=== PATIENT | male | born 1970 | race Caucasian/White ===

== ENCOUNTER → 2016-08-02 | Outpatient (CLI) | payer OTHER ==
[~2016-08-02] MED LIST: /DIVA50TA PO; /WARF25TA OR; /WARF5TA OR; ACET65TA OR; BUPIVACAINE HCL 0.25% 30 ML VIAL As Ordered ONE; CELE-19 PO; CHAN1PAK11 PO; COMBO TOP; DEPA250T32 PO; DEPA500T2 PO; DIVA50TAEC PO; FISH100049 PO; FOLI1TAB OR; HYDR-3716 PO; HYDR5TAB23 PO; ISOVUE-M 300 61% 15ML VIAL (Q9967) As Ordered ONE; KETO10TAB PO; KRIL1000 PO; LIDOCAINE 1% SDV INJ 30 ML VIAL As Ordered ONE; LISI10TA2 PO; LISI10TA4 OR; MAXA10TA14 PO; MELO15TA3 PO; MELOPOW; MORP15TA2 PO; NORCOBULK PO; OXYC10TA97 OR; OXYC1TAB16 PO; OXYC1TAB23 PO; PERC10TA17 PO; PERC5TAB8 OR; PERC7.5T8 OR; RIZA10TA4 PO; ROBA750T4 PO; SIMV20TA2 OR; SIMV40TA2 PO; SOMA350T OR; SOMA350T PO; SUMA5INJ SC; SUMA6KIT SC; TPS cream TOP; TRIAMCINOLONE ACETONIDE SUSP 40 MG/ML VIAL (J3301) As Ordered ONE; ZANA4CAP PO; ZANA4TAB PO; diazePAM 5 MG TAB As Ordered ONE; oxyCODONE 5MG TAB As Ordered ONE
--- NOTE | 2016-08-02 14:02 | REP ---
LIMITED THORACIC SPINE SERIES: Single view. HISTORY: Thoracic facet block for pain. 10 seconds of fluoroscopy time is reported. FINDINGS: A single fluoroscopically obtained intraprocedural frontal spot radiograph of the upper thoracic spine documents various needle positions and contrast injections associated with thoracic facet injection procedure. Signed by Jacobo Summers MD 08/02/2016 07:27 P
--- NOTE | 2016-08-10 02:10 | ECWPNPC ---
PATIENT NAME: HAILY WAGNER : 1970 GENDER: MALE VISIT DATE: 08/02/2016 DISCHARGE DATE: 08/02/16 1347 VISIT LOCKED DATE TIME: PHYSICIAN: CHRISTINE MCKEON RESOURCE: CHRISTINE MCKEON REASON FOR APPOINTMENT 1. CERVICAL FACET CURRENT MEDICATIONS TAKING LISINOPRIL/HCTZ 10/12.5 10/12.5MG TABLET 1 TAB ORAL DAILY, NOTES: 08-02-16899 TAKING RIZATRIPTAN BENZOATE 10 MG TABLET 1 TABLET NEEDED ONE TIME ORALLY DAILY NEEDED, NOTES: OVER A MONTHOVER A MONTH TAKING SUMATRIPTAN SUCCINATE 6 MG/0.5ML KIT DIRECTED SUBCUTANEOUS DAILY NEEDED TAKING DEPAKOTE 500 MG TABLET DELAYED RELEASE 1 TABLET IN AM, 2 TABS IN PM ORALLY TWICE A DAY, NOTES: 08-02-16899 TAKING METHOCARBAMOL 500 MG TABLET 1 TABLET ORALLY TID PRN, NOTES: 08-01-16399 TAKING ATORVASTATIN CALCIUM 40 MG TABLET 1 TABLET ORALLY ONCE A DAY, NOTES: 08-01-162129 TAKING KRILL OIL 1000 MG CAPSULE ORALLY TWICE A DAY, NOTES: 08-02-16899 NOT-TAKING KRILL OIL OMEGA-3 350 MG CAPSULE 1 CAPSULE ORALLY TWICE A DAY, NOTES: 08-02-16899 NOT-TAKING PREDNISONE 10 MG KIT ORALLY NOT-TAKING PREDNISONE (FLORENCIO) 10 MG TABLET ORALLY NOT-TAKING SIMVASTATIN 20 20MG TABLET 1 TAB ORAL DAILY NOT-TAKING CELEBREX 200 MG CAPSULE 1 CAPSULE ORALLY TWICE A DAY NOT-TAKING CYCLOBENZAPRINE HCL 10 MG TABLET 1 TABLET PRN ORALLY THREE TIMES A DAY NOT-TAKING AMOXICILLIN-POT CLAVULANATE 875-125 MG TABLET 1 TABLET ORALLY TWICE A DAY NOT-TAKING HYDROCODONE-ACETAMINOPHEN 7.5-325 MG TABLET 1 TABLET NEEDED ORALLY-PAIN CLINIC EVERY 6 HRS NOT-TAKING TERBINAFINE HCL 250 MG TABLET 1 TABLET ORALLY ONCE A DAY MEDICATION LIST REVIEWED AND RECONCILED WITH THE PATIENT PAST MEDICAL HISTORY 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 HOSPITALIZATION/MAJOR DIAGNOSTIC PROCEDURE NO HOSPITALIZATION HISTORY. VITAL SIGNS WT 183 LBS, HT 70 IN, BMI 26.25 INDEX, BP 117/79 MM HG, HR 86 /MIN, RR 16 /MIN, TEMP 96.0 F, OXYGEN SAT % 98, NA INITIALS TL 1112, REVIEWED BY: LIAN. ASSESSMENTS SPONDYLOSIS WITHOUT MYELOPATHY OR RADICULOPATHY, CERVICOTHORACIC REGION - M47.813 (PRIMARY) SPONDYLOSIS WITHOUT MYELOPATHY OR RADICULOPATHY, THORACIC REGION - M47.814 PROCEDURES PN THORACIC FACET BLOCK THERAPEUTIC PRE PROCEDURE DIAGNOSIS THORACIC SPONDYLOSIS , THORACIC FACET ARTHROPATHY POST PROCEDURE DIAGNOSIS THORACIC SPONDYLOSIS, THORACIC FACET ARTHROPATHY PROCEDURE LEFT C7-T1, LEFT T1-T2, LEFT T2-T3 THORACIC FACET THERAPEUTIC BLOCK SURGEON DR. CHRISTINE MCKEON COURTESY VAN DRIVER NONE ANESTHESIA LOCAL PRE PROCEDURE NOTE THE PATIENT WITH HISTORY OF CHRONIC THORACIC PAIN. I EVALUATED THE PATIENT AND REVIEWED THE CHART. I WENT OVER THE RISKS, ALTERNATIVES, AND BENEFITS ASSOCIATED WITH THIS PROCEDURE. THE PATIENT WOULD LIKE TO PROCEED AND GAVE CONSENT TO PERFORM THE PROCEDURE. THE PATIENT DENIES UNEXPLAINABLE WEIGHT LOSS, FEVER, CHILLS, OR NEW CHANGES IN URINARY OR BOWEL CONTROL. DESCRIPTION OF PROCEDURE THE PATIENT WAS BROUGHT TO THE PROCEDURE ROOM AND PLACED IN THE PRONE POSITION. THE THORACIC AREA WAS CLEANED WITH CHLORAPREP SOLUTION AND DRAPED ASEPTICALLY. THE PROCEDURE WAS DONE UNDER STERILE CONDITIONS. I CHECKED LATERALITY AND THE LEVEL WHERE THE PROCEDURE WAS GOING TO BE PERFORMED WITH THE PATIENT AND THE SUPPORTING STAFF AT THE MOMENT OF THE TIME OUT IN THE PROCEDURE ROOM. UNDER FLUOROSCOPIC GUIDANCE, THE TARGET POINT WAS SELECTED AT THE LEFT C7-T1, LEFT T1-T2, LEFT T2-T3 THORACIC FACET. TARGET POINT WAS SELECTED AFTER LATERAL ROTATION AND TILT OF THE MAGNIFIER OF THE C-ARM. LIDOCAINE 0.5% WAS USED TO NUMB THE SKIN AND THE SUBCUTANEOUS TISSUE BELOW IT. SPINAL NEEDLES, 22-GAUGE, WERE ADVANCED UNDER FLUOROSCOPIC GUIDANCE AND FOLLOWING PATIENT FEEDBACK UNTIL THE TARGETS WERE TOUCHED. THE POSITION OF THE NEEDLES WAS VERIFIED WITH MULTIPLE X-RAY VIEWS. AFTER PROPER POSITION OF THE NEEDLES WAS ACHIEVED, ISOVUE-M DYE 30% 0.1 ML WAS INJECTED SHOWING ADEQUATE SPREAD OF THE DYE. THEN A SOLUTION OF 0.9 ML OF BUPIVACAINE 0.125% OF KENALOG 10 MG WAS INJECTED AT EACH SITE. THERE WAS NO EVIDENCE OF BLOOD, PARESTHESIA OR CEREBROSPINAL FLUID DURING THE PROCEDURE. THE PATIENT WAS SENT TO THE RECOVERY ROOM. THE PATIENT WAS MOVING THE EXTREMITIES AND DOING WELL. THERE WAS NO COMPLICATION DURING THE PROCEDURE. FLUOROSCOPY TIME WAS 10 SECONDS POST PROCEDURE NOTE THE PATIENT WILL BE SEEN IN A FOLLOW UP IN THE NEXT FEW WEEKS. INSTRUCTIONS WERE GIVEN, QUESTIONS WERE ANSWERED, AND THE PATIENT EXPRESSED UNDERSTANDING AND AGREED WITH THE PLAN. PROCEDURE CODES 00423 INJ PARAVERT F JNT C/T 1 LEV 92280 INJ PARAVERT F JNT C/T 2 LEV 01959 INJ PARAVERT F JNT C/T 3 LEV 6045F RADXPS IN END [id number] PXD FOLLOW UP 3 WEEKS ELECTRONICALLY SIGNED BY CHRISTINE MCKEON MD ON 08/09/2016 AT 02:38 PM EST DISCLAIMER : THIS IS A VISIT SUMMARY EXTRACTED FROM THE [employer] CHART. IT IS NOT A COPY OF THE [employer] PROGRESS NOTE. MARCIE
== END ==
LOC: M PAIN 11:10
PROVIDERS: ATTEND Anesthesiology
DX: G89.29 Other chronic pain (principal); M47.813 Spondylosis without myelopathy or radiculopathy, cervicothoracic region; M47.814 Spondylosis without myelopathy or radiculopathy, thoracic region; R51 Headache; I10 Essential (primary) hypertension; E78.5 Hyperlipidemia, unspecified; M25.561 Pain in right knee; M25.562 Pain in left knee; M54.5 Low back pain; H93.19 Tinnitus, unspecified ear; G47.33 Obstructive sleep apnea (adult) (pediatric); Z88.2 Allergy status to sulfonamides; Z88.8 Allergy status to other drugs, medicaments and biological substances
CPT/HCPCS: 64490; 64491; 64492; J3301; Q9967

== ENCOUNTER → 2016-08-29 | Outpatient (CLI) | payer OTHER ==
[~2016-08-29] MED LIST changes: -BUPIVACAINE HCL 0.25% 30 ML VIAL As Ordered ONE; -ISOVUE-M 300 61% 15ML VIAL (Q9967) As Ordered ONE; -LIDOCAINE 1% SDV INJ 30 ML VIAL As Ordered ONE; -TRIAMCINOLONE ACETONIDE SUSP 40 MG/ML VIAL (J3301) As Ordered ONE; -diazePAM 5 MG TAB As Ordered ONE; -oxyCODONE 5MG TAB As Ordered ONE
--- NOTE | 2016-08-30 00:09 | ECWPNPC ---
PATIENT NAME: HAILY WAGNER : 1970 GENDER: MALE VISIT DATE: 08/29/2016 DISCHARGE DATE: 08/29/16940 VISIT LOCKED DATE TIME: PHYSICIAN: MAURICE GIFFORD RESOURCE: MAURICE GIFFORD REASON FOR APPOINTMENT 1. POST FACET HISTORY OF PRESENT ILLNESS HISTORY OF PRESENT ILLNESS: HERE FORPOST PROCEDURE F/U.HAD BILAT. THERAPEUTIC C7/T1-T1/T2-T2/T3 BLOCK ON 08-02-16.REPORTS NO RELIEF POST PROCEDURE.RECENT NCS UPPER LEFT EXTREMITY SHOWING C5/6 RADICULOPATHY.RATING PAIN VAS 8/10.REPORTING POOR SLEEP RELATED TO NECK AND LEFT ARM PAIN.DESCRIBES PAIN CONSTANT BURNING AND ACHING. PAIN THE PATIENT DESCRIBES THE PAIN... FALL RISK SCREENING: SCREENING :NO FALLS IN THE PAST YEAR CURRENT MEDICATIONS TAKING LISINOPRIL/HCTZ 10/12.5 10/12.5MG TABLET 1 TAB ORAL DAILY, NOTES: 08-02-16899 TAKING RIZATRIPTAN BENZOATE 10 MG TABLET 1 TABLET NEEDED ONE TIME ORALLY DAILY NEEDED, NOTES: OVER A MONTHOVER A MONTH TAKING SUMATRIPTAN SUCCINATE 6 MG/0.5ML KIT DIRECTED SUBCUTANEOUS DAILY NEEDED TAKING DEPAKOTE 500 MG TABLET DELAYED RELEASE 1 TABLET IN AM, 2 TABS IN PM ORALLY TWICE A DAY, NOTES: 08-02-16899 TAKING METHOCARBAMOL 500 MG TABLET 1 TABLET ORALLY TID PRN, NOTES: 08-01-16 0400 TAKING ATORVASTATIN CALCIUM 40 MG TABLET 1 TABLET ORALLY ONCE A DAY, NOTES: 08-01-162129 TAKING KRILL OIL 1000 MG CAPSULE ORALLY TWICE A DAY, NOTES: 08-02-16899 NOT-TAKING KRILL OIL OMEGA-3 350 MG CAPSULE 1 CAPSULE ORALLY TWICE A DAY, NOTES: 08-02-16899 NOT-TAKING PREDNISONE 10 MG KIT ORALLY NOT-TAKING PREDNISONE (FLORENCIO) 10 MG TABLET ORALLY NOT-TAKING SIMVASTATIN 20 20MG TABLET 1 TAB ORAL DAILY NOT-TAKING CELEBREX 200 MG CAPSULE 1 CAPSULE ORALLY TWICE A DAY NOT-TAKING CYCLOBENZAPRINE HCL 10 MG TABLET 1 TABLET PRN ORALLY THREE TIMES A DAY NOT-TAKING AMOXICILLIN-POT CLAVULANATE 875-125 MG TABLET 1 TABLET ORALLY TWICE A DAY NOT-TAKING HYDROCODONE-ACETAMINOPHEN 7.5-325 MG TABLET 1 TABLET NEEDED ORALLY-PAIN CLINIC EVERY 6 HRS NOT-TAKING TERBINAFINE HCL 250 MG TABLET 1 TABLET ORALLY ONCE A DAY MEDICATION LIST REVIEWED AND RECONCILED WITH THE PATIENT PAST MEDICAL HISTORY 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 NEW PATIENT PAIN DIARY TODAY'S VISITNOTES FROM 0-10, WHAT LEVEL IS YOUR PAIN TODAY?0 PAIN CLINIC PFS, CLERGY, PUBLIC HEALTH REFERRALS PFS REFERRAL NEEDED?NO CLERGY REFERRAL NEEDED?NO PUBLIC HEALTH REFERRAL NEEDED?NO WAS THE PROVIDER NOTIFIED OF ANY PERTINENT INFO?NO PFS REFERRAL NEEDED?NO CLERGY REFERRAL NEEDED?NO PUBLIC HEALTH REFERRAL NEEDED?NO WAS THE PROVIDER NOTIFIED OF ANY PERTINENT INFO?NO REVIEW OF SYSTEMS CONSTITUTIONAL: ANY CHANGE IN YOUR MEDICAL CONDITION? NO . RECENT ILLNESS DENIES . CHILLS NO . FEVER NO . WEIGHT LOSS DENIES . INFECTION: DO YOU HAVE NEW INFECTIONS? NO . DO YOU HAVE HISTORY OF MRSA? NO . MUSCULOSKELETAL: ANY NEW PATTERNS OF PAIN OR NUMBNESS? NO . GASTROENTEROLOGY: ANY NEW CHANGE IN BOWEL CONTROL? NO . GENITOURINARY: ANY NEW CHANGE IN BLADDER CONTROL? NO . IS THERE A CHANCE YOU COULD BE ? NO . HEMATOLOGY/LYMPH: DO YOU TAKE ANY BLOOD THINNERS? (FOR EXAMPLE- COUMADIN, PLAVIX, AGGRENOX, PLATEL, PRADAXA, OR XARELTO) NO . WHEN WAS YOUR LAST DOSE? DATE: TIME: . NEUROLOGY: HAVE YOU FALLEN IN THE PAST 6 MONTHS? YES, ON ICE APPROX. 1 MONTH AGO--NO INJURY . ANY NEW EXTREMITY NUMBNESS OR WEAKNESS? NO . CARDIOLOGY: DO YOU HAVE A PACEMAKER OR DEFIBRILLATOR? NO . CHEST PAIN DENIES . SHORTNESS OF BREATH DENIES . RESPIRATORY: HAVE YOU BEEN SICK IN THE PAST WEEK? NO . FEVER NO . FLU LIKE SYMPTOMS? NO . COUGH NO, DENIES . SHORTNESS OF BREATH DENIES . INTEGUMENTARY: DO YOU HAVE ANY RASHES OR OPEN SORES? NO . ALLERGIC/IMMUNO: ARE YOU ALLERGIC TO SHELLFISH OR IV DYE? NO . ANY NEW ALLERGIES? NO . PSYCHIATRIC: DO YOU HAVE THOUGHTS OF HURTING YOURSELF OR SOMEONE ELSE? NO . ARE YOU ABUSED, NEGLECTED, OR IN AN UNSAFE ENVIRONMENT? NO . ENDOCRINOLOGY: ARE YOU DIABETIC? NO . OTHER: DO YOU NEED ANY PRESCRIPTIONS? NO . IF YES, PLEASE LIST: ____ . ANY NEW PROBLEMS WITH YOUR MEDICATIONS? NO . WHEN DID YOU LAST EAT? ____ . WHEN DID YOU LAST DRINK? ____ . WHAT DID YOU LAST DRINK? ____ . NAME OF PERSON DRIVING YOU HOME? ____ . DO YOU HAVE ANY OTHER QUESTIONS OR CONCERNS YES, ONLY ONE DAY RELIEF FROM CERVICAL FACET BLOCK. . REVIEWED BY: PROVIDER: MAURICE GILLIS . VITAL SIGNS WT 184 LBS, HT 70 IN, BMI 26.40 INDEX, BP 140/83 MM HG, HR 83 /MIN, RR 16 /MIN, TEMP 98 F, OXYGEN SAT % 96, REVIEWED BY: AD. EXAMINATION GENERAL EXAMINATION: LUNGS:LUNG SOUNDS ARE CLEAR. HEART:HEART RATE REGULAR. MUSCULOSKELETAL:*, MUSCLE STRENGTH TESTING 5/5 RIGHT ARM-3/5 LEFT ARM., PALPATION: POSITIVE FOR PAIN OVER CERVICAL SPINE. POSITIVE FOR PAIN OVER CERVICAL PARASPINALS L>R.. DIAGNOSTIC:CT CERVICAL [id number]-CERVICAL SPONDYLOSIS C2/3-C6/7.. 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 FDA CONCERNS AND WARNING WERE REVIEWED INCLUDING THE RISK OF BLEEDING, RISK OF INFECTION, RISK OF INCREASED PAIN OR NEURALGIA, AND RISK OF PARALYSIS. PATIENT'S QUESTIONS WERE ANSWERED AND HE/SHE WISHES TO MOVE FORWARD WITH EPIDURAL INJECTION. PREVENTIVE MEDICINE PAIN CLINIC TEACHING: PROCEDURE TEACHING PATIENT DECLINED PRINTED INFORMATION ON CERVICAL EPIDURAL. . MEDITATION PATIENT DECLINED PRINTED INFORMATION ON SOMA STATING HE HAS BEEN ON THIS BEFORE.. PROCEDURE CODES FA211 ESTABILISHED PATIENT [facility] CHARGE FOLLOW UP 2 WEEKS F/U POST (REASON: BREEZY) ELECTRONICALLY SIGNED BY CARLIN FORMAN ON 08/29/2016 AT 09:44 AM EST DISCLAIMER : THIS IS A VISIT SUMMARY EXTRACTED FROM THE [employer] CHART. IT IS NOT A COPY OF THE [employer] PROGRESS NOTE. MARCIE
== END ==
LOC: M PAIN 08:40
PROVIDERS: ATTEND Nurse Practitioner Family
DX: Z09 Encounter for follow-up examination after completed treatment for conditions other than malignant neoplasm (principal); G89.29 Other chronic pain; M47.22 Other spondylosis with radiculopathy, cervical region; R51 Headache; I10 Essential (primary) hypertension; E78.5 Hyperlipidemia, unspecified; G47.30 Sleep apnea, unspecified; Z79.899 Other long term (current) drug therapy; Z88.2 Allergy status to sulfonamides; Z88.5 Allergy status to narcotic agent; Z88.1 Allergy status to other antibiotic agents
CPT/HCPCS: 72052; 72114; G0463

== ENCOUNTER → 2016-08-29 | Outpatient (CLI) | payer OTHER ==
--- NOTE | 2016-08-30 02:51 | REP ---
Clinical: Spondylosis . Technique: AP, lateral, flexion/extension, bilateral oblique, and open-mouth views. Findings: Straightening of normal lordosis noted. Alignment is maintained. There is no evidence for acute fracture / compression injury or subluxation. Minimal endplate sclerosis and anterior spurring noted at the C5-6 and C6-7 levels. Oblique views demonstrate patent neural foramen. Open mouth view demonstrates normal C1-C2 articulation and odontoid process. Impression: Straightening of normal lordosis may be chronic. Minimal degenerative changes at the C5-6 and C6-7 levels. Signed by Kin Luna MD 08/30/2016 02:43 A
--- NOTE | 2016-08-30 03:02 | REP ---
Clinical: Spondylosis. Technique: AP, lateral, flexion/extension, bilateral oblique, and coned-down views. Findings: Alignment and lordosis is maintained. Epidural stimulator device noted terminating at the thoracic level. The vertebral bodies including transverse process and spinous processes are intact and normal. There is no evidence for acute fracture / compression injury or subluxation. No evidence for spondylolysis or spondylolisthesis. Mild age-related changes are suggested without overt degenerative discogenic changes appreciated. Impression: Age-related changes. Signed by Kin Luna MD 08/30/2016 02:53 A
== END ==
LOC: M LAB 10:22
PROVIDERS: ATTEND Neurological Surgery
DX: M47.12 Other spondylosis with myelopathy, cervical region (principal); M50.322 Other cervical disc degeneration at C5-C6 level; M50.323 Other cervical disc degeneration at C6-C7 level
CPT/HCPCS: 72052; 72114; G0463

== ENCOUNTER → 2016-09-24 | Outpatient (REF) | payer OTHER | LOC: M LAB REF 16:22 | PROVIDERS: ATTEND Neurological Surgery | DX: Z01.812 Encounter for preprocedural laboratory examination (principal) ==

== ENCOUNTER → 2016-09-25 | Outpatient (CLI) | payer OTHER ==
[2016-09-25 14:32] LABS: INR 1.03
[2016-09-25 14:50] LABS: BASO % 0.4 % (0.0-1.0); EOS # 0.1 K/mm3 (0.0-0.50); EOS % 1.1 % (0.0-3.0); LARGE UNSTAINED CELL # 0.1 K/mm3 (0.0-0.4); LARGE UNSTAINED CELL % 1.3 % (0.0-4.0); LYMPH # 1.3 K/mm3 (1.5-4.5); LYMPH % 20.6 % (24.0-44.0); MEAN CORPUSCULAR HEMOGLOBIN 28.6 pg (27.0-33.0); MEAN CORPUSCULAR HGB CONC 33.2 g/dl (32.0-36.5); MEAN CORPUSCULAR VOLUME 86.2 fl (80.0-96.0); MONO # 0.4 K/mm3 (0.0-0.8); MONO % 6.9 % (0.0-5.0); NEUTROPHILS # 4.2 K/mm3 (1.8-7.7); NEUTROPHILS % 69.6 % (36.0-66.0); PLATELET COUNT, AUTOMATED 335 k/mm3 (150-450); RED CELL DISTRIBUTION WIDTH 13.4 % (11.5-14.5); WHITE BLOOD COUNT 6.1 K/mm3 (4.0-10.0)
[2016-09-25 14:58] LABS: ALBUMIN 4.2 GM/DL (3.2-5.2); ALBUMIN/GLOBULIN RATIO 1.35 (1.00-1.93); ALKALINE PHOSPHATASE 55 U/L (45-117); ALT/SGPT 48 U/L (12-78); ANION GAP 8 MEQ/L (8-16); AST/SGOT 21 U/L (15-37); BILIRUBIN,TOTAL 0.4 MG/DL (0.2-1.0); BLOOD UREA NITROGEN 12 MG/DL (7-18); CALCIUM LEVEL 9.3 MG/DL (8.5-10.1); CARBON DIOXIDE LEVEL 30 MEQ/L (21-32); CHLORIDE LEVEL 105 MEQ/L (98-107); CREATININE FOR GFR 1.11 MG/DL (0.70-1.30); GLOMERULAR FILTRATION RATE > 60.0 (>60); GLUCOSE, FASTING 98 MG/DL (70-105); POTASSIUM SERUM 4.4 MEQ/L (3.5-5.1); SODIUM LEVEL 143 MEQ/L (136-145); TOTAL PROTEIN 7.3 GM/DL (6.4-8.2)
--- NOTE | 2016-09-25 15:08 | REP ---
Chest two views HISTORY: Preop Comparison: 12/01/2014 The lungs are clear. The heart is normal in size. The pulmonary vasculature is normal in appearance. The bony structure is intact. A dorsal column stimulator is present in the spinal canal at the T7-8 level. IMPRESSION: No acute disease. Signed by David Cox MD 09/25/2016 03:00 P
--- NOTE | 2016-09-25 21:24 | ECGEPIP ---
Stationary ECG Study [facility] Test Date: 2016-09-25 Pat Name: HAILY WAGNER Department: Room: - Gender: M Nurse Manager: ALICE : 1970 Requested By: ZULEMA Hathaway Order Number: [id number] Reading MD: Angel Price Measurements Intervals [place] Rate: 67 P: 26 CA: 116 QRS: 32 QRSD: 101 T: 12 QT: 385 QTc: 406 Interpretive Statements SINUS RHYTHM WITH SHORT CA INTERVAL Electronically Signed On 09-25-2016 21:24:01 EST by Angel Price
== END ==
LOC: M LAB 12:56
PROVIDERS: ATTEND Neurological Surgery
DX: Z01.818 Encounter for other preprocedural examination (principal); M47.12 Other spondylosis with myelopathy, cervical region

== ENCOUNTER → 2016-10-17 | Outpatient (CLI) | payer OTHER ==
[~2016-10-17] MED LIST changes: +ATOR40TA PO; +ISOVUE-M 300 61% 15ML VIAL (Q9967) As Ordered ONE
--- NOTE | 2016-10-17 10:03 | REP ---
CT CERVICAL SPINE WITHOUT CONTRAST: HISTORY: Radiculopathy. COMPARISON: 07/05/2016 CT of the cervical spine was performed status post myelography. Disc bulges are present at the C2-3 through C6-7 levels. There is minimal effacement of the thecal sac without spinal cord compression. Uncinate process hypertrophy is present at the C6-7 level. This produces moderate and mild narrowing of the right and left C6 neural foramina respectively. The remaining neural foramina are patent. The C5-6 and C6-7 intervertebral discs are decreased in height consistent with disc degeneration. The vertebral bodies are normal in height. There is no subluxation. IMPRESSION: There is cervical spondylosis at the C2-3 through C6-7 levels without spinal cord compression. Signed by David Cox MD 10/17/2016 10:04 A
--- NOTE | 2016-10-17 16:02 | REP ---
CERVICAL MYELOGRAM INJECTION: The procedure was performed under the personal supervision of Dr. Cox. The risks and benefits of the procedure were explained to the patient and informed consent was obtained. The L3-4 interspace was localized using fluoroscopic guidance. The skin was prepped and draped in a sterile fashion. 1% lidocaine was used as a local anesthetic. Using fluoroscopic guidance a 22 gauge spinal needle was inserted and advanced into the thecal sac. 10 mL of Isovue M 300 was injected. The table was then tipped Trendelenburg and the contrast was allowed to flow up into the cervical spine. The patient was then taken to CAT scan for post procedural imaging. The patient tolerated the procedure well and there were no immediate complications. After the appropriate amount of monitored convalescence the patient was discharged from the department. 37 seconds of fluoroscopy time was utilized for this procedure. Reviewed by SHARON Nascimento 10/17/2016 04:26 PEdited and Signed by David Cox MD 10/17/2016 04:52 P
== END ==
LOC: M RADPRO 08:32
PROVIDERS: ATTEND Neurological Surgery
DX: M47.12 Other spondylosis with myelopathy, cervical region (principal); I10 Essential (primary) hypertension; E78.5 Hyperlipidemia, unspecified; G47.30 Sleep apnea, unspecified; Z88.2 Allergy status to sulfonamides; Z88.8 Allergy status to other drugs, medicaments and biological substances; Z88.1 Allergy status to other antibiotic agents; Z79.899 Other long term (current) drug therapy
CPT/HCPCS: 62302; 72125; Q9967

== ENCOUNTER → 2016-11-25 | Outpatient (CLI) | payer OTHER ==
[~2016-11-25] MED LIST changes: -ISOVUE-M 300 61% 15ML VIAL (Q9967) As Ordered ONE
[2016-11-25 14:36] LABS: MICROSCOPIC INDICATED? MAN NO (NO)
[2016-11-25 14:41] LABS: INR 0.94
[2016-11-25 14:57] LABS: MEAN CORPUSCULAR HEMOGLOBIN 29.1 pg (27.0-33.0); MEAN CORPUSCULAR HGB CONC 33.5 g/dl (32.0-36.5); MEAN CORPUSCULAR VOLUME 86.7 fl (80.0-96.0); RED CELL DISTRIBUTION WIDTH 12.9 % (11.5-14.5); WHITE BLOOD COUNT 4.2 K/mm3 (4.0-10.0)
[2016-11-25 15:15] LABS: ALBUMIN 3.7 GM/DL (3.2-5.2); ALBUMIN/GLOBULIN RATIO 1.19 (1.00-1.93); ALKALINE PHOSPHATASE 60 U/L (45-117); ALT/SGPT 17 U/L (12-78); ANION GAP 5 MEQ/L (8-16); AST/SGOT 18 U/L (15-37); BILIRUBIN,TOTAL 0.2 MG/DL (0.2-1.0); BLOOD UREA NITROGEN 8 MG/DL (7-18); CALCIUM LEVEL 8.7 MG/DL (8.5-10.1); CARBON DIOXIDE LEVEL 31 MEQ/L (21-32); CHLORIDE LEVEL 102 MEQ/L (98-107); CREATININE FOR GFR 1.12 MG/DL (0.70-1.30); GLOMERULAR FILTRATION RATE > 60.0 (>60); GLUCOSE, FASTING 106 MG/DL (70-105); POTASSIUM SERUM 4.6 MEQ/L (3.5-5.1); SODIUM LEVEL 138 MEQ/L (136-145); TOTAL PROTEIN 6.8 GM/DL (6.4-8.2)
[2016-11-25 15:49] LABS: BANDS 2 % (< 11); BASOPHILS 3 % (0-4); EOSINOPHILS 2 % (0-5)
[2016-11-25 15:50] LABS: ANISOCYTOSIS 1+
== END ==
LOC: M LAB 13:17
PROVIDERS: ATTEND Neurological Surgery
DX: Z01.812 Encounter for preprocedural laboratory examination (principal)

== ENCOUNTER 2016-12-12 08:53 | Day surgery (SDC) | payer OTHER ==
[~2016-12-12] VITALS: Ht 177.8 cm; Wt 81.6 kg
[~2016-12-12 08:53] MED LIST changes: +VITA1CAP2 PO
[2016-12-12] MEDS ORDERED: LR 1,000 ML IV ONE (09:00)
[2016-12-12] MEDS ORDERED: dexameTHASONE 4 MG/ML 1ML VIAL (J1100) IV ONE (09:15)
[2016-12-12] MEDS ORDERED: ALBU17IN PO (10:02)
[2016-12-12] MEDS ORDERED: ROCURONIUM BROMIDE 50 MG/5 ML VIAL As Ordered ONE (10:57)
[2016-12-12] MEDS ORDERED: LIDOCAINE 2% INJ 100 MG/5 ML SDV (FOR ANES.) As Ordered ONE (10:57)
[2016-12-12] MEDS ORDERED: PROPOFOL 200 MG/20 ML VIAL As Ordered ONE ×5 (10:57→14:16)
[2016-12-12] MEDS ORDERED: dexameTHASONE 4 MG/ML 1ML VIAL (J1100) As Ordered ONE (10:57)
[2016-12-12] MEDS ORDERED: REMIFENTANIL 1MG 3ML VIAL As Ordered ONE ×2 (10:58→14:34)
[2016-12-12] MEDS ORDERED: MIDAZOLAM INJ 2 MG/2 ML VIAL (J2250) As Ordered ONE ×2 (10:58→11:35)
[2016-12-12] MEDS ORDERED: fentaNYL 250 MCG/5 ML INJECTION (J3010) As Ordered ONE (10:58)
[2016-12-12] MEDS ORDERED: THROMBIN SOLN 20,000 UNITS KIT As Ordered ONE (11:08)
[2016-12-12] MEDS ORDERED: methylPREDNISolone SUSP 40 MG/ML (DEPO-medrol) VIAL (J1030) As Ordered ONE (11:08)
[2016-12-12] MEDS ORDERED: BACITRACIN PWD 50,000 UNITS VIAL As Ordered ONE (11:08)
[2016-12-12] MEDS ORDERED: ONDANSETRON 4MG/2ML VIAL (J2405) As Ordered ONE (13:12)
[2016-12-12] MEDS ORDERED: GLYCOPYRROLATE INJ 0.2 MG/ML 2 ML VIAL As Ordered ONE ×2 (13:12→15:00)
[2016-12-12] MEDS ORDERED: NEOSTIGMINE 1MG/ML 5 ML SYRINGE (J2710) As Ordered ONE ×2 (13:12→15:00)
[2016-12-12] MEDS ORDERED: HYDROmorphone HCL 2 MG/ML 1ML VIAL (J1170) As Ordered ONE (13:42)
--- NOTE | 2016-12-12 15:16 | REP ---
Clinical: Cervical spondylosis. Technique: Portable cross-table intraoperative images. Findings: First image demonstrates a probe via anterior approach at the C5-6 disc level. Second image demonstrates anterior fixation at the C6-7 level. Normal alignment maintained. Impression: Status post anterior fusion at the C6-7 level Signed by Kin Luna MD 12/12/2016 03:08 P
[2016-12-12] MEDS ORDERED: HYDROmorphone HCL 1 MG/ML SYRINGE (J1170) As Ordered ONE (15:46)
[2016-12-12] MEDS: HYDROmorphone HCL 1 MG/ML SYRINGE (J1170) IV PRN ×5 (15:46→16:10)
[2016-12-12] MEDS ORDERED: PERCOCET 5MG/325MG TAB As Ordered ONE (16:05)
[2016-12-12] MEDS: PERCOCET 5MG/325MG TAB PO PRN ×2 (16:08→16:28)
[2016-12-12] MEDS ORDERED: fentaNYL 100 MCG/2 ML INJECTION (J3010) IV PRN (16:15)
[2016-12-12] MEDS ORDERED: ACETAMINOPHEN TAB 650MG DOSE (2X325MG) PO PRN (16:15)
[2016-12-12] MEDS ORDERED: NORCO, ANEXSIA 5/325MG TABLET (HYDROcodone/ACETAMINOPHEN) PO PRN (16:15)
[2016-12-12] MEDS ORDERED: ONDANSETRON 4MG/2ML VIAL (J2405) IV PRN ×2 (16:15)
[2016-12-12] MEDS ORDERED: LR 1,000 ML IV SCH (16:15)
[2016-12-12 17:00] VITALS: BP 151/74
[2016-12-12 17:30] VITALS: BP 128/84
[2016-12-12 18:30] VITALS: BP 123/79
[2016-12-12] MEDS: MORPHINE 2 MG/ML 1ML SYRINGE IV PRN ×2 (18:47→23:18)
[2016-12-12] MEDS: ceFAZolin SOD 1 GM in D5W MINI-BAG PLUS 50 ML IV SCH ×2 (18:47→23:13)
[2016-12-12] MEDS: KCL 20MEQ IN D5/0.45NS 1000ML 1,000 ML IV SCH (18:47)
[2016-12-12 19:30] VITALS: BP 138/76
[2016-12-12 20:30] VITALS: BP 132/64
[2016-12-12] MEDS: NORCO, ANEXSIA 5/325MG TABLET (HYDROcodone/ACETAMINOPHEN) PO PRN (21:03)
[2016-12-12 21:30] VITALS: BP 115/72
--- NOTE | 2016-12-12 23:48 | RO ---
DATE OF PROCEDURE: 12/12/2016 PREPROCEDURE DIAGNOSIS: Cervical spondylosis with radiculopathy. POSTPROCEDURE DIAGNOSIS: Cervical spondylosis with radiculopathy. PROCEDURE: Partial corpectomy C6-C7, discectomy, arthrodesis using allograft and internal stabilization utilizing Uniplating system. SURGEON: Dr. Maribel Ponce RAIL LOADER: None. ANESTHESIA: General. FINDINGS: Please see my office notes for detailed preoperative evaluation and discussions. Patient with severe and relentless pain in her neck and left upper extremity, primarily along C7-C8 distribution. The patient's workup showed spondylitic changes with canal and foraminal stenosis, particularly at C6-C7. His EMG/nerve conduction studies also reported pertinent radicular changes. The patient was seen in the preoperative area along with his . The patient and his were aware of all options, scope, expected outcome, sequelae and all possible complications of proposed salvage surgery. They understood the risk of surgery includes, but not limited to , quadriplegia, paralysis, persistence or worsening of symptoms, and/or deficits, failure of surgery, fusion and/or hardware, need for multiple surgeries, pulmonary embolus (PE), deep vein thrombosis (DVT), myocardial infarction ([place]), loss of vital bodily functions, cerebrovascular accident, Magali's syndrome, pneumothorax, mediastinitis, loss of swallowing and voice, and/or any catastrophic sequelae. The patient once again reiterated that there is no way he can live with his pain and symptoms and is willing to take any or all risks for any possible benefit. After all matters pertaining to surgery, anesthesia and followup care had been discussed with him again and with his , he wished to proceed with surgery. DESCRIPTION OF PROCEDURE: Once in the operating room, general endotracheal anesthesia was given by the anesthesia service. The area of surgery was prepped and draped in the usual sterile fashion. After adequate prep and drape, a transverse skin incision was given about an inch and a half or so just beneath the cricoid cartilage. The alveolar layer was reached and incised. Cut edges of blood vessels were coagulated with bipolar cautery. Platysma was opened in the direction of fibers. A cleavage was created between the medial border of the sternocleidomastoid and the carotid sheath laterally, and trachea, esophagus and omohyoid muscle medially. Prevertebral fascia was reached and opened. Longus colli muscles were from the expected C6-C7 level, which was confirmed on perioperative x-rays. At this time, using a high speed air drill, anterior osteophytes were removed to gain more visual access of the of the disc space, which was then opened and degenerative disc material was removed. Two Cheraw pins were applied and gentle distraction was held. The longus colli muscles were held apart with the help of self-retaining retractors. There was considerable spondylotic changes with osteophyte and bulging disc in the canal causing canal stenosis and foraminal stenosis, which was worse on the left. Partial corpectomies were done to further increase the external decompression. Complete decompression of the thecal sac, the spinal cord and proximal portion of both the nerves roots appeared to have taken place. Hemostasis was checked and secured. There was no blood in the container, and at this time, a 7 x 14 x 23 mm of tricortical allograft bone plug was snugly placed in the vertebral defect. At this time, a 16 mm Uniplating system was used to cause internal stabilization, which was anchored at C6 and C7 and tightened. The lock and screws were tightened as well. Perioperative x-rays were done, which appeared acceptable, though the inferior screw was not seen on account of shoulder density. Followup x-rays will be repeated. The patient tolerated the procedure well. Operative findings were discussed with the patient's in the waiting room. At the time of dictation, in the recovery room, the patient was awake and alert and without any obvious deficits and denied any symptoms. Copies To: Dr. Cintron Patient's primary care provider
[2016-12-13] MEDS: KCL 20MEQ IN D5/0.45NS 1000ML 1,000 ML IV SCH (00:35)
[2016-12-13] MEDS: NORCO, ANEXSIA 5/325MG TABLET (HYDROcodone/ACETAMINOPHEN) PO PRN ×3 (01:12→12:13)
[2016-12-13 02:00] VITALS: O2SAT 99
[2016-12-13] MEDS: MORPHINE 2 MG/ML 1ML SYRINGE IV PRN ×2 (03:24→08:29)
[2016-12-13 06:00] VITALS: BP 127/69
[2016-12-13] MEDS: ceFAZolin SOD 1 GM in D5W MINI-BAG PLUS 50 ML IV SCH ×2 (06:18→12:10)
--- NOTE | 2016-12-13 09:12 | REP ---
Partial cervical spine series: Three views. History: Postop. Findings: There is straightening of the normal cervical lordosis. A ventral discectomy and fusion plate has been placed across the C6-7 disc level in good position. No other abnormality. Signed by Jacobo Summers MD 12/13/2016 12:30 P
[2016-12-13 10:00] VITALS: BP 114/65
[2016-12-13] MEDS ORDERED: NORC1TAB4 PO (13:16)
[2016-12-13] MEDS ORDERED: CIPR-250 PO (13:16)
== END 2016-12-13 14:15 | disposition home or self-care (01) ==
LOC: M SDC 08:53 → M MS5PR 16:50 → M SDC 12-13 14:15
PROVIDERS: ATTEND Neurological Surgery
DX: M47.22 Other spondylosis with radiculopathy, cervical region (principal); I10 Essential (primary) hypertension; E78.5 Hyperlipidemia, unspecified; G47.30 Sleep apnea, unspecified; Z79.899 Other long term (current) drug therapy; Z88.2 Allergy status to sulfonamides; Z88.8 Allergy status to other drugs, medicaments and biological substances
CPT/HCPCS: 20931; 22551; 22845; 72040; 72052; 88304; 96374; 96375; 96376; C1762; C1821; J0690; J1030; J1100; J1170; J2250; J2405; J2710; J3010

== ENCOUNTER → 2017-01-14 | Outpatient (CLI) | payer OTHER ==
[~2017-01-14] MED LIST changes: +ALBU17IN PO; -ATOR40TA PO; +ATOR40TA75 PO; -CELE-19 PO; +CELE1CAP4 PO; +CIPR-250 PO; +NORC1TAB4 PO; -PERC10TA17 PO; +PERC10TA26 PO
--- NOTE | 2017-01-24 15:08 | REP ---
Clinical: Radiculopathy. Comparison: 12/13/2016 . Technique: AP, lateral, flexion/extension, bilateral oblique, and open-mouth views. Findings: Alignment is maintained. The patient is status post anterior fusion at the C6-7 level which remain stable. There is no evidence for acute fracture / compression injury or subluxation. No significant degenerative changes are appreciated. Oblique views demonstrate patent neural foramen. Open mouth view demonstrates normal C1-C2 articulation and odontoid process. Impression: No change from prior examination. Prior anterior fixation at the C6-7 level stable. Signed by Kin Luna MD 01/15/2017 02:32 A
== END ==
LOC: M RAD 12:24
PROVIDERS: ATTEND Neurological Surgery
DX: M47.22 Other spondylosis with radiculopathy, cervical region (principal); Z98.1 Arthrodesis status

== ENCOUNTER → 2017-02-06 | Outpatient (CLI) | payer OTHER ==
--- NOTE | 2017-02-07 06:32 | REP ---
Clinical: Spondylosis. Technique: AP, lateral, open mouth views of the cervical spine. Comparison: CT dated 10/17/2016. Findings: Alignment is maintained. The patient is status post anterior fusion at the C6-7 level. Open mouth view demonstrates normal C1-C2 articulation and odontoid process. Prevertebral and paravertebral soft tissues appear normal. Impression: Status post anterior fusion. Stable/normal examination. Signed by Kin Luna MD 02/07/2017 03:22 A
== END ==
LOC: M RAD 13:05
PROVIDERS: ATTEND Physician Assistant
DX: M47.892 Other spondylosis, cervical region (principal); Z98.1 Arthrodesis status

== ENCOUNTER → 2017-04-17 | Outpatient (CLI) | payer OTHER ==
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
== END ==
LOC: M PAIN 10:15
PROVIDERS: ATTEND Nurse Practitioner Family
DX: M47.22 Other spondylosis with radiculopathy, cervical region (principal); I10 Essential (primary) hypertension; E78.2 Mixed hyperlipidemia; G89.29 Other chronic pain; Z79.899 Other long term (current) drug therapy; Z88.2 Allergy status to sulfonamides; Z88.1 Allergy status to other antibiotic agents; Z88.8 Allergy status to other drugs, medicaments and biological substances

== ENCOUNTER → 2017-05-06 | Outpatient (CLI) | payer OTHER ==
[~2017-05-06] MED LIST changes: +BUPIVACAINE HCL 0.25% 10 ML VIAL As Ordered ONE; +BUPIVACAINE HCL 0.25% 30 ML VIAL As Ordered ONE; +TRIAMCINOLONE ACETONIDE SUSP 40 MG/ML VIAL (J3301) As Ordered ONE; +diazePAM 5 MG TAB As Ordered ONE; +oxyCODONE 5MG TAB As Ordered ONE
--- NOTE | 2017-05-07 23:51 | ECWPNPC ---
PATIENT NAME: HAILY WAGNER : 1970 GENDER: MALE VISIT DATE: 05/06/2017 DISCHARGE DATE: 05/06/17 1641 VISIT LOCKED DATE TIME: PHYSICIAN: CHRISTINE MCKEON RESOURCE: CHRISTINE MCKEON REASON FOR APPOINTMENT 1. TPI HISTORY OF PRESENT ILLNESS HISTORY OF PRESENT ILLNESS: PAIN THE PATIENT DESCRIBES THE PAIN... FALL RISK SCREENING: SCREENING :NO FALLS IN THE PAST YEAR CURRENT MEDICATIONS TAKING LISINOPRIL/HCTZ 10/12.5 10/12.5MG TABLET 1 TAB ORAL DAILY, NOTES: 05/06/17 1000 TAKING RIZATRIPTAN BENZOATE 10 MG TABLET 1 TABLET NEEDED ONE TIME ORALLY DAILY NEEDED, NOTES: > 1 MONTH TAKING SUMATRIPTAN SUCCINATE 6 MG/0.5ML KIT DIRECTED SUBCUTANEOUS DAILY NEEDED, NOTES: LAST WEEK TAKING DEPAKOTE 500 MG TABLET DELAYED RELEASE 1 TABLET IN AM, 2 TABS IN PM ORALLY TWICE A DAY, NOTES: 05/06/17 1000 TAKING ATORVASTATIN CALCIUM 40 MG TABLET 1 TABLET ORALLY ONCE A DAY, NOTES: 05/05/172129 TAKING VENTOLIN HFA 108 (90 BASE) MCG/ACT AEROSOL SOLUTION 2 PUFFS INHALATION EVERY 4-6 HRS, NOTES: > 2 WEEKS TAKING KRILL OIL 1000 MG CAPSULE ORALLY BID, NOTES: 05/06/17 1000 TAKING TIZANIDINE HCL 6 MG CAPSULE 1 CAPSULE NEEDED ORALLY Q8H PRN FOR SEVERE EPISODES ONLY, NOTES: 05/05/17 2000 TAKING PERCOCET 7.5-325 MG TABLET 1 TABLET NEEDED ORALLY Q8H PRN MDD3 FOR SEVERE PAIN EPISODES MDD3, NOTES: 05/05/17 1600 MEDICATION LIST REVIEWED AND RECONCILED WITH THE PATIENT PAST MEDICAL HISTORY 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 CONSTITUTIONAL: ANY CHANGE IN YOUR MEDICAL CONDITION? NO . CHILLS NO . FEVER NO . INFECTION: DO YOU HAVE NEW INFECTIONS? NO . DO YOU HAVE HISTORY OF MRSA? NO . MUSCULOSKELETAL: ANY NEW PATTERNS OF PAIN OR NUMBNESS? NO . GASTROENTEROLOGY: ANY NEW CHANGE IN BOWEL CONTROL? NO . GENITOURINARY: ANY NEW CHANGE IN BLADDER CONTROL? NO . IS THERE A CHANCE YOU COULD BE ? NO . HEMATOLOGY/LYMPH: DO YOU TAKE ANY BLOOD THINNERS? (FOR EXAMPLE- COUMADIN, PLAVIX, AGGRENOX, PLATEL, PRADAXA, OR XARELTO) NO . WHEN WAS YOUR LAST DOSE? DATE: TIME: . NEUROLOGY: HAVE YOU FALLEN IN THE PAST 6 MONTHS? NO . ANY NEW EXTREMITY NUMBNESS OR WEAKNESS? NO . CARDIOLOGY: DO YOU HAVE A PACEMAKER OR DEFIBRILLATOR? NO . RESPIRATORY: HAVE YOU BEEN SICK IN THE PAST WEEK? NO . FEVER NO . FLU LIKE SYMPTOMS? NO . COUGH NO . INTEGUMENTARY: DO YOU HAVE ANY RASHES OR OPEN SORES? NO . ALLERGIC/IMMUNO: ARE YOU ALLERGIC TO SHELLFISH OR IV DYE? NO . ANY NEW ALLERGIES? NO . PSYCHIATRIC: DO YOU HAVE THOUGHTS OF HURTING YOURSELF OR SOMEONE ELSE? NO . ARE YOU ABUSED, NEGLECTED, OR IN AN UNSAFE ENVIRONMENT? NO . ENDOCRINOLOGY: ARE YOU DIABETIC? NO . OTHER: DO YOU NEED ANY PRESCRIPTIONS? YES . IF YES, PLEASE LIST: TIZANIDINE . ANY NEW PROBLEMS WITH YOUR MEDICATIONS? NO . WHEN DID YOU LAST EAT? 0530 . WHEN DID YOU LAST DRINK? 1030 . WHAT DID YOU LAST DRINK? 7-UP . NAME OF PERSON DRIVING YOU HOME? DANA . DO YOU HAVE ANY OTHER QUESTIONS OR CONCERNS NO . VITAL SIGNS WT 196 LBS, HT 70 IN, BMI 28.12 INDEX, BP 124/88 MM HG, HR 96 /MIN, RR 18 /MIN, TEMP 98.8 F, OXYGEN SAT % 98%, NA INITIALS SC 14:21, REVIEWED BY: LAS. JEFF MYALGIA - M79.1 (PRIMARY) PROCEDURES PN TRIGGER POINT INJECTION WITH STEROIDS PRE PROCEDURE DIAGNOSIS 1. MYALGIA 2. PAIN AT LEFT NECK AREA, LEFT SHOULDER AREA, AND LEFT THORACIC AREA POST PROCEDURE DIAGNOSIS 1. MYALGIA 2. PAIN AT LEFT NECK AREA, LEFT SHOULDER AREA, AND LEFT THORACIC AREA PROCEDURE TRIGGER POINT INJECTION AT LEFT NECK AREA, LEFT SHOULDER AREA, AND LEFT THORACIC AREA SURGEON DR. CHRISTINE MCKEON COMPUTED TOMOGRAPHY TECHNOLOGIST NONE ANESTHESIA LOCAL PRE PROCEDURE NOTE THE PATIENT HAS A HISTORY OF CHRONIC PAIN AT THE LEFT NECK AREA, LEFT SHOULDER AREA, AND LEFT THORACIC AREA. I EVALUATE THE PATIENT AND REVIEWED THE CHART. THERE IS EVIDENCE OF BANDS OF TISSUE WITH RESTRICTION OF MOVEMENT AND PRESENCE OF TRIGGER POINT AT THE AFFECTED AREA. I WENT OVER THE RISKS, ALTERNATIVES, AND BENEFITS ASSOCIATED WITH THIS PROCEDURE. THE PATIENT WOULD LIKE TO PROCEED AND GIVE CONSENT TO PERFORMED THE PROCEDURE. THE PATIENT DENIES UNEXPLAINABLE WEIGHT LOSS, FEVER, CHILLS, OR NEW CHANGES IN URINARY OR BOWEL CONTROL DESCRIPTION OF PROCEDURE THE PATIENT WAS BROUGHT TO THE PROCEDURE ROOM AND PLACED IN THE SITTING POSITION. THE AREA WAS CLEANED WITH ALCOHOL. THE PROCEDURE WAS DONE USING ASEPTIC STERILE TECHNIQUE. I CHECKED LATERALITY AND THE LEVEL WHERE THE PROCEDURE WAS GOING TO BE PERFORMED WITH THE PATIENT AND THE SUPPORTING STAFF AT THE MOMENT OF THE TIME OUT IN THE PROCEDURE ROOM. USING A 25-GAUGE NEEDLE, TRIGGER POINTS WERE INJECTED AT THE LEFT NECK AREA, LEFT SHOULDER AREA, AND LEFT THORACIC AREA WITH A TOTAL OF 40 ML OF BUPIVACAINE 0.25% AND KENALOG 40 MG. THERE WAS NO EVIDENCE OF BLOOD, PARESTHESIA OR CEREBROSPINAL FLUID DURING THE PROCEDURE. THE PATIENT WAS SENT TO THE RECOVERY ROOM. THE PATIENT WAS MOVING THE EXTREMITIES AND DOING WELL. THERE WAS NO COMPLICATION DURING THE PROCEDURE POST PROCEDURE NOTE THE PATIENT WILL BE SEEN IN A FOLLOW UP IN THE NEXT FEW WEEKS. INSTRUCTIONS WERE GIVEN, QUESTIONS WERE ANSWERED, AND THE PATIENT EXPRESSED UNDERSTANDING AND AGREES WITH THE PLAN. I, GWEN CASTILLO, DOCUMENTED THE ABOVE INFORMATION ACTING A SCRIBE FOR DR. MCKEON. I, DR. MCKEON, HAVE REVIEWED THE ABOVE DOCUMENT, SCRIBED BY GWEN CASTILLO, AND I VERIFY THAT IT IS ACCURATE PROCEDURE CODES 98247 INJECT TRIGGER POINTS 3/> DISPOSITION & COMMUNICATION FOLLOW UP 3 WEEKS ELECTRONICALLY SIGNED BY CHRISTINE MCKEON MD ON 05/07/2017 AT 12:54 PM EDT DISCLAIMER : THIS IS A VISIT SUMMARY EXTRACTED FROM THE [employer] CHART. IT IS NOT A COPY OF THE [employer] PROGRESS NOTE. MTDD
== END ==
LOC: M PAIN 14:15
PROVIDERS: ATTEND Anesthesiology
DX: G89.29 Other chronic pain (principal); M54.2 Cervicalgia; M25.512 Pain in left shoulder; M54.6 Pain in thoracic spine; M79.1 Myalgia; I10 Essential (primary) hypertension; E78.2 Mixed hyperlipidemia; M17.11 Unilateral primary osteoarthritis, right knee; Z88.2 Allergy status to sulfonamides; Z88.1 Allergy status to other antibiotic agents; Z88.5 Allergy status to narcotic agent; Z79.899 Other long term (current) drug therapy
CPT/HCPCS: 20553; J3301

== ENCOUNTER → 2017-08-04 | Outpatient (CLI) | payer OTHER | LOC: M LRY 19:06 | DX: M54.9 Dorsalgia, unspecified (principal); M25.78 Osteophyte, vertebrae | CPT/HCPCS: 72072; 96372 ==

== ENCOUNTER → 2017-08-22 | Outpatient (REF) | payer OTHER ==
[2017-08-22 19:27] LABS: BASO % 0.7 % (0.0-1.0); EOS % 0.7 % (0.0-3.0); HEMATOCRIT 40.9 % (42.0-52.0); HEMOGLOBIN 13.5 g/dl (14.0-18.0); IMMATURE GRANULOCYTE % 0.2 % (0-0); LYMPH # 1.2 10^3/uL (1.5-4.5); LYMPH % 26.9 % (24.0-44.0); MEAN CORPUSCULAR HEMOGLOBIN 28.2 pg (27.0-33.0); MEAN CORPUSCULAR VOLUME 85.6 fl (80.0-96.0); MONO # 0.4 10^3/uL (0.0-0.8); NEUTROPHILS # 2.6 10^3/uL (1.8-7.7); NEUTROPHILS % 61.5 % (36.0-66.0); PLATELET COUNT, AUTOMATED 299 10^3/uL (150-450); RED BLOOD COUNT 4.78 10^6/uL (4.30-6.10); RED CELL DISTRIBUTION WIDTH 13.2 % (11.5-14.5); WHITE BLOOD COUNT 4.3 10^3/uL (4.0-10.0)
[2017-08-22 19:44] LABS: ALBUMIN 3.9 GM/DL (3.2-5.2); ALBUMIN/GLOBULIN RATIO 1.22 (1.00-1.93); ALKALINE PHOSPHATASE 62 U/L (45-117); ALT/SGPT 17 U/L (12-78); AMYLASE 58 U/L (25-115); ANION GAP 4 MEQ/L (8-16); AST/SGOT 9 U/L (7-37); BILIRUBIN,TOTAL 0.4 MG/DL (0.2-1.0); BLOOD UREA NITROGEN 12 MG/DL (7-18); CALCIUM LEVEL 9.1 MG/DL (8.5-10.1); CARBON DIOXIDE LEVEL 33 MEQ/L (21-32); CHLORIDE LEVEL 104 MEQ/L (98-107); CREATININE FOR GFR 1.05 MG/DL (0.70-1.30); GLOMERULAR FILTRATION RATE > 60.0 (>60); GLUCOSE, FASTING 85 MG/DL (70-100); LIPASE 107 U/L (73-393); SODIUM LEVEL 141 MEQ/L (136-145); TOTAL PROTEIN 7.1 GM/DL (6.4-8.2)
[2017-08-22 19:45] LABS: POTASSIUM SERUM 5.3 MEQ/L (3.5-5.1)
== END ==
LOC: M SFHCLERA 14:22
DX: R11.2 Nausea with vomiting, unspecified (principal); R19.7 Diarrhea, unspecified

== ENCOUNTER 2017-08-24 01:14 | Emergency (ER) | payer OTHER ==
[2017-08-24] MEDS: NS 1,000 ML IV ×2 (02:30→04:00)
[2017-08-24] MEDS: ONDANSETRON 4MG/2ML VIAL (J2405) IV (02:30)
[2017-08-24 02:42] LABS: BASO % 0.6 % (0.0-1.0); EOS # 0.1 10^3/uL (0.0-0.50); EOS % 2.2 % (0.0-3.0); HEMATOCRIT 36.8 % (42.0-52.0); HEMOGLOBIN 12.6 g/dl (14.0-18.0); IMMATURE GRANULOCYTE % 0.4 % (0-0); MEAN CORPUSCULAR HEMOGLOBIN 29.1 pg (27.0-33.0); MEAN CORPUSCULAR HGB CONC 34.2 g/dl (32.0-36.5); MONO # 0.6 10^3/uL (0.0-0.8); MONO % 10.5 % (0.0-5.0); NEUTROPHILS # 2.6 10^3/uL (1.8-7.7); NEUTROPHILS % 48.3 % (36.0-66.0); PLATELET COUNT, AUTOMATED 260 10^3/uL (150-450); RED BLOOD COUNT 4.33 10^6/uL (4.30-6.10); RED CELL DISTRIBUTION WIDTH 13.1 % (11.5-14.5); WHITE BLOOD COUNT 5.3 10^3/uL (4.0-10.0)
[2017-08-24 03:07] LABS: ALBUMIN 3.7 GM/DL (3.2-5.2); ALBUMIN/GLOBULIN RATIO 1.16 (1.00-1.93); ALKALINE PHOSPHATASE 62 U/L (45-117); ALT/SGPT 17 U/L (12-78); ANION GAP 7 MEQ/L (8-16); AST/SGOT 12 U/L (7-37); BILIRUBIN,DIRECT < 0.1 MG/DL (0.0-0.2); BILIRUBIN,TOTAL 0.5 MG/DL (0.2-1.0); BLOOD UREA NITROGEN 13 MG/DL (7-18); CALCIUM LEVEL 8.3 MG/DL (8.5-10.1); CARBON DIOXIDE LEVEL 31 MEQ/L (21-32); CHLORIDE LEVEL 104 MEQ/L (98-107); CREATININE FOR GFR 1.16 MG/DL (0.70-1.30); GLOMERULAR FILTRATION RATE > 60.0 (>60); GLUCOSE, FASTING 101 MG/DL (70-100); LIPASE 134 U/L (73-393); POTASSIUM SERUM 3.8 MEQ/L (3.5-5.1); SODIUM LEVEL 142 MEQ/L (136-145); TOTAL PROTEIN 6.9 GM/DL (6.4-8.2)
[2017-08-24] MEDS: MORPHINE 4 MG/ML 1ML SYRINGE IV (03:07)
[2017-08-24] MEDS ORDERED: ISOVUE-370 76% 100ML VIAL (Q9967) As Ordered (03:27)
[2017-08-24 03:29] LABS: LACTIC ACID SEPSIS PROTOCOL 2.2 MMOL/L (0.4-2.0)
[2017-08-24] MEDS: PERCOCET 5MG/325MG TAB PO (04:56)
[2017-08-24] MEDS: OXYCODONE/APAP 5MG/325MG(BULK FOR ED) 1 TABLET PO (06:30)
== END 2017-08-24 06:55 | disposition home or self-care (01) ==
LOC: M ED 01:14
DX: K52.9 Noninfective gastroenteritis and colitis, unspecified (principal); I10 Essential (primary) hypertension; G43.909 Migraine, unspecified, not intractable, without status migrainosus; Z88.2 Allergy status to sulfonamides; Z88.5 Allergy status to narcotic agent; Z79.899 Other long term (current) drug therapy
CPT/HCPCS: J2405

== ENCOUNTER → 2017-09-12 | Outpatient (CLI) | payer OTHER | LOC: M LRY 13:36 | DX: Z96.651 Presence of right artificial knee joint (principal) | CPT/HCPCS: 73564; G0463 ==

== ENCOUNTER → 2017-09-24 | Outpatient (REF) | payer OTHER ==
[2017-09-24 12:46] LABS: C REACTIVE PROTEIN QUANTITATIV 0.92 MG/DL (0.00-0.30)
[2017-09-24 12:59] LABS: ERYTHROCYTE SEDIMENTATION RATE 31 mm/hr (0-15)
== END ==
LOC: M LABDRAW1 11:33
DX: Z96.651 Presence of right artificial knee joint (principal)

== ENCOUNTER → 2017-10-08 | Outpatient (CLI) | payer OTHER | LOC: M RAD 09:44 | DX: M25.561 Pain in right knee (principal); Z96.651 Presence of right artificial knee joint | CPT/HCPCS: 78315 ==

== ENCOUNTER → 2017-10-15 | Outpatient (REF) | payer OTHER ==
[2017-10-15 13:51] LABS: SOURCE, BODY FLUID GLUCOSE RT KNEE; SOURCE, BODY FLUID URIC ACID RT KNEE; URIC ACID, BODY FLUID 6.1 MG/DL (NOT ESTABLISHED)
[2017-10-15 14:36] LABS: BF MONONUCLEAR CELL % 93.8 % (0-0); BF POLYMORPHONUCLEAR CELL % 6.2 % (0-0); RBC BODY FLUID 4 10^3/uL (<2); WBC BODY FLUID 462 /uL (0-10)
[2017-10-15 14:39] LABS: APPEARANCE, BODY FLUID HAZY (CLEAR); BF DIFF IF INDICATED? YES (NO); SOURCE, BODY FLUID RT KNEE; SYNOVIAL FLUID COLOR PALE YELLOW (YELLOW)
[2017-10-15 14:44] LABS: MUCIN CLOT TEST 2+ (4+)
[2017-10-15 14:47] LABS: BODY FLUID RHEUMATOID SCREEN NEGATIVE (NEGATIVE)
[2017-10-15 15:19] LABS: CRYSTALS, BODY FLUID NONE SEEN (NONE SEEN); SOURCE, BODY FLUID CRYSTALS RT KNEE
== END ==
LOC: M LAB REF 12:52
DX: M25.561 Pain in right knee (principal); Z96.651 Presence of right artificial knee joint

== ENCOUNTER 2017-12-10 09:44 | Emergency (ER) | payer OTHER ==
[2017-12-10] MEDS: NS 1,000 ML IV (10:11)
[2017-12-10] MEDS: ONDANSETRON 4MG/2ML VIAL (J2405) IV (10:11)
[2017-12-10] MEDS: MORPHINE 4 MG/ML 1ML VIAL/SYRINGE (J2270) IV ×2 (10:12→11:36)
[2017-12-10 10:16] LABS: BASO % 0.7 % (0.0-1.0); EOS % 0.7 % (0.0-3.0); HEMATOCRIT 41.8 % (42.0-52.0); HEMOGLOBIN 13.9 g/dl (13.5-17.5); LYMPH # 1.2 10^3/uL (1.5-4.5); LYMPH % 26.5 % (24.0-44.0); MEAN CORPUSCULAR HEMOGLOBIN 27.7 pg (27.0-33.0); MEAN CORPUSCULAR HGB CONC 33.3 g/dl (32.0-36.5); MEAN CORPUSCULAR VOLUME 83.4 fl (80.0-96.0); MONO # 0.3 10^3/uL (0.0-0.8); MONO % 7.6 % (0.0-5.0); NEUTROPHILS # 2.8 10^3/uL (1.8-7.7); NEUTROPHILS % 64.5 % (36.0-66.0); PLATELET COUNT, AUTOMATED 354 10^3/uL (150-450); RED BLOOD COUNT 5.01 10^6/uL (4.30-6.10); RED CELL DISTRIBUTION WIDTH 13.6 % (11.5-14.5); WHITE BLOOD COUNT 4.4 10^3/uL (4.0-10.0)
[2017-12-10 10:34] LABS: ALBUMIN 4.3 GM/DL (3.2-5.2); ALBUMIN/GLOBULIN RATIO 1.26 (1.00-1.93); ALKALINE PHOSPHATASE 73 U/L (45-117); ALT/SGPT 53 U/L (12-78); ANION GAP 6 MEQ/L (8-16); AST/SGOT 23 U/L (7-37); BILIRUBIN,DIRECT < 0.1 MG/DL (0.0-0.2); BILIRUBIN,TOTAL 0.6 MG/DL (0.2-1.0); BLOOD UREA NITROGEN 11 MG/DL (7-18); CALCIUM LEVEL 9.2 MG/DL (8.5-10.1); CARBON DIOXIDE LEVEL 28 MEQ/L (21-32); CHLORIDE LEVEL 108 MEQ/L (98-107); CREATININE FOR GFR 1.11 MG/DL (0.70-1.30); GLOMERULAR FILTRATION RATE > 60.0 (>60); GLUCOSE, FASTING 111 MG/DL (70-100); LIPASE 176 U/L (73-393); POTASSIUM SERUM 4.3 MEQ/L (3.5-5.1); SODIUM LEVEL 142 MEQ/L (136-145); TOTAL PROTEIN 7.7 GM/DL (6.4-8.2)
[2017-12-10] MEDS ORDERED: ISOVUE-370 76% 100ML VIAL (Q9967) As Ordered (11:22)
== END 2017-12-10 13:21 | disposition home or self-care (01) ==
LOC: M ED 09:44
DX: K52.9 Noninfective gastroenteritis and colitis, unspecified (principal); I10 Essential (primary) hypertension; E78.5 Hyperlipidemia, unspecified; Z87.442 Personal history of urinary calculi; G43.909 Migraine, unspecified, not intractable, without status migrainosus; M43.06 Spondylolysis, lumbar region; M43.17 Spondylolisthesis, lumbosacral region; K76.89 Other specified diseases of liver; Z96.9 Presence of functional implant, unspecified; Z79.899 Other long term (current) drug therapy; Z88.2 Allergy status to sulfonamides; Z88.5 Allergy status to narcotic agent
CPT/HCPCS: J2270

== ENCOUNTER → 2018-01-02 | Outpatient (CLI) | payer OTHER | LOC: M PAIN 15:30 | DX: G89.29 Other chronic pain (principal); M79.1 Myalgia; M25.561 Pain in right knee; M54.40 Lumbago with sciatica, unspecified side; M25.512 Pain in left shoulder; G44.009 Cluster headache syndrome, unspecified, not intractable; I10 Essential (primary) hypertension; E78.5 Hyperlipidemia, unspecified; M54.2 Cervicalgia; G47.33 Obstructive sleep apnea (adult) (pediatric); H93.19 Tinnitus, unspecified ear; Z96.651 Presence of right artificial knee joint; Z98.1 Arthrodesis status; Z88.2 Allergy status to sulfonamides; Z88.5 Allergy status to narcotic agent; Z79.899 Other long term (current) drug therapy; Z79.891 Long term (current) use of opiate analgesic | CPT/HCPCS: G0463 ==

== ENCOUNTER → 2018-02-06 | Outpatient (CLI) | payer OTHER ==
[~2018-02-06] MED LIST changes: -/DIVA50TA PO; -/WARF25TA OR; -/WARF5TA OR; -ACET65TA OR; -ALBU17IN PO; -ATOR40TA75 PO; +BUPIVACAINE HCL 0.25% 10 ML VIAL As Ordered; -BUPIVACAINE HCL 0.25% 10 ML VIAL As Ordered ONE; +BUPIVACAINE HCL 0.25% 30 ML VIAL As Ordered; -BUPIVACAINE HCL 0.25% 30 ML VIAL As Ordered ONE; -CELE1CAP4 PO; -CHAN1PAK11 PO; -CIPR-250 PO; -COMBO TOP; -DEPA250T32 PO; -DEPA500T2 PO; -DIVA50TAEC PO; -FISH100049 PO; -FOLI1TAB OR; -HYDR-3716 PO; -HYDR5TAB23 PO; -KETO10TAB PO; -KRIL1000 PO; -LISI10TA2 PO; -LISI10TA4 OR; -MAXA10TA14 PO; -MELO15TA3 PO; -MELOPOW; -MORP15TA2 PO; -NORC1TAB4 PO; -NORCOBULK PO; -OXYC10TA97 OR; -OXYC1TAB16 PO; -OXYC1TAB23 PO; -PERC10TA26 PO; -PERC5TAB8 OR; -PERC7.5T8 OR; -RIZA10TA4 PO; -ROBA750T4 PO; -SIMV20TA2 OR; -SIMV40TA2 PO; -SOMA350T OR; -SOMA350T PO; -SUMA5INJ SC; -SUMA6KIT SC; -TPS cream TOP; +TRIAMCINOLONE ACETONIDE SUSP 40 MG/ML VIAL (J3301) As Ordered; -TRIAMCINOLONE ACETONIDE SUSP 40 MG/ML VIAL (J3301) As Ordered ONE; -VITA1CAP2 PO; -ZANA4CAP PO; -ZANA4TAB PO; +diazePAM 5 MG TAB As Ordered; -diazePAM 5 MG TAB As Ordered ONE; +oxyCODONE 5MG TAB As Ordered; -oxyCODONE 5MG TAB As Ordered ONE
== END ==
LOC: M PAIN 12:45
DX: G89.29 Other chronic pain (principal); M79.1 Myalgia; M25.512 Pain in left shoulder; G44.009 Cluster headache syndrome, unspecified, not intractable; I10 Essential (primary) hypertension; E78.5 Hyperlipidemia, unspecified; M54.2 Cervicalgia; M54.5 Low back pain; G47.33 Obstructive sleep apnea (adult) (pediatric); M17.11 Unilateral primary osteoarthritis, right knee; M47.893 Other spondylosis, cervicothoracic region; Z79.891 Long term (current) use of opiate analgesic; Z79.899 Other long term (current) drug therapy; Z88.2 Allergy status to sulfonamides; Z88.5 Allergy status to narcotic agent
CPT/HCPCS: J3301

== ENCOUNTER 2018-02-18 10:51 | Emergency (ER) | payer OTHER ==
[2018-02-18] MEDS: NS 1,000 ML IV (11:20)
[2018-02-18] MEDS: MORPHINE 4 MG/ML 1ML VIAL/SYRINGE (J2270) IV ×2 (11:21→12:37)
[2018-02-18] MEDS: ONDANSETRON 4MG/2ML VIAL (J2405) IV (11:21)
[2018-02-18 11:32] LABS: BASO # 0.1 10^3/uL (0.0-0.2); BASO % 0.5 % (0.0-1.0); EOS # 0.1 10^3/uL (0.0-0.50); EOS % 0.7 % (0.0-3.0); HEMATOCRIT 45.4 % (42.0-52.0); HEMOGLOBIN 15.3 g/dl (13.5-17.5); IMMATURE GRANULOCYTE % 0.2 % (0-3.0); LYMPH # 1.6 10^3/uL (1.5-4.5); MEAN CORPUSCULAR HEMOGLOBIN 27.2 pg (27.0-33.0); MEAN CORPUSCULAR HGB CONC 33.7 g/dl (32.0-36.5); MEAN CORPUSCULAR VOLUME 80.8 fl (80.0-96.0); MONO # 0.6 10^3/uL (0.0-0.8); MONO % 6.3 % (0.0-5.0); NEUTROPHILS # 6.9 10^3/uL (1.8-7.7); NEUTROPHILS % 75.3 % (36.0-66.0); PLATELET COUNT, AUTOMATED 429 10^3/uL (150-450); RED BLOOD COUNT 5.62 10^6/uL (4.30-6.10); RED CELL DISTRIBUTION WIDTH 12.7 % (11.5-14.5); WHITE BLOOD COUNT 9.2 10^3/uL (4.0-10.0)
[2018-02-18] MEDS: GASTROGRAFIN SOLUTION 30ML PO ×2 (11:32→11:33)
[2018-02-18 11:48] LABS: KETONE, URINE AUTO RFX NEGATIVE (NEGATIVE); LEUKOCYTE ESTERASE UR AUTO RFX NEGATIVE (NEGATIVE); MUCUS, URINE RFX SMALL (NEGATIVE); NITRITE, URINE AUTO RFX NEGATIVE (NEGATIVE); RBC, URINE AUTO RFX 1 /HPF (0-3); SPECIFIC GRAVITY UR AUTO RFX 1.016 (1.002-1.035); SQUAM EPITHELIAL CELL UR AURFX 0 /HPF (0-6); WBC, URINE AUTO RFX 2 /HPF (0-3)
[2018-02-18 11:51] LABS: ALBUMIN 4.3 GM/DL (3.2-5.2); ALBUMIN/GLOBULIN RATIO 1.23 (1.00-1.93); ALKALINE PHOSPHATASE 90 U/L (45-117); ALT/SGPT 31 U/L (12-78); ANION GAP 8 MEQ/L (8-16); AST/SGOT 13 U/L (7-37); BILIRUBIN,DIRECT 0.1 MG/DL (0.0-0.2); BILIRUBIN,TOTAL 0.5 MG/DL (0.2-1.0); BLOOD UREA NITROGEN 10 MG/DL (7-18); CALCIUM LEVEL 9.5 MG/DL (8.5-10.1); CARBON DIOXIDE LEVEL 28 MEQ/L (21-32); CHLORIDE LEVEL 106 MEQ/L (98-107); CREATININE FOR GFR 1.18 MG/DL (0.70-1.30); GLOMERULAR FILTRATION RATE > 60.0 (>60); GLUCOSE, FASTING 99 MG/DL (70-100); LIPASE 289 U/L (73-393); POTASSIUM SERUM 3.9 MEQ/L (3.5-5.1); SODIUM LEVEL 142 MEQ/L (136-145); TOTAL PROTEIN 7.8 GM/DL (6.4-8.2)
[2018-02-18] MEDS ORDERED: ISOVUE-370 76% 100ML VIAL (Q9967) As Ordered (13:14)
== END 2018-02-18 14:26 | disposition home or self-care (01) ==
LOC: M ED 10:51
DX: K52.9 Noninfective gastroenteritis and colitis, unspecified (principal); I10 Essential (primary) hypertension; Z87.19 Personal history of other diseases of the digestive system; Z87.442 Personal history of urinary calculi; Z79.899 Other long term (current) drug therapy; Z88.1 Allergy status to other antibiotic agents; Z88.2 Allergy status to sulfonamides; Z88.5 Allergy status to narcotic agent; Z88.8 Allergy status to other drugs, medicaments and biological substances
CPT/HCPCS: J2270

== ENCOUNTER → 2018-02-20 | Outpatient (REF) | payer OTHER | LOC: M LAB REF 15:36 | DX: R19.7 Diarrhea, unspecified (principal) ==

== ENCOUNTER 2018-03-01 12:20 | Emergency (ER) | payer OTHER ==
[2018-03-01] MEDS: PERCOCET 5MG/325MG TAB PO (13:09)
== END 2018-03-01 14:05 | disposition home or self-care (01) ==
LOC: M ED 12:20
DX: S83.91XA Sprain of unspecified site of right knee, initial encounter (principal); X50.1XXA Overexertion from prolonged static or awkward postures, initial encounter; Y92.098 Other place in other non-institutional residence as the place of occurrence of the external cause; I10 Essential (primary) hypertension; G89.29 Other chronic pain; Z79.899 Other long term (current) drug therapy
CPT/HCPCS: 73564

== ENCOUNTER → 2018-03-03 | Outpatient (REF) | payer OTHER ==
[2018-03-03 18:01] LABS: URIC ACID, BODY FLUID 5.5 MG/DL (NOT ESTABLISHED)
[2018-03-03 19:37] LABS: APPEARANCE, BODY FLUID TURBID (CLEAR); SOURCE, BODY FLUID OTHER; SYNOVIAL FLUID COLOR RED (YELLOW)
[2018-03-03 19:44] LABS: CRYSTALS, BODY FLUID NONE SEEN (NONE SEEN)
[2018-03-03 21:01] LABS: BF MONONUCLEAR CELL % 18.8 % (0-0); BF POLYMORPHONUCLEAR CELL % 81.2 % (0-0); RBC BODY FLUID 406 10^3/uL (<2); WBC BODY FLUID 2038 /uL (0-10)
[2018-03-03 21:02] LABS: BF DIFF IF INDICATED? YES (NO)
[2018-03-04 08:35] LABS: BODY FLUID RHEUMATOID SCREEN NEGATIVE (NEGATIVE)
[2018-03-04 08:41] LABS: MUCIN CLOT TEST 3+ (4+)
== END ==
LOC: M LAB REF 17:04
DX: M25.461 Effusion, right knee (principal)

== ENCOUNTER 2018-04-07 08:53 | Day surgery (SDC) | payer OTHER ==
[2018-04-07] MEDS: NS 1,000 ML IV (09:00)
[2018-04-07] MEDS ORDERED: PROPOFOL 200 MG/20 ML VIAL As Ordered (09:40)
== END 2018-04-07 10:44 | disposition home or self-care (01) ==
LOC: M OPP 08:53
DX: R19.4 Change in bowel habit (principal); R19.7 Diarrhea, unspecified; K64.8 Other hemorrhoids; I10 Essential (primary) hypertension; E78.5 Hyperlipidemia, unspecified; Z86.11 Personal history of tuberculosis; M19.90 Unspecified osteoarthritis, unspecified site; G43.909 Migraine, unspecified, not intractable, without status migrainosus; Z97.8 Presence of other specified devices; G47.30 Sleep apnea, unspecified; N28.1 Cyst of kidney, acquired; G25.81 Restless legs syndrome; Z98.1 Arthrodesis status; Z96.651 Presence of right artificial knee joint; Z88.8 Allergy status to other drugs, medicaments and biological substances; Z88.2 Allergy status to sulfonamides; Z79.899 Other long term (current) drug therapy; Z80.1 Family history of malignant neoplasm of trachea, bronchus and lung; Z80.8 Family history of malignant neoplasm of other organs or systems; Z83.71 Family history of colonic polyps
CPT/HCPCS: 45380

== ENCOUNTER → 2018-04-18 | Outpatient (REF) | payer OTHER | LOC: M SFHCLERA 12:50 | DX: J02.9 Acute pharyngitis, unspecified (principal) ==

== ENCOUNTER → 2018-07-24 | Outpatient (CLI) | payer OTHER ==
[~2018-07-24] MED LIST changes: +/DIVA50TA PO; +/WARF25TA OR; +/WARF5TA OR; +ACET65TA OR; +ALBU17IN PO; +ATOR40TA75 PO; -BUPIVACAINE HCL 0.25% 10 ML VIAL As Ordered; -BUPIVACAINE HCL 0.25% 30 ML VIAL As Ordered; +CELE1CAP4 PO; +CHAN1PAK11 PO; +CIPR-250 PO; +CIPR500T3 PO; +COMBO TOP; +DEPA250T32 PO; +DEPA500T2 PO; +DIVA50TAEC PO; +ERYTOIN8 OS; +FISH100049 PO; +FLAG500T PO; +FOLI1TAB OR; +HYDR-3716 PO; +HYDR5TAB23 PO; +KETO10TAB PO; +KRIL1000 PO; +LISI10TA2 PO; +LISI10TA4 OR; +MAXA10TA14 PO; +MELO15TA28 PO; +MELO15TA3 PO; +MELOPOW; +MORP15TA2 PO; +MULT1TAB10 PO; +NORC1TAB4 PO; +NORCOBULK PO; +OXYC10TA3 PO; +OXYC10TA97 OR; +OXYC15TA76 PO; +OXYC1TAB23 PO; +PERC10TA26 PO; +PERC5TAB12 PO; +PERC5TAB8 OR; +PERC7.5T8 OR; +RIZA10TA4 PO; +ROBA750T4 PO; +SIMV20TA2 OR; +SIMV40TA2 PO; +SOMA350T OR; +SOMA350T PO; +SUMA5INJ SC; +SUMA6KIT SC; +TPS cream TOP; -TRIAMCINOLONE ACETONIDE SUSP 40 MG/ML VIAL (J3301) As Ordered; +VITA1CAP2 PO; +ZANA4CAP PO; +ZANA4TAB PO; +ZOFR4TAB14 PO; +ZOFR8TAB24 PO; -diazePAM 5 MG TAB As Ordered; -oxyCODONE 5MG TAB As Ordered
--- NOTE | 2018-08-19 01:52 | ECWPNPC ---
PATIENT NAME: HAILY WAGNER : 1970 GENDER: MALE VISIT DATE: 07/24/2018 DISCHARGE DATE: 07/24/18 1048 VISIT LOCKED DATE TIME: PHYSICIAN: MAURICE GIFFROD RESOURCE: MAURICE GIFFORD REASON FOR APPOINTMENT 1. W/C BACK HISTORY OF PRESENT ILLNESS HISTORY OF PRESENT ILLNESS: HERE FOR F/U OF CHRONIC GENERAZED BACK PAIN.CHIEF AREA OF PAIN IS MID TO LOW BACK.RATING PAIN VAS 8/10.DCS WAS SHUT OFF OVER A MONTH AGO DUE TO THE FACT THAT IT WASNT WORKING WELL PER PATIENT.HE HAS NOT BEEN SEEN IN SEVERAL MONTHS WITH ME FOR NARCOTIC MEDICATION MANAGEMENT.HE PRESENTS WITH EMPTY BOTTLES OF MEDICATION.ADMIT TO OVER TAKING DUE TO FACT THAT DCS HASNT BEEN WORKING AND HES HAD TO DO EXTRA WORK AT WORK AND HOME.TODAY WE HAD ALONG DISCUSSION ABOUT OUR CLINIC POLICY IN REGARDS TO MEDICINE MANAGEMENT .HE IS AWARE THAT IM NOT ABLE TO PRESCRIBE NARCOTIC PAIN MEDICATION UNLESS HE DEMONSTRATES COMPLIANCE. PAIN THE PATIENT DESCRIBES THE PAIN... FALL RISK SCREENING: SCREENING :NO FALLS IN THE PAST YEAR CURRENT MEDICATIONS TAKING LISINOPRIL/HCTZ 10/12.5 10/12.5MG TABLET 1 TAB ORAL DAILY TAKING ATORVASTATIN CALCIUM 40 MG TABLET 1 TABLET ORALLY ONCE A DAY TAKING SOMA 350 MG TABLET 1 TABLET NEEDED ORALLY Q8H TID MDD3 TAKING OXYCODONE HCL 5 MG TABLET 1 TABLET NEEDED ORALLY EVERY 8 HRS PRN MDD =3 TAKING PROTONIX 40 MG TABLET DELAYED RELEASE 1 TABLET ORALLY BID TAKING MULTIVITAMIN ADULT - TABLET ORALLY DAILY NOT-TAKING SUDAFED 30 MG TABLET 1 TABLET NEEDED ORALLY EVERY 6 HRS NOT-TAKING FLONASE 50 MCG/ACT SUSPENSION 1 SPRAY IN EACH NOSTRIL NASALLY TWICE A DAY NOT-TAKING NETI POT SINUS WASH 2300-700 MG KIT DIRECTED NASALLY BID NOT-TAKING MUCINEX DM 30-600 MG TABLET EXTENDED RELEASE 12 HOUR 1 TABLET NEEDED ORALLY EVERY 12 HRS MEDICATION LIST REVIEWED AND RECONCILED WITH THE PATIENT PAST MEDICAL HISTORY 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 HTN HYPERLIPIDEMIA CHRONIC NECK PAIN WITH RADIATION DOWN BUE, LEFT WORSE THAN RIGHT BILATERAL KNEE PAIN, RIGHT WORSE THAN LEFT LOW BACK PAIN TINNITUS DIPAK ON CPAP SEIZURE AFTER TRAMADOL USE 2012 OR 2013 SPONDYLOSIS WITHOUT MYELOPATHY OR RADICULOPATHY, 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 MRSA IN GRANDDAUGHTER OTHERWISE NO SIGNIFICANT FAMILY HISTORY NOTED. SOCIAL HISTORY GENERAL: TOBACCO USE ARE YOU A:NONSMOKER CHEWS TOBACCO RECREATIONAL DRUG USE DRUG USE?NO HIV / HEP-C SCREENING HIV TEST OFFERED TO PATIENT:YES DATE OFFERED:08/04/2017 TEST ACCEPTED:NO REASON:PATIENT DECLINED HEP-C TEST OFFERED TO PATIENT:NO SAMARITAN NO RASTAFARIAN BELIEFS THAT WOULD IMPACT HEALTH CARE. LANGUAGE [place]ESE. LEARNING BARRIERS / SPECIAL NEEDS BARRIERS TO LEARNING?NO HEARING IMPAIRED?NO VISION IMPAIRED?YES READING GLASSES COGNITIVELY IMPAIRED?NO READINESS TO LEARN?YES LEARNING PREFERENCES?NO LEARNING CAPABILITIES PRESENT?YES EMOTIONAL BARRIERS?NO SPECIAL DEVICES?NO EMR TRAINER NEEDED?NO DIET: REGULAR. EXERCISE: NO REGULAR EXERCISE. MARITAL STATUS: . NEW PATIENT PAIN DIARY FROM 0-10, WHAT LEVEL IS YOUR PAIN TODAY?8 PAIN CLINIC PFS, CLERGY, PUBLIC HEALTH REFERRALS PFS REFERRAL NEEDED?NO CLERGY REFERRAL NEEDED?NO PUBLIC HEALTH REFERRAL NEEDED?NO HAS THE PATIENT BEEN EDUCATED REGARDING HIS/HER PLAN OF CARE?YES HAS THE PATIENT BEEN EDUCATED REGARDING PAIN, THE RISK FOR PAIN, THE IMPORTANCE OF EFFECTIVE PAIN MANAGEMENT, AND THE PAIN ASSESSMENT PROCESS?YES ADVANCE DIRECTIVE ADVANCE DIRECTIVE DISCUSSED WITH PATIENT:YES STATES HE IS CURRENTLY WORKING ON GETTING A HCP, DELINED ASSISTANCE AT THIS TIME. REVIEWED WITH PATIENT 07/24/18 1009 JS. HOSPITALIZATION/MAJOR DIAGNOSTIC PROCEDURE NO HOSPITALIZATION HISTORY. REVIEW OF SYSTEMS REVIEWED BY: PROVIDER: MAURICE GILLIS . CONSTITUTIONAL: ANY CHANGE IN YOUR MEDICAL CONDITION? NO . CHILLS NO . FEVER NO . INFECTION: DO YOU HAVE NEW INFECTIONS? NO . DO YOU HAVE HISTORY OF MRSA? NO . MUSCULOSKELETAL: ANY NEW PATTERNS OF PAIN OR NUMBNESS? NO . GASTROENTEROLOGY: ANY NEW CHANGE IN BOWEL CONTROL? NO . GENITOURINARY: ANY NEW CHANGE IN BLADDER CONTROL? NO . IS THERE A CHANCE YOU COULD BE ? NO . HEMATOLOGY/LYMPH: DO YOU TAKE ANY BLOOD THINNERS? (FOR EXAMPLE- COUMADIN, PLAVIX, AGGRENOX, PLATEL, PRADAXA, OR XARELTO) NO . WHEN WAS YOUR LAST DOSE? DATE: TIME: . NEUROLOGY: HAVE YOU FALLEN IN THE PAST 6 MONTHS? YES, STATES FALL IN FEBRUARY. STATES SLIPPED AND FELL, TWISTED KNEE, WENT TO ED, SENT TO ORTHO GROUP, WAS IN KNEE IMMOBILIZER FOR 2 MONTHS . ANY NEW EXTREMITY NUMBNESS OR WEAKNESS? NO . CARDIOLOGY: DO YOU HAVE A PACEMAKER OR DEFIBRILLATOR? NO . RESPIRATORY: HAVE YOU BEEN SICK IN THE PAST WEEK? NO . FEVER NO . FLU LIKE SYMPTOMS? NO . COUGH NO . INTEGUMENTARY: DO YOU HAVE ANY RASHES OR OPEN SORES? NO . ALLERGIC/IMMUNO: ARE YOU ALLERGIC TO SHELLFISH OR IV DYE? NO . ANY NEW ALLERGIES? NO . PSYCHIATRIC: DO YOU HAVE THOUGHTS OF HURTING YOURSELF OR SOMEONE ELSE? NO . ARE YOU ABUSED, NEGLECTED, OR IN AN UNSAFE ENVIRONMENT? NO . ENDOCRINOLOGY: ARE YOU DIABETIC? NO . OTHER: DO YOU NEED ANY PRESCRIPTIONS? YES . IF YES, PLEASE LIST: ____OXYCODONE, SOMA . ANY NEW PROBLEMS WITH YOUR MEDICATIONS? NO . WHEN DID YOU LAST EAT? ____ . WHEN DID YOU LAST DRINK? ____ . WHAT DID YOU LAST DRINK? ____ . NAME OF PERSON DRIVING YOU HOME? ____ . DO YOU HAVE ANY OTHER QUESTIONS OR CONCERNS FLU VACCINE 07/01/18; STATES HE IS HAVING ISSUES WITH HIS DCS AND STATES HIS NEXT BACK INJECTIONS NEED TO BE WITH FLUOROSCOPY . VITAL SIGNS WT 185.8 LBS, HT 70 IN, BMI 26.66 INDEX, BP 129/85 MM HG, HR 82 /MIN, RR 18 /MIN, TEMP 97.9 F, OXYGEN SAT % 100%, SAFE IN ENV? (Y/N) YES, NA INITIALS FL 09:58, REVIEWED BY: MICHAEL. EXAMINATION GENERAL EXAMINATION: GENERAL APPEARANCE:ALERT,APPEARS UNCOMFORTABLE. PSYCHAFFECT NORMAL. LUNGS:LUNG TAVARES ARE CLEAR TO AUSCULTATION BILATERALLY. GOOD MOVEMENT OF AIR. HEART:S1, S2 IN A REGULAR RATE AND RHYTHM. NO SIGNIFICANT MURMURS, RUBS OR GALLOPS NOTED. MUSCULOSKELETAL:MUSCLE STRENGTH TESTING 5/5 BILATERAL LOWER EXTREMITIES , PALPATION: POSITIVE FOR PAIN OVER L/S SPINE. POSITIVE FOR PAIN OVER L/S PARSPINALS , TRIGGER POINTS:, ELICITED WITH PALPATION OVER LUMBAR PARAVERTEBRAL MUSCLES. RESTRICTION OF ROM IN THIS AREA. 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 PREVENTIVE MEDICINE PAIN CLINIC TEACHING: PROCEDURE TEACHING REVIEWED TPI PROCEDURE INFORMATION WITH PATIENT. ALSO REVIEWED PRE-PROCEDURE INSTRUCTIONS. PATIENT VERBALIZED AN UNDERSTANDING. FELICITAS LUI 07/24/2018 10:54:30 AM > . PROCEDURE CODES FA211 ESTABILISHED PATIENT [facility] CHARGE DISPOSITION & COMMUNICATION FOLLOW UP POST (REASON: TPI LOW BACK) ELECTRONICALLY SIGNED BY CARLIN CASSIDY ON 08/17/2018 AT 09:14 AM EST DISCLAIMER : THIS IS A VISIT SUMMARY EXTRACTED FROM THE [employer] CHART. IT IS NOT A COPY OF THE [employer] PROGRESS NOTE. MARCIE
== END ==
LOC: M PAIN 09:45
PROVIDERS: ATTEND Nurse Practitioner Family
DX: M47.22 Other spondylosis with radiculopathy, cervical region (principal); M54.40 Lumbago with sciatica, unspecified side; M79.18 Myalgia, other site; I10 Essential (primary) hypertension; E78.5 Hyperlipidemia, unspecified; G47.33 Obstructive sleep apnea (adult) (pediatric); F17.220 Nicotine dependence, chewing tobacco, uncomplicated; Z79.899 Other long term (current) drug therapy; Z88.1 Allergy status to other antibiotic agents; Z88.2 Allergy status to sulfonamides; Z88.5 Allergy status to narcotic agent; Z96.651 Presence of right artificial knee joint

== ENCOUNTER → 2018-08-04 | Outpatient (CLI) | payer OTHER ==
[~2018-08-04] MED LIST changes: +BUPIVACAINE HCL 0.25% 10 ML VIAL As Ordered ONE; +BUPIVACAINE HCL 0.25% 30 ML VIAL As Ordered ONE; +TRIAMCINOLONE ACETONIDE SUSP 40 MG/ML VIAL (J3301) As Ordered ONE; +diazePAM 5 MG TAB As Ordered ONE; +oxyCODONE 5MG TAB As Ordered ONE
--- NOTE | 2018-08-04 17:13 | REP ---
Partial thoracic and lumbar spine series: 17 views . History: Injection procedure for pain. 12th seconds of fluoroscopy time is reported. Findings: A sequence of 17 fluoroscopically obtained last image hold procedural spot radiographs of the lumbar spine document needle position and contrast injection associated with injection procedure. Dorsal column stimulator leads are visible as well. Electronically Signed by Jacobo Summers MD 08/04/2018 05:05 P
--- NOTE | 2018-08-19 00:32 | ECWPNPC ---
PATIENT NAME: HAILY WAGNER : 1970 GENDER: MALE VISIT DATE: 08/04/2018 DISCHARGE DATE: 08/04/182 VISIT LOCKED DATE TIME: PHYSICIAN: CHRISTINE MCKEON MD RESOURCE: CHRISTINE MCKEON MD REASON FOR APPOINTMENT 1. TPI LOW BACK WITH FLURO, PT HAS DCS HISTORY OF PRESENT ILLNESS HISTORY OF PRESENT ILLNESS: PAIN THE PATIENT DESCRIBES THE PAIN... FALL RISK SCREENING: SCREENING :NO FALLS IN THE PAST YEAR CURRENT MEDICATIONS TAKING LISINOPRIL/HCTZ 10/12.5 10/12.5MG TABLET 1 TAB ORAL DAILY, NOTES: 08-04-17614 TAKING ATORVASTATIN CALCIUM 40 MG TABLET 1 TABLET ORALLY ONCE A DAY, NOTES: 08-03-181599 TAKING PROTONIX 40 MG TABLET DELAYED RELEASE 1 TABLET ORALLY BID, NOTES: 08-04-18614 TAKING MULTIVITAMIN ADULT - TABLET ORALLY DAILY, NOTES: 08-14-18614 TAKING ARTHROTEC 75-0.2 MG TABLET DELAYED RELEASE 1 TABLET WITH FOOD ORALLY TWICE A DAY, NOTES: 08-04-18614 TAKING TIZANIDINE HCL 4 MG TABLET 1 TABLET NEEDED ORALLY THREE TIMES A DAY, NOTES: 08-04-18 1600 UNKNOWN SUDAFED 30 MG TABLET 1 TABLET NEEDED ORALLY EVERY 6 HRS UNKNOWN FLONASE 50 MCG/ACT SUSPENSION 1 SPRAY IN EACH NOSTRIL NASALLY TWICE A DAY UNKNOWN NETI POT SINUS WASH 2300-700 MG KIT DIRECTED NASALLY BID UNKNOWN MUCINEX DM 30-600 MG TABLET EXTENDED RELEASE 12 HOUR 1 TABLET NEEDED ORALLY EVERY 12 HRS MEDICATION LIST REVIEWED AND RECONCILED WITH THE PATIENT PAST MEDICAL HISTORY 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 HTN HYPERLIPIDEMIA CHRONIC NECK PAIN WITH RADIATION DOWN BUE, LEFT WORSE THAN RIGHT BILATERAL KNEE PAIN, RIGHT WORSE THAN LEFT LOW BACK PAIN TINNITUS DIPAK ON CPAP SEIZURE AFTER TRAMADOL USE 2012 OR 2013 SPONDYLOSIS WITHOUT MYELOPATHY OR RADICULOPATHY, 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 MRSA IN GRANDDAUGHTER OTHERWISE NO SIGNIFICANT FAMILY HISTORY NOTED. SOCIAL HISTORY GENERAL: TOBACCO USE ARE YOU A:NONSMOKER CHEWS TOBACCO RECREATIONAL DRUG USE DRUG USE?NO HIV / HEP-C SCREENING HIV TEST OFFERED TO PATIENT:YES DATE OFFERED:08/04/2017 TEST ACCEPTED:NO REASON:PATIENT DECLINED HEP-C TEST OFFERED TO PATIENT:NO ADVENTIST NO RESTORATIONIST BELIEFS THAT WOULD IMPACT HEALTH CARE. LANGUAGE SUDANESE. LEARNING BARRIERS / SPECIAL NEEDS BARRIERS TO LEARNING?NO HEARING IMPAIRED?NO VISION IMPAIRED?YES READING GLASSES COGNITIVELY IMPAIRED?NO READINESS TO LEARN?YES LEARNING PREFERENCES?NO LEARNING CAPABILITIES PRESENT?YES EMOTIONAL BARRIERS?NO SPECIAL DEVICES?NO COMMUNICATION CONSULTANT NEEDED?NO DIET: REGULAR. EXERCISE: NO REGULAR EXERCISE. MARITAL STATUS: . NEW PATIENT PAIN DIARY FROM 0-10, WHAT LEVEL IS YOUR PAIN TODAY?8 PAIN CLINIC PFS, CLERGY, PUBLIC HEALTH REFERRALS PFS REFERRAL NEEDED?NO CLERGY REFERRAL NEEDED?NO PUBLIC HEALTH REFERRAL NEEDED?NO HAS THE PATIENT BEEN EDUCATED REGARDING HIS/HER PLAN OF CARE?YES HAS THE PATIENT BEEN EDUCATED REGARDING PAIN, THE RISK FOR PAIN, THE IMPORTANCE OF EFFECTIVE PAIN MANAGEMENT, AND THE PAIN ASSESSMENT PROCESS?YES ADVANCE DIRECTIVE ADVANCE DIRECTIVE DISCUSSED WITH PATIENT:YES STATES HE IS CURRENTLY WORKING ON GETTING A HCP, DELINED ASSISTANCE AT THIS TIME. REVIEWED WITH PATIENT 07/24/18 1009 JS. HOSPITALIZATION/MAJOR DIAGNOSTIC PROCEDURE NO HOSPITALIZATION HISTORY. REVIEW OF SYSTEMS REVIEWED BY: PROVIDER: . CONSTITUTIONAL: ANY CHANGE IN YOUR MEDICAL CONDITION? NO . CHILLS NO . FEVER NO . INFECTION: DO YOU HAVE NEW INFECTIONS? NO . DO YOU HAVE HISTORY OF MRSA? NO . MUSCULOSKELETAL: ANY NEW PATTERNS OF PAIN OR NUMBNESS? NO . GASTROENTEROLOGY: ANY NEW CHANGE IN BOWEL CONTROL? NO . GENITOURINARY: ANY NEW CHANGE IN BLADDER CONTROL? NO . IS THERE A CHANCE YOU COULD BE ? NO . HEMATOLOGY/LYMPH: DO YOU TAKE ANY BLOOD THINNERS? (FOR EXAMPLE- COUMADIN, PLAVIX, AGGRENOX, PLATEL, PRADAXA, OR XARELTO) NO . WHEN WAS YOUR LAST DOSE? DATE: TIME: . NEUROLOGY: HAVE YOU FALLEN IN THE PAST 6 MONTHS? NO . ANY NEW EXTREMITY NUMBNESS OR WEAKNESS? NO . CARDIOLOGY: DO YOU HAVE A PACEMAKER OR DEFIBRILLATOR? DORSAL COLUMN STIMULATOR . RESPIRATORY: HAVE YOU BEEN SICK IN THE PAST WEEK? NO . FEVER NO . FLU LIKE SYMPTOMS? NO . COUGH NO . INTEGUMENTARY: DO YOU HAVE ANY RASHES OR OPEN SORES? NO . ALLERGIC/IMMUNO: ARE YOU ALLERGIC TO SHELLFISH OR IV DYE? NO . ANY NEW ALLERGIES? NO . PSYCHIATRIC: DO YOU HAVE THOUGHTS OF HURTING YOURSELF OR SOMEONE ELSE? NO . ARE YOU ABUSED, NEGLECTED, OR IN AN UNSAFE ENVIRONMENT? NO . ENDOCRINOLOGY: ARE YOU DIABETIC? NO . OTHER: DO YOU NEED ANY PRESCRIPTIONS? NO . IF YES, PLEASE LIST: ____ . ANY NEW PROBLEMS WITH YOUR MEDICATIONS? NO . WHEN DID YOU LAST EAT? ____08-04-18 0200 . WHEN DID YOU LAST DRINK? ____TODAY 1200 . WHAT DID YOU LAST DRINK? ____GREEN TEA . NAME OF PERSON DRIVING YOU HOME? _SALLY . DO YOU HAVE ANY OTHER QUESTIONS OR CONCERNS NO . VITAL SIGNS WT 184.0 LBS, HT 70 IN, BMI 26.40 INDEX, BP 122/78 MM HG, HR 67 /MIN, RR 18 /MIN, TEMP 98.2 F, OXYGEN SAT % 99%, SAFE IN ENV? (Y/N) YES, NA INITIALS AW 1501, REVIEWED BY: KG. ASSESSMENTS MYALGIA, OTHER SITE - M79.18 (PRIMARY) PROCEDURES PN TRIGGER POINT INJECTION WITH STEROIDS PRE PROCEDURE DIAGNOSIS 1. MYALGIA 2. PAIN AT BILATERAL THORACIC AREA AND BILATERAL LOW BACK AREA POST PROCEDURE DIAGNOSIS 1. MYALGIA 2. PAIN AT BILATERAL THORACIC AREA AND BILATERAL LOW BACK AREA PROCEDURE TRIGGER POINT INJECTION AT BILATERAL THORACIC AREA AND BILATERAL LOW BACK AREA UNDER FLUOROSCOPY SURGEON DR. CHRISTINE MCKEON DIET TECH NONE ANESTHESIA LOCAL PRE PROCEDURE NOTE THE PATIENT HAS A HISTORY OF CHRONIC PAIN AT THE RIGHT AND LEFT THORACIC AREA AND RIGHT AND LEFT LOW BACK AREA. I EVALUATE THE PATIENT AND REVIEWED THE CHART. THERE IS EVIDENCE OF BANDS OF TISSUE WITH RESTRICTION OF MOVEMENT AND PRESENCE OF TRIGGER POINT AT THE AFFECTED AREA. I WENT OVER THE RISKS, ALTERNATIVES, AND BENEFITS ASSOCIATED WITH THIS PROCEDURE. THE PROCEDURE WILL BE DONE UNDER FLUOROSCOPIC GUIDANCE TO AVOID TOUCHING THE SPINAL CORD STIMULATOR LEADS. THE PATIENT WOULD LIKE TO PROCEED AND GIVE CONSENT TO PERFORMED THE PROCEDURE. THE PATIENT DENIES UNEXPLAINABLE WEIGHT LOSS, FEVER, CHILLS, OR NEW CHANGES IN URINARY OR BOWEL CONTROL DESCRIPTION OF PROCEDURE THE PATIENT WAS BROUGHT TO THE PROCEDURE ROOM AND PLACED IN THE SITTING POSITION. THE AREA WAS CLEANED WITH ALCOHOL. THE PROCEDURE WAS DONE USING ASEPTIC STERILE TECHNIQUE. I CHECKED LATERALITY AND THE LEVEL WHERE THE PROCEDURE WAS GOING TO BE PERFORMED WITH THE PATIENT AND THE SUPPORTING STAFF AT THE MOMENT OF THE TIME OUT IN THE PROCEDURE ROOM. USING A 25-GAUGE NEEDLE, TRIGGER POINTS WERE INJECTED AT THE RIGHT AND LEFT THORACIC AREA AND RIGHT AND LEFT LOW BACK AREA WITH A TOTAL OF 40 ML OF BUPIVACAINE 0.25% AND KENALOG 40 MG. THERE WAS NO EVIDENCE OF BLOOD, PARESTHESIA OR CEREBROSPINAL FLUID DURING THE PROCEDURE. THE PATIENT WAS SENT TO THE RECOVERY ROOM. THE PATIENT WAS MOVING THE EXTREMITIES AND DOING WELL. THERE WAS NO COMPLICATION DURING THE PROCEDURE. FLUOROSCOPIC TIME WAS 12 SECONDS. POST PROCEDURE NOTE THE PATIENT WILL BE SEEN IN A FOLLOW UP IN THE NEXT FEW WEEKS. INSTRUCTIONS WERE GIVEN, QUESTIONS WERE ANSWERED, AND THE PATIENT EXPRESSED UNDERSTANDING AND AGREES WITH THE PLAN. I, CHEMO KUMAR, DOCUMENTED THE ABOVE INFORMATION ACTING A SCRIBE FOR DR. MCKEON. I HAVE REVIEWED THE ABOVE DOCUMENT, WRITTEN BY CHEMO ROBLEDO AND I VERIFY THAT IT IS ACCURATE. DI[facility] FLUORO GUIDANCE (PAIN)[id number] PROCEDURE CODES 6045F RADXPS IN END [id number] PXD 93623 INJECT TRIGGER POINTS 3/> 36125 NEEDLE LOCALIZATION BY DANIELLE, MODIFIERS: 26 DISPOSITION & COMMUNICATION FOLLOW UP 3 WEEKS ELECTRONICALLY SIGNED BY CHRISTINE MCKEON MD, MD ON 08/18/2018 AT 02:48 PM EST DISCLAIMER : THIS IS A VISIT SUMMARY EXTRACTED FROM THE [employer] CHART. IT IS NOT A COPY OF THE [employer] PROGRESS NOTE. MTDD
== END ==
LOC: M PAIN 14:45
PROVIDERS: ATTEND Anesthesiology
DX: M79.18 Myalgia, other site (principal); M54.6 Pain in thoracic spine; M54.5 Low back pain; I10 Essential (primary) hypertension; E78.5 Hyperlipidemia, unspecified; G47.33 Obstructive sleep apnea (adult) (pediatric); M17.11 Unilateral primary osteoarthritis, right knee; F17.220 Nicotine dependence, chewing tobacco, uncomplicated; Z79.899 Other long term (current) drug therapy; Z88.1 Allergy status to other antibiotic agents; Z88.2 Allergy status to sulfonamides; Z88.5 Allergy status to narcotic agent; Z86.69 Personal history of other diseases of the nervous system and sense organs
CPT/HCPCS: 20553; 77002; J3301

== ENCOUNTER → 2018-08-21 | Outpatient (CLI) | payer OTHER ==
[~2018-08-21] MED LIST changes: -BUPIVACAINE HCL 0.25% 10 ML VIAL As Ordered ONE; -BUPIVACAINE HCL 0.25% 30 ML VIAL As Ordered ONE; -TRIAMCINOLONE ACETONIDE SUSP 40 MG/ML VIAL (J3301) As Ordered ONE; -diazePAM 5 MG TAB As Ordered ONE; -oxyCODONE 5MG TAB As Ordered ONE
--- NOTE | 2018-09-07 00:07 | ECWPNPC ---
PATIENT NAME: HAILY WAGNER : 1970 GENDER: MALE VISIT DATE: 08/21/2018 DISCHARGE DATE: 08/21/18 1356 VISIT LOCKED DATE TIME: PHYSICIAN: CHRISTINE MCKEON MD RESOURCE: CHRISTINE MCKEON MD REASON FOR APPOINTMENT 1. POST PROC HISTORY OF PRESENT ILLNESS HISTORY OF PRESENT ILLNESS: PAIN THE PATIENT DESCRIBES THE PAIN... 48 YEAR OLD MALE PATIENT WITH A HISTORY OF CHRONIC LOW BACK PAIN. THE PATIENT DESCRIBES THE PAIN ACHING, BURNING, SORE, SHARP, STABBING, AND CONTINUOUS WITH A PAIN SCORE OF 7-9/10 DEPENDING ON PHYSICAL ACTIVITY. THE PATIENT WAS HERE FOR A TRIGGER POINT INJECTION ON 08/04/2018 AND REPORTS ONLY HAVING A COUPLE DAYS OF RELIEF. THE PATIENT SAYS THAT HE HAS BEEN EXPERIENCING SOME SUDDEN SEVERE SPASMS IN HIS LOW BACK RECENTLY. THE PATIENT HAS TRIED USING IBUPROFEN, CELEBREX, AND MELOXICAM IN THE PAST AND SAYS THAT THEY DID NOT HELP HIM. THE PATIENT HAS BEEN USING DICLOFENAC, BUT REPORTS THAT HE WAS TOLD IT IS CURRENTLY ON BACK ORDER. THE PATIENT IS CURRENTLY USING TIZANIDINE AND A DCS IMPLANT TO AID IN PAIN RELIEF. PATIENT DENIES UNEXPLAINABLE WEIGHT LOSS, FEVER, CHILLS, NEW CHANGES ON HIS URINARY OR BOWEL CONTROL. FALL RISK SCREENING: SCREENING :NO FALLS IN THE PAST YEAR CURRENT MEDICATIONS TAKING LISINOPRIL/HCTZ 10/12.5 10/12.5MG TABLET 1 TAB ORAL DAILY TAKING ATORVASTATIN CALCIUM 40 MG TABLET 1 TABLET ORALLY ONCE A DAY TAKING PROTONIX 40 MG TABLET DELAYED RELEASE 1 TABLET ORALLY BID TAKING MULTIVITAMIN ADULT - TABLET ORALLY DAILY TAKING ARTHROTEC 75-0.2 MG TABLET DELAYED RELEASE 1 TABLET WITH FOOD ORALLY TWICE A DAY TAKING TIZANIDINE HCL 4 MG TABLET 1 TABLET NEEDED ORALLY THREE TIMES A DAY NOT-TAKING SUDAFED 30 MG TABLET 1 TABLET NEEDED ORALLY EVERY 6 HRS NOT-TAKING FLONASE 50 MCG/ACT SUSPENSION 1 SPRAY IN EACH NOSTRIL NASALLY TWICE A DAY NOT-TAKING NETI POT SINUS WASH 2300-700 MG KIT DIRECTED NASALLY BID NOT-TAKING MUCINEX DM 30-600 MG TABLET EXTENDED RELEASE 12 HOUR 1 TABLET NEEDED ORALLY EVERY 12 HRS MEDICATION LIST REVIEWED AND RECONCILED WITH THE PATIENT PAST MEDICAL HISTORY 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 HTN HYPERLIPIDEMIA CHRONIC NECK PAIN WITH RADIATION DOWN BUE, LEFT WORSE THAN RIGHT BILATERAL KNEE PAIN, RIGHT WORSE THAN LEFT LOW BACK PAIN TINNITUS DIPAK ON CPAP SEIZURE AFTER TRAMADOL USE 2012 OR 2013 SPONDYLOSIS WITHOUT MYELOPATHY OR RADICULOPATHY, 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 MRSA IN GRANDDAUGHTER OTHERWISE NO SIGNIFICANT FAMILY HISTORY NOTED. SOCIAL HISTORY GENERAL: TOBACCO USE ARE YOU A:NONSMOKER CHEWS TOBACCO RECREATIONAL DRUG USE DRUG USE?NO HIV / HEP-C SCREENING HIV TEST OFFERED TO PATIENT:YES DATE OFFERED:08/04/2017 TEST ACCEPTED:NO REASON:PATIENT DECLINED HEP-C TEST OFFERED TO PATIENT:NO FAITH NO HINDU BELIEFS THAT WOULD IMPACT HEALTH CARE. LANGUAGE GREEN[place]IC. LEARNING BARRIERS / SPECIAL NEEDS BARRIERS TO LEARNING?NO HEARING IMPAIRED?NO VISION IMPAIRED?YES READING GLASSES COGNITIVELY IMPAIRED?NO READINESS TO LEARN?YES LEARNING PREFERENCES?NO LEARNING CAPABILITIES PRESENT?YES EMOTIONAL BARRIERS?NO SPECIAL DEVICES?NO PRINTMAKER NEEDED?NO DIET: REGULAR. EXERCISE: NO REGULAR EXERCISE. MARITAL STATUS: . NEW PATIENT PAIN DIARY FROM 0-10, WHAT LEVEL IS YOUR PAIN TODAY?8 PAIN CLINIC PFS, CLERGY, PUBLIC HEALTH REFERRALS PFS REFERRAL NEEDED?NO CLERGY REFERRAL NEEDED?NO PUBLIC HEALTH REFERRAL NEEDED?NO HAS THE PATIENT BEEN EDUCATED REGARDING HIS/HER PLAN OF CARE?YES HAS THE PATIENT BEEN EDUCATED REGARDING PAIN, THE RISK FOR PAIN, THE IMPORTANCE OF EFFECTIVE PAIN MANAGEMENT, AND THE PAIN ASSESSMENT PROCESS?YES ADVANCE DIRECTIVE ADVANCE DIRECTIVE DISCUSSED WITH PATIENT:YES STATES HE IS CURRENTLY WORKING ON GETTING A HCP, DELINED ASSISTANCE AT THIS TIME. REVIEWED WITH PATIENT 07/24/18 1009 JSREVIEWED WITH PATIENT 08/21/18 1249 JS. HOSPITALIZATION/MAJOR DIAGNOSTIC PROCEDURE NO HOSPITALIZATION HISTORY. REVIEW OF SYSTEMS REVIEWED BY: PROVIDER: CHRISTINE MCKEON MD . CONSTITUTIONAL: ANY CHANGE IN YOUR MEDICAL CONDITION? YES, POSSIBLE INFECTION IN RIGHT KNEE . CHILLS NO . FEVER NO . INFECTION: DO YOU HAVE NEW INFECTIONS? YES, STATES THAT BONE SCAN SHOWS AN INFECTION IN HIS RIGHT KNEE BUT BLOODWORK DOES NOT INDICATE AN INFECTION . DO YOU HAVE HISTORY OF MRSA? NO . MUSCULOSKELETAL: ANY NEW PATTERNS OF PAIN OR NUMBNESS? YES, STATES ENTIRE LEFT SIDE OF BACK COMPLETELY CRAMPED UP YESTERDAY, HAS NEVER HAPPENED BEFORE . GASTROENTEROLOGY: ANY NEW CHANGE IN BOWEL CONTROL? NO . GENITOURINARY: ANY NEW CHANGE IN BLADDER CONTROL? NO . IS THERE A CHANCE YOU COULD BE ? NO . HEMATOLOGY/LYMPH: DO YOU TAKE ANY BLOOD THINNERS? (FOR EXAMPLE- COUMADIN, PLAVIX, AGGRENOX, PLATEL, PRADAXA, OR XARELTO) NO . WHEN WAS YOUR LAST DOSE? DATE: TIME: . NEUROLOGY: HAVE YOU FALLEN IN THE PAST 12 MONTHS? YES, STATES FALL PRIOR TO LAST VISIT, DISCUSSED AT PREVIOUS VISIT . ANY NEW EXTREMITY NUMBNESS OR WEAKNESS? NO . CARDIOLOGY: DO YOU HAVE A PACEMAKER OR DEFIBRILLATOR? NO, DOES HAVE DCS . RESPIRATORY: HAVE YOU BEEN SICK IN THE PAST WEEK? NO . FEVER NO . FLU LIKE SYMPTOMS? NO . COUGH NO . INTEGUMENTARY: DO YOU HAVE ANY RASHES OR OPEN SORES? NO . ALLERGIC/IMMUNO: ARE YOU ALLERGIC TO IV DYE? NO . ANY NEW ALLERGIES? NO . PSYCHIATRIC: DO YOU HAVE THOUGHTS OF HURTING YOURSELF OR SOMEONE ELSE? NO . ARE YOU ABUSED, NEGLECTED, OR IN AN UNSAFE ENVIRONMENT? NO . ENDOCRINOLOGY: ARE YOU DIABETIC? NO . OTHER: DO YOU NEED ANY PRESCRIPTIONS? YES, PATIENT STATES THE DICLOFENAC THAT HE IS PRESCRIBED IS ON BACK ORDER AND HE IS UNABLE TO GET ANY AT THIS TIME . IF YES, PLEASE LIST: ____ . ANY NEW PROBLEMS WITH YOUR MEDICATIONS? NO . WHEN DID YOU LAST EAT? ____ . WHEN DID YOU LAST DRINK? ____ . WHAT DID YOU LAST DRINK? ____ . NAME OF PERSON DRIVING YOU HOME? ____ . DO YOU HAVE ANY OTHER QUESTIONS OR CONCERNS YES, STATES HE HAS QUESTIONS FOR THE DOCTOR ABOUT HIS DCS . VITAL SIGNS WT 186.0 LBS, HT 70 IN, BMI 26.69 INDEX, BP 141/87 MM HG, HR 79 /MIN, RR 18 /MIN, TEMP 98.0 F, OXYGEN SAT % 97%, SAFE IN ENV? (Y/N) YES, NA INITIALS AW 1238, REVIEWED BY: MICHAEL. EXAMINATION GENERAL EXAMINATION: PATIENT IS ALERT O X 3 AND COOPERATIVE. TENDERNESS IN THE LOW BACK AREA. PAIN INCREASES OVER THE LUMBAR FACET JOINTS WITH EXTENSION AND LATERAL ROTATION OF THE BACK. X-RAY OF THE LUMBAR SPINE DONE ON 08/29/2016 SHOWS DEGENERATIVE CHANGES. ASSESSMENTS LOW BACK PAIN - M54.5 (PRIMARY) OTHER CHRONIC PAIN - G89.29 R/O LUMBAR FACET ARTHROPATHY. TREATMENT LOW BACK PAIN CLINICAL NOTES: WE DISCUSSED SEVERAL ISSUES WITH MR. WAGNER'S PAIN MANAGEMENT CASE. I WILL ORDER A LUMBAR CT DUE TO THE INCREASE IN SEVERE PAIN IN THE PATIENT'S BACK. I WILL INCREASE THE PATIENT'S TIZANIDINE TO 6MG. I WOULD LIKE THE PATIENT TO START USING GABAPENTIN AT NIGHT. I WILL ALSO START THE PATIENT ON DAYPRO AND TORADOL. I WAS WITH THE PATIENT FOR OVER 25 MINUTES AND MORE THAN HALF OF THAT TIME WAS SPENT DISCUSSING THE PATIENT'S OPTIONS FOR INTERVENTIONS INCLUDING LUMBAR FACET BLOCKS, RADIOFREQUENCY, AND THE PATIENT'S DCS IMPLANT. THE PATIENT WILL FOLLOW UP IN 3 WEEKS. INSTRUCTIONS WERE GIVEN, QUESTIONS WERE ANSWERED, PATIENT REPORTS UNDERSTANDING AND AGREES WITH THE PLAN. I, CHEMO KUMAR, DOCUMENTED THE ABOVE INFORMATION ACTING A SCRIBE FOR DR. MCKEON. I HAVE REVIEWED THE ABOVE DOCUMENT, WRITTEN BY CHEMO ROBLEDO AND I VERIFY THAT IT IS ACCURATE. OTHERS START DAYPRO TABLET, 600 MG, DIRECTED, ORALLY WITH FOOD, DAILY, 30 DAY(S), 30, REFILLS 0 START KETOROLAC TROMETHAMINE TABLET, 10 MG, 1 TABLET WITH FOOD OR MILK NEEDED, ORALLY FOR PAIN, EVERY 6 HRS MDD3, 5 DAY(S), 15, REFILLS 0 START GABAPENTIN CAPSULE, 300 MG, 1 CAPSULE, ORALLY FOR PAIN, BEFORE BEDTIME, 30 DAY(S), 30, REFILLS 0 REFILL TIZANIDINE HCL CAPSULE, 6 MG, 1 TABLET NEEDED, ORALLY, BEFORE BEDTIME, 30 DAY(S), 30, REFILLS 1 PREVENTIVE MEDICINE PAIN CLINIC TEACHING: MEDICATIONS PT GIVEN WRITTEN AND VERBAL EDUCATION ON STARTING GABAPENTIN, TORADOL, AND DAYPRO. PT VERBALIZES UNDERSTANDING OF ALL EDUCATION. GABRIEL PARK 08/21/2018 1:50:22 PM > . PROCEDURE CODES FA211 ESTABILISHED PATIENT [facility] FACILITY CHARGE G8427 CURRENT MEDS W/DOSAGES DOCUMENTED G8730 PAIN ASSESS POS TOOL F/U PLAN DOC DISPOSITION & COMMUNICATION FOLLOW UP 3 WEEKS (REASON: LOW BACK) ELECTRONICALLY SIGNED BY CHRISTINE MCKEON MD, MD ON 09/06/2018 AT 03:20 PM EST DISCLAIMER : THIS IS A VISIT SUMMARY EXTRACTED FROM THE [employer] CHART. IT IS NOT A COPY OF THE [employer] PROGRESS NOTE. MTDD
== END ==
LOC: M PAIN 12:45
PROVIDERS: ATTEND Anesthesiology
DX: M54.5 Low back pain (principal); G89.29 Other chronic pain; I10 Essential (primary) hypertension; E78.5 Hyperlipidemia, unspecified; G47.30 Sleep apnea, unspecified; M17.11 Unilateral primary osteoarthritis, right knee; F17.220 Nicotine dependence, chewing tobacco, uncomplicated; Z88.1 Allergy status to other antibiotic agents; Z88.2 Allergy status to sulfonamides; Z88.5 Allergy status to narcotic agent; Z96.651 Presence of right artificial knee joint

== ENCOUNTER → 2018-09-02 | Outpatient (CLI) | payer OTHER ==
--- NOTE | 2018-09-12 23:19 | ECWPNPC ---
PATIENT NAME: HAILY WAGNER : 1970 GENDER: MALE VISIT DATE: 09/02/2018 DISCHARGE DATE: 09/02/18 1423 VISIT LOCKED DATE TIME: PHYSICIAN: CHRISTINE MCKEON MD RESOURCE: CHRISTINE MCKEON MD HISTORY OF PRESENT ILLNESS HISTORY OF PRESENT ILLNESS: PAIN THE PATIENT DESCRIBES THE PAIN... 48 YEAR OLD MALE PATIENT WITH A HISTORY OF CHRONIC THORACIC PAIN. THE PATIENT DESCRIBES THE PAIN ACHING, BURNING, SHARP, STABBING, SHOOTING, AND CONTINUOUS WITH A PAIN SCORE OF 8-10/10 DEPENDING ON PHYSICAL ACTIVITY. THE PATIENT PREVIOUSLY HAD A TRIGGER POINT INJECTION, BUT SAYS HE ONLY HAD A FEW DAYS OF PAIN RELIEF. THE PATIENT IS CURRENTLY USING DAYPRO, GABAPENTIN, AND TIZANIDINE TO AID IN PAIN RELIEF. THE PATIENT ALSO HAS A DCS IMPLANT. THE PATIENT SAYS THAT HE IS STILL HAVING SEVERE SPASMS IN HIS MID BACK AREA. PATIENT DENIES UNEXPLAINABLE WEIGHT LOSS, FEVER, CHILLS, NEW CHANGES ON HIS URINARY OR BOWEL CONTROL. FALL RISK SCREENING: SCREENING :NO FALLS IN THE PAST YEAR CURRENT MEDICATIONS TAKING LISINOPRIL/HCTZ 10/12.5 10/12.5MG TABLET 1 TAB ORAL DAILY TAKING ATORVASTATIN CALCIUM 40 MG TABLET 1 TABLET ORALLY ONCE A DAY TAKING PROTONIX 40 MG TABLET DELAYED RELEASE 1 TABLET ORALLY BID TAKING MULTIVITAMIN ADULT - TABLET ORALLY DAILY TAKING DAYPRO 600 MG TABLET DIRECTED ORALLY WITH FOOD DAILY TAKING GABAPENTIN 300 MG CAPSULE 1 CAPSULE ORALLY FOR PAIN BEFORE BEDTIME TAKING TIZANIDINE HCL 6 MG CAPSULE 1 TABLET NEEDED ORALLY BEFORE BEDTIME NOT-TAKING ARTHROTEC 75-0.2 MG TABLET DELAYED RELEASE 1 TABLET WITH FOOD ORALLY TWICE A DAY NOT-TAKING KETOROLAC TROMETHAMINE 10 MG TABLET 1 TABLET WITH FOOD OR MILK NEEDED ORALLY FOR PAIN EVERY 6 HRS MDD3 NOT-TAKING SUDAFED 30 MG TABLET 1 TABLET NEEDED ORALLY EVERY 6 HRS NOT-TAKING FLONASE 50 MCG/ACT SUSPENSION 1 SPRAY IN EACH NOSTRIL NASALLY TWICE A DAY NOT-TAKING NETI POT SINUS WASH 2300-700 MG KIT DIRECTED NASALLY BID NOT-TAKING MUCINEX DM 30-600 MG TABLET EXTENDED RELEASE 12 HOUR 1 TABLET NEEDED ORALLY EVERY 12 HRS MEDICATION LIST REVIEWED AND RECONCILED WITH THE PATIENT PAST MEDICAL HISTORY 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 HTN HYPERLIPIDEMIA CHRONIC NECK PAIN WITH RADIATION DOWN BUE, LEFT WORSE THAN RIGHT BILATERAL KNEE PAIN, RIGHT WORSE THAN LEFT LOW BACK PAIN TINNITUS DIPAK ON CPAP SEIZURE AFTER TRAMADOL USE 2012 OR 2013 SPONDYLOSIS WITHOUT MYELOPATHY OR RADICULOPATHY, 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 MRSA IN GRANDDAUGHTER OTHERWISE NO SIGNIFICANT FAMILY HISTORY NOTED. SOCIAL HISTORY GENERAL: TOBACCO USE ARE YOU A:NONSMOKER CHEWS TOBACCO RECREATIONAL DRUG USE DRUG USE?NO HIV / HEP-C SCREENING HIV TEST OFFERED TO PATIENT:YES DATE OFFERED:08/04/2017 TEST ACCEPTED:NO REASON:PATIENT DECLINED HEP-C TEST OFFERED TO PATIENT:NO EPISCOPAL NO RASTAFARIAN BELIEFS THAT WOULD IMPACT HEALTH CARE. LANGUAGE ARABIC. LEARNING BARRIERS / SPECIAL NEEDS BARRIERS TO LEARNING?NO HEARING IMPAIRED?NO VISION IMPAIRED?YES READING GLASSES COGNITIVELY IMPAIRED?NO READINESS TO LEARN?YES LEARNING PREFERENCES?NO LEARNING CAPABILITIES PRESENT?YES EMOTIONAL BARRIERS?NO SPECIAL DEVICES?NO CLEANING LABORER NEEDED?NO DIET: REGULAR. EXERCISE: NO REGULAR EXERCISE. MARITAL STATUS: . NEW PATIENT PAIN DIARY FROM 0-10, WHAT LEVEL IS YOUR PAIN TODAY?8 PAIN CLINIC PFS, CLERGY, PUBLIC HEALTH REFERRALS PFS REFERRAL NEEDED?NO CLERGY REFERRAL NEEDED?NO PUBLIC HEALTH REFERRAL NEEDED?NO HAS THE PATIENT BEEN EDUCATED REGARDING HIS/HER PLAN OF CARE?YES HAS THE PATIENT BEEN EDUCATED REGARDING PAIN, THE RISK FOR PAIN, THE IMPORTANCE OF EFFECTIVE PAIN MANAGEMENT, AND THE PAIN ASSESSMENT PROCESS?YES ADVANCE DIRECTIVE ADVANCE DIRECTIVE DISCUSSED WITH PATIENT:YES STATES HE IS CURRENTLY WORKING ON GETTING A HCP, DECLINED ASSISTANCE AT THIS TIME. REVIEWED WITH PATIENT 07/24/18 1009 JSREVIEWED WITH PATIENT 08/21/18 1249 JSREVIEWED WITH PATIENT 09/02/18 1249 JS. HOSPITALIZATION/MAJOR DIAGNOSTIC PROCEDURE SURGERY RELATED REVIEW OF SYSTEMS REVIEWED BY: PROVIDER: CHRISTINE MCKEON MD . CONSTITUTIONAL: ANY CHANGE IN YOUR MEDICAL CONDITION? NO . CHILLS NO . FEVER NO . INFECTION: DO YOU HAVE NEW INFECTIONS? NO . DO YOU HAVE HISTORY OF MRSA? NO . MUSCULOSKELETAL: ANY NEW PATTERNS OF PAIN OR NUMBNESS? YES, STATES BACK PAIN TIGHTENING UP AND CRAMPING SO BAD THAT HE CAN'T MOVE . GASTROENTEROLOGY: ANY NEW CHANGE IN BOWEL CONTROL? NO . GENITOURINARY: ANY NEW CHANGE IN BLADDER CONTROL? NO . IS THERE A CHANCE YOU COULD BE ? NO . HEMATOLOGY/LYMPH: DO YOU TAKE ANY BLOOD THINNERS? (FOR EXAMPLE- COUMADIN, PLAVIX, AGGRENOX, PLATEL, PRADAXA, OR XARELTO) NO . WHEN WAS YOUR LAST DOSE? DATE: TIME: . NEUROLOGY: HAVE YOU FALLEN IN THE PAST 12 MONTHS? YES, DISCUSSSED AT PREVIOUS VISIT . ANY NEW EXTREMITY NUMBNESS OR WEAKNESS? YES, STATES LEFT ARM NUMBNESS COMING BACK RECENTLY . CARDIOLOGY: DO YOU HAVE A PACEMAKER OR DEFIBRILLATOR? DORSAL COLUMN STIMULATOR . RESPIRATORY: HAVE YOU BEEN SICK IN THE PAST WEEK? NO . FEVER NO . FLU LIKE SYMPTOMS? NO . COUGH NO . INTEGUMENTARY: DO YOU HAVE ANY RASHES OR OPEN SORES? NO . ALLERGIC/IMMUNO: ARE YOU ALLERGIC TO IV DYE? NO . ANY NEW ALLERGIES? NO . PSYCHIATRIC: DO YOU HAVE THOUGHTS OF HURTING YOURSELF OR SOMEONE ELSE? NO . ARE YOU ABUSED, NEGLECTED, OR IN AN UNSAFE ENVIRONMENT? NO . ENDOCRINOLOGY: ARE YOU DIABETIC? NO . OTHER: DO YOU NEED ANY PRESCRIPTIONS? YES, WOULD LIKE SOMETHING NEW FOR MUSCLE TIGHTNESS/CRAMPING . IF YES, PLEASE LIST: ____ . ANY NEW PROBLEMS WITH YOUR MEDICATIONS? NO . WHEN DID YOU LAST EAT? ____ . WHEN DID YOU LAST DRINK? ____ . WHAT DID YOU LAST DRINK? ____ . NAME OF PERSON DRIVING YOU HOME? ____ . DO YOU HAVE ANY OTHER QUESTIONS OR CONCERNS NO . VITAL SIGNS WT 183.8 LBS, HT 70 IN, BMI 26.37 INDEX, BP 136/90 MM HG, HR 68 /MIN, RR 16 /MIN, TEMP 97.8 F, OXYGEN SAT % 100%, SAFE IN ENV? (Y/N) YES, REVIEWED BY: LIAN. EXAMINATION GENERAL EXAMINATION: PATIENT IS ALERT O X 3 AND COOPERATIVE. SEVERE PAIN OVER THE THORACIC FACET JOINTS WITH EXTENSION AND LATERAL ROTATION OF THE BACK. X-RAY OF THORACIC SPINE DONE ON 05/17/2016 SHOWS DEGENERATIVE CHANGES AND ARTHRITIS. 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 WAGNER'S PAIN MANAGEMENT CASE. DUE TO THE THORACIC SPONDYLOSIS, I WOULD LIKE TO MOVE FORWARD WITH A BILATERAL T7-T8, T8-T9 THERAPEUTIC THORACIC FACET BLOCK AT THIS TIME. WE DISCUSSED THE BENEFITS, RISKS, AND ALTERNATIVES OF THE INJECTION AND THE PATIENT WOULD LIKE TO PROCEED. I WILL ORDER A THORACIC CT TO GET A BETTER IDEA OF WHERE THE PATIENT'S PAIN IS COMING FROM. I WILL START THE PATIENT ON SKELAXIN DUE TO THE SEVERE SPASMS IN HIS BACK. I WILL REQUEST AN INTERFERENTIAL TENS UNIT WELL. THE PATIENT WILL FOLLOW UP WITH A NURSE PRACTITIONER IN 1 MONTH. INSTRUCTIONS WERE GIVEN, QUESTIONS WERE ANSWERED, PATIENT REPORTS UNDERSTANDING AND AGREES WITH THE PLAN. I, CHEMO KUMAR, DOCUMENTED THE ABOVE INFORMATION ACTING A SCRIBE FOR DR. MCKEON. I HAVE REVIEWED THE ABOVE DOCUMENT, WRITTEN BY CHEMO DANIBAmanda AND I VERIFY THAT IT IS ACCURATE. OTHERS START SKELAXIN TABLET, 800 MG, 1 TABLET, ORALLY FOR SPASMS AND PAIN, EVERY 6 HOURS NEEDED MDD3, 30 DAY(S), 80, REFILLS 1 PREVENTIVE MEDICINE PAIN CLINIC TEACHING: MEDICATIONS SKELAXIN HANDOUT PRINTED, REVIEWED AND GIVEN TO PT. EM. PROCEDURE CODES FA211 ESTABILISHED PATIENT [facility] FACILITY CHARGE G8427 CURRENT MEDS W/DOSAGES DOCUMENTED G8730 PAIN ASSESS POS TOOL F/U PLAN DOC DISPOSITION & COMMUNICATION FOLLOW UP 4 WEEKS ELECTRONICALLY SIGNED BY CHRISTINE MCKEON MD, MD ON 09/12/2018 AT 06:55 PM EST DISCLAIMER : THIS IS A VISIT SUMMARY EXTRACTED FROM THE [employer] CHART. IT IS NOT A COPY OF THE [employer] PROGRESS NOTE. MTDD
== END ==
LOC: M PAIN 12:45
PROVIDERS: ATTEND Anesthesiology
DX: G89.29 Other chronic pain (principal); M47.814 Spondylosis without myelopathy or radiculopathy, thoracic region; M25.512 Pain in left shoulder; G44.009 Cluster headache syndrome, unspecified, not intractable; I10 Essential (primary) hypertension; E78.5 Hyperlipidemia, unspecified; G47.33 Obstructive sleep apnea (adult) (pediatric); H93.19 Tinnitus, unspecified ear; M47.12 Other spondylosis with myelopathy, cervical region; Z96.651 Presence of right artificial knee joint; Z98.2 Presence of cerebrospinal fluid drainage device; F17.220 Nicotine dependence, chewing tobacco, uncomplicated; Z79.899 Other long term (current) drug therapy; Z88.2 Allergy status to sulfonamides; Z88.5 Allergy status to narcotic agent

== ENCOUNTER → 2018-09-28 | Outpatient (CLI) | payer OTHER ==
--- NOTE | 2018-09-28 10:34 | REP ---
CT lumbar spine without contrast: History: Severe pain in the lumbar and thoracic spine. Comparison is made with imaging from CT study February 18, 2018 and radiographs of the lumbar spine from August 29, 2016. Technique: Helical scanning is acquired. 4 mm axial images are reformatted along with MPR coronal and sagittal images. CT findings: Lumbar vertebral body heights are preserved. There is bilateral L5 spondylolysis again noted. A mild grade 1, 2.5 mm, L5-S1 spondylolisthesis is seen. This appears unchanged from comparison CT study. Pedicles and posterior elements are otherwise intact. There is minimal diffuse disc bulging at L5-S1. Mild facet hypertrophy is noted. At L4-5, there is minimal diffuse disc bulging. Mild facet hypertrophy is noted bilaterally. No bony neural foraminal narrowing is seen. At L3-4, there is mild disc space narrowing and diffuse disc bulging. Borderline canal size is present. AP dimension of the thecal sac in the midline is 10.65 mm. There is mild ligamentum flavum hypertrophy. At L2-3, there is minimal disc space narrowing. Borderline canal size similar to that seen at the level below. 10.92 midline AP dimension of the thecal sac. No neural foraminal narrowing. At the L1-2 disc level, there is no significant abnormality. The patient has a dorsal column stimulator device in place which enters the spinal canal at the dorsal T12-L1 interspinous level. Impression: Mild degenerative disc changes. Borderline canal size L2-3 and L3-4. Bilateral L5 spondylolysis with grade 1 2.5 mm L5-S1 spondylolisthesis. Dorsal column stimulator. Electronically Signed by Jacobo Summers MD 09/28/2018 12:49 P
--- NOTE | 2018-09-28 10:49 | REP ---
CT study of the thoracic spine without contrast: History: Severe pain. Comparison radiographs are from August 04, 2017. Comparison MRI study is from August 18, 2014. Technique: Helical scanning is acquired. 4 mm axial images are reformatted along with coronal and sagittal MPR images. CT findings: A dorsal column stimulator is noted in place entering and ascending in the dorsal epidural space at the T12-L1 interspinous level. There are two dorsal column stimulator leads which terminate at the level of the T6-7 disc. No abnormal epidural or intraspinal fluid collection is seen. There are Schmorl's nodes at the inferior endplates of T6, T7, and T9. This appearance is unchanged. No neural foraminal lesion is appreciated. No fracture or collapse is seen. Mild discogenic spurring is noted anteriorly at T7-8, T8-9, and T9-10. No CT evidence of thoracic disc protrusion. Impression: Dorsal column stimulator in place. Mild degenerative changes. Incidental note is made of a fusion plate ventrally positioned in the lower cervical spine at C6-7. Electronically Signed by Jacobo Summers MD 09/28/2018 12:50 P
== END ==
LOC: M RAD 07:04
PROVIDERS: ATTEND Anesthesiology
DX: M54.5 Low back pain (principal); M54.14 Radiculopathy, thoracic region

== ENCOUNTER → 2018-09-28 | Outpatient (CLI) | payer OTHER ==
--- NOTE | 2018-10-12 00:04 | ECWPNPC ---
PATIENT NAME: HAILY WAGNER : 1970 GENDER: MALE VISIT DATE: 09/28/2018 DISCHARGE DATE: 09/28/18 0947 VISIT LOCKED DATE TIME: PHYSICIAN: CHRISTINE MCKEON MD RESOURCE: CHRISTINE MCKEON MD REASON FOR APPOINTMENT 1. BACK HISTORY OF PRESENT ILLNESS HISTORY OF PRESENT ILLNESS: PAIN THE PATIENT DESCRIBES THE PAIN... 48 YEAR OLD MALE PATIENT WITH A HISTORY OF CHRONIC LOW BACK AND THORACIC PAIN. THE PATIENT DESCRIBES THE PAIN ACHING, BURNING, TENDER, SHARP, STABBING, AND CONTINUOUS WITH A PAIN SCORE OF 7-10/10 DEPENDING ON PHYSICAL ACTIVITY. THE PATIENT HAS A DCS IMPLANT, BUT SAYS IT IS NOT WORKING. THE PATIENT WAS USING SKELAXIN, BUT SAYS IT BOTHERED HIS STOMACH. THE PATIENT IS CURRENTLY USING IBUPROFEN AND TIZANIDINE TO AID IN PAIN RELIEF, BUT SAYS THEY ARE NOT HELPING AND HE IS USING A LOT OF IBUPROFEN. PATIENT DENIES UNEXPLAINABLE WEIGHT LOSS, FEVER, CHILLS, NEW CHANGES ON HIS URINARY OR BOWEL CONTROL. FALL RISK SCREENING: SCREENING : NO FALLS IN THE PAST YEAR. CURRENT MEDICATIONS TAKING LISINOPRIL/HCTZ 10/12.5 10/12.5MG TABLET 1 TAB ORAL DAILY TAKING ATORVASTATIN CALCIUM 40 MG TABLET 1 TABLET ORALLY ONCE A DAY TAKING PROTONIX 40 MG TABLET DELAYED RELEASE 1 TABLET ORALLY BID TAKING MULTIVITAMIN ADULT - TABLET ORALLY DAILY TAKING TIZANIDINE HCL 6 MG CAPSULE 1 TABLET NEEDED ORALLY BEFORE BEDTIME TAKING NETI POT SINUS WASH 2300-700 MG KIT DIRECTED NASALLY BID TAKING MUCINEX DM 30-600 MG TABLET EXTENDED RELEASE 12 HOUR 1 TABLET NEEDED ORALLY EVERY 12 HRS NOT-TAKING SKELAXIN 800 MG TABLET 1 TABLET ORALLY FOR SPASMS AND PAIN EVERY 6 HOURS NEEDED MDD3 NOT-TAKING DAYPRO 600 MG TABLET DIRECTED ORALLY WITH FOOD DAILY NOT-TAKING GABAPENTIN 300 MG CAPSULE 1 CAPSULE ORALLY FOR PAIN BEFORE BEDTIME DISCONTINUED ARTHROTEC 75-0.2 MG TABLET DELAYED RELEASE 1 TABLET WITH FOOD ORALLY TWICE A DAY DISCONTINUED KETOROLAC TROMETHAMINE 10 MG TABLET 1 TABLET WITH FOOD OR MILK NEEDED ORALLY FOR PAIN EVERY 6 HRS MDD3 DISCONTINUED SUDAFED 30 MG TABLET 1 TABLET NEEDED ORALLY EVERY 6 HRS DISCONTINUED FLONASE 50 MCG/ACT SUSPENSION 1 SPRAY IN EACH NOSTRIL NASALLY TWICE A DAY MEDICATION LIST REVIEWED AND RECONCILED WITH THE PATIENT PAST MEDICAL HISTORY 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 PAIN: SIDE EFFECTS SURGICAL HISTORY RIGHT KNEE REPLACEMENT 2011 LEFT ORBITAL RECONSTRUCTION 1991 TONSILLECTOMY RIGHT KNEE SURGERIES-MULTIPLE SPINAL COLUMN STIMULATOR 10/2014, 12/2014 CERVICAL FUSION BY 12/12/2016 FAMILY HISTORY FATHER: , LUNG, LIVER, BONE CA, DIAGNOSED WITH CANCER MOTHER: ALIVE 1943 YRS, LUNG CA, DIAGNOSED WITH HYPERTENSION, CANCER 2 BROTHER(S) , 2 SISTER(S) - HEALTHY. MRSA IN GRANDDAUGHTER OTHERWISE NO SIGNIFICANT FAMILY HISTORY NOTED. SOCIAL HISTORY GENERAL: TOBACCO USE ARE YOU A:NONSMOKER CHEWS TOBACCO ALCOHOL SCREENING DID YOU HAVE A DRINK CONTAINING ALCOHOL IN THE PAST YEAR?NO POINTS0 INTERPRETATIONNEGATIVE RECREATIONAL DRUG USE DRUG USE?NO HIV / HEP-C SCREENING HIV TEST OFFERED TO PATIENT:YES DATE OFFERED:08/04/2017 TEST ACCEPTED:NO REASON:PATIENT DECLINED HEP-C TEST OFFERED TO PATIENT:NO SABIANIST [id number] NONE LANGUAGE KINYARWANDA. EDUCATION LEVEL OF EDUCATION:NOT FINISHED COLLEGE LEARNING BARRIERS / SPECIAL NEEDS BARRIERS TO LEARNING?NO HEARING IMPAIRED?NO VISION IMPAIRED?YES READING GLASSES COGNITIVELY IMPAIRED?NO READINESS TO LEARN?YES LEARNING PREFERENCES?NO LEARNING CAPABILITIES PRESENT?YES EMOTIONAL BARRIERS?NO SPECIAL DEVICES?NO KNOCKOUT MAN NEEDED?NO DOMESTIC VIOLENCE DO YOU FEEL SAFE IN YOUR ENVIRONMENT?YES DIET: REGULAR. EXERCISE: NO REGULAR EXERCISE. MARITAL STATUS: . NEW PATIENT PAIN DIARY FROM 0-10, WHAT LEVEL IS YOUR PAIN TODAY?8 PAIN CLINIC PFS, CLERGY, PUBLIC HEALTH REFERRALS PFS REFERRAL NEEDED?NO CLERGY REFERRAL NEEDED?NO PUBLIC HEALTH REFERRAL NEEDED?NO HAS THE PATIENT BEEN EDUCATED REGARDING HIS/HER PLAN OF CARE?YES HAS THE PATIENT BEEN EDUCATED REGARDING PAIN, THE RISK FOR PAIN, THE IMPORTANCE OF EFFECTIVE PAIN MANAGEMENT, AND THE PAIN ASSESSMENT PROCESS?YES ADVANCE DIRECTIVE ADVANCE DIRECTIVE DISCUSSED WITH PATIENT:YES 09/28/18 STATES HE IS CURRENTLY WORKING ON GETTING A HCP, DECLINED ASSISTANCE AT THIS TIME. AD REVIEWED WITH PATIENT 07/24/18 1009 JSREVIEWED WITH PATIENT 08/21/18 1249 JSREVIEWED WITH PATIENT 09/02/18 1249 JS09/28/18 REVIEWED WITH PT. AD. HOSPITALIZATION/MAJOR DIAGNOSTIC PROCEDURE SURGERY RELATED REVIEW OF SYSTEMS REVIEWED BY: PROVIDER: CHRISTINE MCKEON MD . CONSTITUTIONAL: ANY CHANGE IN YOUR MEDICAL CONDITION? NO . CHILLS NO . FEVER NO . INFECTION: DO YOU HAVE NEW INFECTIONS? NO . DO YOU HAVE HISTORY OF MRSA? NO . MUSCULOSKELETAL: ANY NEW PATTERNS OF PAIN OR NUMBNESS? PAIN IN MID BACK HAS GOTTEN WORSE OVER THE PAST COUPLE OF WEEKS . GASTROENTEROLOGY: ANY NEW CHANGE IN BOWEL CONTROL? NO . GENITOURINARY: ANY NEW CHANGE IN BLADDER CONTROL? NO . IS THERE A CHANCE YOU COULD BE ? NO . HEMATOLOGY/LYMPH: DO YOU TAKE ANY BLOOD THINNERS? (FOR EXAMPLE- COUMADIN, PLAVIX, AGGRENOX, PLATEL, PRADAXA, OR XARELTO) NO . WHEN WAS YOUR LAST DOSE? DATE: TIME: . NEUROLOGY: HAVE YOU FALLEN IN THE PAST 12 MONTHS? NO . ANY NEW EXTREMITY NUMBNESS OR WEAKNESS? NO . CARDIOLOGY: DO YOU HAVE A PACEMAKER OR DEFIBRILLATOR? NO DCS . RESPIRATORY: HAVE YOU BEEN SICK IN THE PAST WEEK? NO . FEVER NO . FLU LIKE SYMPTOMS? NO . COUGH NO . INTEGUMENTARY: DO YOU HAVE ANY RASHES OR OPEN SORES? NO . ALLERGIC/IMMUNO: ARE YOU ALLERGIC TO IV DYE? NO . ANY NEW ALLERGIES? NO . PSYCHIATRIC: DO YOU HAVE THOUGHTS OF HURTING YOURSELF OR SOMEONE ELSE? NO . ARE YOU ABUSED, NEGLECTED, OR IN AN UNSAFE ENVIRONMENT? NO . ENDOCRINOLOGY: ARE YOU DIABETIC? NO . OTHER: DO YOU NEED ANY PRESCRIPTIONS? YES . IF YES, PLEASE LIST: ?? DR. MCKEON'S DISCRETION . ANY NEW PROBLEMS WITH YOUR MEDICATIONS? YES, SKELAXIN CAUSE STOMACH PAIN SO HE STOPPED IT. HE TRIED IT WITH FOOD AND THERE WAS NO DIFFERENCE . WHEN DID YOU LAST EAT? ____ . WHEN DID YOU LAST DRINK? ____ . WHAT DID YOU LAST DRINK? ____ . NAME OF PERSON DRIVING YOU HOME? ____ . DO YOU HAVE ANY OTHER QUESTIONS OR CONCERNS YES, WOULD LIKE TO DISCUSS INTERFERENCE TENS UNIT. HAD CT SCANS DONE THIS A.M . VITAL SIGNS WT 182.2 LBS, HT 70 IN, BMI 26.14 INDEX, BP 141/93 MM HG, HR 74 /MIN, RR 18 /MIN, TEMP 97.7 F, OXYGEN SAT % 98%, SAFE IN ENV? (Y/N) Y, NA INITIALS SC 08:50, REVIEWED BY: YECENIA. EXAMINATION GENERAL EXAMINATION: PATIENT IS ALERT O X 3 AND COOPERATIVE. SEVERE TENDERNESS IN THE THORACIC AREA. X-RAY OF THE THORACIC SPINE DONE ON 08/04/2017 SHOWS DEGENERATIVE CHANGES. ASSESSMENTS SPONDYLOSIS OF THORACIC REGION WITHOUT MYELOPATHY OR RADICULOPATHY - M47.814 (PRIMARY) PAIN IN THORACIC SPINE - M54.6 OTHER CHRONIC PAIN - G89.29 LOW BACK PAIN - M54.5 TREATMENT SPONDYLOSIS OF THORACIC REGION WITHOUT MYELOPATHY OR RADICULOPATHY CLINICAL NOTES: WE DISCUSSED SEVERAL ISSUES WITH MR. WAGNER'S PAIN MANAGEMENT CASE. DUE TO THE THORACIC SPONDYLOSIS, I WOULD LIKE TO MOVE FORWARD WITH A BILATERAL T7-T8, T8-T9 THERAPEUTIC THORACIC FACET BLOCK AT THIS TIME. WE DISCUSSED THE BENEFITS, RISKS, AND ALTERNATIVES OF THE INJECTION AND THE PATIENT WOULD LIKE TO PROCEED. I WILL REQUEST AN INTERFERENTIAL TENS UNIT. THE PATIENT WILL USE 1 SOMA PER DAY NEEDED FOR SPASMS AND 1 OXYCODONE PER DAY NEEDED FOR SOMATIC PAIN. ISTOP _[id number] WAS REVIEWED. THE PATIENT WILL SIGN AN UPDATED NARCOTIC AGREEMENT TODAY. URINE TOXICOLOGY DONE ON 07/24/2018 SHOWS CONCURRENT RESULTS. THE PATIENT WILL FOLLOW UP A FEW WEEKS AFTER THE INJECTION. INSTRUCTIONS WERE GIVEN, QUESTIONS WERE ANSWERED, PATIENT REPORTS UNDERSTANDING AND AGREES WITH THE PLAN. I, CHEMO KUMAR, DOCUMENTED THE ABOVE INFORMATION ACTING A SCRIBE FOR DR. MCKEON. I HAVE REVIEWED THE ABOVE DOCUMENT, WRITTEN BY CHEMO KUMAR SCRIBAmanda AND I VERIFY THAT IT IS ACCURATE. OTHERS START OXYCODONE HCL TABLET, 5 MG, 1 TABLET NEEDED, ORALLY FOR PAIN, DAILY MDD1, 30 DAY(S), 30, REFILLS 0 START CARISOPRODOL TABLET, 350 MG, 1 TABLET NEEDED, ORALLY FOR SPASMS AND PAIN, DAILY MDD1, 30 DAY(S), 30, REFILLS 0 PROCEDURE CODES FA211 ESTABILISHED PATIENT [facility] CHARGE G8405 CURRENT MEDS W/DOSAGES DOCUMENTED G8730 PAIN ASSESS POS TOOL F/U PLAN DOC DISPOSITION & COMMUNICATION FOLLOW UP 3 WEEKS ELECTRONICALLY SIGNED BY CHRISTINE MCKEON MD, MD ON 10/10/2018 AT 08:25 PM EDT DISCLAIMER : THIS IS A VISIT SUMMARY EXTRACTED FROM THE [employer] CHART. IT IS NOT A COPY OF THE [employer] PROGRESS NOTE. MTDD
== END ==
LOC: M PAIN 08:45
PROVIDERS: ATTEND Anesthesiology
DX: M47.814 Spondylosis without myelopathy or radiculopathy, thoracic region (principal); M54.6 Pain in thoracic spine; M54.5 Low back pain; G89.29 Other chronic pain; I10 Essential (primary) hypertension; E78.5 Hyperlipidemia, unspecified; G47.33 Obstructive sleep apnea (adult) (pediatric); F17.220 Nicotine dependence, chewing tobacco, uncomplicated; Z79.899 Other long term (current) drug therapy; Z88.1 Allergy status to other antibiotic agents; Z88.2 Allergy status to sulfonamides; Z88.5 Allergy status to narcotic agent; Z88.8 Allergy status to other drugs, medicaments and biological substances; Z96.651 Presence of right artificial knee joint

== ENCOUNTER → 2018-10-13 | Outpatient (CLI) | payer OTHER ==
[~2018-10-13] MED LIST changes: +BUPIVACAINE HCL 0.25% 30 ML VIAL As Ordered ONE; +ISOVUE-M 300 61% 15ML VIAL (Q9967) As Ordered ONE; +LIDOCAINE 1% SDV INJ 30 ML VIAL As Ordered ONE; +TRIAMCINOLONE ACETONIDE SUSP 40 MG/ML VIAL (J3301) As Ordered ONE; +diazePAM 5 MG TAB As Ordered ONE; +oxyCODONE 5MG TAB As Ordered ONE
--- NOTE | 2018-10-13 10:49 | REP ---
CHEST X-RAY: Three views. HISTORY: Rule out pneumothorax. Inspiration and expiration views. COMPARISON CHEST X-RAY: September 25, 2016. FINDINGS: PA chest x-rays were obtained in inspiration and expiration as requested. A lateral view is also present. There is no evidence of pneumothorax or hydrothorax on either side radiographically. Pleural angles are sharp. No infiltrate is seen. Heart is not enlarged. Dorsal column stimulator is seen in the mid thoracic spine. The patient is status post ventral discectomy and fusion plating in the lower cervical spine. IMPRESSION: No active disease. No pneumothorax or hydrothorax seen. Dorsal column stimulator lead noted in place. Electronically Signed by Jacobo Summers MD 10/13/2018 07:40 P
--- NOTE | 2018-10-13 12:42 | REP ---
PARTIAL THORACIC SPINE SERIES: Two views. HISTORY: Bilateral therapeutic facet block for pain. 4 seconds of fluoroscopy time is reported. FINDINGS: A sequence of two last image hold fluoroscopically obtained spot radiographs of the upper thoracic spine document multiple bilateral needle positions and contrast injections associated with facet injection procedure. Electronically Signed by Jacobo Summers MD 10/13/2018 07:47 P
--- NOTE | 2018-10-23 01:18 | ECWPNPC ---
PATIENT NAME: HAILY WAGNER : 1970 GENDER: MALE VISIT DATE: 10/13/2018 DISCHARGE DATE: 10/13/18 1038 VISIT LOCKED DATE TIME: PHYSICIAN: CHRISTINE MCKEON MD RESOURCE: CHRISTINE MCKEON MD REASON FOR APPOINTMENT 1. BILATERAL TFBT HISTORY OF PRESENT ILLNESS HISTORY OF PRESENT ILLNESS: PAIN THE PATIENT DESCRIBES THE PAIN... FALL RISK SCREENING: SCREENING : NO FALLS IN THE PAST YEAR. CURRENT MEDICATIONS TAKING OXYCODONE HCL 5 MG TABLET 1 TABLET NEEDED ORALLY FOR PAIN DAILY MDD1, NOTES: 10/09 TAKING CARISOPRODOL 350 MG TABLET 1 TABLET NEEDED ORALLY FOR SPASMS AND PAIN DAILY MDD1, NOTES: 10/09 TAKING LISINOPRIL/HCTZ 10/12.5 10/12.5MG TABLET 1 TAB ORAL DAILY, NOTES: 10/13 599 TAKING ATORVASTATIN CALCIUM 40 MG TABLET 1 TABLET ORALLY ONCE A DAY, NOTES: 10/12 1600 TAKING PROTONIX 40 MG TABLET DELAYED RELEASE 1 TABLET ORALLY BID, NOTES: 10/13 599 TAKING MULTIVITAMIN ADULT - TABLET ORALLY DAILY, NOTES: 10/11 TAKING TIZANIDINE HCL 6 MG CAPSULE 1 TABLET NEEDED ORALLY BEFORE BEDTIME, NOTES: NONE RECENT TAKING NETI POT SINUS WASH 2300-700 MG KIT DIRECTED NASALLY BID, NOTES: NONE RECENT TAKING MUCINEX DM 30-600 MG TABLET EXTENDED RELEASE 12 HOUR 1 TABLET NEEDED ORALLY EVERY 12 HRS, NOTES: NONE RECENT TAKING VITAMIN D 1000 UNIT TABLET 1 TABLET ORALLY ONCE A DAY, NOTES: 10/13 599 NOT-TAKING SKELAXIN 800 MG TABLET 1 TABLET ORALLY FOR SPASMS AND PAIN EVERY 6 HOURS NEEDED MDD3 NOT-TAKING DAYPRO 600 MG TABLET DIRECTED ORALLY WITH FOOD DAILY NOT-TAKING GABAPENTIN 300 MG CAPSULE 1 CAPSULE ORALLY FOR PAIN BEFORE BEDTIME MEDICATION LIST REVIEWED AND RECONCILED WITH THE PATIENT PAST MEDICAL HISTORY 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 HTN HYPERLIPIDEMIA CHRONIC NECK PAIN WITH RADIATION DOWN BUE, LEFT WORSE THAN RIGHT BILATERAL KNEE PAIN, RIGHT WORSE THAN LEFT LOW BACK PAIN TINNITUS DIPAK ON CPAP SEIZURE AFTER TRAMADOL USE 2012 OR 2013 SPONDYLOSIS WITHOUT MYELOPATHY OR RADICULOPATHY, 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 PAIN - SIDE EFFECTS SURGICAL HISTORY RIGHT KNEE REPLACEMENT 2011 LEFT ORBITAL RECONSTRUCTION 1991 TONSILLECTOMY RIGHT KNEE SURGERIES-MULTIPLE SPINAL COLUMN STIMULATOR 10/2014, 12/2014 CERVICAL FUSION BY 12/12/2016 FAMILY HISTORY FATHER: , LUNG, LIVER, BONE CA, DIAGNOSED WITH CANCER MOTHER: ALIVE 1943 YRS, LUNG CA, HYPERTENSION, CANCER 2 BROTHER(S) , 2 SISTER(S) - HEALTHY. MRSA IN GRANDDAUGHTER OTHERWISE NO SIGNIFICANT FAMILY HISTORY NOTED. SOCIAL HISTORY GENERAL: TOBACCO USE ARE YOU A:NONSMOKER CHEWS TOBACCO LATEX QUESTIONNAIRE LATEX ALLERGY : HAVE YOU EVER DEVELOPED ANY TYPE OF REACTION AFTER HANDLING LATEX PRODUCTS SUCH RUBBER GLOVES, CONDOMS, DIAPHRAGMS, BALLOONS, SOCKS, OR UNDERWEAR?NO LATEX ALLERGY : HAVE YOU EVER DEVELOPED ANY TYPE OF REACTION DURING OR AFTER DENTAL APPOINTMENT, VAGINAL/RECTAL EXAMINATION, SURGICAL PROCEDURE, OR ANY OTHER EXPOSURE?NO LATEX RISK : HAVE YOU EVER HAD ANY DIFFICULTY BREATHING OR HIVES AFTER EATING OR HANDLING ANY FRUITS, OR VEGETABLES; SUCH KIWI, BANANAS, STONE FRUITS, OR CHESTNUTSNO LATEX RISK : DO YOU HAVE A PREVIOUS PERSONAL HISTORY OF MORE THAN NINE SURGERIES, SPINA BIFIDA, OR REPEATED CATHERTIZATIONS? YES - PLEASE INDICATE : > 9 SURGERIES LATEX RISK : ARE YOU FREQUENTLY EXPOSED TO LATEX PRODUCTS IN YOUR OCCUPATION?NO DATE ASKED : 10/13/2018 ALCOHOL SCREENING DID YOU HAVE A DRINK CONTAINING ALCOHOL IN THE PAST YEAR?NO POINTS0 INTERPRETATIONNEGATIVE RECREATIONAL DRUG USE DRUG USE?NO HIV / HEP-C SCREENING HIV TEST OFFERED TO PATIENT:YES DATE OFFERED:08/04/2017 TEST ACCEPTED:NO REASON:PATIENT DECLINED HEP-C TEST OFFERED TO PATIENT:NO RESTORATION [id number] NONE LANGUAGE VIET[place]ESE. EDUCATION LEVEL OF EDUCATION:NOT FINISHED COLLEGE LEARNING BARRIERS / SPECIAL NEEDS BARRIERS TO LEARNING?NO HEARING IMPAIRED?NO VISION IMPAIRED?YES READING GLASSES COGNITIVELY IMPAIRED?NO READINESS TO LEARN?YES LEARNING PREFERENCES?NO LEARNING CAPABILITIES PRESENT?YES EMOTIONAL BARRIERS?NO SPECIAL DEVICES?NO PORTABLE CANTEEN OPERATOR NEEDED?NO DOMESTIC VIOLENCE DO YOU FEEL SAFE IN YOUR ENVIRONMENT?YES DIET: REGULAR. EXERCISE: NO REGULAR EXERCISE. MARITAL STATUS: . PAIN CLINIC PFS, CLERGY, PUBLIC HEALTH REFERRALS PFS REFERRAL NEEDED?NO CLERGY REFERRAL NEEDED?NO PUBLIC HEALTH REFERRAL NEEDED?NO HAS THE PATIENT BEEN EDUCATED REGARDING HIS/HER PLAN OF CARE?YES HAS THE PATIENT BEEN EDUCATED REGARDING PAIN, THE RISK FOR PAIN, THE IMPORTANCE OF EFFECTIVE PAIN MANAGEMENT, AND THE PAIN ASSESSMENT PROCESS?YES ADVANCE DIRECTIVE ADVANCE DIRECTIVE DISCUSSED WITH PATIENT:YES 09/28/18 STATES HE IS CURRENTLY WORKING ON GETTING A HCP, DECLINED ASSISTANCE AT THIS TIME. AD REVIEWED WITH PATIENT 07/24/18 1009 JSREVIEWED WITH PATIENT 08/21/18 1249 JSREVIEWED WITH PATIENT 09/02/18 1249 JS09/28/18 REVIEWED WITH PT. AD10/13/18 REVIEWED WITH PT. AD. HOSPITALIZATION/MAJOR DIAGNOSTIC PROCEDURE SURGERY RELATED REVIEW OF SYSTEMS REVIEWED BY: PROVIDER: . CONSTITUTIONAL: ANY CHANGE IN YOUR MEDICAL CONDITION? NO . CHILLS NO . FEVER NO . INFECTION: DO YOU HAVE NEW INFECTIONS? NO . DO YOU HAVE HISTORY OF MRSA? NO . MUSCULOSKELETAL: ANY NEW PATTERNS OF PAIN OR NUMBNESS? NO . GASTROENTEROLOGY: ANY NEW CHANGE IN BOWEL CONTROL? NO . GENITOURINARY: ANY NEW CHANGE IN BLADDER CONTROL? NO . IS THERE A CHANCE YOU COULD BE ? NO . HEMATOLOGY/LYMPH: DO YOU TAKE ANY BLOOD THINNERS? (FOR EXAMPLE- COUMADIN, PLAVIX, AGGRENOX, PLATEL, PRADAXA, OR XARELTO) NO . WHEN WAS YOUR LAST DOSE? DATE: TIME: . NEUROLOGY: HAVE YOU FALLEN IN THE PAST 12 MONTHS? YES, IN FEB. SLIPPED ON GRASS- TWISTED RIGHT KNEE . ANY NEW EXTREMITY NUMBNESS OR WEAKNESS? NO . CARDIOLOGY: DO YOU HAVE A PACEMAKER OR DEFIBRILLATOR? NO DCS . RESPIRATORY: HAVE YOU BEEN SICK IN THE PAST WEEK? NO . FEVER NO . FLU LIKE SYMPTOMS? NO . COUGH NO . INTEGUMENTARY: DO YOU HAVE ANY RASHES OR OPEN SORES? NO . ALLERGIC/IMMUNO: ARE YOU ALLERGIC TO IV DYE? NO . ANY NEW ALLERGIES? NO . PSYCHIATRIC: DO YOU HAVE THOUGHTS OF HURTING YOURSELF OR SOMEONE ELSE? NO . ARE YOU ABUSED, NEGLECTED, OR IN AN UNSAFE ENVIRONMENT? NO . ENDOCRINOLOGY: ARE YOU DIABETIC? NO . OTHER: DO YOU NEED ANY PRESCRIPTIONS? NO . IF YES, PLEASE LIST: ____ . ANY NEW PROBLEMS WITH YOUR MEDICATIONS? NO . WHEN DID YOU LAST EAT? 10/13 020 . WHEN DID YOU LAST DRINK? 10/13 0400 . WHAT DID YOU LAST DRINK? GREEN TEA . NAME OF PERSON DRIVING YOU HOME? ANA . DO YOU HAVE ANY OTHER QUESTIONS OR CONCERNS NO PT. HAS NOT HAD ANY VACCINES IN THE PAST 30 DAYS . VITAL SIGNS WT 186.0 LBS, HT 70 IN, BMI 26.69 INDEX, BP 132/85 MM HG, HR 74 /MIN, RR 18 /MIN, TEMP 97.6 F, OXYGEN SAT % 98%, SAFE IN ENV? (Y/N) Y, NA INITIALS AK 09:12, REVIEWED BY: AD. ASSESSMENTS SPONDYLOSIS OF THORACIC REGION WITHOUT MYELOPATHY OR RADICULOPATHY - M47.814 (PRIMARY) TREATMENT SPONDYLOSIS OF THORACIC REGION WITHOUT MYELOPATHY OR RADICULOPATHY SMC FACET BLOCK (PAIN)[id number] PROCEDURES PN THORACIC FACET BLOCK THERAPEUTIC PRE PROCEDURE DIAGNOSIS THORACIC SPONDYLOSIS POST PROCEDURE DIAGNOSIS THORACIC SPONDYLOSIS PROCEDURE BILATERAL T1-T2, BILATERAL T2-T3, AND BILATERAL T3-T4 THERAPEUTIC THORACIC FACET BLOCK SURGEON DR. CHRISTINE MCKEON MANAGER STYLIST NONE ANESTHESIA LOCAL PRE PROCEDURE NOTE THE PATIENT WITH HISTORY OF CHRONIC THORACIC PAIN. I EVALUATED THE PATIENT AND REVIEWED THE CHART. I WENT OVER THE RISKS, ALTERNATIVES, AND BENEFITS ASSOCIATED WITH THIS PROCEDURE. THE PATIENT WOULD LIKE TO PROCEED AND GAVE CONSENT TO PERFORM THE PROCEDURE. THE PATIENT DENIES UNEXPLAINABLE WEIGHT LOSS, FEVER, CHILLS, OR NEW CHANGES IN URINARY OR BOWEL CONTROL. DESCRIPTION OF PROCEDURE THE PATIENT WAS BROUGHT TO THE PROCEDURE ROOM AND PLACED IN THE PRONE POSITION. THE THORACIC AREA WAS CLEANED WITH CHLORAPREP SOLUTION AND DRAPED ASEPTICALLY. THE PROCEDURE WAS DONE UNDER STERILE CONDITIONS. I CHECKED LATERALITY AND THE LEVEL WHERE THE PROCEDURE WAS GOING TO BE PERFORMED WITH THE PATIENT AND THE SUPPORTING STAFF AT THE MOMENT OF THE TIME OUT IN THE PROCEDURE ROOM. UNDER FLUOROSCOPIC GUIDANCE, THE TARGET POINT WAS SELECTED AT THE RIGHT AND LEFT T1-T2, RIGHT AND LEFT T2-T3, AND RIGHT AND LEFT T3-T4 THORACIC FACET. TARGET POINT WAS SELECTED AFTER LATERAL ROTATION AND TILT OF THE MAGNIFIER OF THE C-ARM. LIDOCAINE 0.5% WAS USED TO NUMB THE SKIN AND THE SUBCUTANEOUS TISSUE BELOW IT. SPINAL NEEDLES, 22-GAUGE, WERE ADVANCED UNDER FLUOROSCOPIC GUIDANCE AND FOLLOWING PATIENT FEEDBACK UNTIL THE TARGETS WERE TOUCHED. THE POSITION OF THE NEEDLES WAS VERIFIED WITH MULTIPLE X-RAY VIEWS. AFTER PROPER POSITION OF THE NEEDLES WAS ACHIEVED, ISOVUE-M DYE 30% 0.1 ML WAS INJECTED SHOWING ADEQUATE SPREAD OF THE DYE. THEN A SOLUTION OF 0.9 ML OF BUPIVACAINE 0.125% OF KENALOG 10 MG WAS INJECTED AT EACH SITE. THERE WAS NO EVIDENCE OF BLOOD, PARESTHESIA OR CEREBROSPINAL FLUID DURING THE PROCEDURE. THE PATIENT WAS SENT TO THE RECOVERY ROOM. THE PATIENT WAS MOVING THE EXTREMITIES AND DOING WELL. THERE WAS NO COMPLICATION DURING THE PROCEDURE. FLUOROSCOPY TIME WAS 4 SECONDS POST PROCEDURE NOTE THE PATIENT WILL BE SEEN IN A FOLLOW UP IN THE NEXT FEW WEEKS. INSTRUCTIONS WERE GIVEN, QUESTIONS WERE ANSWERED, AND THE PATIENT EXPRESSED UNDERSTANDING AND AGREED WITH THE PLAN. I, CHEMO KUMAR, DOCUMENTED THE ABOVE INFORMATION ACTING A SCRIBE FOR DR. MCKEON. I HAVE REVIEWED THE ABOVE DOCUMENT, WRITTEN BY CHEMO KUMAR SCRIBE AND I VERIFY THAT IT IS ACCURATE. PROCEDURE CODES 6045F RADXPS IN END [id number] PXD 69902 INJ PARAVERT F JNT C/T 1 LEV, MODIFIERS: 50 [id number] INJ PARAVERT F JNT C/T 2 LEV, MODIFIERS: 50 [id number] INJ PARAVERT F JNT C/T 3 LEV, MODIFIERS: 50 DISPOSITION & COMMUNICATION FOLLOW UP 3 WEEKS ELECTRONICALLY SIGNED BY CHRISTINE MCKEON MD, MD ON 10/22/2018 AT 09:26 AM EDT DISCLAIMER : THIS IS A VISIT SUMMARY EXTRACTED FROM THE [employer] CHART. IT IS NOT A COPY OF THE [employer] PROGRESS NOTE. MTDD
== END ==
LOC: M PAIN 08:30
PROVIDERS: ATTEND Anesthesiology
DX: G89.29 Other chronic pain (principal); M47.814 Spondylosis without myelopathy or radiculopathy, thoracic region; I10 Essential (primary) hypertension; E78.5 Hyperlipidemia, unspecified; G47.33 Obstructive sleep apnea (adult) (pediatric); M19.90 Unspecified osteoarthritis, unspecified site; F17.220 Nicotine dependence, chewing tobacco, uncomplicated; Z79.899 Other long term (current) drug therapy; Z88.1 Allergy status to other antibiotic agents; Z88.2 Allergy status to sulfonamides; Z88.5 Allergy status to narcotic agent; Z88.8 Allergy status to other drugs, medicaments and biological substances; Z86.69 Personal history of other diseases of the nervous system and sense organs; Z97.8 Presence of other specified devices
CPT/HCPCS: 64490; 64491; 64492; 71046; J3301; Q9967

== ENCOUNTER → 2018-11-04 | Outpatient (CLI) | payer OTHER ==
[~2018-11-04] MED LIST changes: -/DIVA50TA PO; -/WARF25TA OR; -/WARF5TA OR; -BUPIVACAINE HCL 0.25% 30 ML VIAL As Ordered ONE; +COUM1TAB17 OR; +COUM1TAB18 OR; +DEPA1TAB3 PO; -ISOVUE-M 300 61% 15ML VIAL (Q9967) As Ordered ONE; -LIDOCAINE 1% SDV INJ 30 ML VIAL As Ordered ONE; -NORC1TAB4 PO; +NORC1TAB7 PO; -TRIAMCINOLONE ACETONIDE SUSP 40 MG/ML VIAL (J3301) As Ordered ONE; +VITA-183 PO; -VITA1CAP2 PO; -diazePAM 5 MG TAB As Ordered ONE; -oxyCODONE 5MG TAB As Ordered ONE
[2018-11-04 12:15] LABS: FREE T4 0.74 NG/DL (0.76-1.46); THYROID STIMULATING HORMONE 1.22 uIU/ML (0.358-3.740)
== END ==
LOC: M LAB 10:58
PROVIDERS: ATTEND Internal Medicine Gastroenterology
DX: K58.0 Irritable bowel syndrome with diarrhea (principal)

== ENCOUNTER → 2018-11-10 | Outpatient (REF) | payer OTHER | LOC: M LAB REF 11:22 | PROVIDERS: ATTEND Internal Medicine Gastroenterology | DX: K58.0 Irritable bowel syndrome with diarrhea (principal) ==

== ENCOUNTER → 2018-11-10 | Outpatient (CLI) | payer OTHER ==
[~2018-11-10] MED LIST changes: +GLUCAGON FOR INJ 1 MG VIAL (J1610) As Ordered ONE; +ISOVUE-370 76% 100ML VIAL (Q9967) As Ordered ONE; +VoLumen 0.1% SUSPENSION 450ML BOTTLE As Ordered ONE
--- NOTE | 2018-11-10 11:03 | REP ---
CT ENTEROGRAPHY: With IV and oral contrast. HISTORY: Irritable bowel syndrome with diarrhea. Evaluate for small bowel disease. COMPARISON STUDY: Comparison CT study February 18, 2018. CT ENTEROGRAPHY TECHNIQUE: The patient ingested oral VoLumen for PO contrast per protocol. 0.6 mg of intravenous glucagon is administered. 100 mL of Isovue 370 is given intravenously for intravenous contrast. Helical scanning is acquired. Arterial phase and delayed phase imaging was acquired. Thick slab coronal and sagittal MIP images are generated. In addition coronal and sagittal multiplanar re-formation images are generated and reviewed along with axial images. CT ENTEROGRAPHY FINDINGS: Preliminary digital chimney builder helper radiograph demonstrates a dorsal column stimulator power plant projecting in the left mid abdomen. The a dorsal column stimulator leads are seen in the mid thoracic spine. Bowel gas pattern is normal. The lung bases are clear on axial CT images. There is a low-density left lobe liver lesion consistent with a benign hemangioma. This measures 2.0 cm in greatest diameter and is unchanged from February 18, 2018. No other focal hepatic lesion or splenic lesion is seen. The pancreas is unremarkable. There is an accessory splenule again noted in the left upper quadrant. The gallbladder is small and no gallbladder abnormality is seen. No adrenal lesion is observed. The kidneys enhance symmetrically. There is a cyst in the upper pole region of the right kidney measuring 1.3 cm in greatest diameter. No hydronephrosis is seen. No retroperitoneal mass or adenopathy is seen. The right renal artery is duplicated. Normal caliber aorta. No other arterial abnormality is appreciated. A normal appendix is seen in the right lower quadrant . No pelvic mass or adenopathy is seen. The urinary bladder is mildly distended. No abdominal wall defect is seen. Axial, coronal MPR, and maximal intensity projection images show normal caliber small bowel loops. There is no evidence of hyper-enhancement or mural thickening to suggest inflammatory disease. No mass lesion or obstructive lesion is seen. There is no evidence of mesenteric adenopathy. There is a moderate amount of formed stool throughout the colon. No colonic dilation is seen. There is air and some fluid in the ascending colon. IMPRESSION: Small cyst upper pole right kidney. Duplicated right renal artery. Otherwise negative CT enterography. Electronically Signed by Jacobo Summers MD 11/10/2018 01:01 P
== END ==
LOC: M RAD 07:34
PROVIDERS: ATTEND Internal Medicine Gastroenterology
DX: N28.1 Cyst of kidney, acquired (principal); Q27.2 Other congenital malformations of renal artery
CPT/HCPCS: 74177; J1610; Q9967

== ENCOUNTER → 2018-11-30 | Outpatient (CLI) | payer OTHER ==
[~2018-11-30] MED LIST changes: +AMOX500C PO; +CLAR500T PO; -GLUCAGON FOR INJ 1 MG VIAL (J1610) As Ordered ONE; -ISOVUE-370 76% 100ML VIAL (Q9967) As Ordered ONE; +MULTCAP PO; +PROT1TAB2 PO; -VoLumen 0.1% SUSPENSION 450ML BOTTLE As Ordered ONE
--- NOTE | 2018-12-14 | ECWPNPC ---
PATIENT NAME: HAILY WAGNER : 1970 GENDER: MALE VISIT DATE: 11/30/2018 DISCHARGE DATE: 11/30/18 1414 VISIT LOCKED DATE TIME: PHYSICIAN: CHRISTINE MCKEON MD RESOURCE: CHRISTINE MCKEON MD REASON FOR APPOINTMENT 1. POST FB HISTORY OF PRESENT ILLNESS HISTORY OF PRESENT ILLNESS: PAIN THE PATIENT DESCRIBES THE PAIN... 48 YEAR OLD MALE PATIENT WITH A HISTORY OF CHRONIC THORACIC PAIN. THE PATIENT DESCRIBES THE PAIN ACHING, BURNING, TENDER, SHARP, STABBING, SHOOTING, AND CONTINUOUS WITH A PAIN SCORE OF 7-10/10 DEPENDING ON PHYSICAL ACTIVITY. THE PATIENT RECEIVED A THERAPEUTIC THORACIC FACET BLOCK ON 10/13/2018 AND REPORTS HAVING GOOD PAIN RELIEF FOR SEVERAL WEEKS UNTIL HE STARTED BECOMING MORE ACTIVE AND DOING PHYSICAL ACTIVITY. THE PATIENT SAYS HIS PAIN STARTED TO RETURN AFTER HE WAS LIFTING HEAVY OBJECTS. THE PATIENT IS CURRENTLY USING OXYCODONE AND SOMA TO AID IN PAIN RELIEF. THE PATIENT HAS A DCS IMPLANT, BUT SAYS IT HAS NOT BEEN WORKING. PATIENT DENIES UNEXPLAINABLE WEIGHT LOSS, FEVER, CHILLS, NEW CHANGES ON HIS URINARY OR BOWEL CONTROL. FALL RISK SCREENING: SCREENING :NO FALLS REPORTED IN THE LAST YEAR CURRENT MEDICATIONS TAKING LISINOPRIL/HCTZ 10/12.5 10/12.5MG TABLET 1 TAB ORAL DAILY TAKING ATORVASTATIN CALCIUM 40 MG TABLET 1 TABLET ORALLY ONCE A DAY TAKING PROTONIX 40 MG TABLET DELAYED RELEASE 1 TABLET ORALLY BID TAKING MULTIVITAMIN ADULT - TABLET ORALLY DAILY TAKING VITAMIN D 1000 UNIT TABLET 1 TABLET ORALLY ONCE A DAY TAKING OXYCODONE HCL 10 MG TABLET 1 TABLET NEEDED ORALLY DAILY MDD1 TAKING CARISOPRODOL 350 MG TABLET 1 TABLET NEEDED ORALLY FOR SPASMS AND PAIN DAILY MDD1 NOT-TAKING TIZANIDINE HCL 6 MG CAPSULE 1 TABLET NEEDED ORALLY BEFORE BEDTIME, NOTES: NONE RECENT NOT-TAKING SKELAXIN 800 MG TABLET 1 TABLET ORALLY FOR SPASMS AND PAIN EVERY 6 HOURS NEEDED MDD3 NOT-TAKING DAYPRO 600 MG TABLET DIRECTED ORALLY WITH FOOD DAILY NOT-TAKING GABAPENTIN 300 MG CAPSULE 1 CAPSULE ORALLY FOR PAIN BEFORE BEDTIME DISCONTINUED NETI POT SINUS WASH 2300-700 MG KIT DIRECTED NASALLY BID, NOTES: NONE RECENT DISCONTINUED MUCINEX DM 30-600 MG TABLET EXTENDED RELEASE 12 HOUR 1 TABLET NEEDED ORALLY EVERY 12 HRS, NOTES: NONE RECENT MEDICATION LIST REVIEWED AND RECONCILED WITH THE PATIENT PAST MEDICAL HISTORY 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 HTN HYPERLIPIDEMIA CHRONIC NECK PAIN WITH RADIATION DOWN BUE, LEFT WORSE THAN RIGHT BILATERAL KNEE PAIN, RIGHT WORSE THAN LEFT LOW BACK PAIN TINNITUS DIPAK ON CPAP SEIZURE AFTER TRAMADOL USE 2012 OR 2013 SPONDYLOSIS WITHOUT MYELOPATHY OR RADICULOPATHY, 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 PAIN - SIDE EFFECTS SURGICAL HISTORY RIGHT KNEE REPLACEMENT 2011 LEFT ORBITAL RECONSTRUCTION 1991 TONSILLECTOMY RIGHT KNEE SURGERIES-MULTIPLE SPINAL COLUMN STIMULATOR 10/2014, 12/2014 CERVICAL FUSION BY 12/12/2016 FAMILY HISTORY FATHER: , LUNG, LIVER, BONE CA, DIAGNOSED WITH CANCER MOTHER: ALIVE 1943 YRS, LUNG CA, HYPERTENSION, CANCER 2 BROTHER(S) , 2 SISTER(S) - HEALTHY. MRSA IN GRANDDAUGHTER OTHERWISE NO SIGNIFICANT FAMILY HISTORY NOTED. SOCIAL HISTORY GENERAL: TOBACCO USE ARE YOU A:NONSMOKER CHEWS TOBACCO HIV / HEP-C SCREENING HIV TEST OFFERED TO PATIENT:YES DATE OFFERED:08/04/2017 TEST ACCEPTED:NO HEP-C TEST OFFERED TO PATIENT:NO REASON:PATIENT DECLINED EDUCATION LEVEL OF EDUCATION:NOT FINISHED COLLEGE DIET: REGULAR. LANGUAGE LATVIAN. DOMESTIC VIOLENCE DO YOU FEEL SAFE IN YOUR ENVIRONMENT?YES RECREATIONAL DRUG USE DRUG USE?NO EXERCISE: NO REGULAR EXERCISE. LEARNING BARRIERS / SPECIAL NEEDS BARRIERS TO LEARNING?NO HEARING IMPAIRED?NO VISION IMPAIRED?YES READING GLASSES COGNITIVELY IMPAIRED?NO READINESS TO LEARN?YES LEARNING PREFERENCES?NO LEARNING CAPABILITIES PRESENT?YES EMOTIONAL BARRIERS?NO SPECIAL DEVICES?NO POOL TABLE OPERATOR NEEDED?NO PAIN CLINIC PFS, CLERGY, PUBLIC HEALTH REFERRALS PFS REFERRAL NEEDED?NO CLERGY REFERRAL NEEDED?NO PUBLIC HEALTH REFERRAL NEEDED?NO HAS THE PATIENT BEEN EDUCATED REGARDING HIS/HER PLAN OF CARE?YES HAS THE PATIENT BEEN EDUCATED REGARDING PAIN, THE RISK FOR PAIN, THE IMPORTANCE OF EFFECTIVE PAIN MANAGEMENT, AND THE PAIN ASSESSMENT PROCESS?YES LATEX QUESTIONNAIRE LATEX ALLERGY : HAVE YOU EVER DEVELOPED ANY TYPE OF REACTION AFTER HANDLING LATEX PRODUCTS SUCH RUBBER GLOVES, CONDOMS, DIAPHRAGMS, BALLOONS, SOCKS, OR UNDERWEAR?NO LATEX ALLERGY : HAVE YOU EVER DEVELOPED ANY TYPE OF REACTION DURING OR AFTER DENTAL APPOINTMENT, VAGINAL/RECTAL EXAMINATION, SURGICAL PROCEDURE, OR ANY OTHER EXPOSURE?NO LATEX RISK : HAVE YOU EVER HAD ANY DIFFICULTY BREATHING OR HIVES AFTER EATING OR HANDLING ANY FRUITS, OR VEGETABLES; SUCH KIWI, BANANAS, STONE FRUITS, OR CHESTNUTSNO LATEX RISK : DO YOU HAVE A PREVIOUS PERSONAL HISTORY OF MORE THAN NINE SURGERIES, SPINA BIFIDA, OR REPEATED CATHERTIZATIONS? YES - PLEASE INDICATE : > 9 SURGERIES LATEX RISK : ARE YOU FREQUENTLY EXPOSED TO LATEX PRODUCTS IN YOUR OCCUPATION?NO DATE ASKED : 10/13/2018 ADVANCE DIRECTIVE ADVANCE DIRECTIVE DISCUSSED WITH PATIENT:YES 11/30/18 STATES HE IS CURRENTLY WORKING ON GETTING A HCP, DECLINED ASSISTANCE AT THIS TIME. BV JAINISM [id number] NONE MARITAL STATUS: . ALCOHOL SCREENING DID YOU HAVE A DRINK CONTAINING ALCOHOL IN THE PAST YEAR?NO POINTS0 INTERPRETATIONNEGATIVE REVIEWED WITH PATIENT 07/24/18 1009 JSREVIEWED WITH PATIENT 08/21/18 1249 JSREVIEWED WITH PATIENT 09/02/18 1249 JS09/28/18 REVIEWED WITH PT. AD10/13/18 REVIEWED WITH PT. ADREVIEWED WITH PT 11/30/18 1327 BV. HOSPITALIZATION/MAJOR DIAGNOSTIC PROCEDURE SURGERY RELATED REVIEW OF SYSTEMS REVIEWED BY: PROVIDER: CHRISTINE MCKEON MD . CONSTITUTIONAL: ANY CHANGE IN YOUR MEDICAL CONDITION? NO . CHILLS NO . FEVER NO . INFECTION: DO YOU HAVE NEW INFECTIONS? YES, PT WAS DIAGNOSED WITH H.PYLORI AND JUST FINISHED 2 WEEKS OF ANTIBIOTICS CLARITHROMYCIN AND AMOXICILLIAN. IS SCHEDULED FOR ENDOSCOPY ON Friday12/04/18 . DO YOU HAVE HISTORY OF MRSA? NO . MUSCULOSKELETAL: ANY NEW PATTERNS OF PAIN OR NUMBNESS? NO . GASTROENTEROLOGY: ANY NEW CHANGE IN BOWEL CONTROL? NO . GENITOURINARY: ANY NEW CHANGE IN BLADDER CONTROL? NO . IS THERE A CHANCE YOU COULD BE ? NO . HEMATOLOGY/LYMPH: DO YOU TAKE ANY BLOOD THINNERS? (FOR EXAMPLE- COUMADIN, PLAVIX, AGGRENOX, PLATEL, PRADAXA, OR XARELTO) NO . WHEN WAS YOUR LAST DOSE? DATE: TIME: . NEUROLOGY: HAVE YOU FALLEN IN THE PAST 12 MONTHS? NO . ANY NEW EXTREMITY NUMBNESS OR WEAKNESS? NO . CARDIOLOGY: DO YOU HAVE A PACEMAKER OR DEFIBRILLATOR? NO . RESPIRATORY: HAVE YOU BEEN SICK IN THE PAST WEEK? NO . FEVER NO . FLU LIKE SYMPTOMS? NO . COUGH NO . INTEGUMENTARY: DO YOU HAVE ANY RASHES OR OPEN SORES? NO . ALLERGIC/IMMUNO: ARE YOU ALLERGIC TO IV DYE? NO . ANY NEW ALLERGIES? NO . PSYCHIATRIC: DO YOU HAVE THOUGHTS OF HURTING YOURSELF OR SOMEONE ELSE? NO . ARE YOU ABUSED, NEGLECTED, OR IN AN UNSAFE ENVIRONMENT? NO . ENDOCRINOLOGY: ARE YOU DIABETIC? NO . OTHER: DO YOU NEED ANY PRESCRIPTIONS? NO . IF YES, PLEASE LIST: ____ . ANY NEW PROBLEMS WITH YOUR MEDICATIONS? NO . WHEN DID YOU LAST EAT? ____ . WHEN DID YOU LAST DRINK? ____ . WHAT DID YOU LAST DRINK? ____ . NAME OF PERSON DRIVING YOU HOME? ____ . DO YOU HAVE ANY OTHER QUESTIONS OR CONCERNS NO . VITAL SIGNS WT 182.4 LBS, HT 70 IN, BMI 26.17 INDEX, BP 138/85 MM HG, HR 72 /MIN, RR 18 /MIN, TEMP 98.6 F, OXYGEN SAT % 98%, REVIEWED BY: ANITA. EXAMINATION GENERAL EXAMINATION: PATIENT IS ALERT O X 3 AND COOPERATIVE. TENDERNESS IN THE THORACIC AREA. PAIN INCREASES OVER THE THORACIC FACET JOINTS WITH EXTENSION AND LATERAL ROTATION OF THE BACK. CT OF THE THORACIC SPINE DONE ON 09/28/2018 SHOWS FACET ARTHROPATHY CHANGES. ASSESSMENTS SPONDYLOSIS OF THORACIC REGION WITHOUT MYELOPATHY OR RADICULOPATHY - M47.814 (PRIMARY) TREATMENT SPONDYLOSIS OF THORACIC REGION WITHOUT MYELOPATHY OR RADICULOPATHY CLINICAL NOTES: WE DISCUSSED SEVERAL ISSUE WITH MR. WAGNER'S PAIN MANAGEMENT CASE. DUE TO THE THORACIC SPONDYLOSIS, I WOULD LIKE TO MOVE FORWARD WITH A BILATERAL T1-T2, T2-T3, T3-T4 THERAPEUTIC FACET BLOCK. WE DISCUSSED THE BENEFITS, RISKS, AND ALTERNATIVES OF THE INJECTION AND THE PATIENT WOULD LIKE TO PROCEED. THE PATIENT MAY CONSIDER RADIOFREQUENCY IN THE FUTURE. I WILL ALSO INCREASE THE PATIENT'S OXYCODONE TO 45 TABLETS A MONTH TO HELP GET THE PATIENT'S PAIN UNDER CONTROL. ISTOP _#[id number] WAS REVIEWED. URINE TOXICOLOGY DONE ON 07/24/2018 SHOWS CONCURRENT RESULTS. I WILL REFER THE PATIENT TO MICHAEL NAYLOR FOR THE REMOVAL OF HIS DCS IMPLANT. THE PATIENT WILL FOLLOW UP A FEW WEEKS AFTER THE INJECTION. INSTRUCTIONS WERE GIVEN, QUESTIONS WERE ANSWERED, PATIENT REPORTS UNDERSTANDING AND AGREES WITH THE PLAN. I, CHEMO KUMAR, DOCUMENTED THE ABOVE INFORMATION ACTING A SCRIBE FOR DR. MCKEON. I HAVE REVIEWED THE ABOVE DOCUMENT, WRITTEN BY CHEMO DANIBAmanda AND I VERIFY THAT IT IS ACCURATE. . OTHERS REFILL OXYCODONE HCL TABLET, 10 MG, 1 TABLET NEEDED, ORALLY, EVERY 12 HOURS NEEDED MDD2, 30 DAYS, 15, REFILLS 0 START OXYCODONE HCL TABLET, 5 MG, 1 TABLET NEEDED, ORALLY FOR PAIN, EVERY 12 HRS MDD2, 30 DAYS, 15, REFILLS 0 START OXYCODONE HCL TABLET, 5 MG, 1 TABLET NEEDED, ORALLY, EVERY 12 HRS MDD2 (AMMENDING PREVIOUS SCRIPT TO 20 DAY SUPPLY), 10 DAYS, 15, REFILLS 0 PREVENTIVE MEDICINE PAIN CLINIC TEACHING: PROCEDURE TEACHING PT GIVEN WRITTEN AND VERBAL PREPROCEDURE INSTRUCTIONS. PT VERBALIZES UNDERSTANDING OF ALL INSTRUCTIONS. GABRIEL PARK 11/30/2018 2:15:38 PM > . PROCEDURE CODES FA211 ESTABILISHED PATIENT [facility] FACILITY CHARGE [id number] CURRENT MEDS W/DOSAGES DOCUMENTED G8730 PAIN ASSESS POS TOOL F/U PLAN DOC DISPOSITION & COMMUNICATION FOLLOW UP 3 WEEKS ELECTRONICALLY SIGNED BY CHRISTINE MCKEON MD, ON 12/13/2018 AT 06:43 PM EDT DISCLAIMER : THIS IS A VISIT SUMMARY EXTRACTED FROM THE [employer] CHART. IT IS NOT A COPY OF THE [employer] PROGRESS NOTE. MTDD
== END ==
LOC: M PAIN 13:00
PROVIDERS: ATTEND Anesthesiology
DX: M47.814 Spondylosis without myelopathy or radiculopathy, thoracic region (principal); G89.29 Other chronic pain; I10 Essential (primary) hypertension; E78.5 Hyperlipidemia, unspecified; G47.33 Obstructive sleep apnea (adult) (pediatric); M19.90 Unspecified osteoarthritis, unspecified site; F17.220 Nicotine dependence, chewing tobacco, uncomplicated; Z79.899 Other long term (current) drug therapy; Z88.1 Allergy status to other antibiotic agents; Z88.2 Allergy status to sulfonamides; Z88.5 Allergy status to narcotic agent; Z88.8 Allergy status to other drugs, medicaments and biological substances; Z96.89 Presence of other specified functional implants; Z96.651 Presence of right artificial knee joint

== ENCOUNTER 2018-12-04 13:12 | Day surgery (SDC) | payer OTHER ==
[~2018-12-04] VITALS: Ht 177.8 cm; Wt 81.4 kg
[~2018-12-04 13:12] MED LIST changes: +LIDOCAINE 2% INJ 100 MG/5 ML SDV (FOR ANES.) As Ordered ONE; +NS 1,000 ML IV ONE; +PROPOFOL 200 MG/20 ML VIAL As Ordered ONE
--- NOTE | 2018-12-04 15:23 | ROOR ---
Patient Name: Jeevan Avelar Procedure Date: 12/04/2018 3:01 PM Date of : 1970 Age: 48 Room: [facility] Gender: Male Note Status: Finalized Procedure: Upper GI endoscopy Indications: Dyspepsia, Previously treated for Helicobacter pylori, Diarrhea Providers: Angel SMITH MD Referring MD: ROC BRIAN MD Requesting Provider: Medicines: Monitored Anesthesia Care Complications: No immediate complications. Procedure: Pre-Anesthesia Assessment: - The heart rate, respiratory rate, oxygen saturations, blood pressure, adequacy of pulmonary ventilation, and response to care were monitored throughout the procedure. The Endoscope was introduced through the mouth, and advanced to the second part of duodenum. The upper GI endoscopy was accomplished without difficulty. The patient tolerated the procedure well. Findings: The examined esophagus was normal. Mild gastritis, Biopsies were taken with a cold forceps for Helicobacter pylori testing. The exam of the stomach was otherwise normal. The examined duodenum was normal. Biopsies for histology were taken with a cold forceps for evaluation of celiac disease. Impression: - Normal esophagus. - Minimal gastritis. Biopsied - Normal examined duodenum. Biopsied. Recommendation: - Telephone endoscopist for pathology results in 2 weeks. Angel Smith MD Angel SMITH MD 12/04/2018 3:23:13 PM Electronically signed by Angel SMITH MD Number of Addenda: 0 Note Initiated On: 12/04/2018 3:01 PM Estimated Blood Loss: Estimated blood loss: none.
[2018-12-04 15:42] VITALS: BP 147/74
== END 2018-12-04 15:52 | disposition home or self-care (01) ==
LOC: M OPP 13:12
PROVIDERS: ATTEND Internal Medicine Gastroenterology
DX: K29.70 Gastritis, unspecified, without bleeding (principal); R10.13 Epigastric pain; R19.7 Diarrhea, unspecified

== ENCOUNTER → 2019-01-05 | Outpatient (CLI) | payer OTHER ==
[~2019-01-05] MED LIST changes: +BUPIVACAINE HCL 0.25% 30 ML VIAL As Ordered ONE; +ISOVUE-M 300 61% 15ML VIAL (Q9967) As Ordered ONE; +LIDOCAINE 1% SDV INJ 30 ML VIAL As Ordered ONE; -LIDOCAINE 2% INJ 100 MG/5 ML SDV (FOR ANES.) As Ordered ONE; -NS 1,000 ML IV ONE; -PROPOFOL 200 MG/20 ML VIAL As Ordered ONE; +TRIAMCINOLONE ACETONIDE SUSP 40 MG/ML VIAL (J3301) As Ordered ONE; +diazePAM 5 MG TAB As Ordered ONE; +oxyCODONE 5MG TAB As Ordered ONE
--- NOTE | 2019-01-05 15:14 | REP ---
CHEST, TWO VIEWS: There is no evidence of acute infiltrate. No pleural effusion is seen. The heart is normal in size. The mediastinal silhouette is unremarkable. The visualized osseous structures are intact. There is no pneumothorax. Dorsal column stimulator device is noted. Metallic plate and screws are seen in the lower cervical spine. IMPRESSION: No acute pulmonary disease. Electronically Signed by Eleuterio Perez MD 01/05/2019 08:13 P
--- NOTE | 2019-01-05 17:08 | REP ---
Thoracic spine series limited study two views. History: Intraprocedural films thoracic facet block for pain. 13 seconds of fluoroscopy time is reported. Findings: A sequence of two last image hold fluoroscopically obtained spot radiographs of the thoracic spine document needle position and contrast injection associated with bilateral thoracic facet block procedure. Electronically Signed by Jacobo Summers MD 01/05/2019 09:12 P
--- NOTE | 2019-01-16 23:19 | ECWPNPC ---
PATIENT NAME: HAILY WAGNER : 1970 GENDER: MALE VISIT DATE: 01/05/2019 DISCHARGE DATE: 01/05/19 1512 VISIT LOCKED DATE TIME: PHYSICIAN: CHRISTINE MCKEON MD RESOURCE: CHRISTINE MCKEON MD REASON FOR APPOINTMENT 1. EMMA. THER FACET BLOCK HISTORY OF PRESENT ILLNESS HISTORY OF PRESENT ILLNESS: PAIN THE PATIENT DESCRIBES THE PAIN... FALL RISK SCREENING: SCREENING :NO FALLS REPORTED IN THE LAST YEAR CURRENT MEDICATIONS TAKING LISINOPRIL/HCTZ 10.5 10/12.5MG TABLET 1 TAB ORAL DAILY, NOTES: 01/06 400 TAKING ATORVASTATIN CALCIUM 40 MG TABLET 1 TABLET ORALLY ONCE A DAY, NOTES: 01/04 2100 TAKING PROTONIX 40 MG TABLET DELAYED RELEASE 1 TABLET ORALLY BID, NOTES: 01/06 400 TAKING MULTIVITAMIN ADULT - TABLET ORALLY DAILY, NOTES: 01/06 400 TAKING VITAMIN D 1000 UNIT TABLET 1 TABLET ORALLY ONCE A DAY, NOTES: 01/06 400 TAKING OXYCODONE HCL 5 MG TABLET 1 TABLET NEEDED ORALLY FOR PAIN EVERY 12 HRS MDD2, NOTES: 01/04 1730 TAKING CARISOPRODOL 350 MG TABLET 1 TABLET NEEDED ORALLY FOR SPASMS AND PAIN DAILY MDD1, NOTES: 1 WEEK AGO NOT-TAKING OXYCODONE HCL 10 MG TABLET 1 TABLET NEEDED ORALLY EVERY 12 HOURS NEEDED MDD2 NOT-TAKING TIZANIDINE HCL 6 MG CAPSULE 1 TABLET NEEDED ORALLY BEFORE BEDTIME, NOTES: NONE RECENT NOT-TAKING DAYPRO 600 MG TABLET DIRECTED ORALLY WITH FOOD DAILY NOT-TAKING SKELAXIN 800 MG TABLET 1 TABLET ORALLY FOR SPASMS AND PAIN EVERY 6 HOURS NEEDED MDD3 NOT-TAKING GABAPENTIN 300 MG CAPSULE 1 CAPSULE ORALLY FOR PAIN BEFORE BEDTIME DISCONTINUED OXYCODONE HCL 5 MG TABLET 1 TABLET NEEDED ORALLY EVERY 12 HRS MDD2 (AMMENDING PREVIOUS SCRIPT TO 20 DAY SUPPLY), NOTES: DUPLICATE MEDICATION LIST REVIEWED AND RECONCILED WITH THE PATIENT PAST MEDICAL HISTORY 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 HTN HYPERLIPIDEMIA CHRONIC NECK PAIN WITH RADIATION DOWN BUE, LEFT WORSE THAN RIGHT BILATERAL KNEE PAIN, RIGHT WORSE THAN LEFT LOW BACK PAIN TINNITUS DIPAK ON CPAP SEIZURE AFTER TRAMADOL USE 2012 OR 2013 SPONDYLOSIS WITHOUT MYELOPATHY OR RADICULOPATHY, 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 PAIN - SIDE EFFECTS SURGICAL HISTORY RIGHT KNEE REPLACEMENT 2011 LEFT ORBITAL RECONSTRUCTION 1991 TONSILLECTOMY RIGHT KNEE SURGERIES-MULTIPLE SPINAL COLUMN STIMULATOR 10/2014, 12/2014 CERVICAL FUSION BY 12/12/2016 FAMILY HISTORY FATHER: , LUNG, LIVER, BONE CA, DIAGNOSED WITH CANCER MOTHER: ALIVE 1943 YRS, LUNG CA, HYPERTENSION, CANCER 2 BROTHER(S) , 2 SISTER(S) - HEALTHY. MRSA IN GRANDDAUGHTER OTHERWISE NO SIGNIFICANT FAMILY HISTORY NOTED. SOCIAL HISTORY GENERAL: TOBACCO USE ARE YOU A:NONSMOKER CHEWS TOBACCO HIV / HEP-C SCREENING HIV TEST OFFERED TO PATIENT:YES DATE OFFERED:08/04/2017 TEST ACCEPTED:NO HEP-C TEST OFFERED TO PATIENT:NO REASON:PATIENT DECLINED EDUCATION LEVEL OF EDUCATION:NOT FINISHED COLLEGE DIET: REGULAR. LANGUAGE ZIMBABWEAN. DOMESTIC VIOLENCE DO YOU FEEL SAFE IN YOUR ENVIRONMENT?YES RECREATIONAL DRUG USE DRUG USE?NO EXERCISE: NO REGULAR EXERCISE. LEARNING BARRIERS / SPECIAL NEEDS BARRIERS TO LEARNING?NO HEARING IMPAIRED?NO VISION IMPAIRED?YES READING GLASSES COGNITIVELY IMPAIRED?NO READINESS TO LEARN?YES LEARNING PREFERENCES?NO LEARNING CAPABILITIES PRESENT?YES EMOTIONAL BARRIERS?NO SPECIAL DEVICES?YES :CANE OCCASSIONALLY PLOW HOLDER NEEDED?NO PAIN CLINIC PFS, CLERGY, PUBLIC HEALTH REFERRALS PFS REFERRAL NEEDED?NO CLERGY REFERRAL NEEDED?NO PUBLIC HEALTH REFERRAL NEEDED?NO HAS THE PATIENT BEEN EDUCATED REGARDING HIS/HER PLAN OF CARE?YES HAS THE PATIENT BEEN EDUCATED REGARDING PAIN, THE RISK FOR PAIN, THE IMPORTANCE OF EFFECTIVE PAIN MANAGEMENT, AND THE PAIN ASSESSMENT PROCESS?YES LATEX QUESTIONNAIRE LATEX ALLERGY : HAVE YOU EVER DEVELOPED ANY TYPE OF REACTION AFTER HANDLING LATEX PRODUCTS SUCH RUBBER GLOVES, CONDOMS, DIAPHRAGMS, BALLOONS, SOCKS, OR UNDERWEAR?NO LATEX ALLERGY : HAVE YOU EVER DEVELOPED ANY TYPE OF REACTION DURING OR AFTER DENTAL APPOINTMENT, VAGINAL/RECTAL EXAMINATION, SURGICAL PROCEDURE, OR ANY OTHER EXPOSURE?NO LATEX RISK : HAVE YOU EVER HAD ANY DIFFICULTY BREATHING OR HIVES AFTER EATING OR HANDLING ANY FRUITS, OR VEGETABLES; SUCH KIWI, BANANAS, STONE FRUITS, OR CHESTNUTSNO LATEX RISK : DO YOU HAVE A PREVIOUS PERSONAL HISTORY OF MORE THAN NINE SURGERIES, SPINA BIFIDA, OR REPEATED CATHERTIZATIONS? YES - PLEASE INDICATE : > 9 SURGERIES LATEX RISK : ARE YOU FREQUENTLY EXPOSED TO LATEX PRODUCTS IN YOUR OCCUPATION?NO DATE ASKED : 01/05/2019 ADVANCE DIRECTIVE ADVANCE DIRECTIVE DISCUSSED WITH PATIENT:YES 01/05/19STATES HE IS CURRENTLY WORKING ON GETTING A HCP, DECLINED ASSISTANCE AT THIS TIME. AD [facility] [id number] NONE MARITAL STATUS: . ALCOHOL SCREENING DID YOU HAVE A DRINK CONTAINING ALCOHOL IN THE PAST YEAR?NO POINTS0 INTERPRETATIONNEGATIVE REVIEWED WITH PATIENT 07/24/18 1009 JSREVIEWED WITH PATIENT 08/21/18 1249 JSREVIEWED WITH PATIENT 09/02/18 1249 JS09/28/18 REVIEWED WITH PT. AD10/13/18 REVIEWED WITH PT. ADREVIEWED WITH PT 11/30/18 1327 BV. HOSPITALIZATION/MAJOR DIAGNOSTIC PROCEDURE SURGERY RELATED REVIEW OF SYSTEMS REVIEWED BY: PROVIDER: . CONSTITUTIONAL: ANY CHANGE IN YOUR MEDICAL CONDITION? NO . CHILLS NO . FEVER NO . INFECTION: DO YOU HAVE NEW INFECTIONS? NO . DO YOU HAVE HISTORY OF MRSA? NO . MUSCULOSKELETAL: ANY NEW PATTERNS OF PAIN OR NUMBNESS? YES, PAIN IS MORE SEVERE AND LASTING LONGER. STARTING TO GET SOME AROUND THE BATTERY. . GASTROENTEROLOGY: ANY NEW CHANGE IN BOWEL CONTROL? NO . GENITOURINARY: ANY NEW CHANGE IN BLADDER CONTROL? NO . IS THERE A CHANCE YOU COULD BE ? NO . HEMATOLOGY/LYMPH: DO YOU TAKE ANY BLOOD THINNERS? (FOR EXAMPLE- COUMADIN, PLAVIX, AGGRENOX, PLATEL, PRADAXA, OR XARELTO) NO . WHEN WAS YOUR LAST DOSE? DATE: TIME: . NEUROLOGY: HAVE YOU FALLEN IN THE PAST 12 MONTHS? NO . ANY NEW EXTREMITY NUMBNESS OR WEAKNESS? NO . CARDIOLOGY: DO YOU HAVE A PACEMAKER OR DEFIBRILLATOR? NO HAS DCS . RESPIRATORY: HAVE YOU BEEN SICK IN THE PAST WEEK? NO . FEVER NO . FLU LIKE SYMPTOMS? NO . COUGH NO . INTEGUMENTARY: DO YOU HAVE ANY RASHES OR OPEN SORES? NO . ALLERGIC/IMMUNO: ARE YOU ALLERGIC TO IV DYE? NO . ANY NEW ALLERGIES? NO . PSYCHIATRIC: DO YOU HAVE THOUGHTS OF HURTING YOURSELF OR SOMEONE ELSE? NO . ARE YOU ABUSED, NEGLECTED, OR IN AN UNSAFE ENVIRONMENT? NO . ENDOCRINOLOGY: ARE YOU DIABETIC? NO . OTHER: DO YOU NEED ANY PRESCRIPTIONS? NO . IF YES, PLEASE LIST: ____ . ANY NEW PROBLEMS WITH YOUR MEDICATIONS? NO . WHEN DID YOU LAST EAT? 01/04 1830 . WHEN DID YOU LAST DRINK? 01/05 0600 . WHAT DID YOU LAST DRINK? GREEN TEA . NAME OF PERSON DRIVING YOU HOME? ANA . DO YOU HAVE ANY OTHER QUESTIONS OR CONCERNS YES, "WHEN MAURICE GIFFORD FILLED MY LAST SCRIPT FOR OXYCODONE 5 MGS SHE WROTE IT FOR 15 TABLETS Q 12H BUT IT IS SUPPOSE TO LAST 30 DAYS. SHE DIDN'T READ ALL OF DR. MCKEON'S NOTES" PT HAS NOT HAD ANY VACCINES IN THE PAST 30 DAYS . VITAL SIGNS WT 181.2 LBS, HT 70 IN, BMI 26.00 INDEX, BP 115/78 MM HG, HR 70 /MIN, RR 18 /MIN, TEMP 98.2 F, OXYGEN SAT % 99%, SAFE IN ENV? (Y/N) Y, NA INITIALS PR 11:57, REVIEWED BY: AD. ASSESSMENTS SPONDYLOSIS OF THORACIC REGION WITHOUT MYELOPATHY OR RADICULOPATHY - M47.814 (PRIMARY) TREATMENT SPONDYLOSIS OF THORACIC REGION WITHOUT MYELOPATHY OR RADICULOPATHY [facility] FACET BLOCK (PAIN)[id number] OTHERS REFILL OXYCODONE HCL TABLET, 5 MG, 1 TABLET NEEDED, ORALLY FOR PAIN, EVERY 12 HRS MDD2, 30 DAYS, 45, REFILLS 0, NOTES: 01/04 1730 CLINICAL NOTES: ISTOP NUMBER [id number] CHECKED. PROCEDURES PN THORACIC FACET BLOCK THERAPEUTIC PRE PROCEDURE DIAGNOSIS THORACIC SPONDYLOSIS POST PROCEDURE DIAGNOSIS THORACIC SPONDYLOSIS PROCEDURE BILATERAL T3-T4, BILATERAL T4-T5, AND BILATERAL T5-T6 THORACIC FACET THERAPEUTIC BLOCK SURGEON DR. CHRISTINE MCKEON TAX PROCESSOR NONE ANESTHESIA LOCAL PRE PROCEDURE NOTE THE PATIENT WITH HISTORY OF CHRONIC THORACIC PAIN. I EVALUATED THE PATIENT AND REVIEWED THE CHART. I WENT OVER THE RISKS, ALTERNATIVES, AND BENEFITS ASSOCIATED WITH THIS PROCEDURE. THE PATIENT WOULD LIKE TO PROCEED AND GAVE CONSENT TO PERFORM THE PROCEDURE. THE PATIENT DENIES UNEXPLAINABLE WEIGHT LOSS, FEVER, CHILLS, OR NEW CHANGES IN URINARY OR BOWEL CONTROL. DESCRIPTION OF PROCEDURE THE PATIENT WAS BROUGHT TO THE PROCEDURE ROOM AND PLACED IN THE PRONE POSITION. THE THORACIC AREA WAS CLEANED WITH CHLORAPREP SOLUTION AND DRAPED ASEPTICALLY. THE PROCEDURE WAS DONE UNDER STERILE CONDITIONS. I CHECKED LATERALITY AND THE LEVEL WHERE THE PROCEDURE WAS GOING TO BE PERFORMED WITH THE PATIENT AND THE SUPPORTING STAFF AT THE MOMENT OF THE TIME OUT IN THE PROCEDURE ROOM. UNDER FLUOROSCOPIC GUIDANCE, THE TARGET POINT WAS SELECTED AT THE RIGHT AND LEFT T3-T4, RIGHT AND LEFT T4-T5, AND RIGHT AND LEFT T5-T6 THORACIC FACET. TARGET POINT WAS SELECTED AFTER LATERAL ROTATION AND TILT OF THE MAGNIFIER OF THE C-ARM. LIDOCAINE 0.5% WAS USED TO NUMB THE SKIN AND THE SUBCUTANEOUS TISSUE BELOW IT. SPINAL NEEDLES, 22-GAUGE, WERE ADVANCED UNDER FLUOROSCOPIC GUIDANCE AND FOLLOWING PATIENT FEEDBACK UNTIL THE TARGETS WERE TOUCHED. THE POSITION OF THE NEEDLES WAS VERIFIED WITH MULTIPLE X-RAY VIEWS. AFTER PROPER POSITION OF THE NEEDLES WAS ACHIEVED, ISOVUE-M DYE 30% 0.1 ML WAS INJECTED SHOWING ADEQUATE SPREAD OF THE DYE. THEN A SOLUTION OF 0.9 ML OF BUPIVACAINE 0.125% OF KENALOG 10 MG WAS INJECTED AT EACH SITE. THERE WAS NO EVIDENCE OF BLOOD, PARESTHESIA OR CEREBROSPINAL FLUID DURING THE PROCEDURE. THE PATIENT WAS SENT TO THE RECOVERY ROOM. THE PATIENT WAS MOVING THE EXTREMITIES AND DOING WELL. THERE WAS NO COMPLICATION DURING THE PROCEDURE. FLUOROSCOPY TIME WAS 13 SECONDS POST PROCEDURE NOTE THE PATIENT WILL BE SEEN IN A FOLLOW UP IN THE NEXT FEW WEEKS. INSTRUCTIONS WERE GIVEN, QUESTIONS WERE ANSWERED, AND THE PATIENT EXPRESSED UNDERSTANDING AND AGREED WITH THE PLAN. I, CHEMO KUMAR, DOCUMENTED THE ABOVE INFORMATION ACTING A SCRIBE FOR DR. MCKEON. I HAVE REVIEWED THE ABOVE DOCUMENT, WRITTEN BY CHEMO ROBLEDO AND I VERIFY THAT IT IS ACCURATE. PREVENTIVE MEDICINE 01/05/19 1615 PRELIMIARY CXR REPORT WAS NEG. NO DR. MCKEON AWARE. AD. PROCEDURE CODES [id number] RADXPS IN END [id number] PXD [id number] INJ PARAVERT F JNT C/T 1 LEV, MODIFIERS: 50 [id number] INJ PARAVERT F JNT C/T 2 LEV, MODIFIERS: 50 [id number] INJ PARAVERT F JNT C/T 3 LEV, MODIFIERS: 50 DISPOSITION & COMMUNICATION FOLLOW UP 3 WEEKS ELECTRONICALLY SIGNED BY CHRISTINE MCKEON MD, MD ON 01/16/2019 AT 05:07 PM EDT DISCLAIMER : THIS IS A VISIT SUMMARY EXTRACTED FROM THE [employer] Business Plan CHART. IT IS NOT A COPY OF THE [employer] Business [employer] PROGRESS NOTE. MTDD
== END ==
LOC: M PAIN 11:45
PROVIDERS: ATTEND Anesthesiology
DX: M47.814 Spondylosis without myelopathy or radiculopathy, thoracic region (principal); M25.511 Pain in right shoulder; I10 Essential (primary) hypertension; E78.5 Hyperlipidemia, unspecified; G47.33 Obstructive sleep apnea (adult) (pediatric); M17.11 Unilateral primary osteoarthritis, right knee; G89.29 Other chronic pain; Z96.661 Presence of right artificial ankle joint; Z88.2 Allergy status to sulfonamides; Z88.5 Allergy status to narcotic agent; Z88.8 Allergy status to other drugs, medicaments and biological substances; Z79.891 Long term (current) use of opiate analgesic; Z79.899 Other long term (current) drug therapy
CPT/HCPCS: 64490; 64491; 64492; 71046; J3301; Q9967

== ENCOUNTER → 2019-02-05 | Outpatient (CLI) | payer OTHER ==
[~2019-02-05] MED LIST changes: -BUPIVACAINE HCL 0.25% 30 ML VIAL As Ordered ONE; -ISOVUE-M 300 61% 15ML VIAL (Q9967) As Ordered ONE; -LIDOCAINE 1% SDV INJ 30 ML VIAL As Ordered ONE; -TRIAMCINOLONE ACETONIDE SUSP 40 MG/ML VIAL (J3301) As Ordered ONE; -diazePAM 5 MG TAB As Ordered ONE; -oxyCODONE 5MG TAB As Ordered ONE
--- NOTE | 2019-02-09 01:43 | ECWPNPC ---
PATIENT NAME: HAILY WAGNER : 1970 GENDER: MALE VISIT DATE: 02/05/2019 DISCHARGE DATE: 02/05/19 1533 VISIT LOCKED DATE TIME: PHYSICIAN: CHRISTINE MCKEON MD RESOURCE: CHRISTINE MCKEON MD REASON FOR APPOINTMENT 1. POST PROCEDURE HISTORY OF PRESENT ILLNESS HISTORY OF PRESENT ILLNESS: PAIN THE PATIENT DESCRIBES THE PAIN... 48 YEAR OLD MALE PATIENT WITH A HISTORY OF CHRONIC THORACIC PAIN. THE PATIENT DESCRIBES THE PAIN ACHING, BURNING, SHARP, STABBING, SHOOTING, AND CONTINUOUS WITH A PAIN SCORE OF 2-10/10 DEPENDING ON PHYSICAL ACTIVITY. THE PATIENT RECEIVED A THERAPEUTIC THORACIC FACET BLOCK ON 01/05/2019 AND REPORTS HAVING VERY GOOD RELIEF FOR A FEW WEEKS, BUT HIS PAIN IS STARTING TO RETURN. THE PATIENT IS CURRENTLY USING OXYCODONE AND SOMA TO AID IN PAIN RELIEF. PATIENT DENIES UNEXPLAINABLE WEIGHT LOSS, FEVER, CHILLS, NEW CHANGES ON HIS URINARY OR BOWEL CONTROL. FALL RISK SCREENING: SCREENING :NO FALLS REPORTED IN THE LAST YEAR CURRENT MEDICATIONS TAKING LISINOPRIL/HCTZ 10/12.5 10/12.5MG TABLET 1 TAB ORAL DAILY, NOTES: 01/06 400 TAKING ATORVASTATIN CALCIUM 40 MG TABLET 1 TABLET ORALLY ONCE A DAY, NOTES: 01/04 2100 TAKING PROTONIX 40 MG TABLET DELAYED RELEASE 1 TABLET ORALLY DAILY, NOTES: 01/06 400 TAKING MULTIVITAMIN ADULT - TABLET ORALLY DAILY, NOTES: 01/06 400 TAKING CARISOPRODOL 350 MG TABLET 1 TABLET NEEDED ORALLY FOR SPASMS AND PAIN DAILY MDD1, NOTES: 1 WEEK AGO TAKING OXYCODONE HCL 5 MG TABLET 1 TABLET NEEDED ORALLY FOR PAIN EVERY 12 HRS MDD2, NOTES: 01/04 1730 NOT-TAKING OXYCODONE HCL 10 MG TABLET 1 TABLET NEEDED ORALLY EVERY 12 HOURS NEEDED MDD2 NOT-TAKING TIZANIDINE HCL 6 MG CAPSULE 1 TABLET NEEDED ORALLY BEFORE BEDTIME, NOTES: NONE RECENT NOT-TAKING DAYPRO 600 MG TABLET DIRECTED ORALLY WITH FOOD DAILY NOT-TAKING SKELAXIN 800 MG TABLET 1 TABLET ORALLY FOR SPASMS AND PAIN EVERY 6 HOURS NEEDED MDD3 NOT-TAKING GABAPENTIN 300 MG CAPSULE 1 CAPSULE ORALLY FOR PAIN BEFORE BEDTIME NOT-TAKING VITAMIN D 1000 UNIT TABLET 1 TABLET ORALLY ONCE A DAY, NOTES: 01/06 400 MEDICATION LIST REVIEWED AND RECONCILED WITH THE PATIENT PAST MEDICAL HISTORY 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 HTN HYPERLIPIDEMIA CHRONIC NECK PAIN WITH RADIATION DOWN BUE, LEFT WORSE THAN RIGHT BILATERAL KNEE PAIN, RIGHT WORSE THAN LEFT LOW BACK PAIN TINNITUS DIPAK ON CPAP SEIZURE AFTER TRAMADOL USE 2012 OR 2013 SPONDYLOSIS WITHOUT MYELOPATHY OR RADICULOPATHY, 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 PAIN - SIDE EFFECTS SURGICAL HISTORY RIGHT KNEE REPLACEMENT 2011 LEFT ORBITAL RECONSTRUCTION 1991 TONSILLECTOMY RIGHT KNEE SURGERIES-MULTIPLE SPINAL COLUMN STIMULATOR 10/2014, 12/2014 CERVICAL FUSION BY 12/12/2016 FAMILY HISTORY FATHER: , LUNG, LIVER, BONE CA, DIAGNOSED WITH CANCER MOTHER: ALIVE 1943 YRS, LUNG CA, HYPERTENSION, CANCER 2 BROTHER(S) , 2 SISTER(S) - HEALTHY. MRSA IN GRANDDAUGHTER OTHERWISE NO SIGNIFICANT FAMILY HISTORY NOTED. SOCIAL HISTORY GENERAL: TOBACCO USE ARE YOU A:NONSMOKER CHEWS TOBACCO HIV / HEP-C SCREENING HIV TEST OFFERED TO PATIENT:YES DATE OFFERED:08/04/2017 TEST ACCEPTED:NO HEP-C TEST OFFERED TO PATIENT:NO REASON:PATIENT DECLINED EDUCATION LEVEL OF EDUCATION:NOT FINISHED COLLEGE DIET: REGULAR. LANGUAGE DJIBOUTIAN. DOMESTIC VIOLENCE DO YOU FEEL SAFE IN YOUR ENVIRONMENT?YES RECREATIONAL DRUG USE DRUG USE?NO EXERCISE: NO REGULAR EXERCISE. 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 NEEDED?NO PAIN CLINIC PFS, CLERGY, PUBLIC HEALTH REFERRALS PFS REFERRAL NEEDED?NO CLERGY REFERRAL NEEDED?NO PUBLIC HEALTH REFERRAL NEEDED?NO HAS THE PATIENT BEEN EDUCATED REGARDING HIS/HER PLAN OF CARE?YES HAS THE PATIENT BEEN EDUCATED REGARDING PAIN, THE RISK FOR PAIN, THE IMPORTANCE OF EFFECTIVE PAIN MANAGEMENT, AND THE PAIN ASSESSMENT PROCESS?YES LATEX QUESTIONNAIRE LATEX ALLERGY : HAVE YOU EVER DEVELOPED ANY TYPE OF REACTION AFTER HANDLING LATEX PRODUCTS SUCH RUBBER GLOVES, CONDOMS, DIAPHRAGMS, BALLOONS, SOCKS, OR UNDERWEAR?NO LATEX ALLERGY : HAVE YOU EVER DEVELOPED ANY TYPE OF REACTION DURING OR AFTER DENTAL APPOINTMENT, VAGINAL/RECTAL EXAMINATION, SURGICAL PROCEDURE, OR ANY OTHER EXPOSURE?NO DATE ASKED : 01/05/2019 LATEX RISK : HAVE YOU EVER HAD ANY DIFFICULTY BREATHING OR HIVES AFTER EATING OR HANDLING ANY FRUITS, OR VEGETABLES; SUCH KIWI, BANANAS, STONE FRUITS, OR CHESTNUTSNO LATEX RISK : DO YOU HAVE A PREVIOUS PERSONAL HISTORY OF MORE THAN NINE SURGERIES, SPINA BIFIDA, OR REPEATED CATHERTIZATIONS? YES - PLEASE INDICATE : > 9 SURGERIES LATEX RISK : ARE YOU FREQUENTLY EXPOSED TO LATEX PRODUCTS IN YOUR OCCUPATION?NO ADVANCE DIRECTIVE ADVANCE DIRECTIVE DISCUSSED WITH PATIENT:YES 02/05/19STATES HE IS CURRENTLY WORKING ON GETTING A HCP, DECLINED ASSISTANCE AT THIS TIME. AD TAOISM [id number] NONE MARITAL STATUS: . ALCOHOL SCREENING DID YOU HAVE A DRINK CONTAINING ALCOHOL IN THE PAST YEAR?NO POINTS0 INTERPRETATIONNEGATIVE REVIEWED WITH PATIENT 07/24/18 1009 JSREVIEWED WITH PATIENT 08/21/18 1249 JSREVIEWED WITH PATIENT 09/02/18 1249 JS09/28/18 REVIEWED WITH PT. AD10/13/18 REVIEWED WITH PT. ADREVIEWED WITH PT 11/30/18 1327 BV. HOSPITALIZATION/MAJOR DIAGNOSTIC PROCEDURE SURGERY RELATED REVIEW OF SYSTEMS REVIEWED BY: PROVIDER: CHRISTINE MCKEON MD . CONSTITUTIONAL: ANY CHANGE IN YOUR MEDICAL CONDITION? NO . CHILLS NO . FEVER NO . INFECTION: DO YOU HAVE NEW INFECTIONS? NO . DO YOU HAVE HISTORY OF MRSA? NO . MUSCULOSKELETAL: ANY NEW PATTERNS OF PAIN OR NUMBNESS? NO . GASTROENTEROLOGY: ANY NEW CHANGE IN BOWEL CONTROL? NO . GENITOURINARY: ANY NEW CHANGE IN BLADDER CONTROL? NO . IS THERE A CHANCE YOU COULD BE ? NO . HEMATOLOGY/LYMPH: DO YOU TAKE ANY BLOOD THINNERS? (FOR EXAMPLE- COUMADIN, PLAVIX, AGGRENOX, PLATEL, PRADAXA, OR XARELTO) NO . WHEN WAS YOUR LAST DOSE? DATE: TIME: . NEUROLOGY: HAVE YOU FALLEN IN THE PAST 12 MONTHS? NO . ANY NEW EXTREMITY NUMBNESS OR WEAKNESS? NO . CARDIOLOGY: DO YOU HAVE A PACEMAKER OR DEFIBRILLATOR? NO . RESPIRATORY: HAVE YOU BEEN SICK IN THE PAST WEEK? NO . FEVER NO . FLU LIKE SYMPTOMS? NO . COUGH NO . INTEGUMENTARY: DO YOU HAVE ANY RASHES OR OPEN SORES? NO . ALLERGIC/IMMUNO: ARE YOU ALLERGIC TO IV DYE? NO . ANY NEW ALLERGIES? NO . PSYCHIATRIC: DO YOU HAVE THOUGHTS OF HURTING YOURSELF OR SOMEONE ELSE? NO . ARE YOU ABUSED, NEGLECTED, OR IN AN UNSAFE ENVIRONMENT? NO . ENDOCRINOLOGY: ARE YOU DIABETIC? NO . OTHER: DO YOU NEED ANY PRESCRIPTIONS? NO . IF YES, PLEASE LIST: ____ . ANY NEW PROBLEMS WITH YOUR MEDICATIONS? NO . WHEN DID YOU LAST EAT? ____ . WHEN DID YOU LAST DRINK? ____ . WHAT DID YOU LAST DRINK? ____ . NAME OF PERSON DRIVING YOU HOME? ____ . DO YOU HAVE ANY OTHER QUESTIONS OR CONCERNS NO . VITAL SIGNS WT 180.6 LBS, HT 70 IN, BMI 25.91 INDEX, BP 125/79 MM HG, HR 76 /MIN, RR 18 /MIN, TEMP 98.8 F, OXYGEN SAT % 100%, SAFE IN ENV? (Y/N) YES, NA INITIALS AW 1431, REVIEWED BY: ROSALVA. EXAMINATION GENERAL EXAMINATION: PATIENT IS ALERT O X 3 AND COOPERATIVE. TENDERNESS IN THE THORACIC AREA. PAIN INCREASES OVER THE THORACIC FACET JOINTS WITH EXTENSION AND LATERAL ROTATION OF THE BACK. CT OF THE THORACIC SPINE DONE ON 09/28/2018 SHOWS FACET ARTHROPATHY CHANGES. 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 WAGNER'S PAIN MANAGEMENT CASE. DUE TO THE THORACIC SPONDYLOSIS, I WOULD LIKE TO MOVE FORWARD WITH A BILATERAL T3-T4, T4-T5, T5-T6 DIAGNOSTIC THORACIC FACET BLOCK TO CONSIDER RADIOFREQUENCY. WE DISCUSSED THE BENEFITS, RISKS, AND ALTERNATIVES OF THE PROCEDURE AND THE PATIENT WOULD LIKE TO PROCEED. I WOULD LIKE THE PATIENT TO START USING TIZANIDINE IN PLACE OF THE SOMA AND I WILL INCREASE THE OXYCODONE TO 2 PER DAY NEEDED WITH 55 TABLETS PER MONTH. ISTOP _#[id number] WAS REVIEWED. I WILL PERFORM A URINE TOXICOLOGY TODAY. THE PATIENT WILL FOLLOW UP A COUPLE WEEKS AFTER THE PROCEDURE. INSTRUCTIONS WERE GIVEN, QUESTIONS WERE ANSWERED, PATIENT REPORTS UNDERSTANDING AND AGREES WITH THE PLAN. I, CHEMO KUMAR, DOCUMENTED THE ABOVE INFORMATION ACTING A SCRIBE FOR DR. MCKEON. I HAVE REVIEWED THE ABOVE DOCUMENT, WRITTEN BY CHEMO ROBLEDO AND I VERIFY THAT IT IS ACCURATE. . OTHERS REFILL TIZANIDINE HCL CAPSULE, 6 MG, 1 TABLET NEEDED, ORALLY, EVERY 12 HOURS NEEDED MDD2, 30 DAY(S), 50, REFILLS 1, NOTES: NONE RECENT REFILL OXYCODONE HCL TABLET, 5 MG, 1 TABLET NEEDED, ORALLY FOR PAIN, EVERY 12 HRS MDD2, 30 DAYS, 55, REFILLS 0, NOTES: 01/04 1730 PREVENTIVE MEDICINE 02/05/19 THORACIC FACET THERAPEUTIC REVIEWED WITH PT. DAYAMI AGUIRRE RN. PROCEDURE CODES FA211 ESTABILISHED PATIENT [facility] CHARGE G8427 CURRENT MEDS W/DOSAGES DOCUMENTED G8730 PAIN ASSESS POS TOOL F/U PLAN DOC DISPOSITION & COMMUNICATION FOLLOW UP REQUESTING AUTH ELECTRONICALLY SIGNED BY CHRISTINE MCKEON MD, ON 02/08/2019 AT 01:39 PM EDT DISCLAIMER : THIS IS A VISIT SUMMARY EXTRACTED FROM THE [employer] CHART. IT IS NOT A COPY OF THE [employer] PROGRESS NOTE. CHANTELLED
== END ==
LOC: M PAIN 14:30
PROVIDERS: ATTEND Anesthesiology
DX: M47.814 Spondylosis without myelopathy or radiculopathy, thoracic region (principal); M54.6 Pain in thoracic spine; G44.009 Cluster headache syndrome, unspecified, not intractable; E78.5 Hyperlipidemia, unspecified; I10 Essential (primary) hypertension; M54.2 Cervicalgia; G47.33 Obstructive sleep apnea (adult) (pediatric); H93.19 Tinnitus, unspecified ear; M25.562 Pain in left knee; G89.29 Other chronic pain; M47.12 Other spondylosis with myelopathy, cervical region; B35.1 Tinea unguium; Z98.1 Arthrodesis status; Z96.651 Presence of right artificial knee joint; F17.220 Nicotine dependence, chewing tobacco, uncomplicated; Z79.891 Long term (current) use of opiate analgesic; Z79.899 Other long term (current) drug therapy; Z88.2 Allergy status to sulfonamides; Z88.5 Allergy status to narcotic agent; Z88.8 Allergy status to other drugs, medicaments and biological substances

== ENCOUNTER → 2019-02-12 | Outpatient (CLI) | payer OTHER ==
--- NOTE | 2019-02-12 13:43 | REP ---
Ultrasonography of the left upper extremity mass at the distal body seven area: Ultrasonography of the palpable mass identifies a solid subcutaneous mass that is slightly hyperechoic measuring 1.9 x 0.5 x 1.8 cm. Impression: The palpable lump corresponds to a subcutaneous solid mass. Findings at ultrasound are nonspecific. In order to differentiate a lipomatous mass from a non lipomatous to this mass, consider follow-up MRI or CT. Electronically Signed by Eleuterio Sarabia MD 02/12/2019 01:35 P
== END ==
LOC: M RAD 11:29
PROVIDERS: ATTEND Physician Assistant
DX: D48.5 Neoplasm of uncertain behavior of skin (principal)

== ENCOUNTER → 2019-02-26 | Outpatient (CLI) | payer OTHER ==
[~2019-02-26] MED LIST changes: +LISI10TA15 PO; -LISI10TA2 PO
--- NOTE | 2019-03-10 01:26 | ECWPNPC ---
PATIENT NAME: HAILY WAGNER : 1970 GENDER: MALE VISIT DATE: 02/26/2019 DISCHARGE DATE: 02/26/19 1059 VISIT LOCKED DATE TIME: PHYSICIAN: CHRISTINE MCKEON MD RESOURCE: CHRISTINE MCKEON MD REASON FOR APPOINTMENT 1. NEW BODY PART, KNEE PAIN HISTORY OF PRESENT ILLNESS HISTORY OF PRESENT ILLNESS: PAIN THE PATIENT DESCRIBES THE PAIN... 48 YEAR OLD MALE PATIENT WITH A HISTORY OF CHRONIC THORACIC AND RIGHT KNEE PAIN. THE PATIENT DESCRIBES THE PAIN ACHING, BURNING, STABBING, SHOOTING, SORE, SHARP, DAILY, AND CONTINUOUS WITH A PAIN SCORE OF 7-10/10 FOR THE THORACIC AREA AND 8-10/10 FOR THE RIGHT KNEE PAIN DEPENDING ON PHYSICAL ACTIVITY. THE PATIENT SAYS HE HAS USED OXYCODONE A PAIN RELIEVER IN THE PAST, HOWEVER IT STOPPED WORKING FOR HIM SO HE QUIT USING THE MEDICATION. THE PATIENT SAYS HIS RIGHT KNEE AND THORACIC PAIN IS CAUSING DIFFICULTIES FOR HIM TO WORK AT HIS JOB. THE PATIENT RECEIVED A BILATERAL THERAPEUTIC FACET BLOCK ON 01/05/2019, WHICH HE SAYS PROVIDED HIM WITH GOOD PAIN RELIEF FOR SEVERAL WEEKS. PATIENT DENIES UNEXPLAINABLE WEIGHT LOSS, FEVER, CHILLS, NEW CHANGES ON HIS URINARY OR BOWEL CONTROL. FALL RISK SCREENING: SCREENING :NO FALLS REPORTED IN THE LAST YEAR CURRENT MEDICATIONS TAKING TIZANIDINE HCL 6 MG CAPSULE 1 TABLET NEEDED ORALLY EVERY 12 HOURS NEEDED MDD2, NOTES: NONE RECENT TAKING LISINOPRIL/HCTZ 10/12.5 10/12.5MG TABLET 1 TAB ORAL DAILY, NOTES: 01/06 400 TAKING ATORVASTATIN CALCIUM 40 MG TABLET 1 TABLET ORALLY ONCE A DAY, NOTES: 01/04 2100 TAKING PROTONIX 40 MG TABLET DELAYED RELEASE 1 TABLET ORALLY DAILY, NOTES: 01/06 400 TAKING MULTIVITAMIN ADULT - TABLET ORALLY DAILY, NOTES: 01/06 400 NOT-TAKING OXYCODONE HCL 5 MG TABLET 1 TABLET NEEDED ORALLY FOR PAIN EVERY 12 HRS MDD2, NOTES: 01/04 1730 DISCONTINUED CARISOPRODOL 350 MG TABLET 1 TABLET NEEDED ORALLY FOR SPASMS AND PAIN DAILY MDD1, NOTES: 1 WEEK AGO DISCONTINUED OXYCODONE HCL 10 MG TABLET 1 TABLET NEEDED ORALLY EVERY 12 HOURS NEEDED MDD2 DISCONTINUED DAYPRO 600 MG TABLET DIRECTED ORALLY WITH FOOD DAILY DISCONTINUED SKELAXIN 800 MG TABLET 1 TABLET ORALLY FOR SPASMS AND PAIN EVERY 6 HOURS NEEDED MDD3 DISCONTINUED GABAPENTIN 300 MG CAPSULE 1 CAPSULE ORALLY FOR PAIN BEFORE BEDTIME DISCONTINUED VITAMIN D 1000 UNIT TABLET 1 TABLET ORALLY ONCE A DAY, NOTES: 01/06 400 MEDICATION LIST REVIEWED AND RECONCILED WITH THE PATIENT PAST MEDICAL HISTORY 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 HTN HYPERLIPIDEMIA CHRONIC NECK PAIN WITH RADIATION DOWN BUE, LEFT WORSE THAN RIGHT BILATERAL KNEE PAIN, RIGHT WORSE THAN LEFT LOW BACK PAIN TINNITUS DIPAK ON CPAP SEIZURE AFTER TRAMADOL USE 2012 OR 2013 SPONDYLOSIS WITHOUT MYELOPATHY OR RADICULOPATHY, 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 PAIN - SIDE EFFECTS SURGICAL HISTORY RIGHT KNEE REPLACEMENT 2011 LEFT ORBITAL RECONSTRUCTION 1991 TONSILLECTOMY RIGHT KNEE SURGERIES-MULTIPLE SPINAL COLUMN STIMULATOR 10/2014, 12/2014 CERVICAL FUSION BY 12/12/2016 FAMILY HISTORY FATHER: , LUNG, LIVER, BONE CA, DIAGNOSED WITH CANCER MOTHER: ALIVE 1943 YRS, LUNG CA, HYPERTENSION, CANCER 2 BROTHER(S) , 2 SISTER(S) - HEALTHY. MRSA IN GRANDDAUGHTER OTHERWISE NO SIGNIFICANT FAMILY HISTORY NOTED. SOCIAL HISTORY GENERAL: TOBACCO USE ARE YOU A:NONSMOKER CHEWS TOBACCO HIV / HEP-C SCREENING HIV TEST OFFERED TO PATIENT:YES DATE OFFERED:08/04/2017 TEST ACCEPTED:NO HEP-C TEST OFFERED TO PATIENT:NO REASON:PATIENT DECLINED EDUCATION LEVEL OF EDUCATION:NOT FINISHED COLLEGE DIET: REGULAR. LANGUAGE TANZANIAN. DOMESTIC VIOLENCE DO YOU FEEL SAFE IN YOUR ENVIRONMENT?YES RECREATIONAL DRUG USE DRUG USE?NO EXERCISE: NO REGULAR EXERCISE. LEARNING BARRIERS / SPECIAL NEEDS BARRIERS TO LEARNING?NO HEARING IMPAIRED?NO VISION IMPAIRED?YES READING GLASSES COGNITIVELY IMPAIRED?NO READINESS TO LEARN?YES LEARNING PREFERENCES?NO LEARNING CAPABILITIES PRESENT?YES EMOTIONAL BARRIERS?NO SPECIAL DEVICES?YES :CANE OCCASSIONALLY TOP ICER NEEDED?NO PAIN CLINIC PFS, CLERGY, PUBLIC HEALTH REFERRALS PFS REFERRAL NEEDED?NO CLERGY REFERRAL NEEDED?NO PUBLIC HEALTH REFERRAL NEEDED?NO HAS THE PATIENT BEEN EDUCATED REGARDING HIS/HER PLAN OF CARE?YES HAS THE PATIENT BEEN EDUCATED REGARDING PAIN, THE RISK FOR PAIN, THE IMPORTANCE OF EFFECTIVE PAIN MANAGEMENT, AND THE PAIN ASSESSMENT PROCESS?YES LATEX QUESTIONNAIRE LATEX ALLERGY : HAVE YOU EVER DEVELOPED ANY TYPE OF REACTION AFTER HANDLING LATEX PRODUCTS SUCH RUBBER GLOVES, CONDOMS, DIAPHRAGMS, BALLOONS, SOCKS, OR UNDERWEAR?NO LATEX ALLERGY : HAVE YOU EVER DEVELOPED ANY TYPE OF REACTION DURING OR AFTER DENTAL APPOINTMENT, VAGINAL/RECTAL EXAMINATION, SURGICAL PROCEDURE, OR ANY OTHER EXPOSURE?NO LATEX RISK : HAVE YOU EVER HAD ANY DIFFICULTY BREATHING OR HIVES AFTER EATING OR HANDLING ANY FRUITS, OR VEGETABLES; SUCH KIWI, BANANAS, STONE FRUITS, OR CHESTNUTSNO LATEX RISK : DO YOU HAVE A PREVIOUS PERSONAL HISTORY OF MORE THAN NINE SURGERIES, SPINA BIFIDA, OR REPEATED CATHERIZATIONS? YES - PLEASE INDICATE : > 9 SURGERIES LATEX RISK : ARE YOU FREQUENTLY EXPOSED TO LATEX PRODUCTS IN YOUR OCCUPATION?NO DATE ASKED : 02/26/2019 ADVANCE DIRECTIVE ADVANCE DIRECTIVE DISCUSSED WITH PATIENT:YES 02/05/19STATES HE IS CURRENTLY WORKING ON GETTING A HCP, DECLINED ASSISTANCE AT THIS TIME. AD NONDENOMINATIONAL [id number] NONE MARITAL STATUS: . ALCOHOL SCREENING DID YOU HAVE A DRINK CONTAINING ALCOHOL IN THE PAST YEAR?NO POINTS0 INTERPRETATIONNEGATIVE REVIEWED WITH PATIENT 07/24/18 1009 JSREVIEWED WITH PATIENT 08/21/18 1249 JSREVIEWED WITH PATIENT 09/02/18 1249 JS09/28/18 REVIEWED WITH PT. AD10/13/18 REVIEWED WITH PT. ADREVIEWED WITH PT 11/30/18 1327 BV. HOSPITALIZATION/MAJOR DIAGNOSTIC PROCEDURE SURGERY RELATED REVIEW OF SYSTEMS REVIEWED BY: PROVIDER: CHRISTINE MCKEON MD . CONSTITUTIONAL: ANY CHANGE IN YOUR MEDICAL CONDITION? NO . CHILLS NO . FEVER NO . INFECTION: DO YOU HAVE NEW INFECTIONS? NO . DO YOU HAVE HISTORY OF MRSA? NO . MUSCULOSKELETAL: ANY NEW PATTERNS OF PAIN OR NUMBNESS? NO . GASTROENTEROLOGY: ANY NEW CHANGE IN BOWEL CONTROL? NO . GENITOURINARY: ANY NEW CHANGE IN BLADDER CONTROL? NO . IS THERE A CHANCE YOU COULD BE ? NO . HEMATOLOGY/LYMPH: DO YOU TAKE ANY BLOOD THINNERS? (FOR EXAMPLE- COUMADIN, PLAVIX, AGGRENOX, PLATEL, PRADAXA, OR XARELTO) NO . WHEN WAS YOUR LAST DOSE? DATE: TIME: . NEUROLOGY: HAVE YOU FALLEN IN THE PAST 12 MONTHS? NO . ANY NEW EXTREMITY NUMBNESS OR WEAKNESS? NO . CARDIOLOGY: DO YOU HAVE A PACEMAKER OR DEFIBRILLATOR? NO . RESPIRATORY: HAVE YOU BEEN SICK IN THE PAST WEEK? NO . FEVER NO . FLU LIKE SYMPTOMS? NO . COUGH NO . INTEGUMENTARY: DO YOU HAVE ANY RASHES OR OPEN SORES? NO . ALLERGIC/IMMUNO: ARE YOU ALLERGIC TO IV DYE? NO . ANY NEW ALLERGIES? NO . PSYCHIATRIC: DO YOU HAVE THOUGHTS OF HURTING YOURSELF OR SOMEONE ELSE? NO . ARE YOU ABUSED, NEGLECTED, OR IN AN UNSAFE ENVIRONMENT? NO . ENDOCRINOLOGY: ARE YOU DIABETIC? NO . OTHER: DO YOU NEED ANY PRESCRIPTIONS? NO . IF YES, PLEASE LIST: ____ . ANY NEW PROBLEMS WITH YOUR MEDICATIONS? NO . WHEN DID YOU LAST EAT? ____ . WHEN DID YOU LAST DRINK? ____ . WHAT DID YOU LAST DRINK? ____ . NAME OF PERSON DRIVING YOU HOME? ____ . DO YOU HAVE ANY OTHER QUESTIONS OR CONCERNS NO . VITAL SIGNS WT 182.6 LBS, HT 70 IN, BMI 26.20 INDEX, BP 125/84 MM HG, HR 82 /MIN, RR 18 /MIN, TEMP 98.4 F, OXYGEN SAT % 99%, SAFE IN ENV? (Y/N) YES, NA INITIALS AW 0931, REVIEWED BY: CLAUDIO. EXAMINATION GENERAL EXAMINATION: PATIENT IS ALERT O X 3 AND COOPERATIVE. TENDERNESS IN THE THORACIC AREA. PAIN INCREASES OVER THE THORACIC FACET JOINTS WITH EXTENSION AND LATERAL ROTATION OF THE BACK. SWELLING PRESENT, EVIDENCES OF SCAR TISSUE, AND TENDERNESS TO TOUCH OVER THE RIGHT KNEE. BONE SCAN OF THE BILATERAL KNEES DONE ON 08/19/2018 SHOWS CHRONIC ARTHROPLASTY CHANGES. THORACIC CT DONE ON 09/28/2018 SHOWS FACET ARTHROPATHY CHANGES. ASSESSMENTS SPONDYLOSIS OF THORACIC REGION WITHOUT MYELOPATHY OR RADICULOPATHY - M47.814 (PRIMARY) RIGHT KNEE PAIN, UNSPECIFIED CHRONICITY - M25.561 TREATMENT SPONDYLOSIS OF THORACIC REGION WITHOUT MYELOPATHY OR RADICULOPATHY CLINICAL NOTES: WE DISCUSSED SEVERAL ISSUES WITH MR. WAGNER'S PAIN MANAGEMENT CASE. DUE TO THE THORACIC SPONDYLOSIS AND GOOD PAIN RELIEF FROM THE PREVIOUS FACET BLOCK, I WOULD LIKE TO MOVE FORWARD WITH A BILATERAL T2-T3, T3-T4, T4-T5 THERAPEUTIC THORACIC FACET BLOCK AT THIS TIME. WE DISCUSSED THE BENEFITS, RISKS, AND ALTERNATIVES OF THE INJECTION AND THE PATIENT WOULD LIKE TO PROCEED. I DISCUSSED WITH THE PATIENT THAT WE MAY TRY DIAGNOSTIC FACET BLOCKS TO CONSIDER COOL RADIOFREQUENCY IN THE FUTURE ONCE WE ACQUIRE THE EQUIPMENT FOR THE PROCEDURE. FOR MEDICATION MANAGEMENT, I WILL START THE PATIENT ON [place] FOR NEUROPATHIC PAIN IN HIS KNEE AND SOMATIC PAIN IN HIS BACK. THE PATIENT WILL FOLLOW UP WITH NURSE PRACTITIONER CHARY IN 2 MONTHS AFTER THE PROCEDURE. INSTRUCTIONS WERE GIVEN, QUESTIONS WERE ANSWERED, PATIENT REPORTS UNDERSTANDING AND AGREES WITH THE PLAN. I, MARYURI INFANTE, DOCUMENTED THE ABOVE INFORMATION ACTING A SCRIBE FOR DR. MCKEON. I HAVE REVIEWED THE ABOVE DOCUMENT, WRITTEN BY MARYURI INFANTE SCRIBE AND I VERIFY THAT IT IS ACCURATE. . OTHERS START DULOXETINE HCL CAPSULE DELAYED RELEASE PARTICLES, 30 MG, 1 CAPSULE, ORALLY WITH FOOD, ONCE A DAY FOR PAIN, 30 DAY(S), 30, REFILLS 1 START DULOXETINE HCL CAPSULE DELAYED RELEASE PARTICLES, 30 MG, 1 CAPSULE, ORALLY WITH FOOD, ONCE A DAY FOR PAIN, 30 DAY(S), 30, REFILLS 1 PROCEDURE CODES FA211 ESTABILISHED PATIENT [facility] FACILITY CHARGE G8427 CURRENT MEDS W/DOSAGES DOCUMENTED G8730 PAIN ASSESS POS TOOL F/U PLAN DOC DISPOSITION & COMMUNICATION FOLLOW UP 2 MONTHS (REASON: THERAPEUTIC FB, F/U [facility]IANCE MANAGER CHARY) ELECTRONICALLY SIGNED BY CHRISTINE MCKEON MD, MD ON 03/09/2019 AT 01:02 PM EDT DISCLAIMER : THIS IS A VISIT SUMMARY EXTRACTED FROM THE [employer] CHART. IT IS NOT A COPY OF THE [employer] PROGRESS NOTE. MTDD
== END ==
LOC: M PAIN 09:30
PROVIDERS: ATTEND Anesthesiology
DX: M47.814 Spondylosis without myelopathy or radiculopathy, thoracic region (principal); M25.561 Pain in right knee; G89.29 Other chronic pain; I10 Essential (primary) hypertension; E78.5 Hyperlipidemia, unspecified; G47.33 Obstructive sleep apnea (adult) (pediatric); Z96.651 Presence of right artificial knee joint; F17.220 Nicotine dependence, chewing tobacco, uncomplicated; Z88.1 Allergy status to other antibiotic agents; Z88.2 Allergy status to sulfonamides; Z88.5 Allergy status to narcotic agent; Z88.8 Allergy status to other drugs, medicaments and biological substances; Z79.899 Other long term (current) drug therapy

== ENCOUNTER → 2019-03-16 | Outpatient (CLI) | payer OTHER ==
[~2019-03-16] MED LIST changes: +BUPIVACAINE HCL 0.25% 30 ML VIAL As Ordered ONE; +ISOVUE-M 200 41% 20ML VIAL (Q9966) As Ordered ONE; +LIDOCAINE 1% SDV INJ 30 ML VIAL As Ordered ONE; -SIMV40TA2 PO; +SIMV40TA20 PO; +TIZA2CAP PO; +TRIAMCINOLONE ACETONIDE SUSP 40 MG/ML VIAL (J3301) As Ordered ONE; +diazePAM 5 MG TAB As Ordered ONE; +oxyCODONE 5MG TAB As Ordered ONE
--- NOTE | 2019-03-16 13:49 | REP ---
REASON: Assess for pneumothorax. Two PA views were obtained, one with inspiratory effort and the other with expiratory effort to assess for a pneumothorax. A lateral view was also obtained. FINDINGS: The superior mediastinal structures are midline. The cardiac silhouette is unremarkable in size, shape, and position. The diaphragmatic surfaces of the lungs are regular, and the costophrenic angles are clear. The pulmonary friend are clear. The imaged osseous structures are intact. The dorsal column stimulator distal tip is at the level of the T6-7 interspace. IMPRESSION: There is no acute cardiopulmonary disease. Electronically Signed by Prasad Byrne DO 03/16/2019 03:33 P
--- NOTE | 2019-03-16 15:11 | REP ---
C-ARM VIEWS THORACIC SPINE: CLINICAL HISTORY: Pain. Two C-arm views of the thoracic spine performed. Several needles are seen in the mid thoracic region. Injection is performed by Dr. Dozier. Fluoroscopy time 9 seconds. Electronically Signed by Eleuterio Perez MD 03/17/2019 01:00 P
--- NOTE | 2019-03-20 00:17 | ECWPNPC ---
PATIENT NAME: HAILY WAGNER : 1970 GENDER: MALE VISIT DATE: 03/16/2019 DISCHARGE DATE: 03/16/19 1318 VISIT LOCKED DATE TIME: PHYSICIAN: CHRISTINE MCKEON MD RESOURCE: CHRISTINE MCKEON MD REASON FOR APPOINTMENT 1. BILAT THORACIC THERAPEUTIC FACET BLOCK HISTORY OF PRESENT ILLNESS HISTORY OF PRESENT ILLNESS: PAIN THE PATIENT DESCRIBES THE PAIN... FALL RISK SCREENING: SCREENING :NO FALLS REPORTED IN THE LAST YEAR CURRENT MEDICATIONS TAKING TIZANIDINE HCL 6 MG CAPSULE 1 TABLET NEEDED ORALLY EVERY 12 HOURS NEEDED MDD2, NOTES: NONE RECENT TAKING LISINOPRIL/HCTZ 05/08.5 10/12.5MG TABLET 1 TAB ORAL DAILY, NOTES: 01/06 400 TAKING ATORVASTATIN CALCIUM 40 MG TABLET 1 TABLET ORALLY ONCE A DAY, NOTES: 01/04 2100 TAKING PROTONIX 40 MG TABLET DELAYED RELEASE 1 TABLET ORALLY DAILY, NOTES: 01/06 400 TAKING MULTIVITAMIN ADULT - TABLET ORALLY DAILY, NOTES: 01/06 400 TAKING DULOXETINE HCL 30 MG CAPSULE DELAYED RELEASE PARTICLES 1 CAPSULE ORALLY WITH FOOD ONCE A DAY FOR PAIN NOT-TAKING DULOXETINE HCL 30 MG CAPSULE DELAYED RELEASE PARTICLES 1 CAPSULE ORALLY WITH FOOD ONCE A DAY FOR PAIN, NOTES: DUPLICATE NOT-TAKING OXYCODONE HCL 5 MG TABLET 1 TABLET NEEDED ORALLY FOR PAIN EVERY 12 HRS MDD2, NOTES: 01/04 1730 MEDICATION LIST REVIEWED AND RECONCILED WITH THE PATIENT PAST MEDICAL HISTORY 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 HTN HYPERLIPIDEMIA CHRONIC NECK PAIN WITH RADIATION DOWN BUE, LEFT WORSE THAN RIGHT BILATERAL KNEE PAIN, RIGHT WORSE THAN LEFT LOW BACK PAIN TINNITUS DIPAK ON CPAP SEIZURE AFTER TRAMADOL USE 2012 OR 2013 SPONDYLOSIS WITHOUT MYELOPATHY OR RADICULOPATHY, 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 PAIN - SIDE EFFECTS SURGICAL HISTORY RIGHT KNEE REPLACEMENT 2011 LEFT ORBITAL RECONSTRUCTION 1991 TONSILLECTOMY RIGHT KNEE SURGERIES-MULTIPLE SPINAL COLUMN STIMULATOR 10/2014, 12/2014 CERVICAL FUSION BY 12/12/2016 FAMILY HISTORY FATHER: , LUNG, LIVER, BONE CA, DIAGNOSED WITH CANCER MOTHER: ALIVE 1943 YRS, LUNG CA, HYPERTENSION, CANCER 2 BROTHER(S) , 2 SISTER(S) - HEALTHY. MRSA IN GRANDDAUGHTER OTHERWISE NO SIGNIFICANT FAMILY HISTORY NOTED. SOCIAL HISTORY GENERAL: TOBACCO USE ARE YOU A:NONSMOKER CHEWS TOBACCO HIV / HEP-C SCREENING HIV TEST OFFERED TO PATIENT:YES DATE OFFERED:08/04/2017 TEST ACCEPTED:NO HEP-C TEST OFFERED TO PATIENT:NO REASON:PATIENT DECLINED EDUCATION LEVEL OF EDUCATION:NOT FINISHED COLLEGE DIET: REGULAR. LANGUAGE AZERBAIJANI. DOMESTIC VIOLENCE DO YOU FEEL SAFE IN YOUR ENVIRONMENT?YES RECREATIONAL DRUG USE DRUG USE?NO EXERCISE: NO REGULAR EXERCISE. 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 NEEDED?NO PAIN CLINIC PFS, CLERGY, PUBLIC HEALTH REFERRALS PFS REFERRAL NEEDED?NO CLERGY REFERRAL NEEDED?NO PUBLIC HEALTH REFERRAL NEEDED?NO HAS THE PATIENT BEEN EDUCATED REGARDING HIS/HER PLAN OF CARE?YES HAS THE PATIENT BEEN EDUCATED REGARDING PAIN, THE RISK FOR PAIN, THE IMPORTANCE OF EFFECTIVE PAIN MANAGEMENT, AND THE PAIN ASSESSMENT PROCESS?YES LATEX QUESTIONNAIRE LATEX ALLERGY : HAVE YOU EVER DEVELOPED ANY TYPE OF REACTION AFTER HANDLING LATEX PRODUCTS SUCH RUBBER GLOVES, CONDOMS, DIAPHRAGMS, BALLOONS, SOCKS, OR UNDERWEAR?NO LATEX ALLERGY : HAVE YOU EVER DEVELOPED ANY TYPE OF REACTION DURING OR AFTER DENTAL APPOINTMENT, VAGINAL/RECTAL EXAMINATION, SURGICAL PROCEDURE, OR ANY OTHER EXPOSURE?NO DATE ASKED : 02/26/2019 LATEX RISK : HAVE YOU EVER HAD ANY DIFFICULTY BREATHING OR HIVES AFTER EATING OR HANDLING ANY FRUITS, OR VEGETABLES; SUCH KIWI, BANANAS, STONE FRUITS, OR CHESTNUTSNO LATEX RISK : DO YOU HAVE A PREVIOUS PERSONAL HISTORY OF MORE THAN NINE SURGERIES, SPINA BIFIDA, OR REPEATED CATHERIZATIONS? YES - PLEASE INDICATE : > 9 SURGERIES LATEX RISK : ARE YOU FREQUENTLY EXPOSED TO LATEX PRODUCTS IN YOUR OCCUPATION?NO ADVANCE DIRECTIVE ADVANCE DIRECTIVE DISCUSSED WITH PATIENT:YES STATES HE IS CURRENTLY WORKING ON GETTING A HCP, DECLINED ASSISTANCE AT THIS TIME. YAZIDISM [id number] NONE MARITAL STATUS: . ALCOHOL SCREENING DID YOU HAVE A DRINK CONTAINING ALCOHOL IN THE PAST YEAR?NO POINTS0 INTERPRETATIONNEGATIVE REVIEWED WITH PATIENT 07/24/18 1009 JSREVIEWED WITH PATIENT 08/21/18 1249 JSREVIEWED WITH PATIENT 09/02/18 1249 JS09/28/18 REVIEWED WITH PT. AD10/13/18 REVIEWED WITH PT. AD03/16/19 1045 REVIEWED WITH PT LASREVIEWED WITH PT 11/30/18 1327 BV. HOSPITALIZATION/MAJOR DIAGNOSTIC PROCEDURE SURGERY RELATED REVIEW OF SYSTEMS REVIEWED BY: PROVIDER: . CONSTITUTIONAL: ANY CHANGE IN YOUR MEDICAL CONDITION? NO . CHILLS NO . FEVER NO . INFECTION: DO YOU HAVE NEW INFECTIONS? NO . DO YOU HAVE HISTORY OF MRSA? NO . MUSCULOSKELETAL: ANY NEW PATTERNS OF PAIN OR NUMBNESS? NO . GASTROENTEROLOGY: ANY NEW CHANGE IN BOWEL CONTROL? NO . GENITOURINARY: ANY NEW CHANGE IN BLADDER CONTROL? NO . IS THERE A CHANCE YOU COULD BE ? NO . HEMATOLOGY/LYMPH: DO YOU TAKE ANY BLOOD THINNERS? (FOR EXAMPLE- COUMADIN, PLAVIX, AGGRENOX, PLATEL, PRADAXA, OR XARELTO) NO . WHEN WAS YOUR LAST DOSE? DATE: TIME: . NEUROLOGY: HAVE YOU FALLEN IN THE PAST 12 MONTHS? NO . ANY NEW EXTREMITY NUMBNESS OR WEAKNESS? NO . CARDIOLOGY: DO YOU HAVE A PACEMAKER OR DEFIBRILLATOR? NO . RESPIRATORY: HAVE YOU BEEN SICK IN THE PAST WEEK? NO . FEVER NO . FLU LIKE SYMPTOMS? NO . COUGH NO . INTEGUMENTARY: DO YOU HAVE ANY RASHES OR OPEN SORES? NO . ALLERGIC/IMMUNO: ARE YOU ALLERGIC TO IV DYE? NO . ANY NEW ALLERGIES? NO . PSYCHIATRIC: DO YOU HAVE THOUGHTS OF HURTING YOURSELF OR SOMEONE ELSE? NO . ARE YOU ABUSED, NEGLECTED, OR IN AN UNSAFE ENVIRONMENT? NO . ENDOCRINOLOGY: ARE YOU DIABETIC? NO . OTHER: DO YOU NEED ANY PRESCRIPTIONS? NO . IF YES, PLEASE LIST: ____ . ANY NEW PROBLEMS WITH YOUR MEDICATIONS? NO . WHEN DID YOU LAST EAT? ____03/15/191999 . WHEN DID YOU LAST DRINK? ____03/16/19 0400 . WHAT DID YOU LAST DRINK? ____WATER . NAME OF PERSON DRIVING YOU HOME? ____WIFE ANA . DO YOU HAVE ANY OTHER QUESTIONS OR CONCERNS NO . VITAL SIGNS WT 180 LBS, HT 70 IN, BMI 25.82 INDEX, BP 141/95 MM HG, HR 72 /MIN, RR 18 /MIN, TEMP 98.6 F, OXYGEN SAT % 98%, SAFE IN ENV? (Y/N) YES, NA INITIALS NV 10:17, REVIEWED BY: ROSALVA. 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 CHRISTINE MCKEON NET SORTER NONE ANESTHESIA LOCAL PRE PROCEDURE NOTE THE PATIENT WITH HISTORY OF CHRONIC THORACIC PAIN. I EVALUATED THE PATIENT AND REVIEWED THE CHART. I WENT OVER THE RISKS, ALTERNATIVES, AND BENEFITS ASSOCIATED WITH THIS PROCEDURE. THE PATIENT WOULD LIKE TO PROCEED AND GAVE CONSENT TO PERFORM THE PROCEDURE. THE PATIENT DENIES UNEXPLAINABLE WEIGHT LOSS, FEVER, CHILLS, OR NEW CHANGES IN URINARY OR BOWEL CONTROL. DESCRIPTION OF PROCEDURE THE PATIENT WAS BROUGHT TO THE PROCEDURE ROOM AND PLACED IN THE PRONE POSITION. THE THORACIC AREA WAS CLEANED WITH CHLORAPREP SOLUTION AND DRAPED ASEPTICALLY. THE PROCEDURE WAS DONE UNDER STERILE CONDITIONS. I CHECKED LATERALITY AND THE LEVEL WHERE THE PROCEDURE WAS GOING TO BE PERFORMED WITH THE PATIENT AND THE SUPPORTING STAFF AT THE MOMENT OF THE TIME OUT IN THE PROCEDURE ROOM. UNDER FLUOROSCOPIC GUIDANCE, THE TARGET POINT WAS SELECTED AT THE RIGHT AND LEFT T3-T4, RIGHT AND LEFT T4-T5, AND RIGHT AND LEFT T5-T6 THORACIC FACET. TARGET POINT WAS SELECTED AFTER LATERAL ROTATION AND TILT OF THE MAGNIFIER OF THE C-ARM. LIDOCAINE 0.5% WAS USED TO NUMB THE SKIN AND THE SUBCUTANEOUS TISSUE BELOW IT. SPINAL NEEDLES, 22-GAUGE, WERE ADVANCED UNDER FLUOROSCOPIC GUIDANCE AND FOLLOWING PATIENT FEEDBACK UNTIL THE TARGETS WERE TOUCHED. THE POSITION OF THE NEEDLES WAS VERIFIED WITH MULTIPLE X-RAY VIEWS. AFTER PROPER POSITION OF THE NEEDLES WAS ACHIEVED, ISOVUE M-200 CONTRAST WAS INJECTED SHOWING ADEQUATE SPREAD OF THE DYE. THEN A SOLUTION OF 0.9 ML OF BUPIVACAINE 0.125% OF KENALOG 10 MG WAS INJECTED AT EACH SITE. THERE WAS NO EVIDENCE OF BLOOD, PARESTHESIA OR CEREBROSPINAL FLUID DURING THE PROCEDURE. THE PATIENT WAS SENT TO THE RECOVERY ROOM. THE PATIENT WAS MOVING THE EXTREMITIES AND DOING WELL. THERE WAS NO COMPLICATION DURING THE PROCEDURE. FLUOROSCOPY TIME WAS 17 SECONDS POST PROCEDURE NOTE THE PATIENT WILL BE SEEN IN A FOLLOW UP IN THE NEXT FEW WEEKS. INSTRUCTIONS WERE GIVEN, QUESTIONS WERE ANSWERED, AND THE PATIENT EXPRESSED UNDERSTANDING AND AGREED WITH THE PLAN. I, CRIS MERCADO, DOCUMENTED THE ABOVE INFORMATION ACTING A SCRIBE FOR DR. MCKEON. I HAVE REVIEWED THE ABOVE DOCUMENT, WRITTEN BY CRIS ROBLEDO AND I VERIFY THAT IT IS ACCURATE. PROCEDURE CODES 43111 INJ PARAVERT F JNT C/T 1 LEV, MODIFIERS: 50 [id number] INJ PARAVERT F JNT C/T 2 LEV, MODIFIERS: 50 [id number] INJ PARAVERT F JNT C/T 3 LEV, MODIFIERS: 50 [id number] RADXPS IN END [id number] PXD DISPOSITION & COMMUNICATION FOLLOW UP 3 WEEKS ELECTRONICALLY SIGNED BY CHRISTINE MCKEON MD, MD ON 03/19/2019 AT 02:41 PM EDT DISCLAIMER : THIS IS A VISIT SUMMARY EXTRACTED FROM THE [employer] CHART. IT IS NOT A COPY OF THE [employer] PROGRESS NOTE. MTDD
== END ==
LOC: M PAIN 10:00
PROVIDERS: ATTEND Anesthesiology
DX: G89.29 Other chronic pain (principal); M47.814 Spondylosis without myelopathy or radiculopathy, thoracic region; M54.6 Pain in thoracic spine; I10 Essential (primary) hypertension; Z79.899 Other long term (current) drug therapy; Z88.2 Allergy status to sulfonamides; Z88.1 Allergy status to other antibiotic agents; Z88.5 Allergy status to narcotic agent; Z88.8 Allergy status to other drugs, medicaments and biological substances
CPT/HCPCS: 64490; 64491; 64492; 71046; J3301; Q9966

== ENCOUNTER → 2019-03-31 | Outpatient (CLI) | payer OTHER ==
[~2019-03-31] MED LIST changes: -BUPIVACAINE HCL 0.25% 30 ML VIAL As Ordered ONE; -ISOVUE-M 200 41% 20ML VIAL (Q9966) As Ordered ONE; -LIDOCAINE 1% SDV INJ 30 ML VIAL As Ordered ONE; -TRIAMCINOLONE ACETONIDE SUSP 40 MG/ML VIAL (J3301) As Ordered ONE; -diazePAM 5 MG TAB As Ordered ONE; -oxyCODONE 5MG TAB As Ordered ONE
[2019-03-31 18:29] LABS: HEMOGLOBIN 14.4 g/dl (13.5-17.5); MEAN CORPUSCULAR HEMOGLOBIN 28.7 pg (27.0-33.0); MEAN CORPUSCULAR HGB CONC 33.5 g/dl (32.0-36.5); MEAN CORPUSCULAR VOLUME 85.8 fl (80.0-96.0); PLATELET COUNT, AUTOMATED 366 10^3/uL (150-450); RED BLOOD COUNT 5.01 10^6/uL (4.30-6.10)
[2019-03-31 18:53] LABS: BLOOD UREA NITROGEN 10 MG/DL (7-18); CARBON DIOXIDE LEVEL 29 MEQ/L (21-32); CHLORIDE LEVEL 104 MEQ/L (98-107); CREATININE FOR GFR 1.05 MG/DL (0.70-1.30); GLOMERULAR FILTRATION RATE > 60.0 (>56); GLUCOSE, FASTING 80 MG/DL (70-100); POTASSIUM SERUM 4.2 MEQ/L (3.5-5.1); SODIUM LEVEL 139 MEQ/L (136-145)
--- NOTE | 2019-03-31 19:12 | REP ---
HISTORY: History of neoplasm. COMPARISON: 03/16/2019 FINDINGS: The superior mediastinal structures are midline. The cardiac silhouette is unremarkable in size, shape and position. The diaphragmatic surfaces of the lungs are regular and the costophrenic angles are clear. The pulmonary friend are clear. The imaged osseous structures are intact. IMPRESSION: There is no acute cardiopulmonary disease. There has been no significant change compared to the prior exam. Electronically Signed by Prasad Byrne DO 03/31/2019 07:49 P
== END ==
LOC: M LAB 17:17
PROVIDERS: ATTEND Plastic Surgery Surgery of the Hand
DX: D49.2 Neoplasm of unspecified behavior of bone, soft tissue, and skin (principal)

== ENCOUNTER → 2019-04-02 | Outpatient (CLI) | payer OTHER ==
--- NOTE | 2019-04-05 23:15 | ECWPNPC ---
PATIENT NAME: HAILY WAGNER : 1970 GENDER: MALE VISIT DATE: 04/02/2019 DISCHARGE DATE: 04/02/19925 VISIT LOCKED DATE TIME: PHYSICIAN: CHARY PEGUERO RESOURCE: CHARY PEGUERO REASON FOR APPOINTMENT 1. MEDS HISTORY OF PRESENT ILLNESS HISTORY OF PRESENT ILLNESS: PAIN THE PATIENT DESCRIBES THE PAIN... 49-YEAR-OLD MALE IN FOR CHRONIC PAIN FOLLOW-UP. HE WAS RECENTLY STARTED ON CYMBALTA AND HAS SINCE DISCONTINUED ITS USE RELATED TO EXPERIENCING MUSCLE CRAMPING ON THE LEFT SIDE. HE RATES HIS PAIN AT A 9 OUT OF 10 CURRENTLY AND DESCRIBES IT ACHING, SHARP, BURNING, STABBING, SHOOTING, AND CRAMPING. DISCUSSED PREVIOUS MEDICATIONS USED AND PATIENT ADMITS USING GABAPENTIN IN THE PAST AND IT HAD NOT BEEN EFFECTIVE. PATIENT ALSO BASES OF DICLOFENAC, NAPROXEN, AND IBUPROFEN AND THESE WERE ALSO INEFFECTIVE. FALL RISK SCREENING: SCREENING :NO FALLS REPORTED IN THE LAST YEAR CURRENT MEDICATIONS TAKING LISINOPRIL/HCTZ 10/12.5 10/12.5MG TABLET 1 TAB ORAL DAILY TAKING ATORVASTATIN CALCIUM 40 MG TABLET 1 TABLET ORALLY ONCE A DAY TAKING PROTONIX 40 MG TABLET DELAYED RELEASE 1 TABLET ORALLY DAILY TAKING MULTIVITAMIN ADULT - TABLET ORALLY DAILY TAKING TIZANIDINE HCL 6 MG CAPSULE 1 TABLET NEEDED ORALLY EVERY 12 HOURS NEEDED MDD2 NOT-TAKING DULOXETINE HCL 30 MG CAPSULE DELAYED RELEASE PARTICLES 1 CAPSULE ORALLY WITH FOOD ONCE A DAY FOR PAIN NOT-TAKING DULOXETINE HCL 30 MG CAPSULE DELAYED RELEASE PARTICLES 1 CAPSULE ORALLY WITH FOOD ONCE A DAY FOR PAIN, NOTES: DUPLICATE NOT-TAKING OXYCODONE HCL 5 MG TABLET 1 TABLET NEEDED ORALLY FOR PAIN EVERY 12 HRS MDD2, NOTES: 01/04 1730 MEDICATION LIST REVIEWED AND RECONCILED WITH THE PATIENT PAST MEDICAL HISTORY 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 HTN HYPERLIPIDEMIA CHRONIC NECK PAIN WITH RADIATION DOWN BUE, LEFT WORSE THAN RIGHT BILATERAL KNEE PAIN, RIGHT WORSE THAN LEFT LOW BACK PAIN TINNITUS DIPAK ON CPAP SEIZURE AFTER TRAMADOL USE 2012 OR 2013 SPONDYLOSIS WITHOUT MYELOPATHY OR RADICULOPATHY, 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 PAIN - SIDE EFFECTS SURGICAL HISTORY RIGHT KNEE REPLACEMENT 2011 LEFT ORBITAL RECONSTRUCTION 1991 TONSILLECTOMY RIGHT KNEE SURGERIES-MULTIPLE SPINAL COLUMN STIMULATOR 10/2014, 12/2014 CERVICAL FUSION BY 12/12/2016 FAMILY HISTORY FATHER: , LUNG, LIVER, BONE CA, DIAGNOSED WITH OTHER MALIGNANT NEOPLASM OF UNSPECIFIED SITE MOTHER: ALIVE 1943 YRS, LUNG CA, HYPERTENSION, OTHER MALIGNANT NEOPLASM OF UNSPECIFIED SITE 2 BROTHER(S) , 2 SISTER(S) - HEALTHY. MRSA IN GRANDDAUGHTER OTHERWISE NO SIGNIFICANT FAMILY HISTORY NOTED. SOCIAL HISTORY GENERAL: TOBACCO USE ARE YOU A:NONSMOKER CHEWS TOBACCO HIV / HEP-C SCREENING HIV TEST OFFERED TO PATIENT:YES DATE OFFERED:08/04/2017 TEST ACCEPTED:NO HEP-C TEST OFFERED TO PATIENT:NO REASON:PATIENT DECLINED EDUCATION LEVEL OF EDUCATION:NOT FINISHED COLLEGE DIET: REGULAR. LANGUAGE LITHUANIAN. DOMESTIC VIOLENCE DO YOU FEEL SAFE IN YOUR ENVIRONMENT?YES RECREATIONAL DRUG USE DRUG USE?NO EXERCISE: NO REGULAR EXERCISE. 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 MANAGER NEEDED?NO PAIN CLINIC PFS, CLERGY, PUBLIC HEALTH REFERRALS PFS REFERRAL NEEDED?NO CLERGY REFERRAL NEEDED?NO PUBLIC HEALTH REFERRAL NEEDED?NO HAS THE PATIENT BEEN EDUCATED REGARDING HIS/HER PLAN OF CARE?YES HAS THE PATIENT BEEN EDUCATED REGARDING PAIN, THE RISK FOR PAIN, THE IMPORTANCE OF EFFECTIVE PAIN MANAGEMENT, AND THE PAIN ASSESSMENT PROCESS?YES LATEX QUESTIONNAIRE LATEX ALLERGY : HAVE YOU EVER DEVELOPED ANY TYPE OF REACTION AFTER HANDLING LATEX PRODUCTS SUCH RUBBER GLOVES, CONDOMS, DIAPHRAGMS, BALLOONS, SOCKS, OR UNDERWEAR?NO LATEX ALLERGY : HAVE YOU EVER DEVELOPED ANY TYPE OF REACTION DURING OR AFTER DENTAL APPOINTMENT, VAGINAL/RECTAL EXAMINATION, SURGICAL PROCEDURE, OR ANY OTHER EXPOSURE?NO DATE ASKED : 02/26/2019 LATEX RISK : HAVE YOU EVER HAD ANY DIFFICULTY BREATHING OR HIVES AFTER EATING OR HANDLING ANY FRUITS, OR VEGETABLES; SUCH KIWI, BANANAS, STONE FRUITS, OR CHESTNUTSNO LATEX RISK : DO YOU HAVE A PREVIOUS PERSONAL HISTORY OF MORE THAN NINE SURGERIES, SPINA BIFIDA, OR REPEATED CATHERIZATIONS? YES - PLEASE INDICATE : > 9 SURGERIES LATEX RISK : ARE YOU FREQUENTLY EXPOSED TO LATEX PRODUCTS IN YOUR OCCUPATION?NO ADVANCE DIRECTIVE ADVANCE DIRECTIVE DISCUSSED WITH PATIENT:YES STATES HE DOES NOT HAVE HCP AND DECLINES ASSISTANCE WITH FORM TODAY. 04/02/19 PRESYBETERIAN [id number] NONE MARITAL STATUS: . ALCOHOL SCREENING DID YOU HAVE A DRINK CONTAINING ALCOHOL IN THE PAST YEAR?NO POINTS0 INTERPRETATIONNEGATIVE REVIEWED WITH PATIENT 07/24/18 1009 JSREVIEWED WITH PATIENT 08/21/18 1249 JSREVIEWED WITH PATIENT 09/02/18 1249 JS09/28/18 REVIEWED WITH PT. AD10/13/18 REVIEWED WITH PT. AD03/16/19 1045 REVIEWED WITH PT LAS04/02/19 0843 REVIEWED WITH PT BVREVIEWED WITH PT 11/30/18 1327 BV. HOSPITALIZATION/MAJOR DIAGNOSTIC PROCEDURE SURGERY RELATED REVIEW OF SYSTEMS REVIEWED BY: PROVIDER: SERGO GUZMÁN . CONSTITUTIONAL: ANY CHANGE IN YOUR MEDICAL CONDITION? NO . CHILLS NO . FEVER NO . INFECTION: DO YOU HAVE NEW INFECTIONS? NO . DO YOU HAVE HISTORY OF MRSA? NO . MUSCULOSKELETAL: ANY NEW PATTERNS OF PAIN OR NUMBNESS? YES, INTENSE CRAMPING OF MUSCLES IN LEFT ARM, LEFT LEG AND BACK. PT STATES THESE CRAMPS ARE NEW TO HIM SINCE STARTING CYMBALTA. STATES HE STOPPED CYMBALTA 5 DAYS AGO AND FREQUENCY OF CRAMPING HAS LESSENED, BUT STATES THE EPISODES ARE STILL SEVERE. . GASTROENTEROLOGY: ANY NEW CHANGE IN BOWEL CONTROL? NO . GENITOURINARY: ANY NEW CHANGE IN BLADDER CONTROL? NO . IS THERE A CHANCE YOU COULD BE ? NO . HEMATOLOGY/LYMPH: DO YOU TAKE ANY BLOOD THINNERS? (FOR EXAMPLE- COUMADIN, PLAVIX, AGGRENOX, PLATEL, PRADAXA, OR XARELTO) NO . WHEN WAS YOUR LAST DOSE? DATE: TIME: . NEUROLOGY: HAVE YOU FALLEN IN THE PAST 12 MONTHS? NO . ANY NEW EXTREMITY NUMBNESS OR WEAKNESS? NO . CARDIOLOGY: DO YOU HAVE A PACEMAKER OR DEFIBRILLATOR? NO . RESPIRATORY: HAVE YOU BEEN SICK IN THE PAST WEEK? NO . FEVER NO . FLU LIKE SYMPTOMS? NO . COUGH NO . INTEGUMENTARY: DO YOU HAVE ANY RASHES OR OPEN SORES? NO . ALLERGIC/IMMUNO: ARE YOU ALLERGIC TO IV DYE? NO . ANY NEW ALLERGIES? NO . PSYCHIATRIC: DO YOU HAVE THOUGHTS OF HURTING YOURSELF OR SOMEONE ELSE? NO . ARE YOU ABUSED, NEGLECTED, OR IN AN UNSAFE ENVIRONMENT? NO . ENDOCRINOLOGY: ARE YOU DIABETIC? NO . OTHER: DO YOU NEED ANY PRESCRIPTIONS? NO . IF YES, PLEASE LIST: ____ . ANY NEW PROBLEMS WITH YOUR MEDICATIONS? NO . WHEN DID YOU LAST EAT? ____ . WHEN DID YOU LAST DRINK? ____ . WHAT DID YOU LAST DRINK? ____ . NAME OF PERSON DRIVING YOU HOME? ____ . DO YOU HAVE ANY OTHER QUESTIONS OR CONCERNS YES, WOULD LIKE TO DISCUSS MUSCLE CRAMPING. STATES HE IS HAVING LEFT BICEP SURGERY 04/13/19 AND IS CONCERNED ABOUT THIS CRAMPING AFTER SURGERY. . VITAL SIGNS WT 180 LBS, HT 70 IN, BMI 25.82 INDEX, BP 142/83 MM HG, HR 85 /MIN, RR 18 /MIN, TEMP 98.0 F, OXYGEN SAT % 99%, NA INITIALS AW 0839, REVIEWED BY: BV. EXAMINATION GENERAL EXAMINATION: GENERALNO ACUTE DISTRESS, WELL NOURISHED AND HYDRATED. PSYCHAPPROPRIATE MOOD AND AFFECT . LUNGS:CLEAR TO AUSCULTATION BILATERALLY, NO WHEEZES, RHONCHI, RALES. HEART:NO MURMURS, REGULAR RATE AND RHYTHM. ASSESSMENTS SPONDYLOSIS WITHOUT MYELOPATHY OR RADICULOPATHY, THORACIC REGION - M47.814 (PRIMARY) TREATMENT SPONDYLOSIS WITHOUT MYELOPATHY OR RADICULOPATHY, THORACIC REGION START LYRICA CAPSULE, 75 MG, 1 CAPSULE, ORALLY, ONCE A DAY, 30 DAYS, 30 CAPSULE CLINICAL NOTES: 49-YEAR-OLD MALE IN FOR CHRONIC PAIN FOLLOW-UP. GIVEN PRESENTING SYMPTOMS AND RESULTS OF PHYSICAL EXAMINATION RECOMMENDED STARTING LYRICA WITH FOLLOW-UP IN ONE MONTH. PATIENT HAS EXPRESSED UNDERSTANDING OF AND WAS IN AGREEMENT WITH TREATMENT PLAN. GIVEN TIME TO ASK QUESTIONS AND EXPRESS CONCERNS., ISTOP REGISTRY REVIEWED AND DEMONSTRATES COMPLLIANCE. (REF # [id number] ) BRINGS IN MEDICATIONS WHICH IS APPROPRIATE FOR WHAT WAS DISPENSED. RECENT URINE TOXICOLOGY REVIEWED. NO UNAUTHORIZED MEDICATIONS. NO ILLICIT SUBSTANCES AND PRESCRIBED MEDICATIONS WERE PRESENT. PREVENTIVE MEDICINE PAIN CLINIC TEACHING: MEDICATIONS PT GIVEN WRITTEN AND VERBAL EDUCATION ON LYRICA. PT VERBALIZES UNDERSTANDING, STATING HE HAS BEEN ON THIS MEDICATION IN THE PAST. GABRIEL PARK 04/02/2019 9:32:07 AM > . PROCEDURE CODES FA211 ESTABILISHED PATIENT [facility] CHARGE DISPOSITION & COMMUNICATION FOLLOW UP 4 WEEKS (REASON: MEDICATION) ELECTRONICALLY SIGNED BY CARLIN ABARCA ON 04/05/2019 AT 10:07 AM EDT DISCLAIMER : THIS IS A VISIT SUMMARY EXTRACTED FROM THE [employer] CHART. IT IS NOT A COPY OF THE [employer] PROGRESS NOTE. MARCIE
== END ==
LOC: M PAIN 08:30
PROVIDERS: ATTEND Family Medicine
DX: M47.814 Spondylosis without myelopathy or radiculopathy, thoracic region (principal); G89.29 Other chronic pain; I10 Essential (primary) hypertension; E78.5 Hyperlipidemia, unspecified; G47.33 Obstructive sleep apnea (adult) (pediatric); M19.90 Unspecified osteoarthritis, unspecified site; Z96.651 Presence of right artificial knee joint; F17.220 Nicotine dependence, chewing tobacco, uncomplicated; Z88.1 Allergy status to other antibiotic agents; Z88.2 Allergy status to sulfonamides; Z88.5 Allergy status to narcotic agent; Z88.8 Allergy status to other drugs, medicaments and biological substances; Z79.899 Other long term (current) drug therapy

== ENCOUNTER 2019-04-13 10:02 | Day surgery (SDC) | payer OTHER ==
[~2019-04-13] VITALS: Ht 177.8 cm; Wt 79.4 kg
[~2019-04-13 10:02] MED LIST changes: +LR 1,000 ML IV ONE; +SIMV40TA2 PO; -SIMV40TA20 PO; +ceFAZolin SOD 1 GM in D5W MINI-BAG PLUS 50 ML IV ONE
[2019-04-13] MEDS ORDERED: LIDOCAINE 2% INJ 100 MG/5 ML SDV (FOR ANES.) As Ordered ONE (10:08)
[2019-04-13] MEDS ORDERED: PROPOFOL 200 MG/20 ML VIAL As Ordered ONE ×2 (10:08→10:12)
[2019-04-13] MEDS ORDERED: fentaNYL 100 MCG/2 ML INJECTION (J3010) As Ordered ONE ×2 (10:09→10:21)
[2019-04-13] MEDS ORDERED: MIDAZOLAM INJ 2 MG/2 ML VIAL (J2250) As Ordered ONE (10:09)
[2019-04-13] MEDS ORDERED: ONDANSETRON 4MG/2ML VIAL (J2405) As Ordered ONE (10:09)
[2019-04-13] MEDS ORDERED: LIDOCAINE 2% W/EPIN INJ 20ML **PRES FREE As Ordered ONE (11:10)
[2019-04-13] MEDS ORDERED: PROPOFOL 500 MG/50 ML VIAL As Ordered ONE (11:40)
[2019-04-13] MEDS ORDERED: KETAMINE HCL 200 MG/20 ML VIAL As Ordered ONE (11:45)
[2019-04-13] MEDS ORDERED: KETOROLAC 60 MG/2 ML VIAL (J1885) As Ordered ONE (12:03)
[2019-04-13] MEDS ORDERED: ACETAMINOPHEN 1000MG 100ML IV BTL (OFIRMEV) (J0131 PER 10MG) As Ordered ONE (12:03)
--- NOTE | 2019-04-13 12:06 | POST-OPPD ---
Postoperative Procedure Note Date Of Procedure: Apr 13, 2019 PREOPERATIVE DIAGNOSIS: Left upper arm mass POSTOPERATIVE DIAGNOSIS: same FINDINGS: 2x2cm mass PROCEDURE: Excision left upper arm mass SURGEON: Dr Freire ANESTHESIA: Local with sedation SPECIMENS: Left upper arm mass ESTIMATED BLOOD LOSS: 1cc REPLACED: none DRAINS: none COMPLICATIONS: none POSTOPERATIVE CONDITION: stable JOSE J FREIRE DO Apr 13, 2019 12:06
[2019-04-13 13:01] VITALS: BP 127/86
--- NOTE | 2019-04-14 19:52 | RO ---
DATE OF PROCEDURE: 04/13/2019 PREPROCEDURE DIAGNOSIS: Left upper arm mass. POSTPROCEDURE DIAGNOSIS: Left upper arm mass. PROCEDURE: Excision left upper arm mass. SURGEON: Dr. Ann Negron ASPHALT SPREADER: ANESTHESIA: Local with sedation. SPECIMEN SENT: Left upper arm mass. ESTIMATED BLOOD LOSS: 1 mL. No replacement needed. No drains. No complications. DESCRIPTION OF PROCEDURE: This is a 49-year-old male who was complaining of an easily palpable mass in the lower part of the upper left arm. It grew over some time but recently became larger. He had an ultrasound confirming the encapsulated mass. It measures about 2.2 cm. He is scheduled for excision. All the risks and benefits and alternatives discussed with the patient in preop holding. Informed consent obtained, and he was ready to proceed. The patient was brought into the operating room, placed in supine position. Preoperative antibiotics were given. Sequential stockings placed on the lower calves. Sedation was given to the patient and a local anesthetic was infiltrated in the area. The mass is easily palpable. It is 2 x 2 cm. After the effects of local anesthesia were assured, the vertical incision was carried out using #10 blade and sharp dissection was done using a knife and blunt dissection with scissors. The encapsulated fatty tissue mass identified, and it was excised using electrocautery and was sent to pathology. There was no muscle involvement. The mass was adjacent to the muscle sheath. The area was irrigated, hemostasis obtained, and it was closed in layers with interrupted #3-0 Monocryl sutures and #4-0 Monocryl sutures, Dermabond and a pressure dressing was applied. The patient was awakened in the operating room, transferred to the recovery room in stable condition.
== END 2019-04-13 13:20 | disposition home or self-care (01) ==
LOC: M SDC 10:02
PROVIDERS: ATTEND Plastic Surgery Surgery of the Hand
DX: D17.22 Benign lipomatous neoplasm of skin and subcutaneous tissue of left arm (principal); I10 Essential (primary) hypertension; G47.30 Sleep apnea, unspecified; E78.5 Hyperlipidemia, unspecified; F17.220 Nicotine dependence, chewing tobacco, uncomplicated; Z88.2 Allergy status to sulfonamides; Z88.8 Allergy status to other drugs, medicaments and biological substances; Z79.899 Other long term (current) drug therapy
CPT/HCPCS: 11403; 88305; J0131; J0690; J1885; J2250; J2405; J3010

== ENCOUNTER → 2019-05-07 | Outpatient (CLI) | payer OTHER ==
[~2019-05-07] MED LIST changes: -LR 1,000 ML IV ONE; -ceFAZolin SOD 1 GM in D5W MINI-BAG PLUS 50 ML IV ONE
== END ==
LOC: M PAIN 09:30
PROVIDERS: ATTEND Family Medicine
DX: M47.814 Spondylosis without myelopathy or radiculopathy, thoracic region (principal); M25.512 Pain in left shoulder; G44.009 Cluster headache syndrome, unspecified, not intractable; I10 Essential (primary) hypertension; E78.5 Hyperlipidemia, unspecified; M54.2 Cervicalgia; M25.562 Pain in left knee; M54.5 Low back pain; H93.19 Tinnitus, unspecified ear; G47.33 Obstructive sleep apnea (adult) (pediatric); M47.12 Other spondylosis with myelopathy, cervical region; G89.29 Other chronic pain; Z96.651 Presence of right artificial knee joint; Z98.1 Arthrodesis status; F17.220 Nicotine dependence, chewing tobacco, uncomplicated; Z79.899 Other long term (current) drug therapy; Z88.2 Allergy status to sulfonamides; Z88.5 Allergy status to narcotic agent; Z88.8 Allergy status to other drugs, medicaments and biological substances

== ENCOUNTER → 2019-07-14 | Outpatient (CLI) | payer OTHER ==
[~2019-07-14] MED LIST changes: +BUPIVACAINE HCL 0.25% 30 ML VIAL As Ordered ONE; +ISOVUE-M 300 61% 15ML VIAL (Q9967) As Ordered ONE; +LIDOCAINE 1% SDV INJ 30 ML VIAL As Ordered ONE; -SIMV40TA2 PO; +SIMV40TA20 PO; +TRIAMCINOLONE ACETONIDE SUSP 40 MG/ML VIAL (J3301) As Ordered ONE; +diazePAM 5 MG TAB As Ordered ONE
--- NOTE | 2019-07-14 11:28 | REP ---
Two-view chest: 07/14/2019. Indication: Status post thoracic facet blocks. Comparison: 03/31/2019. Findings: There is no pleural effusion or pneumothorax. The lungs are clear. The patient is status post lower cervical ACDF and placement of spinal stimulators. The cardiomediastinal silhouette is unremarkable. Impression: No pneumothorax or additional acute abnormalities. Electronically Signed by Navdeep Duckworth DO 07/14/2019 11:20 A
--- NOTE | 2019-07-14 11:36 | REP ---
Limited thoracic spine views: Three views. History: Bilateral thoracic facet block for pain. 15 seconds of fluoroscopy time is reported. Findings: A sequence of three last image hold fluoroscopically obtained spot radiographs of the thoracic spine document various needle positions and contrast injections associated with injection procedure. Electronically Signed by Jacobo Summers MD 07/14/2019 11:27 A
--- NOTE | 2019-07-17 03:59 | ECWPNPC ---
PATIENT NAME: HAILY WAGNER : 1970 GENDER: MALE VISIT DATE: 07/14/2019 DISCHARGE DATE: 07/14/19 1143 VISIT LOCKED DATE TIME: PHYSICIAN: CHRISTINE MCKEON MD RESOURCE: CHRISTINE MCKEON MD REASON FOR APPOINTMENT 1. BILATERAL THERAPEUTIC THORACIC FACET T3-T4, T4-T5, T5-T6 HISTORY OF PRESENT ILLNESS HISTORY OF PRESENT ILLNESS: PAIN THE PATIENT DESCRIBES THE PAIN... FALL RISK SCREENING: SCREENING :NO FALLS REPORTED IN THE LAST YEAR CURRENT MEDICATIONS TAKING LISINOPRIL/HCTZ 10/12.5 10/12.5MG TABLET 1 TAB ORAL DAILY, NOTES: 07/14/19 0615 TAKING ATORVASTATIN CALCIUM 40 MG TABLET 1 TABLET ORALLY ONCE A DAY, NOTES: 07/13/19 1600 TAKING PROTONIX 40 MG TABLET DELAYED RELEASE 1 TABLET ORALLY DAILY, NOTES: 07/14/19614 TAKING MULTIVITAMIN ADULT - TABLET ORALLY DAILY, NOTES: 07/14/19614 TAKING TIZANIDINE HCL 6 MG CAPSULE 1 TABLET NEEDED ORALLY EVERY 12 HOURS NEEDED MDD2, NOTES: > 2 WEEKS TAKING LYRICA 75 MG CAPSULE 1 CAPSULE ORALLY ONCE A DAY, NOTES: > 2 WEEKS NOT-TAKING DULOXETINE HCL 30 MG CAPSULE DELAYED RELEASE PARTICLES 1 CAPSULE ORALLY WITH FOOD ONCE A DAY FOR PAIN NOT-TAKING DULOXETINE HCL 30 MG CAPSULE DELAYED RELEASE PARTICLES 1 CAPSULE ORALLY WITH FOOD ONCE A DAY FOR PAIN, NOTES: DUPLICATE NOT-TAKING OXYCODONE HCL 5 MG TABLET 1 TABLET NEEDED ORALLY FOR PAIN EVERY 12 HRS MDD2, NOTES: 01/04 1730 MEDICATION LIST REVIEWED AND RECONCILED WITH THE PATIENT PAST MEDICAL HISTORY 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 HTN HYPERLIPIDEMIA CHRONIC NECK PAIN WITH RADIATION DOWN BUE, LEFT WORSE THAN RIGHT BILATERAL KNEE PAIN, RIGHT WORSE THAN LEFT LOW BACK PAIN TINNITUS DIPAK ON CPAP SEIZURE AFTER TRAMADOL USE 2012 OR 2013 SPONDYLOSIS WITHOUT MYELOPATHY OR RADICULOPATHY, 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 PAIN - SIDE EFFECTS SURGICAL HISTORY RIGHT KNEE REPLACEMENT 2011 LEFT ORBITAL RECONSTRUCTION 1991 TONSILLECTOMY RIGHT KNEE SURGERIES-MULTIPLE SPINAL COLUMN STIMULATOR 10/2014, 12/2014 CERVICAL FUSION BY 12/12/2016 LEFT ARM SURGERY TO REMOVE A MASS- BEGIGN 04/13/2019 FAMILY HISTORY FATHER: , LUNG, LIVER, BONE CA, DIAGNOSED WITH OTHER MALIGNANT NEOPLASM OF UNSPECIFIED SITE MOTHER: ALIVE 1943 YRS, LUNG CA, HYPERTENSION, OTHER MALIGNANT NEOPLASM OF UNSPECIFIED SITE 2 BROTHER(S) , 2 SISTER(S) - HEALTHY. MRSA IN GRANDDAUGHTER OTHERWISE NO SIGNIFICANT FAMILY HISTORY NOTED. SOCIAL HISTORY GENERAL: TOBACCO USE ARE YOU A:NONSMOKER CHEWS TOBACCO HIV / HEP-C SCREENING HIV TEST OFFERED TO PATIENT:YES DATE OFFERED:08/04/2017 TEST ACCEPTED:NO HEP-C TEST OFFERED TO PATIENT:NO REASON:PATIENT DECLINED EDUCATION LEVEL OF EDUCATION:NOT FINISHED COLLEGE DIET: REGULAR. LANGUAGE CHINESE. DOMESTIC VIOLENCE DO YOU FEEL SAFE IN YOUR ENVIRONMENT?YES RECREATIONAL DRUG USE DRUG USE?NO EXERCISE: NO REGULAR EXERCISE. 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 HEAVY NEEDED?NO PAIN CLINIC PFS, CLERGY, PUBLIC HEALTH REFERRALS PFS REFERRAL NEEDED?NO CLERGY REFERRAL NEEDED?NO PUBLIC HEALTH REFERRAL NEEDED?NO HAS THE PATIENT BEEN EDUCATED REGARDING HIS/HER PLAN OF CARE?YES HAS THE PATIENT BEEN EDUCATED REGARDING PAIN, THE RISK FOR PAIN, THE IMPORTANCE OF EFFECTIVE PAIN MANAGEMENT, AND THE PAIN ASSESSMENT PROCESS?YES LATEX QUESTIONNAIRE LATEX ALLERGY : HAVE YOU EVER DEVELOPED ANY TYPE OF REACTION AFTER HANDLING LATEX PRODUCTS SUCH RUBBER GLOVES, CONDOMS, DIAPHRAGMS, BALLOONS, SOCKS, OR UNDERWEAR?NO LATEX ALLERGY : HAVE YOU EVER DEVELOPED ANY TYPE OF REACTION DURING OR AFTER DENTAL APPOINTMENT, VAGINAL/RECTAL EXAMINATION, SURGICAL PROCEDURE, OR ANY OTHER EXPOSURE?NO LATEX RISK : HAVE YOU EVER HAD ANY DIFFICULTY BREATHING OR HIVES AFTER EATING OR HANDLING ANY FRUITS, OR VEGETABLES; SUCH KIWI, BANANAS, STONE FRUITS, OR CHESTNUTSNO LATEX RISK : DO YOU HAVE A PREVIOUS PERSONAL HISTORY OF MORE THAN NINE SURGERIES, SPINA BIFIDA, OR REPEATED CATHERIZATIONS? YES - PLEASE INDICATE : > 9 SURGERIES LATEX RISK : ARE YOU FREQUENTLY EXPOSED TO LATEX PRODUCTS IN YOUR OCCUPATION?NO DATE ASKED : 07/05/2019 ADVANCE DIRECTIVE ADVANCE DIRECTIVE DISCUSSED WITH PATIENT:YES STATES HE DOES NOT HAVE HCP AND DECLINES INFORMATION/ASSISTANCE WITH FORM. 07/05/19 ORTHODOX [id number] NONE MARITAL STATUS: . ALCOHOL SCREENING DID YOU HAVE A DRINK CONTAINING ALCOHOL IN THE PAST YEAR?NO POINTS0 INTERPRETATIONNEGATIVE REVIEWED WITH PATIENT 07/24/18 1009 JSREVIEWED WITH PATIENT 08/21/18 1249 JSREVIEWED WITH PATIENT 09/02/18 1249 JS09/28/18 REVIEWED WITH PT. ADPRE PROCEDURE PHONE CALL COMPLETE 07/05/19 1125 BV10/13/18 REVIEWED WITH PT. AD03/16/19 1045 REVIEWED WITH PT LAS04/02/19 0843 REVIEWED WITH PT BVREVIEWED WITH PT 11/30/18 1327 BVREVIEWED WITH PATIENT 05/07/19 0937 NLJ. HOSPITALIZATION/MAJOR DIAGNOSTIC PROCEDURE SURGERY RELATED REVIEW OF SYSTEMS REVIEWED BY: PROVIDER: . CONSTITUTIONAL: ANY CHANGE IN YOUR MEDICAL CONDITION? NO . CHILLS NO . FEVER NO . INFECTION: DO YOU HAVE NEW INFECTIONS? NO . DO YOU HAVE HISTORY OF MRSA? NO . MUSCULOSKELETAL: ANY NEW PATTERNS OF PAIN OR NUMBNESS? NO . GASTROENTEROLOGY: ANY NEW CHANGE IN BOWEL CONTROL? NO . GENITOURINARY: ANY NEW CHANGE IN BLADDER CONTROL? NO . IS THERE A CHANCE YOU COULD BE ? NO . HEMATOLOGY/LYMPH: DO YOU TAKE ANY BLOOD THINNERS? (FOR EXAMPLE- COUMADIN, PLAVIX, AGGRENOX, PLATEL, PRADAXA, OR XARELTO) NO . WHEN WAS YOUR LAST DOSE? DATE: TIME: . NEUROLOGY: HAVE YOU FALLEN IN THE PAST 12 MONTHS? NO . ANY NEW EXTREMITY NUMBNESS OR WEAKNESS? NO . CARDIOLOGY: DO YOU HAVE A PACEMAKER OR DEFIBRILLATOR? NO, DORSAL COLUMN STIMULATOR . RESPIRATORY: HAVE YOU BEEN SICK IN THE PAST WEEK? NO . FEVER NO . FLU LIKE SYMPTOMS? NO . COUGH NO . INTEGUMENTARY: DO YOU HAVE ANY RASHES OR OPEN SORES? NO . ALLERGIC/IMMUNO: ARE YOU ALLERGIC TO IV DYE? NO . ANY NEW ALLERGIES? NO . PSYCHIATRIC: DO YOU HAVE THOUGHTS OF HURTING YOURSELF OR SOMEONE ELSE? NO . ARE YOU ABUSED, NEGLECTED, OR IN AN UNSAFE ENVIRONMENT? NO . ENDOCRINOLOGY: ARE YOU DIABETIC? NO . OTHER: DO YOU NEED ANY PRESCRIPTIONS? NO . IF YES, PLEASE LIST: ____ . ANY NEW PROBLEMS WITH YOUR MEDICATIONS? NO . WHEN DID YOU LAST EAT? ____07/14/19 0200 . WHEN DID YOU LAST DRINK? ____07/14/19 0400 . WHAT DID YOU LAST DRINK? ____GREEN TEA . NAME OF PERSON DRIVING YOU HOME? ____SALLY . DO YOU HAVE ANY OTHER QUESTIONS OR CONCERNS NO . VITAL SIGNS WT 178.8 LBS, HT 70 IN, BMI 25.65 INDEX, BP 1`24/81, HR 77 /MIN, RR 18 /MIN, TEMP 97.6 F, OXYGEN SAT % 99%, SAFE IN ENV? (Y/N) YES, NA INITIALS SD 09:07, REVIEWED BY: ROSALVA. ASSESSMENTS SPONDYLOSIS OF THORACIC REGION WITHOUT MYELOPATHY OR RADICULOPATHY - M47.814 (PRIMARY) TREATMENT SPONDYLOSIS OF THORACIC REGION WITHOUT MYELOPATHY OR RADICULOPATHY SMC FACET BLOCK (PAIN)[id number] PROCEDURES PN THORACIC FACET BLOCK THERAPEUTIC PRE PROCEDURE DIAGNOSIS THORACIC SPONDYLOSIS POST PROCEDURE DIAGNOSIS THORACIC SPONDYLOSIS PROCEDURE BILATERAL T3-T4, T4-T5, AND T5-T6 THORACIC THERAPEUTIC FACET BLOCK SURGEON DR. CHRISTINE MCKEON MARINE ELECTRONICS TECHNICIAN NONE ANESTHESIA LOCAL PRE PROCEDURE NOTE THE PATIENT WITH HISTORY OF CHRONIC THORACIC PAIN. I EVALUATED THE PATIENT AND REVIEWED THE CHART. I WENT OVER THE RISKS, ALTERNATIVES, AND BENEFITS ASSOCIATED WITH THIS PROCEDURE. THE PATIENT WOULD LIKE TO PROCEED AND GAVE CONSENT TO PERFORM THE PROCEDURE. THE PATIENT DENIES UNEXPLAINABLE WEIGHT LOSS, FEVER, CHILLS, OR NEW CHANGES IN URINARY OR BOWEL CONTROL. DESCRIPTION OF PROCEDURE THE PATIENT WAS BROUGHT TO THE PROCEDURE ROOM AND PLACED IN THE PRONE POSITION. THE THORACIC AREA WAS CLEANED WITH CHLORAPREP SOLUTION AND DRAPED ASEPTICALLY. THE PROCEDURE WAS DONE UNDER STERILE CONDITIONS. I CHECKED LATERALITY AND THE LEVEL WHERE THE PROCEDURE WAS GOING TO BE PERFORMED WITH THE PATIENT AND THE SUPPORTING STAFF AT THE MOMENT OF THE TIME OUT IN THE PROCEDURE ROOM. UNDER FLUOROSCOPIC GUIDANCE, THE TARGET POINT WAS SELECTED AT THE RIGHT AND LEFT T3-T4, RIGHT AND LEFT T4-T5, AND RIGHT AND LEFT T5-T6 THORACIC FACETS. TARGET POINT WAS SELECTED AFTER LATERAL ROTATION AND TILT OF THE MAGNIFIER OF THE C-ARM. LIDOCAINE 0.5% WAS USED TO NUMB THE SKIN AND THE SUBCUTANEOUS TISSUE BELOW IT. SPINAL NEEDLES, 22-GAUGE, WERE ADVANCED UNDER FLUOROSCOPIC GUIDANCE AND FOLLOWING PATIENT FEEDBACK UNTIL THE TARGETS WERE TOUCHED. THE POSITION OF THE NEEDLES WAS VERIFIED WITH MULTIPLE X-RAY VIEWS. AFTER PROPER POSITION OF THE NEEDLES WAS ACHIEVED, ISOVUE-M DYE 30% 0.1 ML WAS INJECTED SHOWING ADEQUATE SPREAD OF THE DYE. THEN A SOLUTION OF 0.9 ML OF BUPIVACAINE 0.125% OF KENALOG 10 MG WAS INJECTED AT EACH SITE. THERE WAS NO EVIDENCE OF BLOOD, PARESTHESIA OR CEREBROSPINAL FLUID DURING THE PROCEDURE. THE PATIENT WAS SENT TO THE RECOVERY ROOM. THE PATIENT WAS MOVING THE EXTREMITIES AND DOING WELL. THERE WAS NO COMPLICATION DURING THE PROCEDURE. FLUOROSCOPY TIME WAS 15 SECONDS POST PROCEDURE NOTE I AM LOOKING FOR LONG LASTING PAIN RELIEF WITH THIS INTERVENTION. THE PATIENT WILL BE SEEN IN A FOLLOW UP IN THE NEXT FEW WEEKS TO SEE HOW THIS FACET BLOCK IS HELPING WITH HIS PAIN. INSTRUCTIONS WERE GIVEN, QUESTIONS WERE ANSWERED, AND THE PATIENT EXPRESSED UNDERSTANDING AND AGREED WITH THE PLAN. I, MARYURI INFANTE, DOCUMENTED THE ABOVE INFORMATION ACTING A SCRIBE FOR DR. MCKEON. I HAVE REVIEWED THE ABOVE DOCUMENT, WRITTEN BY MARYURI DANIBAmanda AND I VERIFY THAT IT IS ACCURATE. PROCEDURE CODES 81188 INJ PARAVERT F JNT C/T 1 LEV, MODIFIERS: 50 [id number] INJ PARAVERT F JNT C/T 2 LEV, MODIFIERS: 50 [id number] INJ PARAVERT F JNT C/T 3 LEV, MODIFIERS: 50 [id number] RADXPS IN END [id number] PXD DISPOSITION & COMMUNICATION FOLLOW UP 3 WEEKS ELECTRONICALLY SIGNED BY CHRISTINE MCKEON MD, ON 07/16/2019 AT 05:05 PM EST DISCLAIMER : THIS IS A VISIT SUMMARY EXTRACTED FROM THE [employer] CHART. IT IS NOT A COPY OF THE [employer] PROGRESS NOTE. MTDD
== END ==
LOC: M PAIN 08:45
PROVIDERS: ATTEND Anesthesiology
DX: M47.814 Spondylosis without myelopathy or radiculopathy, thoracic region (principal); I10 Essential (primary) hypertension; E78.5 Hyperlipidemia, unspecified; G47.33 Obstructive sleep apnea (adult) (pediatric); Z96.651 Presence of right artificial knee joint; F17.220 Nicotine dependence, chewing tobacco, uncomplicated; Z88.1 Allergy status to other antibiotic agents; Z88.2 Allergy status to sulfonamides; Z88.5 Allergy status to narcotic agent; Z88.8 Allergy status to other drugs, medicaments and biological substances; Z79.899 Other long term (current) drug therapy
CPT/HCPCS: 64490; 64491; 64492; 71046; J3301; Q9967

== ENCOUNTER → 2019-09-06 | Outpatient (CLI) | payer OTHER ==
[~2019-09-06] MED LIST changes: -BUPIVACAINE HCL 0.25% 30 ML VIAL As Ordered ONE; -CLAR500T PO; +CLAR500T97 PO; -ISOVUE-M 300 61% 15ML VIAL (Q9967) As Ordered ONE; -LIDOCAINE 1% SDV INJ 30 ML VIAL As Ordered ONE; -TRIAMCINOLONE ACETONIDE SUSP 40 MG/ML VIAL (J3301) As Ordered ONE; -diazePAM 5 MG TAB As Ordered ONE
--- NOTE | 2019-09-08 00:08 | ECWPNPC ---
PATIENT NAME: HAILY WAGNER : 1970 GENDER: MALE VISIT DATE: 09/06/2019 DISCHARGE DATE: 09/06/19 1234 VISIT LOCKED DATE TIME: PHYSICIAN: CHARY PEGUERO RESOURCE: CHARY PEGUERO REASON FOR APPOINTMENT 1. POST BILATERAL THERAPEUTIC THORACIC FACET T3 T4 T4 T5 T5 T6 HISTORY OF PRESENT ILLNESS HISTORY OF PRESENT ILLNESS: PAIN THE PATIENT DESCRIBES THE PAIN... 49-YEAR-OLD MALE IN FOR POST FACET BLOCK FOLLOW-UP. PATIENT RATES HIS PAIN PREPROCEDURE AT A 10 OUT OF 10 AND POSTPROCEDURE AT A 4 OUT OF 10 STATING THAT THIS LASTED APPROXIMATELY ONE WEEK. HE RATES PAIN CURRENTLY AT A 9 OUT OF 10 AND DESCRIBES IT ACHING, SHARP, BURNING, STABBING, SORE, SHOOTING, AND TENDER. PATIENT WAS ON LYRICA PREVIOUSLY HOWEVER HE STATES HE HAD DISCONTINUED USE OF THIS IT WAS INEFFECTIVE. FALL RISK SCREENING: SCREENING :NO FALLS REPORTED IN THE LAST YEAR CURRENT MEDICATIONS TAKING LISINOPRIL/HCTZ 10/12.5 10/12.5MG TABLET 1 TAB ORAL DAILY TAKING ATORVASTATIN CALCIUM 40 MG TABLET 1 TABLET ORALLY ONCE A DAY TAKING MULTIVITAMIN ADULT - TABLET ORALLY DAILY TAKING ROBAXIN-750 750 MG TABLET 2 TABLET ORALLY QID TAKING HYDROXYZINE HCL 50 MG TABLET 1 TABLET NEEDED ORALLY EVERY 6 HRS NOT-TAKING DULOXETINE HCL 30 MG CAPSULE DELAYED RELEASE PARTICLES 1 CAPSULE ORALLY WITH FOOD ONCE A DAY FOR PAIN NOT-TAKING DULOXETINE HCL 30 MG CAPSULE DELAYED RELEASE PARTICLES 1 CAPSULE ORALLY WITH FOOD ONCE A DAY FOR PAIN, NOTES: DUPLICATE NOT-TAKING OXYCODONE HCL 5 MG TABLET 1 TABLET NEEDED ORALLY FOR PAIN EVERY 12 HRS MDD2, NOTES: 01/04 1730 DISCONTINUED PROTONIX 40 MG TABLET DELAYED RELEASE 1 TABLET ORALLY DAILY DISCONTINUED TIZANIDINE HCL 6 MG CAPSULE 1 TABLET NEEDED ORALLY EVERY 12 HOURS NEEDED MDD2 DISCONTINUED LYRICA 75 MG CAPSULE 1 CAPSULE ORALLY ONCE A DAY MEDICATION LIST REVIEWED AND RECONCILED WITH THE PATIENT PAST MEDICAL HISTORY 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 HTN HYPERLIPIDEMIA CHRONIC NECK PAIN WITH RADIATION DOWN BUE, LEFT WORSE THAN RIGHT BILATERAL KNEE PAIN, RIGHT WORSE THAN LEFT LOW BACK PAIN TINNITUS DIPAK ON CPAP SEIZURE AFTER TRAMADOL USE 2012 OR 2013 SPONDYLOSIS WITHOUT MYELOPATHY OR RADICULOPATHY, 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 PAIN - SIDE EFFECTS SURGICAL HISTORY RIGHT KNEE REPLACEMENT 2011 LEFT ORBITAL RECONSTRUCTION 1991 TONSILLECTOMY RIGHT KNEE SURGERIES-MULTIPLE SPINAL COLUMN STIMULATOR 10/2014, 12/2014 CERVICAL FUSION BY 12/12/2016 LEFT ARM SURGERY TO REMOVE A MASS- BEGIGN 04/13/2019 FAMILY HISTORY FATHER: , LUNG, LIVER, BONE CA, DIAGNOSED WITH OTHER MALIGNANT NEOPLASM OF UNSPECIFIED SITE MOTHER: ALIVE 1945 YRS, LUNG CA, OTHER MALIGNANT NEOPLASM OF UNSPECIFIED SITE, HYPERTENSION 2 BROTHER(S) , 2 SISTER(S) - HEALTHY. MRSA IN GRANDDAUGHTER OTHERWISE NO SIGNIFICANT FAMILY HISTORY NOTED. SOCIAL HISTORY GENERAL: TOBACCO USE ARE YOU A:NONSMOKER CHEWS TOBACCO SMOKING CESSATION INFORMATION GIVEN09/06/2019 HIV / HEP-C SCREENING HIV TEST OFFERED TO PATIENT:YES DATE OFFERED:08/04/2017 TEST ACCEPTED:NO HEP-C TEST OFFERED TO PATIENT:NO REASON:PATIENT DECLINED EDUCATION LEVEL OF EDUCATION:NOT FINISHED COLLEGE DIET: REGULAR. LANGUAGE GHANAIAN. DOMESTIC VIOLENCE DO YOU FEEL SAFE IN YOUR ENVIRONMENT?YES RECREATIONAL DRUG USE DRUG USE?NO EXERCISE: NO REGULAR EXERCISE. 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?NO PAIN CLINIC PFS, CLERGY, PUBLIC HEALTH REFERRALS PFS REFERRAL NEEDED?NO CLERGY REFERRAL NEEDED?NO PUBLIC HEALTH REFERRAL NEEDED?NO HAS THE PATIENT BEEN EDUCATED REGARDING HIS/HER PLAN OF CARE?YES HAS THE PATIENT BEEN EDUCATED REGARDING PAIN, THE RISK FOR PAIN, THE IMPORTANCE OF EFFECTIVE PAIN MANAGEMENT, AND THE PAIN ASSESSMENT PROCESS?YES LATEX QUESTIONNAIRE LATEX ALLERGY : HAVE YOU EVER DEVELOPED ANY TYPE OF REACTION AFTER HANDLING LATEX PRODUCTS SUCH RUBBER GLOVES, CONDOMS, DIAPHRAGMS, BALLOONS, SOCKS, OR UNDERWEAR?NO LATEX ALLERGY : HAVE YOU EVER DEVELOPED ANY TYPE OF REACTION DURING OR AFTER DENTAL APPOINTMENT, VAGINAL/RECTAL EXAMINATION, SURGICAL PROCEDURE, OR ANY OTHER EXPOSURE?NO DATE ASKED : 07/05/2019 LATEX RISK : HAVE YOU EVER HAD ANY DIFFICULTY BREATHING OR HIVES AFTER EATING OR HANDLING ANY FRUITS, OR VEGETABLES; SUCH KIWI, BANANAS, STONE FRUITS, OR CHESTNUTSNO LATEX RISK : DO YOU HAVE A PREVIOUS PERSONAL HISTORY OF MORE THAN NINE SURGERIES, SPINA BIFIDA, OR REPEATED CATHERIZATIONS? YES - PLEASE INDICATE : > 9 SURGERIES LATEX RISK : ARE YOU FREQUENTLY EXPOSED TO LATEX PRODUCTS IN YOUR OCCUPATION?NO ADVANCE DIRECTIVE ADVANCE DIRECTIVE DISCUSSED WITH PATIENT:YES STATES HE DOES NOT HAVE HCP AND DECLINES INFORMATION/ASSISTANCE WITH FORM. CATHOLIC [id number] NONE MARITAL STATUS: . ALCOHOL SCREENING DID YOU HAVE A DRINK CONTAINING ALCOHOL IN THE PAST YEAR?NO POINTS0 INTERPRETATIONNEGATIVE REVIEWED WITH PATIENT 07/24/18 1009 JSREVIEWED WITH PATIENT 08/21/18 1249 JSREVIEWED WITH PATIENT 09/02/18 1249 JS09/28/18 REVIEWED WITH PT. ADPRE PROCEDURE PHONE CALL COMPLETE 07/05/19 1125 BV10/13/18 REVIEWED WITH PT. AD03/16/19 1045 REVIEWED WITH PT LAS04/02/19 0843 REVIEWED WITH PT BVREVIEWED WITH PT 11/30/18 1327 BVREVIEWED WITH PATIENT 05/07/19 0937 NLJ. HOSPITALIZATION/MAJOR DIAGNOSTIC PROCEDURE SURGERY RELATED REVIEW OF SYSTEMS REVIEWED BY: PROVIDER: SERGO GUZMÁN . CONSTITUTIONAL: ANY CHANGE IN YOUR MEDICAL CONDITION? NO . CHILLS NO . FEVER NO . INFECTION: DO YOU HAVE NEW INFECTIONS? NO . DO YOU HAVE HISTORY OF MRSA? NO . MUSCULOSKELETAL: ANY NEW PATTERNS OF PAIN OR NUMBNESS? NO . GASTROENTEROLOGY: ANY NEW CHANGE IN BOWEL CONTROL? NO . GENITOURINARY: ANY NEW CHANGE IN BLADDER CONTROL? NO . IS THERE A CHANCE YOU COULD BE ? NO . HEMATOLOGY/LYMPH: DO YOU TAKE ANY BLOOD THINNERS? (FOR EXAMPLE- COUMADIN, PLAVIX, AGGRENOX, PLATEL, PRADAXA, OR XARELTO) NO . WHEN WAS YOUR LAST DOSE? DATE: TIME: . NEUROLOGY: HAVE YOU FALLEN IN THE PAST 12 MONTHS? NO . ANY NEW EXTREMITY NUMBNESS OR WEAKNESS? NO . CARDIOLOGY: DO YOU HAVE A PACEMAKER OR DEFIBRILLATOR? YES, DCS . RESPIRATORY: HAVE YOU BEEN SICK IN THE PAST WEEK? YES, STOMACH FLU RESOLVED . FEVER NO . FLU LIKE SYMPTOMS? YES, RESOLVED . COUGH NO . INTEGUMENTARY: DO YOU HAVE ANY RASHES OR OPEN SORES? NO . ALLERGIC/IMMUNO: ARE YOU ALLERGIC TO IV DYE? NO . ANY NEW ALLERGIES? NO . PSYCHIATRIC: DO YOU HAVE THOUGHTS OF HURTING YOURSELF OR SOMEONE ELSE? NO . ARE YOU ABUSED, NEGLECTED, OR IN AN UNSAFE ENVIRONMENT? NO . ENDOCRINOLOGY: ARE YOU DIABETIC? NO . OTHER: DO YOU NEED ANY PRESCRIPTIONS? NO . IF YES, PLEASE LIST: ____ . ANY NEW PROBLEMS WITH YOUR MEDICATIONS? NO . WHEN DID YOU LAST EAT? ____ . WHEN DID YOU LAST DRINK? ____ . WHAT DID YOU LAST DRINK? ____ . NAME OF PERSON DRIVING YOU HOME? ____ . DO YOU HAVE ANY OTHER QUESTIONS OR CONCERNS NO . VITAL SIGNS WT 180.4 LBS, HT 70 IN, BMI 25.88 INDEX, BP 127/80 MM HG, HR 74 /MIN, RR 18 /MIN, TEMP 99.0 F, OXYGEN SAT % 98%, SAFE IN ENV? (Y/N) YES, NA INITIALS AW 1153, REVIEWED BY: ETHAN. EXAMINATION GENERAL EXAMINATION: GENERALNO ACUTE DISTRESS, WELL NOURISHED AND HYDRATED. PSYCHAPPROPRIATE MOOD AND AFFECT . LUNGS:CLEAR TO AUSCULTATION BILATERALLY, NO WHEEZES, RHONCHI, RALES. HEART:NO MURMURS, REGULAR RATE AND RHYTHM. ASSESSMENTS SPONDYLOSIS WITHOUT MYELOPATHY OR RADICULOPATHY, THORACIC REGION - M47.814 (PRIMARY) TREATMENT SPONDYLOSIS WITHOUT MYELOPATHY OR RADICULOPATHY, THORACIC REGION REFILL LYRICA CAPSULE, 75 MG, 1 CAPSULE, ORALLY, TWICE DAILY, 30 DAYS, 60 CLINICAL NOTES: 49-YEAR-OLD MALE IN FOR POST FACET BLOCK FOLLOW-UP. GIVEN PRESENTING SYMPTOMS AND RESULTS OF PHYSICAL EXAMINATION RECOMMENDED STARTING LYRICA 75 MG TWICE A DAY WITH FOLLOW-UP IN ONE MONTH TO DETERMINE EFFICACY TREATMENT. PATIENT HAS EXPRESSED UNDERSTANDING OF AND WAS IN AGREEMENT WITH TREATMENT PLAN. GIVEN TIME TO ASK QUESTIONS AND EXPRESS CONCERNS., ISTOP REGISTRY REVIEWED AND DEMONSTRATES COMPLLIANCE. (REF #[id number] ) BRINGS IN MEDICATIONS WHICH IS APPROPRIATE FOR WHAT WAS DISPENSED. RECENT URINE TOXICOLOGY REVIEWED. NO UNAUTHORIZED MEDICATIONS. NO ILLICIT SUBSTANCES AND PRESCRIBED MEDICATIONS WERE PRESENT. OTHERS NOTES: PREGABALIN MATERIAL WAS PRINTED. PROCEDURE CODES FA211 ESTABILISHED PATIENT [facility] FACILITY CHARGE DISPOSITION & COMMUNICATION FOLLOW UP 4 WEEKS (REASON: BACK PAIN, NEW MEDICATION) ELECTRONICALLY SIGNED BY CARLIN ABARCA ON 09/07/2019 AT 08:30 AM EST DISCLAIMER : THIS IS A VISIT SUMMARY EXTRACTED FROM THE [employer] CHART. IT IS NOT A COPY OF THE [employer] PROGRESS NOTE. MARCIE
== END ==
LOC: M PAIN 11:30
PROVIDERS: ATTEND Family Medicine
DX: M47.814 Spondylosis without myelopathy or radiculopathy, thoracic region (principal); I10 Essential (primary) hypertension; E78.5 Hyperlipidemia, unspecified; G47.33 Obstructive sleep apnea (adult) (pediatric); Z96.651 Presence of right artificial knee joint; F17.220 Nicotine dependence, chewing tobacco, uncomplicated; Z88.1 Allergy status to other antibiotic agents; Z88.2 Allergy status to sulfonamides; Z88.5 Allergy status to narcotic agent; Z88.8 Allergy status to other drugs, medicaments and biological substances; Z79.899 Other long term (current) drug therapy

== ENCOUNTER → 2019-10-29 | Outpatient (CLI) | payer OTHER ==
--- NOTE | 2019-11-02 00:25 | ECWPNPC ---
PATIENT NAME: HAILY WAGNER : 1970 GENDER: MALE VISIT DATE: 10/29/2019 DISCHARGE DATE: 10/29/19 0959 VISIT LOCKED DATE TIME: PHYSICIAN: CHARY PEGUERO RESOURCE: CHARY PEGUERO REASON FOR APPOINTMENT 1. 4 WEEKS HISTORY OF PRESENT ILLNESS HISTORY OF PRESENT ILLNESS: PAIN THE PATIENT DESCRIBES THE PAINDURING THE LAST MONTH SEVERITY - PAIN SCORE OF8/10 LOCATIONSTHORAX, LUMBAR QUALITYBURNING, SHARP, STABBING, SHOOTING DURATIONCONTINUOUS, CONSTANT, ALL DAY, MAINLY DURING THE NIGHT, AWAKENS FROM SLEEEP PAIN IS INCREASED BY:ACTIVITIES, PROLONGED STANDING PAIN IS DECREASED BY:SITTING 49-YEAR-OLD MALE IN FOR CHRONIC PAIN FOLLOW-UP. AT LAST CLINIC VISIT PATIENT WAS STARTED ON LYRICA AND ADMITS TODAY THAT HE FEELS THE LYRICA AT CURRENT DOSAGE HAS BEEN UNHELPFUL. HE RATES HIS PAIN CURRENTLY AT AN 8 OUT OF 10 AND DESCRIBES IT BURNING, SHARP, STABBING, AND SHOOTING. HE DOES ADMIT TO A BURN TO HIS RIGHT KNEE THAT WAS SUSTAINED FROM PROLONGED USE OF A HEATING PAD HE HAS BEEN SEEN BY PROVIDER FOR THIS. FALL RISK SCREENING: SCREENING :NO FALLS REPORTED IN THE LAST YEAR CURRENT MEDICATIONS TAKING LISINOPRIL/HCTZ 1012.5 10/12.5MG TABLET 1 TAB ORAL DAILY TAKING ATORVASTATIN CALCIUM 40 MG TABLET 1 TABLET ORALLY ONCE A DAY TAKING MULTIVITAMIN ADULT - TABLET ORALLY DAILY TAKING ROBAXIN-750 750 MG TABLET 2 TABLET ORALLY QID TAKING HYDROXYZINE HCL 50 MG TABLET 1 TABLET NEEDED ORALLY EVERY 6 HRS TAKING LYRICA 75 MG CAPSULE 1 CAPSULE ORALLY TWICE DAILY NOT-TAKING DULOXETINE HCL 30 MG CAPSULE DELAYED RELEASE PARTICLES 1 CAPSULE ORALLY WITH FOOD ONCE A DAY FOR PAIN NOT-TAKING DULOXETINE HCL 30 MG CAPSULE DELAYED RELEASE PARTICLES 1 CAPSULE ORALLY WITH FOOD ONCE A DAY FOR PAIN, NOTES: DUPLICATE NOT-TAKING OXYCODONE HCL 5 MG TABLET 1 TABLET NEEDED ORALLY FOR PAIN EVERY 12 HRS MDD2, NOTES: 01/04 1730 MEDICATION LIST REVIEWED AND RECONCILED WITH THE PATIENT PAST MEDICAL HISTORY 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 HTN HYPERLIPIDEMIA CHRONIC NECK PAIN WITH RADIATION DOWN BUE, LEFT WORSE THAN RIGHT BILATERAL KNEE PAIN, RIGHT WORSE THAN LEFT LOW BACK PAIN TINNITUS DIPAK ON CPAP SEIZURE AFTER TRAMADOL USE 2012 OR 2013 SPONDYLOSIS WITHOUT MYELOPATHY OR RADICULOPATHY, 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 PAIN - SIDE EFFECTS SURGICAL HISTORY RIGHT KNEE REPLACEMENT 2011 LEFT ORBITAL RECONSTRUCTION 1991 TONSILLECTOMY RIGHT KNEE SURGERIES-MULTIPLE SPINAL COLUMN STIMULATOR 10/2014, 12/2014 CERVICAL FUSION BY 12/12/2016 LEFT ARM SURGERY TO REMOVE A MASS- BEGIGN 04/13/2019 FAMILY HISTORY FATHER: , LUNG, LIVER, BONE CA, DIAGNOSED WITH OTHER MALIGNANT NEOPLASM OF UNSPECIFIED SITE MOTHER: ALIVE 1943 YRS, LUNG CA, HYPERTENSION, OTHER MALIGNANT NEOPLASM OF UNSPECIFIED SITE 2 BROTHER(S) , 2 SISTER(S) - HEALTHY. MRSA IN GRANDDAUGHTER OTHERWISE NO SIGNIFICANT FAMILY HISTORY NOTED. SOCIAL HISTORY GENERAL: TOBACCO USE ARE YOU A:NONSMOKER CHEWS TOBACCO SMOKING CESSATION INFORMATION GIVEN09/06/2019 HIV / HEP-C SCREENING HIV TEST OFFERED TO PATIENT:YES DATE OFFERED:08/04/2017 TEST ACCEPTED:NO HEP-C TEST OFFERED TO PATIENT:NO REASON:PATIENT DECLINED EDUCATION LEVEL OF EDUCATION:NOT FINISHED COLLEGE DIET: REGULAR. LANGUAGE AZERI. DOMESTIC VIOLENCE DO YOU FEEL SAFE IN YOUR ENVIRONMENT?YES RECREATIONAL DRUG USE DRUG USE?NO EXERCISE: NO REGULAR EXERCISE. LEARNING BARRIERS / SPECIAL NEEDS BARRIERS TO LEARNING?NO HEARING IMPAIRED?NO VISION IMPAIRED?YES READING GLASSES COGNITIVELY IMPAIRED?NO READINESS TO LEARN?YES LEARNING PREFERENCES?NO LEARNING CAPABILITIES PRESENT?YES EMOTIONAL BARRIERS?NO SPECIAL DEVICES?YES :CANE OCCASSIONALLY GROCERY CADDY NEEDED?NO PAIN CLINIC PFS, CLERGY, PUBLIC HEALTH REFERRALS PFS REFERRAL NEEDED?NO CLERGY REFERRAL NEEDED?NO PUBLIC HEALTH REFERRAL NEEDED?NO HAS THE PATIENT BEEN EDUCATED REGARDING HIS/HER PLAN OF CARE?YES HAS THE PATIENT BEEN EDUCATED REGARDING PAIN, THE RISK FOR PAIN, THE IMPORTANCE OF EFFECTIVE PAIN MANAGEMENT, AND THE PAIN ASSESSMENT PROCESS?YES LATEX QUESTIONNAIRE LATEX ALLERGY : HAVE YOU EVER DEVELOPED ANY TYPE OF REACTION AFTER HANDLING LATEX PRODUCTS SUCH RUBBER GLOVES, CONDOMS, DIAPHRAGMS, BALLOONS, SOCKS, OR UNDERWEAR?NO LATEX ALLERGY : HAVE YOU EVER DEVELOPED ANY TYPE OF REACTION DURING OR AFTER DENTAL APPOINTMENT, VAGINAL/RECTAL EXAMINATION, SURGICAL PROCEDURE, OR ANY OTHER EXPOSURE?NO DATE ASKED : 07/05/2019 LATEX RISK : HAVE YOU EVER HAD ANY DIFFICULTY BREATHING OR HIVES AFTER EATING OR HANDLING ANY FRUITS, OR VEGETABLES; SUCH KIWI, BANANAS, STONE FRUITS, OR CHESTNUTSNO LATEX RISK : DO YOU HAVE A PREVIOUS PERSONAL HISTORY OF MORE THAN NINE SURGERIES, SPINA BIFIDA, OR REPEATED CATHERIZATIONS? YES - PLEASE INDICATE : > 9 SURGERIES LATEX RISK : ARE YOU FREQUENTLY EXPOSED TO LATEX PRODUCTS IN YOUR OCCUPATION?NO ADVANCE DIRECTIVE ADVANCE DIRECTIVE DISCUSSED WITH PATIENT:YES STATES HE DOES NOT HAVE HCP AND DECLINES INFORMATION/ASSISTANCE WITH FORM. CONFUCIANIST [id number] NONE MARITAL STATUS: . ALCOHOL SCREENING DID YOU HAVE A DRINK CONTAINING ALCOHOL IN THE PAST YEAR?NO POINTS0 INTERPRETATIONNEGATIVE HOSPITALIZATION/MAJOR DIAGNOSTIC PROCEDURE SURGERY RELATED REVIEW OF SYSTEMS REVIEWED BY: PROVIDER: SERGO GILLIS-C . CONSTITUTIONAL: ANY CHANGE IN YOUR MEDICAL CONDITION? NO . CHILLS NO . FEVER NO . INFECTION: DO YOU HAVE NEW INFECTIONS? NO . DO YOU HAVE HISTORY OF MRSA? NO . MUSCULOSKELETAL: ANY NEW PATTERNS OF PAIN OR NUMBNESS? NO . GASTROENTEROLOGY: ANY NEW CHANGE IN BOWEL CONTROL? NO . GENITOURINARY: ANY NEW CHANGE IN BLADDER CONTROL? NO . IS THERE A CHANCE YOU COULD BE ? NO . HEMATOLOGY/LYMPH: DO YOU TAKE ANY BLOOD THINNERS? (FOR EXAMPLE- COUMADIN, PLAVIX, AGGRENOX, PLATEL, PRADAXA, OR XARELTO) NO . WHEN WAS YOUR LAST DOSE? DATE: TIME: . NEUROLOGY: HAVE YOU FALLEN IN THE PAST 12 MONTHS? NO . ANY NEW EXTREMITY NUMBNESS OR WEAKNESS? NO . CARDIOLOGY: DO YOU HAVE A PACEMAKER OR DEFIBRILLATOR? NO . RESPIRATORY: HAVE YOU BEEN SICK IN THE PAST WEEK? NO . FEVER NO . FLU LIKE SYMPTOMS? NO . COUGH NO . INTEGUMENTARY: DO YOU HAVE ANY RASHES OR OPEN SORES? NO . ALLERGIC/IMMUNO: ARE YOU ALLERGIC TO IV DYE? NO . ANY NEW ALLERGIES? NO . PSYCHIATRIC: DO YOU HAVE THOUGHTS OF HURTING YOURSELF OR SOMEONE ELSE? NO . ARE YOU ABUSED, NEGLECTED, OR IN AN UNSAFE ENVIRONMENT? NO . ENDOCRINOLOGY: ARE YOU DIABETIC? NO . OTHER: DO YOU NEED ANY PRESCRIPTIONS? NO . IF YES, PLEASE LIST: ____ . ANY NEW PROBLEMS WITH YOUR MEDICATIONS? NO . WHEN DID YOU LAST EAT? ____ . WHEN DID YOU LAST DRINK? ____ . WHAT DID YOU LAST DRINK? ____ . NAME OF PERSON DRIVING YOU HOME? ____ . DO YOU HAVE ANY OTHER QUESTIONS OR CONCERNS NO . VITAL SIGNS WT 189 LBS, HT 70 IN, BMI 27.12 INDEX, BP 136/90 MM HG, HR 81 /MIN, RR 18 /MIN, TEMP 97.5 F, OXYGEN SAT % 99, SAFE IN ENV? (Y/N) YES, NA INITIALS AW 0906, REVIEWED BY: FATIMAH MENDOZA LPN. EXAMINATION GENERAL EXAMINATION: GENERALNO ACUTE DISTRESS, WELL NOURISHED AND HYDRATED. PSYCHAPPROPRIATE MOOD AND AFFECT . LUNGS:CLEAR TO AUSCULTATION BILATERALLY, NO WHEEZES, RHONCHI, RALES. HEART:NO MURMURS, REGULAR RATE AND RHYTHM. ASSESSMENTS SPONDYLOSIS WITHOUT MYELOPATHY OR RADICULOPATHY, THORACIC REGION - M47.814 (PRIMARY) TREATMENT SPONDYLOSIS WITHOUT MYELOPATHY OR RADICULOPATHY, THORACIC REGION INCREASE LYRICA CAPSULE, 100 MG, 1 CAPSULE, ORALLY, TWICE DAILY, 30 DAYS, 60 CLINICAL NOTES: 49-YEAR-OLD MALE IN FOR CHRONIC PAIN FOLLOW-UP. GIVEN PRESENTING SYMPTOMS AND RESULTS OF PHYSICAL EXAMINATION RECOMMENDED INCREASING LYRICA TO 100 MG TWICE A DAY WITH FOLLOW-UP IN ONE MONTH TO DETERMINE EFFICACY OF TREATMENT. THIS TECHNICIAN ASSISTANT DID EXAMINE BURN ON PATIENT'S KNEE AND ENCOURAGED HIM TO SPEAK WITH HIS PRIMARY CARE PROVIDER REGARDING IT IT LOOKS THOUGH IT MAY POTENTIALLY BE GETTING INFECTED. PATIENT HAS EXPRESSED UNDERSTANDING OF AND WAS IN AGREEMENT WITH TREATMENT PLAN. GIVEN TIME TO ASK QUESTIONS AND EXPRESS CONCERNS., ISTOP REGISTRY REVIEWED AND DEMONSTRATES COMPLLIANCE. (REF # [id number]) BRINGS IN MEDICATIONS WHICH IS APPROPRIATE FOR WHAT WAS DISPENSED. RECENT URINE TOXICOLOGY REVIEWED. NO UNAUTHORIZED MEDICATIONS. NO ILLICIT SUBSTANCES AND PRESCRIBED MEDICATIONS WERE PRESENT. PROCEDURE CODES [id number] ESTABILISHED PATIENT [facility] CHARGE DISPOSITION & COMMUNICATION FOLLOW UP 4 WEEKS (REASON: BACK PAIN, MEDICATION INCREASE) ELECTRONICALLY SIGNED BY CARLIN ABARCA ON 11/01/2019 AT 08:30 AM EDT DISCLAIMER : THIS IS A VISIT SUMMARY EXTRACTED FROM THE [employer] CHART. IT IS NOT A COPY OF THE [employer] PROGRESS NOTE. MARCIE
== END ==
LOC: M PAIN 09:00
PROVIDERS: ATTEND Family Medicine
DX: M47.814 Spondylosis without myelopathy or radiculopathy, thoracic region (principal); I10 Essential (primary) hypertension; E78.5 Hyperlipidemia, unspecified; F17.220 Nicotine dependence, chewing tobacco, uncomplicated; Z79.899 Other long term (current) drug therapy; Z88.2 Allergy status to sulfonamides; Z88.1 Allergy status to other antibiotic agents; Z88.5 Allergy status to narcotic agent; Z88.8 Allergy status to other drugs, medicaments and biological substances

== ENCOUNTER → 2019-11-23 | Outpatient (CLI) | payer OTHER ==
[~2019-11-23] MED LIST changes: +OXYC-1 PO; -OXYC15TA76 PO
== END ==
LOC: M LABSMTC 13:37
PROVIDERS: ATTEND Family Medicine
DX: Z11.59 Encounter for screening for other viral diseases (principal)

== ENCOUNTER → 2019-11-26 | Outpatient (CLI) | payer OTHER ==
--- NOTE | 2019-11-30 03:10 | ECWPNPC ---
PATIENT NAME: HAILY WAGNER : 1970 GENDER: MALE VISIT DATE: 11/26/2019 DISCHARGE DATE: 11/26/19 0737 VISIT LOCKED DATE TIME: PHYSICIAN: CHARY PEGUERO RESOURCE: CHARY PEGUERO REASON FOR APPOINTMENT 1. BACK PAIN, MED INCREASE HISTORY OF PRESENT ILLNESS HISTORY OF PRESENT ILLNESS: PAIN THE PATIENT DESCRIBES THE PAIN... PERMISSION REQUESTED AND RECEIVED FROM PATIENT TO PERFORM TELEPHONE VISIT. 49-YEAR-OLD MALE IN FOR CHRONIC PAIN FOLLOW-UP. HE RATES PAIN CURRENTLY AT A 7-8 OUT OF 10 AND DESCRIBES IT ACHING, STABBING, SHOOTING, AND THROBBING. HE FURTHER STATES THIS IS THE NORMAL LEVEL OF PAIN FOR HIM. AT LAST CLINIC VISIT PATIENT'S LYRICA WAS INCREASED AND HE IS UNSURE IF THIS WAS HELPFUL. FALL RISK SCREENING: SCREENING :NO FALLS REPORTED IN THE LAST YEAR CURRENT MEDICATIONS TAKING LISINOPRIL/HCTZ 10/12.5 10/12.5MG TABLET 1 TAB ORAL DAILY TAKING ATORVASTATIN CALCIUM 40 MG TABLET 1 TABLET ORALLY ONCE A DAY TAKING MULTIVITAMIN ADULT - TABLET ORALLY DAILY TAKING ROBAXIN-750 750 MG TABLET 2 TABLET ORALLY QID TAKING HYDROXYZINE HCL 50 MG TABLET 1 TABLET NEEDED ORALLY EVERY 6 HRS TAKING LYRICA 100 MG CAPSULE 1 CAPSULE ORALLY TWICE DAILY TAKING CHANTIX 1 MG TABLET DIRECTED ORALLY BID NOT-TAKING DULOXETINE HCL 30 MG CAPSULE DELAYED RELEASE PARTICLES 1 CAPSULE ORALLY WITH FOOD ONCE A DAY FOR PAIN NOT-TAKING DULOXETINE HCL 30 MG CAPSULE DELAYED RELEASE PARTICLES 1 CAPSULE ORALLY WITH FOOD ONCE A DAY FOR PAIN, NOTES: DUPLICATE NOT-TAKING OXYCODONE HCL 5 MG TABLET 1 TABLET NEEDED ORALLY FOR PAIN EVERY 12 HRS MDD2, NOTES: 01/04 1730 MEDICATION LIST REVIEWED AND RECONCILED WITH THE PATIENT PAST MEDICAL HISTORY 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 HTN HYPERLIPIDEMIA CHRONIC NECK PAIN WITH RADIATION DOWN BUE, LEFT WORSE THAN RIGHT BILATERAL KNEE PAIN, RIGHT WORSE THAN LEFT LOW BACK PAIN TINNITUS DIPAK ON CPAP SEIZURE AFTER TRAMADOL USE 2012 OR 2013 SPONDYLOSIS WITHOUT MYELOPATHY OR RADICULOPATHY, 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 PAIN - SIDE EFFECTS SURGICAL HISTORY RIGHT KNEE REPLACEMENT 2011 LEFT ORBITAL RECONSTRUCTION 1991 TONSILLECTOMY RIGHT KNEE SURGERIES-MULTIPLE SPINAL COLUMN STIMULATOR 10/2014, 12/2014 CERVICAL FUSION BY 12/12/2016 LEFT ARM SURGERY TO REMOVE A MASS- BEGIGN 04/13/2019 FAMILY HISTORY FATHER: , LUNG, LIVER, BONE CA, DIAGNOSED WITH OTHER MALIGNANT NEOPLASM OF UNSPECIFIED SITE MOTHER: ALIVE 1943 YRS, LUNG CA, HYPERTENSION, OTHER MALIGNANT NEOPLASM OF UNSPECIFIED SITE 2 BROTHER(S) , 2 SISTER(S) - HEALTHY. MRSA IN GRANDDAUGHTER OTHERWISE NO SIGNIFICANT FAMILY HISTORY NOTED. SOCIAL HISTORY GENERAL: TOBACCO USE ARE YOU A:NONSMOKER CHEWS TOBACCO - QUIT 11/18/2019 SMOKING CESSATION INFORMATION GIVEN09/06/2019 LATEX QUESTIONNAIRE LATEX ALLERGY : HAVE YOU EVER DEVELOPED ANY TYPE OF REACTION AFTER HANDLING LATEX PRODUCTS SUCH RUBBER GLOVES, CONDOMS, DIAPHRAGMS, BALLOONS, SOCKS, OR UNDERWEAR?NO LATEX ALLERGY : HAVE YOU EVER DEVELOPED ANY TYPE OF REACTION DURING OR AFTER DENTAL APPOINTMENT, VAGINAL/RECTAL EXAMINATION, SURGICAL PROCEDURE, OR ANY OTHER EXPOSURE?NO LATEX RISK : HAVE YOU EVER HAD ANY DIFFICULTY BREATHING OR HIVES AFTER EATING OR HANDLING ANY FRUITS, OR VEGETABLES; SUCH KIWI, BANANAS, STONE FRUITS, OR CHESTNUTSNO LATEX RISK : DO YOU HAVE A PREVIOUS PERSONAL HISTORY OF MORE THAN NINE SURGERIES, SPINA BIFIDA, OR REPEATED CATHERIZATIONS? YES - PLEASE INDICATE : > 9 SURGERIES LATEX RISK : ARE YOU FREQUENTLY EXPOSED TO LATEX PRODUCTS IN YOUR OCCUPATION?NO DATE ASKED : 11/26/2019 ALCOHOL SCREENING DID YOU HAVE A DRINK CONTAINING ALCOHOL IN THE PAST YEAR?NO POINTS0 INTERPRETATIONNEGATIVE RECREATIONAL DRUG USE DRUG USE?NO HIV / HEP-C SCREENING HIV TEST OFFERED TO PATIENT:YES DATE OFFERED:08/04/2017 TEST ACCEPTED:NO HEP-C TEST OFFERED TO PATIENT:NO REASON:PATIENT DECLINED SIKHISM [id number] NONE LANGUAGE BURMESE. EDUCATION LEVEL OF EDUCATION:NOT FINISHED COLLEGE LEARNING BARRIERS / SPECIAL NEEDS BARRIERS TO LEARNING?NO HEARING IMPAIRED?NO VISION IMPAIRED?YES READING GLASSES COGNITIVELY IMPAIRED?NO READINESS TO LEARN?YES LEARNING PREFERENCES?NO LEARNING CAPABILITIES PRESENT?YES EMOTIONAL BARRIERS?NO SPECIAL DEVICES?YES :CANE OCCASSIONALLY ORCHARDIST NEEDED?NO DOMESTIC VIOLENCE DO YOU FEEL SAFE IN YOUR ENVIRONMENT?YES DIET: REGULAR. EXERCISE: NO REGULAR EXERCISE. MARITAL STATUS: . NEW PATIENT PAIN DIARY TODAY'S VISITNOTES 11/26/2019 PATIENT DESCRIBES PAIN :ACHING, HAVE IT ALL THE TIME, STABBING, THROBBING FROM 0-10, WHAT LEVEL IS YOUR PAIN TODAY?8 PRECIPITATING FACTORS ACTIVITY ALLEVIATING FACTORS REST PAIN CLINIC PFS, CLERGY, PUBLIC HEALTH REFERRALS PFS REFERRAL NEEDED?NO CLERGY REFERRAL NEEDED?NO PUBLIC HEALTH REFERRAL NEEDED?NO HAS THE PATIENT BEEN EDUCATED REGARDING HIS/HER PLAN OF CARE?YES HAS THE PATIENT BEEN EDUCATED REGARDING PAIN, THE RISK FOR PAIN, THE IMPORTANCE OF EFFECTIVE PAIN MANAGEMENT, AND THE PAIN ASSESSMENT PROCESS?YES ADVANCE DIRECTIVE ADVANCE DIRECTIVE DISCUSSED WITH PATIENT:YES STATES HE DOES NOT HAVE HCP AND DECLINES INFORMATION/ASSISTANCE WITH FORM. HOSPITALIZATION/MAJOR DIAGNOSTIC PROCEDURE SURGERY RELATED REVIEW OF SYSTEMS REVIEWED BY: PROVIDER: SERGO GILLIS-Levi . CONSTITUTIONAL: ANY CHANGE IN YOUR MEDICAL CONDITION? NO . CHILLS NO . FEVER NO . INFECTION: DO YOU HAVE NEW INFECTIONS? NO . DO YOU HAVE HISTORY OF MRSA? NO . MUSCULOSKELETAL: ANY NEW PATTERNS OF PAIN OR NUMBNESS? YES, STATES LEFT ARM MIDDLE AND INDEX FINGERS BECOMING NUMB AT TIMES AND BECOMING PAINFUL . GASTROENTEROLOGY: ANY NEW CHANGE IN BOWEL CONTROL? NO . GENITOURINARY: ANY NEW CHANGE IN BLADDER CONTROL? NO . IS THERE A CHANCE YOU COULD BE ? NO . HEMATOLOGY/LYMPH: DO YOU TAKE ANY BLOOD THINNERS? (FOR EXAMPLE- COUMADIN, PLAVIX, AGGRENOX, PLATEL, PRADAXA, OR XARELTO) NO . WHEN WAS YOUR LAST DOSE? DATE: TIME: . NEUROLOGY: HAVE YOU FALLEN IN THE PAST 12 MONTHS? NO . ANY NEW EXTREMITY NUMBNESS OR WEAKNESS? NO . CARDIOLOGY: DO YOU HAVE A PACEMAKER OR DEFIBRILLATOR? NO, [facility] . RESPIRATORY: HAVE YOU BEEN SICK IN THE PAST WEEK? YES - TESTED FOR COVID THIS WEEK, TEST WAS NEGATIVE . FEVER NO . FLU LIKE SYMPTOMS? NO . COUGH NO . INTEGUMENTARY: DO YOU HAVE ANY RASHES OR OPEN SORES? YES, HEALING BURN AREA TO RIGHT KNEE FROM HEATING PAD . ALLERGIC/IMMUNO: ARE YOU ALLERGIC TO IV DYE? NO . ANY NEW ALLERGIES? NO . PSYCHIATRIC: DO YOU HAVE THOUGHTS OF HURTING YOURSELF OR SOMEONE ELSE? NO . ARE YOU ABUSED, NEGLECTED, OR IN AN UNSAFE ENVIRONMENT? NO . ENDOCRINOLOGY: ARE YOU DIABETIC? NO . OTHER: DO YOU NEED ANY PRESCRIPTIONS? YES . IF YES, PLEASE LIST: ____LYRICA . ANY NEW PROBLEMS WITH YOUR MEDICATIONS? YES, HASN'T NOTICED MUCH DIFFERENCE WITH THE INCREASE IN LYRICA - WOULD LIKE TO DISCUSS INCREASING LYRICA MORE IF POSSIBLE . WHEN DID YOU LAST EAT? ____ . WHEN DID YOU LAST DRINK? ____ . WHAT DID YOU LAST DRINK? ____ . NAME OF PERSON DRIVING YOU HOME? ____ . DO YOU HAVE ANY OTHER QUESTIONS OR CONCERNS NO . EXAMINATION GENERAL EXAMINATION: PSYCHAPPROPRIATE MOOD AND AFFECT , ORIENTED X 3. ASSESSMENTS SPONDYLOSIS WITHOUT MYELOPATHY OR RADICULOPATHY, CERVICOTHORACIC REGION - M47.813 (PRIMARY) TREATMENT SPONDYLOSIS WITHOUT MYELOPATHY OR RADICULOPATHY, CERVICOTHORACIC REGION INCREASE LYRICA CAPSULE, 100 MG, 1 CAPSULE, ORALLY, THREE TIMES DAILY, 30 DAYS, 90 CLINICAL NOTES: 49-YEAR-OLD MALE IN FOR CHRONIC PAIN FOLLOW-UP. GIVEN PRESENTING SYMPTOMS RECOMMEND INCREASING LYRICA 100 MG 3 TIMES A DAY WITH FOLLOW-UP IN 2 MONTHS TO DETERMINE EFFICACY OF TREATMENT. PATIENT HAS EXPRESSED UNDERSTANDING OF AND WAS IN AGREEMENT WITH TREATMENT PLAN. GIVEN TIME TO ASK QUESTIONS AND EXPRESS CONCERNS. , ISTOP REGISTRY REVIEWED AND DEMONSTRATES COMPLLIANCE. (REF # [id number] ) BRINGS IN MEDICATIONS WHICH IS APPROPRIATE FOR WHAT WAS DISPENSED. VISIT TO BE BILLED BASED ON TIME SPENT WITH PATIENT. TIME SPENT WITH PATIENT 11 MINUTES. OTHERS NOTES: NO VITALS OBTAINED DUE TO PHONE VISIT. DISPOSITION & COMMUNICATION FOLLOW UP 2 MONTHS (REASON: NECK PAIN) ELECTRONICALLY SIGNED BY CARLIN ABARCA ON 11/29/2019 AT 02:30 PM EDT DISCLAIMER : THIS IS A VISIT SUMMARY EXTRACTED FROM THE [employer] CHART. IT IS NOT A COPY OF THE [employer] PROGRESS NOTE. CHANTELLED
== END ==
LOC: M PAIN 11:15
PROVIDERS: ATTEND Family Medicine
DX: M47.813 Spondylosis without myelopathy or radiculopathy, cervicothoracic region (principal); G89.29 Other chronic pain; I10 Essential (primary) hypertension; G47.33 Obstructive sleep apnea (adult) (pediatric); Z96.651 Presence of right artificial knee joint; Z87.891 Personal history of nicotine dependence; Z88.1 Allergy status to other antibiotic agents; Z88.2 Allergy status to sulfonamides; Z88.5 Allergy status to narcotic agent; Z88.8 Allergy status to other drugs, medicaments and biological substances; Z79.899 Other long term (current) drug therapy

== ENCOUNTER → 2019-12-29 | Outpatient (CLI) | payer OTHER ==
--- NOTE | 2019-12-30 00:18 | ECWPNPC ---
PATIENT NAME: HAILY WAGNER : 1970 GENDER: MALE VISIT DATE: 12/29/2019 DISCHARGE DATE: 12/29/19 1443 VISIT LOCKED DATE TIME: PHYSICIAN: CHRISTINE MCKEON MD RESOURCE: CHRISTINE MCKEON MD REASON FOR APPOINTMENT 1. RIGHT KNEE HISTORY OF PRESENT ILLNESS GENERAL: 49 YEAR OLD MALE PATIENT WITH A HISTORY OF CHRONIC RIGHT KNEE PAIN. THE PATIENT DESCRIBES HIS PAIN ACHING, HAVE IT ALL THE TIME, STABBING, THROBBING WITH A PAIN SCORE OF 8-10/10 DEPENDING ON PHYSICAL ACTIVITY. THE PATIENT SAYS HIS PAIN INCREASES WITH ACTIVITIES INCLUDING WALKING AND MOVING AROUND. THE PATIENT SAYS HE HAS BEEN SUFFERING FROM HIS PAIN FOR MANY YEARS. THE PATIENT STATES HE HAD A RIGHT KNEE REPLACEMENT SURGERY DONE IN SEPTEMBER OF 2011, BUT HIS PAIN PERSISTS. PATIENT DENIES UNEXPLAINABLE WEIGHT LOSS, FEVER, CHILLS, NEW CHANGES ON HIS URINARY OR BOWEL CONTROL. FALL RISK SCREENING: SCREENING :NO FALLS REPORTED IN THE LAST YEAR PAIN SCREENING: PATIENT HAS A COMPLAINT OF ACUTE OR CHRONIC PAIN :YES 12/29/19 INTENSITY OF PAIN (SCALE OF 1 TO 10):9 PAIN IS INCREASED BY: WALKING, SITTING FOR LONG PERIODS PAIN IS DECREASED BY: NOTHI NG NURSING NOTE: -. PAIN CENTER INTAKE QUESTIONS: DO YOU HAVE A HISTORY OF MRSA? :NO DO YOU TAKE A BLOOD THINNERS? :NO DO YOU HAVE ANY BLEEDING DISORDERS? :NO ANY NEW NUMBNESS OR WEAKNESS IN YOUR LEGS OR ARMS? :YES LEFT ARM NUMBNESS ANY PACEMAKER,DEFIBRILLATOR, OR DORSAL COLUMN STIMULATOR? :YES DCS DO YOU HAVE ANY RASHES OR OPEN SORES? :NO ARE YOU ALLERGIC TO IV DYE? :NO ARE YOU DIABETIC? :NO ANY NEW PROBLEMS WITH YOUR MEDICATIONS? :NO HAVE YOU RECEIVED A VACCINE IN THE PAST 30 DAYS? :NO DO YOU PLAN TO RECEIVE A VACCINE IN THE NEXT 21 DAYS? :NO DO YOU NEED ANY PRESCRIPTION? :YES LYRICA DO YOU TAKE ANY IMMUNOSUPPRESSIVE MEDICATIONS? :NO CURRENT MEDICATIONS TAKING LISINOPRIL/HCTZ 10/12.5 10/12.5MG TABLET 1 TAB ORAL DAILY TAKING ATORVASTATIN CALCIUM 40 MG TABLET 1 TABLET ORALLY ONCE A DAY TAKING MULTIVITAMIN ADULT - TABLET ORALLY DAILY TAKING ROBAXIN-750 750 MG TABLET 2 TABLET ORALLY QID TAKING LYRICA 100 MG CAPSULE 1 CAPSULE ORALLY THREE TIMES DAILY NOT-TAKING HYDROXYZINE HCL 50 MG TABLET 1 TABLET NEEDED ORALLY EVERY 6 HRS NOT-TAKING CHANTIX 1 MG TABLET DIRECTED ORALLY BID NOT-TAKING BENZONATATE 200 MG CAPSULE 1 CAPSULE ORALLY THREE TIMES A DAY NEEDED FOR COUGH MEDICATION LIST REVIEWED AND RECONCILED WITH THE PATIENT PAST MEDICAL HISTORY 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 HTN HYPERLIPIDEMIA CHRONIC NECK PAIN WITH RADIATION DOWN BUE, LEFT WORSE THAN RIGHT BILATERAL KNEE PAIN, RIGHT WORSE THAN LEFT LOW BACK PAIN TINNITUS DIPAK ON CPAP SEIZURE AFTER TRAMADOL USE 2012 OR 2013 SPONDYLOSIS WITHOUT MYELOPATHY OR RADICULOPATHY, 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 PAIN - SIDE EFFECTS SURGICAL HISTORY RIGHT KNEE REPLACEMENT 2011 LEFT ORBITAL RECONSTRUCTION 1991 TONSILLECTOMY RIGHT KNEE SURGERIES-MULTIPLE SPINAL COLUMN STIMULATOR 10/2014, 12/2014 CERVICAL FUSION BY 12/12/2016 LEFT ARM SURGERY TO REMOVE A MASS- BEGIGN 04/13/2019 FAMILY HISTORY FATHER: , LUNG, LIVER, BONE CA, DIAGNOSED WITH OTHER MALIGNANT NEOPLASM OF UNSPECIFIED SITE MOTHER: ALIVE 1943 YRS, LUNG CA, HYPERTENSION, OTHER MALIGNANT NEOPLASM OF UNSPECIFIED SITE 2 BROTHER(S) , 2 SISTER(S) - HEALTHY. MRSA IN GRANDDAUGHTER OTHERWISE NO SIGNIFICANT FAMILY HISTORY NOTED. SOCIAL HISTORY GENERAL: TOBACCO USE ARE YOU A:NONSMOKER CHEWS TOBACCO - QUIT 11/18/2019 SMOKING CESSATION INFORMATION GIVEN09/06/2019 LATEX QUESTIONNAIRE LATEX ALLERGY : HAVE YOU EVER DEVELOPED ANY TYPE OF REACTION AFTER HANDLING LATEX PRODUCTS SUCH RUBBER GLOVES, CONDOMS, DIAPHRAGMS, BALLOONS, SOCKS, OR UNDERWEAR?NO LATEX ALLERGY : HAVE YOU EVER DEVELOPED ANY TYPE OF REACTION DURING OR AFTER DENTAL APPOINTMENT, VAGINAL/RECTAL EXAMINATION, SURGICAL PROCEDURE, OR ANY OTHER EXPOSURE?NO DATE ASKED : 11/26/2019 LATEX RISK : HAVE YOU EVER HAD ANY DIFFICULTY BREATHING OR HIVES AFTER EATING OR HANDLING ANY FRUITS, OR VEGETABLES; SUCH KIWI, BANANAS, STONE FRUITS, OR CHESTNUTSNO LATEX RISK : DO YOU HAVE A PREVIOUS PERSONAL HISTORY OF MORE THAN NINE SURGERIES, SPINA BIFIDA, OR REPEATED CATHERIZATIONS? YES - PLEASE INDICATE : > 9 SURGERIES LATEX RISK : ARE YOU FREQUENTLY EXPOSED TO LATEX PRODUCTS IN YOUR OCCUPATION?NO ALCOHOL SCREENING DID YOU HAVE A DRINK CONTAINING ALCOHOL IN THE PAST YEAR?NO POINTS0 INTERPRETATIONNEGATIVE RECREATIONAL DRUG USE DRUG USE?NO HIV / HEP-C SCREENING HIV TEST OFFERED TO PATIENT:YES DATE OFFERED:08/04/2017 TEST ACCEPTED:NO HEP-C TEST OFFERED TO PATIENT:NO REASON:PATIENT DECLINED [id number] NONE LANGUAGE LITHUANIAN. EDUCATION LEVEL OF EDUCATION:NOT FINISHED COLLEGE LEARNING BARRIERS / SPECIAL NEEDS BARRIERS TO LEARNING?NO HEARING IMPAIRED?NO VISION IMPAIRED?YES READING GLASSES COGNITIVELY IMPAIRED?NO READINESS TO LEARN?YES LEARNING PREFERENCES?NO LEARNING CAPABILITIES PRESENT?YES EMOTIONAL BARRIERS?NO SPECIAL DEVICES?YES :CANE OCCASSIONALLY MEDIA/INSTRUCTIONAL DESIGNER NEEDED?NO DOMESTIC VIOLENCE DO YOU FEEL SAFE IN YOUR ENVIRONMENT?YES DIET: REGULAR. EXERCISE: NO REGULAR EXERCISE. MARITAL STATUS: . NEW PATIENT PAIN DIARY TODAY'S VISITNOTES 11/26/2019 PATIENT DESCRIBES PAIN :ACHING, HAVE IT ALL THE TIME, STABBING, THROBBING FROM 0-10, WHAT LEVEL IS YOUR PAIN TODAY?8 PRECIPITATING FACTORS ACTIVITY ALLEVIATING FACTORS REST PAIN CLINIC PFS, CLERGY, PUBLIC HEALTH REFERRALS PFS REFERRAL NEEDED?NO CLERGY REFERRAL NEEDED?NO PUBLIC HEALTH REFERRAL NEEDED?NO HAS THE PATIENT BEEN EDUCATED REGARDING HIS/HER PLAN OF CARE?YES HAS THE PATIENT BEEN EDUCATED REGARDING PAIN, THE RISK FOR PAIN, THE IMPORTANCE OF EFFECTIVE PAIN MANAGEMENT, AND THE PAIN ASSESSMENT PROCESS?YES ADVANCE DIRECTIVE ADVANCE DIRECTIVE DISCUSSED WITH PATIENT:YES STATES HE DOES NOT HAVE HCP AND DECLINES INFORMATION/ASSISTANCE WITH FORM. HOSPITALIZATION/MAJOR DIAGNOSTIC PROCEDURE SURGERY RELATED REVIEW OF SYSTEMS CONSTITUTIONAL: ANY RECENT FEVER OR ILLNESS NO . CHILLS NO . GASTROENTEROLOGY: BOWEL INCONTINENCE NO . ANY NEW CHANGE IN BOWEL CONTROL? NO . ABDOMINAL PAIN NO . CONSTIPATION NO . GENITOURINARY: ANY NEW CHANGE IN BLADDER CONTROL? NO . IS THERE A CHANCE YOU COULD BE ? NO . URINARY INCONTINENCE NO . CARDIOLOGY: CHEST PRESSURE NO . CHEST PAIN NO . RESPIRATORY: COUGH NO . SHORTNESS OF BREATH NO . VITAL SIGNS WT 183 LBS, HT 70 IN, BMI 26.25 INDEX, BP 130/75 MM HG, HR 83 /MIN, RR 18 /MIN, TEMP 97.8 F, OXYGEN SAT % 100%, NA INITIALS AW 1351. EXAMINATION GENERAL: PATIENT IS ALERT O X 3 AND COOPERATIVE. 8-INCH SCAR PRESENT ABOVE AND MEDIAL ASPECT OF RIGHT KNEE. PATIENT ALSO HAS A HEATING PAD BURN OVER THE RIGHT SIDE OF HIS RIGHT KNEE. ASSESSMENTS PAIN IN RIGHT KNEE - M25.561 (PRIMARY) OTHER CHRONIC PAIN - G89.29 NEURALGIA - M79.2 TREATMENT PAIN IN RIGHT KNEE CONTINUE LYRICA CAPSULE, 150 MG, 1 CAPSULE, ORALLY FOR PAIN, THREE TIMES DAILY, 30 DAYS, 90, REFILLS 0 CLINICAL NOTES: WE DISCUSSED SEVERAL ISSUES WITH MR. WAGNER'S PAIN MANAGEMENT CASE. DUE TO THE KNEE PAIN AND NEURALGIA, I WOULD LIKE TO MOVE FORWARD WITH A DIAGNOSTIC KNEE BLOCK TO CONSIDER COOL RADIOFREQUENCY. WE DISCUSSED THE BENEFITS, RISKS, AND ALTERNATIVES OF THE PROCEDURE AND THE PATIENT WOULD LIKE TO PROCEED. THE PATIENT EXPERIENCED A RECENT HEATING PAD BURN OVER THE RIGHT TEMPORAL ASPECT OF HIS RIGHT KNEE, WHICH I HAVE SOME CONCERNS OF HEALING. IT WAS AGREED TO MOVE FORWARD WITH REQUESTING AUTHORIZATION FOR THE PROCEDURE AND IF ANY ISSUES DURING THE PROCEDURE DAY, WE AGREE ON HOLDING OFF THE PROCEDURE FOR ANOTHER DAY. THE PATIENT SAYS HIS LYRICA 100 MG IS NOT HELPING TO COVER HIS PAIN, THEREFORE I AM INCREASING HIS LYRICA TO 150 MG. THE PATIENT WILL HAVE A TELEMEDICINE FOLLOW UP WITH THE NURSE PRACTITIONER IN 2 WEEKS TO ADDRESS OPTIONS TO CONTROL HIS PAIN. INSTRUCTIONS WERE GIVEN, QUESTIONS WERE ANSWERED, PATIENT REPORTS UNDERSTANDING AND AGREES WITH THE PLAN. I, MARYURI INFANTE, DOCUMENTED THE ABOVE INFORMATION ACTING A SCRIBE FOR DR. MCKEON. I HAVE REVIEWED THE ABOVE DOCUMENT, WRITTEN BY MARYURI ROBLEDO AND I VERIFY THAT IT IS ACCURATE. . PROCEDURE CODES G8427 CURRENT MEDS W/DOSAGES DOCUMENTED G8730 PAIN ASSESS POS TOOL F/U PLAN DOC FA211 ESTABILISHED PATIENT [facility] CHARGE DISPOSITION & COMMUNICATION FOLLOW UP 2 WEEKS (REASON: TELEPHONE F/UP WITH SLIME PLANT OPERATOR IN 2 WEEKS; RQST AUTH DIAGNOSTIC FOR RT KNEE TO CONSIDER COOL RF IN FUTURE) ELECTRONICALLY SIGNED BY CHRISTINE MCKEON MD, MD ON 12/29/2019 AT 04:46 PM EDT DISCLAIMER : THIS IS A VISIT SUMMARY EXTRACTED FROM THE [employer] CHART. IT IS NOT A COPY OF THE [employer] PROGRESS NOTE. MTDD
== END ==
LOC: M PAIN 14:00
PROVIDERS: ATTEND Anesthesiology
DX: M25.561 Pain in right knee (principal); G89.29 Other chronic pain; M79.2 Neuralgia and neuritis, unspecified

== ENCOUNTER → 2020-01-10 | Outpatient (CLI) | payer OTHER ==
--- NOTE | 2020-01-12 01:06 | ECWPNPC ---
PATIENT NAME: HAILY WAGNER : 1970 GENDER: MALE VISIT DATE: 01/10/2020 DISCHARGE DATE: 01/10/20 1444 VISIT LOCKED DATE TIME: PHYSICIAN: CHARY PEGUERO RESOURCE: CHARY PEGUERO REASON FOR APPOINTMENT 1. TELEPHONE F/UP WITH CAR WASHER IN 2 WEEKS; RQST AUTH DIAGNOSTIC FOR RT KNEE TO CONSIDER COOL RF IN FUTURE- PAT COMPLETED HISTORY OF PRESENT ILLNESS GENERAL: - 49-YEAR-OLD MALE IN FOR CHRONIC PAIN FOLLOW-UP. AT LAST CLINIC VISIT PATIENT DISCUSSED RF PROCEDURE FOR HIS KNEE WITH DR. MCKEON. PATIENT STATES TODAY THAT THIS PROCEDURE WAS DENIED BY HIS INSURANCE COMPANY. HE RATES HIS PAIN CURRENTLY AT A 8 OUT OF 10 AND DESCRIBES IT THROBBING, SHOOTING, STABBING, SHARP, ACHING, AND CONSTANT. HE FEELS THIS INCREASED PAIN IS DUE TO INCREASED ACTIVITY OVER THE WEEKEND. FALL RISK SCREENING: SCREENING :NO FALLS REPORTED IN THE LAST YEAR PAIN SCREENING: PATIENT HAS A COMPLAINT OF ACUTE OR CHRONIC PAIN :YES LOCATION OF PAIN:MID BACK, LOW BACK INTENSITY OF PAIN (SCALE OF 1 TO 10):7 WHAT DOES YOUR PAIN FEEL LIKE:ACHING, BURNING, CONTINOUS, SHARP, STABBING DURATION:CONSTANT PAIN IS INCREASED BY:ACTIVITIES PAIN IS DECREASED BY: NOTHING MAKES IT BETTER NURSING NOTE: -. PAIN CENTER INTAKE QUESTIONS: DO YOU HAVE A HISTORY OF MRSA? :NO DO YOU TAKE A BLOOD THINNERS? :NO DO YOU HAVE ANY BLEEDING DISORDERS? :NO ANY NEW NUMBNESS OR WEAKNESS IN YOUR LEGS OR ARMS? :NO ANY PACEMAKER,DEFIBRILLATOR, OR DORSAL COLUMN STIMULATOR? :YES DORSAL COLUMN STIMULATOR- BEING REMOVED FEBRUARY 24 IN [place] DO YOU HAVE ANY RASHES OR OPEN SORES? :YES OUTSIDE RIGHT KNEE HEALING HEAT BURN FROM HEATING PAD, DR MCKEON IS AWARE OF AREA ARE YOU ALLERGIC TO IV DYE? :NO ARE YOU DIABETIC? :NO ANY NEW PROBLEMS WITH YOUR MEDICATIONS? :YES PATIENT STATES DR MCKEON INCREASED HIS LYRICA, BUT PT FEELS EVEN WITH THE INCREASE IT IS NOT WORKING FOR HIM HAVE YOU RECEIVED A VACCINE IN THE PAST 30 DAYS? :NO DO YOU PLAN TO RECEIVE A VACCINE IN THE NEXT 21 DAYS? :NO DO YOU NEED ANY PRESCRIPTION? :NO DO YOU TAKE ANY IMMUNOSUPPRESSIVE MEDICATIONS? :NO ANY HISTORY OF SEIZURES? :YES 1 SEIZURE IN 2013 RELATED TO TRAMADOL, NO SEIZURES SINCE ANY HISTORY OF CARDIAC ISSUES OR EVENTS? :NO DO YOU HAVE SLEEP APNEA? YES- CPAP. ANY RECENT HEAD INJURY? :NO IS THERE A CHANCE YOU COULD BE ? :NO ARE YOU BREAST FEEDING? :NO CURRENT MEDICATIONS TAKING LISINOPRIL/HCTZ 10/12.5 10/12.5MG TABLET 1 TAB ORAL DAILY TAKING ATORVASTATIN CALCIUM 40 MG TABLET 1 TABLET ORALLY ONCE A DAY TAKING MULTIVITAMIN ADULT - TABLET ORALLY DAILY TAKING ROBAXIN-750 750 MG TABLET 2 TABLET ORALLY QID TAKING LYRICA 150 MG CAPSULE 1 CAPSULE ORALLY FOR PAIN THREE TIMES DAILY NOT-TAKING HYDROXYZINE HCL 50 MG TABLET 1 TABLET NEEDED ORALLY EVERY 6 HRS NOT-TAKING CHANTIX 1 MG TABLET DIRECTED ORALLY BID NOT-TAKING BENZONATATE 200 MG CAPSULE 1 CAPSULE ORALLY THREE TIMES A DAY NEEDED FOR COUGH MEDICATION LIST REVIEWED AND RECONCILED WITH THE PATIENT PAST MEDICAL HISTORY 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 HTN HYPERLIPIDEMIA CHRONIC NECK PAIN WITH RADIATION DOWN BUE, LEFT WORSE THAN RIGHT BILATERAL KNEE PAIN, RIGHT WORSE THAN LEFT LOW BACK PAIN TINNITUS DIPAK ON CPAP SEIZURE AFTER TRAMADOL USE 2012 OR 2013 SPONDYLOSIS WITHOUT MYELOPATHY OR RADICULOPATHY, 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 PAIN - SIDE EFFECTS SURGICAL HISTORY RIGHT KNEE REPLACEMENT 2011 LEFT ORBITAL RECONSTRUCTION 1991 TONSILLECTOMY RIGHT KNEE SURGERIES-MULTIPLE SPINAL COLUMN STIMULATOR 10/2014, 12/2014 CERVICAL FUSION BY 12/12/2016 LEFT ARM SURGERY TO REMOVE A MASS- BEGIGN 04/13/2019 FAMILY HISTORY FATHER: , LUNG, LIVER, BONE CA, DIAGNOSED WITH OTHER MALIGNANT NEOPLASM OF UNSPECIFIED SITE MOTHER: ALIVE 1943 YRS, LUNG CA, HYPERTENSION, OTHER MALIGNANT NEOPLASM OF UNSPECIFIED SITE 2 BROTHER(S) , 2 SISTER(S) - HEALTHY. MRSA IN GRANDDAUGHTER OTHERWISE NO SIGNIFICANT FAMILY HISTORY NOTED. SOCIAL HISTORY GENERAL: TOBACCO USE ARE YOU A:NONSMOKER CHEWS TOBACCO - QUIT 11/18/2019 SMOKING CESSATION INFORMATION GIVEN09/06/2019 LATEX QUESTIONNAIRE LATEX ALLERGY : HAVE YOU EVER DEVELOPED ANY TYPE OF REACTION AFTER HANDLING LATEX PRODUCTS SUCH RUBBER GLOVES, CONDOMS, DIAPHRAGMS, BALLOONS, SOCKS, OR UNDERWEAR?NO LATEX ALLERGY : HAVE YOU EVER DEVELOPED ANY TYPE OF REACTION DURING OR AFTER DENTAL APPOINTMENT, VAGINAL/RECTAL EXAMINATION, SURGICAL PROCEDURE, OR ANY OTHER EXPOSURE?NO LATEX RISK : HAVE YOU EVER HAD ANY DIFFICULTY BREATHING OR HIVES AFTER EATING OR HANDLING ANY FRUITS, OR VEGETABLES; SUCH KIWI, BANANAS, STONE FRUITS, OR CHESTNUTSNO LATEX RISK : DO YOU HAVE A PREVIOUS PERSONAL HISTORY OF MORE THAN NINE SURGERIES, SPINA BIFIDA, OR REPEATED CATHERIZATIONS? YES - PLEASE INDICATE : > 9 SURGERIES LATEX RISK : ARE YOU FREQUENTLY EXPOSED TO LATEX PRODUCTS IN YOUR OCCUPATION?NO DATE ASKED : 01/07/2020 ALCOHOL SCREENING DID YOU HAVE A DRINK CONTAINING ALCOHOL IN THE PAST YEAR?NO POINTS0 INTERPRETATIONNEGATIVE RECREATIONAL DRUG USE DRUG USE?NO HIV / HEP-C SCREENING HIV TEST OFFERED TO PATIENT:YES DATE OFFERED:08/04/2017 TEST ACCEPTED:NO HEP-C TEST OFFERED TO PATIENT:NO REASON:PATIENT DECLINED [employer] [id number] NONE LANGUAGE ROMANSH. EDUCATION LEVEL OF EDUCATION:NOT FINISHED COLLEGE LEARNING BARRIERS / SPECIAL NEEDS BARRIERS TO LEARNING?NO HEARING IMPAIRED?NO VISION IMPAIRED?YES READING GLASSES COGNITIVELY IMPAIRED?NO READINESS TO LEARN?YES LEARNING PREFERENCES?NO LEARNING CAPABILITIES PRESENT?YES EMOTIONAL BARRIERS?NO SPECIAL DEVICES?YES :CANE OCCASSIONALLY EMPLOYEE WELLNESS/FITNESS COORDINATOR NEEDED?NO DOMESTIC VIOLENCE DO YOU FEEL SAFE IN YOUR ENVIRONMENT?YES DIET: REGULAR. EXERCISE: NO REGULAR EXERCISE. MARITAL STATUS: . PAIN CLINIC PFS, CLERGY, PUBLIC HEALTH REFERRALS PFS REFERRAL NEEDED?NO CLERGY REFERRAL NEEDED?NO PUBLIC HEALTH REFERRAL NEEDED?NO HAS THE PATIENT BEEN EDUCATED REGARDING HIS/HER PLAN OF CARE?YES HAS THE PATIENT BEEN EDUCATED REGARDING PAIN, THE RISK FOR PAIN, THE IMPORTANCE OF EFFECTIVE PAIN MANAGEMENT, AND THE PAIN ASSESSMENT PROCESS?YES ADVANCE DIRECTIVE ADVANCE DIRECTIVE DISCUSSED WITH PATIENT:YES STATES HE DOES NOT HAVE HCP AND DECLINES INFORMATION/ASSISTANCE WITH FORM. HOSPITALIZATION/MAJOR DIAGNOSTIC PROCEDURE SURGERY RELATED REVIEW OF SYSTEMS CONSTITUTIONAL: ANY RECENT FEVER OR ILLNESS NO . CHILLS NO . GASTROENTEROLOGY: BOWEL INCONTINENCE NO . ANY NEW CHANGE IN BOWEL CONTROL? NO . ABDOMINAL PAIN NO . CONSTIPATION NO . GENITOURINARY: ANY NEW CHANGE IN BLADDER CONTROL? NO . IS THERE A CHANCE YOU COULD BE ? NO . URINARY INCONTINENCE NO . CARDIOLOGY: CHEST PRESSURE NO . CHEST PAIN NO . RESPIRATORY: COUGH NO . SHORTNESS OF BREATH NO . EXAMINATION GENERAL EXAMINATION: PSYCHAPPROPRIATE MOOD AND AFFECT , ORIENTED X 3. ASSESSMENTS RIGHT KNEE PAIN, UNSPECIFIED CHRONICITY - M25.561 (PRIMARY) TREATMENT RIGHT KNEE PAIN, UNSPECIFIED CHRONICITY CLINICAL NOTES: 49-YEAR-OLD MALE IN FOR CHRONIC PAIN FOLLOW-UP. GIVEN PRESENTING SYMPTOMS RECOMMENDED DISCUSSING CASE WITH DR. MCKEON AND REVIEWING INSURANCE DENIAL. PATIENT HAS EXPRESSED UNDERSTANDING OF AND WAS IN AGREEMENT WITH TREATMENT PLAN. GIVEN TIME TO ASK QUESTIONS AND EXPRESS CONCERNS. OTHERS NOTES: 01/07/2020 1345- PRE VISIT PHONE CALL COMPLETED-VITAL SIGNS NOT OBTAINED DUE TO VIRTUAL VISIT. NLJ. DISPOSITION & COMMUNICATION FOLLOW UP 4 WEEKS (REASON: KNEE PAIN) ELECTRONICALLY SIGNED BY CARLIN ABARCA ON 01/11/2020 AT 11:41 AM EDT DISCLAIMER : THIS IS A VISIT SUMMARY EXTRACTED FROM THE [employer] CHART. IT IS NOT A COPY OF THE [employer] PROGRESS NOTE. MARCIE
== END ==
LOC: M PAIN 09:45
PROVIDERS: ATTEND Family Medicine
DX: M25.561 Pain in right knee (principal)

== ENCOUNTER → 2020-02-04 | Outpatient (CLI) | payer OTHER ==
--- NOTE | 2020-02-08 06:20 | ECWPNPC ---
PATIENT NAME: HAILY WAGNER : 1970 GENDER: MALE VISIT DATE: 02/04/2020 DISCHARGE DATE: 02/04/20 1055 VISIT LOCKED DATE TIME: PHYSICIAN: CHARY PEGUERO RESOURCE: CHARY PEGUERO REASON FOR APPOINTMENT 1. BACK HISTORY OF PRESENT ILLNESS GENERAL: 49-YEAR-OLD MALE IN FOR WORKER'S COMP. CHRONIC PAIN FOLLOW-UP. HE RATES PAIN CURRENTLY AT A 9 OUT OF 10 AND DESCRIBES IT ACHING, BURNING, SHARP, STABBING, THROBBING, SORE, AND SHOOTING. PATIENT STARTED ON IBUPROFEN PATCHES AND FEELS THAT THEY WERE BENEFICIAL. FALL RISK SCREENING: SCREENING :NO FALLS REPORTED IN THE LAST YEAR PAIN SCREENING: PATIENT HAS A COMPLAINT OF ACUTE OR CHRONIC PAIN :YES LOCATION OF PAIN: RIGHT KNEE, MID LOWER BACK INTENSITY OF PAIN (SCALE OF 1 TO 10):9 WHAT DOES YOUR PAIN FEEL LIKE:ACHING, BURNING, SHARP, STABBING, THROBBING, SORE, SHOOTING DURATION:CONTINOUS, ALL DAY PAIN IS INCREASED BY:ACTIVITIES NURSING NOTE: PT STATES HE IS HAVING ISSUES DUE TO WORKING OUTSIDE ALL DAY AND SWEATING WITH THE BUTRANS PATCH STAYING ON EVEN IF HE TAPES THEM . PAIN CENTER INTAKE QUESTIONS: DO YOU HAVE A HISTORY OF MRSA? :NO DO YOU TAKE A BLOOD THINNERS? :NO DO YOU HAVE ANY BLEEDING DISORDERS? :NO ANY NEW NUMBNESS OR WEAKNESS IN YOUR LEGS OR ARMS? :NO ANY PACEMAKER,DEFIBRILLATOR, OR DORSAL COLUMN STIMULATOR? :NO DO YOU HAVE ANY RASHES OR OPEN SORES? :NO ARE YOU ALLERGIC TO IV DYE? :NO ARE YOU DIABETIC? :NO ANY NEW PROBLEMS WITH YOUR MEDICATIONS? :NO HAVE YOU RECEIVED A VACCINE IN THE PAST 30 DAYS? :NO DO YOU PLAN TO RECEIVE A VACCINE IN THE NEXT 21 DAYS? :NO DO YOU NEED ANY PRESCRIPTION? :YES PATCHES DO YOU TAKE ANY IMMUNOSUPPRESSIVE MEDICATIONS? :NO IS THERE A CHANCE YOU COULD BE ? :NO ARE YOU BREAST FEEDING? :NO CURRENT MEDICATIONS TAKING LISINOPRIL/HCTZ 10/12.5 10/12.5MG TABLET 1 TAB ORAL DAILY TAKING ATORVASTATIN CALCIUM 40 MG TABLET 1 TABLET ORALLY ONCE A DAY TAKING MULTIVITAMIN ADULT - TABLET ORALLY DAILY TAKING ROBAXIN-750 750 MG TABLET 2 TABLET ORALLY QID TAKING BUTRANS 7.5 MCG/HR PATCH WEEKLY 1 PATCH TO SKIN TRANSDERMAL WEEKLY NOT-TAKING LYRICA 150 MG CAPSULE 1 CAPSULE ORALLY FOR PAIN THREE TIMES DAILY NOT-TAKING HYDROXYZINE HCL 50 MG TABLET 1 TABLET NEEDED ORALLY EVERY 6 HRS NOT-TAKING CHANTIX 1 MG TABLET DIRECTED ORALLY BID NOT-TAKING BENZONATATE 200 MG CAPSULE 1 CAPSULE ORALLY THREE TIMES A DAY NEEDED FOR COUGH MEDICATION LIST REVIEWED AND RECONCILED WITH THE PATIENT PAST MEDICAL HISTORY 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 HTN HYPERLIPIDEMIA CHRONIC NECK PAIN WITH RADIATION DOWN BUE, LEFT WORSE THAN RIGHT BILATERAL KNEE PAIN, RIGHT WORSE THAN LEFT LOW BACK PAIN TINNITUS DIPAK ON CPAP SEIZURE AFTER TRAMADOL USE 2012 OR 2013 SPONDYLOSIS WITHOUT MYELOPATHY OR RADICULOPATHY, 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 PAIN - SIDE EFFECTS SURGICAL HISTORY RIGHT KNEE REPLACEMENT 2011 LEFT ORBITAL RECONSTRUCTION 1991 TONSILLECTOMY RIGHT KNEE SURGERIES-MULTIPLE SPINAL COLUMN STIMULATOR 10/2014, 12/2014 CERVICAL FUSION BY 12/12/2016 LEFT ARM SURGERY TO REMOVE A MASS- BEGIGN 04/13/2019 FAMILY HISTORY FATHER: , LUNG, LIVER, BONE CA, DIAGNOSED WITH OTHER MALIGNANT NEOPLASM OF UNSPECIFIED SITE MOTHER: ALIVE 1943 YRS, LUNG CA, OTHER MALIGNANT NEOPLASM OF UNSPECIFIED SITE, HYPERTENSION 2 BROTHER(S) , 2 SISTER(S) - HEALTHY. MRSA IN GRANDDAUGHTER OTHERWISE NO SIGNIFICANT FAMILY HISTORY NOTED. SOCIAL HISTORY GENERAL: TOBACCO USE ARE YOU A:NONSMOKER CHEWS TOBACCO - QUIT 11/18/2019 SMOKING CESSATION INFORMATION GIVEN09/06/2019 LATEX QUESTIONNAIRE LATEX ALLERGY : HAVE YOU EVER DEVELOPED ANY TYPE OF REACTION AFTER HANDLING LATEX PRODUCTS SUCH RUBBER GLOVES, CONDOMS, DIAPHRAGMS, BALLOONS, SOCKS, OR UNDERWEAR?NO LATEX ALLERGY : HAVE YOU EVER DEVELOPED ANY TYPE OF REACTION DURING OR AFTER DENTAL APPOINTMENT, VAGINAL/RECTAL EXAMINATION, SURGICAL PROCEDURE, OR ANY OTHER EXPOSURE?NO DATE ASKED : 01/07/2020 LATEX RISK : HAVE YOU EVER HAD ANY DIFFICULTY BREATHING OR HIVES AFTER EATING OR HANDLING ANY FRUITS, OR VEGETABLES; SUCH KIWI, BANANAS, STONE FRUITS, OR CHESTNUTSNO LATEX RISK : DO YOU HAVE A PREVIOUS PERSONAL HISTORY OF MORE THAN NINE SURGERIES, SPINA BIFIDA, OR REPEATED CATHERIZATIONS? YES - PLEASE INDICATE : > 9 SURGERIES LATEX RISK : ARE YOU FREQUENTLY EXPOSED TO LATEX PRODUCTS IN YOUR OCCUPATION?NO ALCOHOL SCREENING DID YOU HAVE A DRINK CONTAINING ALCOHOL IN THE PAST YEAR?NO POINTS0 INTERPRETATIONNEGATIVE RECREATIONAL DRUG USE DRUG USE?NO HIV / HEP-C SCREENING HIV TEST OFFERED TO PATIENT:YES DATE OFFERED:08/04/2017 TEST ACCEPTED:NO HEP-C TEST OFFERED TO PATIENT:NO REASON:PATIENT DECLINED ORIENTAL ORTHODOX [id number] NONE LANGUAGE BENGALI. EDUCATION LEVEL OF EDUCATION:NOT FINISHED COLLEGE LEARNING BARRIERS / SPECIAL NEEDS BARRIERS TO LEARNING?NO HEARING IMPAIRED?NO VISION IMPAIRED?YES READING GLASSES COGNITIVELY IMPAIRED?NO READINESS TO LEARN?YES LEARNING PREFERENCES?NO LEARNING CAPABILITIES PRESENT?YES EMOTIONAL BARRIERS?NO SPECIAL DEVICES?YES :CANE OCCASSIONALLY MOTOR EQUIPMENT CAPTAIN NEEDED?NO DOMESTIC VIOLENCE DO YOU FEEL SAFE IN YOUR ENVIRONMENT?YES DIET: REGULAR. EXERCISE: NO REGULAR EXERCISE. MARITAL STATUS: . PAIN CLINIC PFS, CLERGY, PUBLIC HEALTH REFERRALS PFS REFERRAL NEEDED?NO CLERGY REFERRAL NEEDED?NO PUBLIC HEALTH REFERRAL NEEDED?NO HAS THE PATIENT BEEN EDUCATED REGARDING HIS/HER PLAN OF CARE?YES HAS THE PATIENT BEEN EDUCATED REGARDING PAIN, THE RISK FOR PAIN, THE IMPORTANCE OF EFFECTIVE PAIN MANAGEMENT, AND THE PAIN ASSESSMENT PROCESS?YES ADVANCE DIRECTIVE ADVANCE DIRECTIVE DISCUSSED WITH PATIENT:YES STATES HE DOES NOT HAVE HCP AND DECLINES INFORMATION/ASSISTANCE WITH FORM. HOSPITALIZATION/MAJOR DIAGNOSTIC PROCEDURE SURGERY RELATED REVIEW OF SYSTEMS CONSTITUTIONAL: ANY RECENT FEVER NO . CHILLS NO . WEIGHT CHANGE OF UNKNOWN REASONS NO . GASTROENTEROLOGY: NEW UNEXPLAINABLE CHANGES IN BOWEL CONTROL NO . CONSTIPATION NO . GENITOURINARY: ANY NEW CHANGE IN BLADDER CONTROL? NO . NEUROLOGY: NEW ONSET DIZZINESS OR NEUROLOGICAL CHANGES NOT MENTIONED NO . NEW NUMBNESS OR PAIN PATTERNS NOT MENTIONED AND PERTINENT TO TODAY'S VISIT NO . CARDIOLOGY: NEW CHEST PRESSURE NO . NEW CHEST PAIN NO . RESPIRATORY: UNEXPLAINABLE COUGH NO . NEW SHORTNESS OF BREATH NO . VITAL SIGNS WT 176 LBS, HT 70 IN, BMI 25.25 INDEX, BP 120/73 MM HG, HR 82 /MIN, RR 17 /MIN, TEMP 98.4 F, OXYGEN SAT % 98, SAFE IN ENV? (Y/N) PETERSON. CHRISTIANO JONES LPN II @ 1008. EXAMINATION GENERAL EXAMINATION: GENERALNO ACUTE DISTRESS, WELL NOURISHED AND HYDRATED. PSYCHAPPROPRIATE MOOD AND AFFECT . LUNGS:CLEAR TO AUSCULTATION BILATERALLY, NO WHEEZES, RHONCHI, RALES. HEART:NO MURMURS, REGULAR RATE AND RHYTHM. ASSESSMENTS RIGHT KNEE PAIN, UNSPECIFIED CHRONICITY - M25.561 (PRIMARY) TREATMENT RIGHT KNEE PAIN, UNSPECIFIED CHRONICITY CLINICAL NOTES: 49-YEAR-OLD MALE IN FOR WORKER'S COMP. CHRONIC PAIN FOLLOW-UP. GIVEN PRESENTING SYMPTOMS RECOMMENDED CONTINUATION OF CURRENT MEDICATION REGIMEN WITH FOLLOW-UP IN 2 MONTHS. PATIENT HAS EXPRESSED UNDERSTANDING OF AND WAS IN AGREEMENT WITH TREATMENT PLAN. GIVEN TIME TO ASK QUESTIONS AND EXPRESS CONCERNS. . OTHERS NOTES: 01/07/2020 1345- PRE VISIT PHONE CALL COMPLETED-VITAL SIGNS NOT OBTAINED DUE TO VIRTUAL VISIT. NLJ. PROCEDURE CODES FA211 ESTABILISHED PATIENT [facility] CHARGE DISPOSITION & COMMUNICATION FOLLOW UP 2 MONTHS (REASON: WORKER'S COMP. KNEE PAIN) ELECTRONICALLY SIGNED BY CARLIN ABARCA ON 02/07/2020 AT 08:04 AM EDT DISCLAIMER : THIS IS A VISIT SUMMARY EXTRACTED FROM THE [employer] CHART. IT IS NOT A COPY OF THE [employer] PROGRESS NOTE. MARCIE
== END ==
LOC: M PAIN 10:00
PROVIDERS: ATTEND Family Medicine
DX: M25.561 Pain in right knee (principal)

== ENCOUNTER → 2020-02-15 | Outpatient (CLI) | payer OTHER ==
--- NOTE | 2020-02-15 15:56 | REP ---
Clinical: Lower back pain. Technique: AP, lateral, bilateral oblique and coned-down views of the lumbosacral spine. Findings: Alignment and lordosis maintained. Vertebral bodies are intact. No acute fracture / compression injury or subluxation. Minimal degenerative changes at L5-L1 includes endplate sclerosis, facet arthropathy, and subtle 2 mm of anterolisthesis cannot be excluded. Remainder of the examination is age-appropriate. Impression: Mild focal degenerative changes at the L5-S1 level. If the patient remains symptomatic consider MRI for further investigation. Electronically Signed by Kin Luna MD 02/15/2020 03:48 P
--- NOTE | 2020-02-15 15:58 | REP ---
Clinical: thoracic back pain. Technique: AP, lateral, and swimmers views. Findings: Alignment and kyphosis is maintained. Vertebral bodies intact. No acute fracture / compression injury or subluxation. Minimal age-related degenerative changes include subtle endplate sclerosis and minimal marginal spurring. Paravertebral soft tissues are normal. Epidural stimulator extends to the mid thoracic level. Impression: Mild generalized age-related degenerative changes. Electronically Signed by Kin Luna MD 02/15/2020 03:49 P
== END ==
LOC: M RAD 15:22
PROVIDERS: ATTEND Neurological Surgery
DX: M54.5 Low back pain (principal)

== ENCOUNTER → 2020-06-19 | Outpatient (CLI) | payer OTHER | LOC: M LABSMTC 11:17 | PROVIDERS: ATTEND Family Medicine | DX: Z20.828 Contact with and (suspected) exposure to other viral communicable diseases (principal) ==

== ENCOUNTER → 2020-10-23 | Outpatient (CLI) | payer OTHER ==
[2020-10-23 09:12] LABS: BASO % 0.9 % (0.0-1.0); EOS # 0.1 10^3/uL (0.0-0.5); HEMATOCRIT 41.6 % (42.0-52.0); HEMOGLOBIN 13.8 g/dl (13.5-17.5); LYMPH # 1.4 10^3/uL (1.5-5.0); MEAN CORPUSCULAR HEMOGLOBIN 27.9 pg (27.0-33.0); MEAN CORPUSCULAR HGB CONC 33.2 g/dl (32.0-36.5); MONO # 0.5 10^3/uL (0.0-0.8); MONO % 10.8 % (2.0-8.0); NEUTROPHILS # 2.5 10^3/uL (1.5-8.5); NEUTROPHILS % 54.9 % (36.0-66.0); PLATELET COUNT, AUTOMATED 317 10^3/uL (150-450); RED BLOOD COUNT 4.95 10^6/uL (4.30-6.10); WHITE BLOOD COUNT 4.6 10^3/uL (4.0-10.0)
--- NOTE | 2020-10-23 13:04 | REP ---
INDICATION: TOTAL RT KNEE REPLACEMENT ? UNSPECIFIED JOINT/LABS FIRST. Right knee arthroplasty surgery September of 2011. COMPARISON: Comparison 3 phase bone scan of the knees October 08, 2017.. TECHNIQUE: 22.0 mCi of technetium 99 M MDP is injected and standard 3 phase imaging is acquired. FINDINGS: Anterior and posterior flow study show asymmetric hyperemia about the right knee arthroplasty components in a pattern which is identical to that seen on the October 08, 2017 prior three-phase scintigraphy. Is hyperemia is also noted on the blood pool images only slightly less avid than on the 2018 study and cyst adjacent to both the femoral, patellar, and tibial components of the arthroplasty. No focal area of hyperemia is seen. Delayed scan images demonstrate increased uptake in the bone/prosthesis interfaces on the tibiofemoral and patellofemoral components of the right knee arthroplasty. There is mild arthritic uptake in the medial compartment the left knee. Findings are essentially unchanged from the October 08, 2017 study. IMPRESSION: Diffusely increased bone prosthesis interface uptake on all 3 phases of the study. This is atypical but I am reassured by the fact that it is essentially unchanged from the October 08, 2017 study. No focal area of increased uptake is seen to suggest loosening. Infection is considered unlikely given the stability over time. <Electronically signed by Rashad Summers > 10/23/20 [id number]
== END ==
LOC: M LAB 08:03
PROVIDERS: ATTEND Orthopaedic Surgery
DX: M25.561 Pain in right knee (principal); Z96.651 Presence of right artificial knee joint; M25.30 Other instability, unspecified joint
CPT/HCPCS: 36415; 78315; 85025; 86140; A9503

== ENCOUNTER → 2021-07-11 | Outpatient (CLI) | payer OTHER ==
[~2021-07-11] MED LIST changes: +GASTROGRAFIN SOLUTION 30ML (Q9963) As Ordered ONE; +ISOVUE-370 76% 100ML VIAL As Ordered ONE
[2021-07-11 14:57] LABS: BASO % 0.8 % (0.0-1.0); EOS % 0.2 % (0.0-3.0); HEMATOCRIT 41.3 % (42.0-52.0); HEMOGLOBIN 13.8 g/dl (13.5-17.5); LYMPH # 0.9 10^3/uL (1.5-5.0); LYMPH % 17.3 % (24.0-44.0); MEAN CORPUSCULAR HEMOGLOBIN 28.7 pg (27.0-33.0); MEAN CORPUSCULAR HGB CONC 33.4 g/dl (32.0-36.5); MEAN CORPUSCULAR VOLUME 85.9 fl (80.0-96.0); MONO # 0.4 10^3/uL (0.0-0.8); MONO % 7.3 % (2.0-8.0); NEUTROPHILS # 3.9 10^3/uL (1.5-8.5); PLATELET COUNT, AUTOMATED 327 10^3/uL (150-450); RED BLOOD COUNT 4.81 10^6/uL (4.30-6.10); WHITE BLOOD COUNT 5.2 10^3/uL (4.0-10.0)
[2021-07-11 15:27] LABS: ALBUMIN 4.3 GM/DL (3.2-5.2); ALT/SGPT 51 U/L (12-78); BILIRUBIN,DIRECT 0.1 MG/DL (0.0-0.2); BLOOD UREA NITROGEN 11 MG/DL (7-18); CALCIUM LEVEL 9.2 MG/DL (8.5-10.1); CARBON DIOXIDE LEVEL 25 MEQ/L (21-32); CHLORIDE LEVEL 105 MEQ/L (98-107); CREATININE FOR GFR 1.06 MG/DL (0.70-1.30); GLOMERULAR FILTRATION RATE > 60.0 (>56); GLUCOSE, FASTING 102 MG/DL (70-100); LIPASE 77 U/L (73-393); POTASSIUM SERUM 3.9 MEQ/L (3.5-5.1); SODIUM LEVEL 140 MEQ/L (136-145); TOTAL PROTEIN 7.6 GM/DL (6.4-8.2)
--- NOTE | 2021-07-11 16:23 | REP ---
INDICATION: EPIGASTRIC PAIN, VOMITING- LABS FIRST. COMPARISON: Multiple the latest 11/10/2018 CT enterography in the latest standard CT abdomen pelvis 02/18/2018 TECHNIQUE: Standard helical technique after the intravenous administration of 100 cc Isovue 370 and oral bowel preparatory contrast administration. FINDINGS: The lung bases are clear and unchanged. The liver, gallbladder, spleen, pancreas, adrenal glands, and kidneys are unchanged. There are renal cysts status quo. There is a benign hemangioma in the lateral segment of the left lobe of the liver status quo. The abdominal aorta and para-aortic regions are unchanged. The bowel loops and the mesenteries are within normal limits. There is no evidence of a mass or adenopathy. There is no free fluid or free air. Bone window technique throughout the exam shows bilateral L5 spondylolysis with a minimal grade 1 L5 upon S1 spondylolisthesis status quo. IMPRESSION: There is no evidence of acute disease. Findings as described above. <Electronically signed by Prasad Byrne > 07/11/21 1823
== END ==
LOC: M RAD 13:38
PROVIDERS: ATTEND Physician Assistant
DX: R10.13 Epigastric pain (principal)
CPT/HCPCS: 36415; 74177; 80048; 80076; 82977; 83690; 85025; 86677; Q9963; Q9967

== ENCOUNTER → 2021-08-30 | Outpatient (CLI) | payer OTHER ==
[~2021-08-30] MED LIST changes: -GASTROGRAFIN SOLUTION 30ML (Q9963) As Ordered ONE; -ISOVUE-370 76% 100ML VIAL As Ordered ONE; -LISI10TA15 PO; +LISI10TA24 PO
== END ==
LOC: M RAD 12:09
PROVIDERS: ATTEND Physician Assistant
DX: M25.521 Pain in right elbow (principal)

== ENCOUNTER → 2021-12-03 | Outpatient (CLI) | payer OTHER ==
[2021-12-03 10:38] LABS: BASO % 0.7 % (0.0-1.0); EOS # 0.1 10^3/uL (0.0-0.5); HEMATOCRIT 39.7 % (42.0-52.0); HEMOGLOBIN 12.9 g/dl (13.5-17.5); LYMPH # 1.2 10^3/uL (1.5-5.0); LYMPH % 25.5 % (24.0-44.0); MEAN CORPUSCULAR HGB CONC 32.5 g/dl (32.0-36.5); MEAN CORPUSCULAR VOLUME 86.3 fl (80.0-96.0); MONO # 0.4 10^3/uL (0.0-0.8); MONO % 8.3 % (2.0-8.0); NEUTROPHILS # 2.9 10^3/uL (1.5-8.5); NEUTROPHILS % 63.3 % (36.0-66.0); PLATELET COUNT, AUTOMATED 323 10^3/uL (150-450); WHITE BLOOD COUNT 4.6 10^3/uL (4.0-10.0)
[2021-12-03 11:07] LABS: ALT/SGPT 32 U/L (12-78); BILIRUBIN,TOTAL 0.4 MG/DL (0.2-1.0); BLOOD UREA NITROGEN 11 MG/DL (7-18); CARBON DIOXIDE LEVEL 28 MEQ/L (21-32); CHLORIDE LEVEL 113 MEQ/L (98-107); CHOLESTEROL LEVEL 212 MG/DL (<200); CHOLESTEROL RISK RATIO 6.057 (<5); CREATININE FOR GFR 1.06 MG/DL (0.70-1.30); FREE T4 0.53 NG/DL (0.76-1.46); GLOMERULAR FILTRATION RATE > 60.0 (>56); GLUCOSE, FASTING 129 MG/DL (70-100); HDL CHOLESTEROL 35 MG/DL (>40); NON-HDL-C 177 MG/DL; POTASSIUM SERUM 4.2 MEQ/L (3.5-5.1); SODIUM LEVEL 143 MEQ/L (136-145); THYROID STIMULATING HORMONE 0.735 uIU/ML (0.358-3.740); TOTAL PROTEIN 6.6 GM/DL (6.4-8.2); TRIGLYCERIDES LEVEL 628 MG/DL (<150)
[2021-12-03 12:11] LABS: TOTAL 25(OH) VITAMIN D 24.2 NG/ML (30.0-100.0)
[2021-12-03 13:12] LABS: HEMOGLOBIN A1c 5.5 %
== END ==
LOC: M PLALAB 07:57
PROVIDERS: ATTEND Physician Assistant
DX: Z13.29 Encounter for screening for other suspected endocrine disorder (principal); Z13.220 Encounter for screening for lipoid disorders; Z12.5 Encounter for screening for malignant neoplasm of prostate; Z79.899 Other long term (current) drug therapy
CPT/HCPCS: 36415; 80053; 80061; 82306; 83036; 84439; 84443; 85025; G0103

== ENCOUNTER → 2022-01-15 | Outpatient (CLI) | payer OTHER ==
[2022-01-15 11:42] LABS: ALBUMIN 3.9 GM/DL (3.2-5.2); ALT/SGPT 41 U/L (12-78); BILIRUBIN,TOTAL 0.4 MG/DL (0.2-1.0); BLOOD UREA NITROGEN 12 MG/DL (7-18); CALCIUM LEVEL 9.2 MG/DL (8.5-10.1); CARBON DIOXIDE LEVEL 28 MEQ/L (21-32); CHLORIDE LEVEL 107 MEQ/L (98-107); CHOLESTEROL LEVEL 194 MG/DL (<200); CHOLESTEROL RISK RATIO 5.542 (<5); CREATININE FOR GFR 0.97 MG/DL (0.70-1.30); GLOMERULAR FILTRATION RATE > 60.0 (>56); GLUCOSE, FASTING 118 MG/DL (70-100); HDL CHOLESTEROL 35 MG/DL (>40); NON-HDL-C 159 MG/DL; POTASSIUM SERUM 4.7 MEQ/L (3.5-5.1); SODIUM LEVEL 143 MEQ/L (136-145); TOTAL PROTEIN 6.8 GM/DL (6.4-8.2); TRIGLYCERIDES LEVEL 443 MG/DL (<150)
== END ==
LOC: M PLALAB 08:01
PROVIDERS: ATTEND Physician Assistant
DX: E78.2 Mixed hyperlipidemia (principal)

== ENCOUNTER → 2022-05-03 | Outpatient (CLI) | payer OTHER ==
[~2022-05-03] MED LIST changes: -MAXA10TA14 PO; +RIZA10TA64 PO
[2022-05-03 11:01] LABS: ALBUMIN 4.1 GM/DL (3.2-5.2); ALT/SGPT 28 U/L (12-78); BILIRUBIN,TOTAL 0.3 MG/DL (0.2-1.0); BLOOD UREA NITROGEN 13 MG/DL (7-18); CALCIUM LEVEL 9.5 MG/DL (8.5-10.1); CARBON DIOXIDE LEVEL 28 MEQ/L (21-32); CHLORIDE LEVEL 110 MEQ/L (98-107); CHOLESTEROL LEVEL 226 MG/DL (<200); CHOLESTEROL RISK RATIO 5.255 (<5); CREATININE FOR GFR 1.09 MG/DL (0.70-1.30); GLOMERULAR FILTRATION RATE > 60.0 (>56); GLUCOSE, FASTING 122 MG/DL (70-100); HDL CHOLESTEROL 43 MG/DL (>40); LDL CHOLESTEROL 128 MG/DL (<100); NON-HDL-C 183 MG/DL; POTASSIUM SERUM 4.6 MEQ/L (3.5-5.1); SODIUM LEVEL 143 MEQ/L (136-145); TOTAL PROTEIN 7.1 GM/DL (6.4-8.2); TRIGLYCERIDES LEVEL 275 MG/DL (<150)
[2022-05-03 13:01] LABS: TOTAL 25(OH) VITAMIN D 67.2 NG/ML (30.0-100.0)
== END ==
LOC: M PLALAB 08:52
PROVIDERS: ATTEND Physician Assistant
DX: E78.2 Mixed hyperlipidemia (principal)

== ENCOUNTER → 2022-05-15 | Outpatient (CLI) | payer OTHER | LOC: M PLAIMG 10:22 | PROVIDERS: ATTEND Physician Assistant | DX: M25.512 Pain in left shoulder (principal) ==

== ENCOUNTER → 2022-08-06 | Outpatient (CLI) | payer OTHER ==
[2022-08-06 11:14] LABS: ALBUMIN 3.9 G/DL (3.2-5.2); ALKALINE PHOSPHATASE 67 U/L (46-116); ALT/SGPT 22 U/L (7.0-40); AST/SGOT 17 U/L (<34); BILIRUBIN,TOTAL 0.5 MG/DL (0.3-1.2); BLOOD UREA NITROGEN 10 MG/DL (9-23); CARBON DIOXIDE LEVEL 30 MMOL/L (20-31); CHLORIDE LEVEL 105 MMOL/L (98-107); CHOLESTEROL LEVEL 135 MG/DL (<200); CHOLESTEROL RISK RATIO 3.49 (<5); CREATININE FOR GFR 0.94 MG/DL (0.70-1.30); GLOMERULAR FILTRATION RATE > 60.0 (>56); GLUCOSE, FASTING 99 MG/DL (60-100); HDL CHOLESTEROL 38.6 MG/DL (>40); LDL CHOLESTEROL 72.8 MG/DL (<100); NON-HDL-C 96 MG/DL; POTASSIUM SERUM 4.1 MMOL/L (3.5-5.1); SODIUM LEVEL 141 MMOL/L (136-145); TOTAL PROTEIN 6.3 G/DL (5.7-8.2); TRIGLYCERIDES LEVEL 118 MG/DL (<150)
== END ==
LOC: M PLALAB 08:48
PROVIDERS: ATTEND Physician Assistant
DX: E78.2 Mixed hyperlipidemia (principal)

== ENCOUNTER 2022-11-11 10:23 | Day surgery (SDC) | payer OTHER ==
[~2022-11-11] VITALS: Ht 177.8 cm; Wt 83.4 kg
[~2022-11-11 10:23] MED LIST changes: +ATOR80TA59 PO; +HYDR-3716; +METH-1165; +MULT-90 PO; +NS 1,000 ML IV ONE; +PANT20TA6 PO
[2022-11-11] MEDS ORDERED: propofoL 200 MG/20 ML VIAL As Ordered ONE (10:54)
[2022-11-11] MEDS ORDERED: LIDOCAINE 2% 100MG/5ML SDV (FOR ANES.) As Ordered ONE (10:54)
[2022-11-11 11:50] VITALS: BP 128/78
== END 2022-11-11 11:53 | disposition home or self-care (01) ==
LOC: M OPP 10:23
PROVIDERS: ATTEND Internal Medicine Gastroenterology
DX: Z12.11 Encounter for screening for malignant neoplasm of colon (principal); K64.8 Other hemorrhoids; Z83.71 Family history of colonic polyps

== ENCOUNTER → 2023-03-17 | Outpatient (CLI) | payer OTHER ==
[~2023-03-17] MED LIST changes: -NS 1,000 ML IV ONE
[2023-03-17 14:12] LABS: BASO % 0.9 % (0.0-1.0); EOS # 0.1 10^3/uL (0.0-0.5); EOS % 1.6 % (0.0-3.0); HEMATOCRIT 42.7 % (42.0-52.0); HEMOGLOBIN 13.9 g/dl (13.5-17.5); LYMPH # 1.2 10^3/uL (1.5-5.0); LYMPH % 28.9 % (24.0-44.0); MEAN CORPUSCULAR HEMOGLOBIN 27.5 pg (27.0-33.0); MEAN CORPUSCULAR HGB CONC 32.6 g/dl (32.0-36.5); MEAN CORPUSCULAR VOLUME 84.6 fl (80.0-96.0); MONO # 0.4 10^3/uL (0.0-0.8); MONO % 9.9 % (2.0-8.0); NEUTROPHILS # 2.5 10^3/uL (1.5-8.5); NEUTROPHILS % 58.5 % (36.0-66.0); PLATELET COUNT, AUTOMATED 359 10^3/uL (150-450); RED BLOOD COUNT 5.05 10^6/uL (4.30-6.10); WHITE BLOOD COUNT 4.3 10^3/uL (4.0-10.0)
[2023-03-17 14:52] LABS: ALBUMIN 4.2 G/DL (3.2-5.2); ALKALINE PHOSPHATASE 76 U/L (46-116); ALT/SGPT 35 U/L (7.0-40); AST/SGOT 13 U/L (<34); BILIRUBIN,TOTAL 0.4 MG/DL (0.3-1.2); BLOOD UREA NITROGEN 10 MG/DL (9-23); CALCIUM LEVEL 9.3 MG/DL (8.5-10.1); CARBON DIOXIDE LEVEL 26 MMOL/L (20-31); CHLORIDE LEVEL 107 MMOL/L (98-107); CHOLESTEROL LEVEL 172 MG/DL (<200); CHOLESTEROL RISK RATIO 4.33 (<5); CPK CREATINE PHOSPHOKINASE 279 U/L (46-171); CREATININE FOR GFR 0.97 MG/DL (0.70-1.30); FREE T4 0.88 NG/DL (0.89-1.76); GLOMERULAR FILTRATION RATE > 60.0 (>56); GLUCOSE, FASTING 108 MG/DL (60-100); HDL CHOLESTEROL 39.7 MG/DL (>40); LDL CHOLESTEROL 83.9 MG/DL (<100); NON-HDL-C 132.3 MG/DL; POTASSIUM SERUM 4.9 MMOL/L (3.5-5.1); SODIUM LEVEL 143 MMOL/L (136-145); TOTAL PROTEIN 6.8 G/DL (5.7-8.2); TRIGLYCERIDES LEVEL 242 MG/DL (<150)
[2023-03-17 14:56] LABS: HEMOGLOBIN A1c 5.2 % (4.0-6.0)
== END ==
LOC: M PLALAB 08:48
PROVIDERS: ATTEND Physician Assistant
DX: Z12.5 Encounter for screening for malignant neoplasm of prostate (principal); E78.2 Mixed hyperlipidemia; I10 Essential (primary) hypertension; G47.33 Obstructive sleep apnea (adult) (pediatric)
CPT/HCPCS: 36415; 80053; 80061; 82550; 83036; 84439; 84443; 85025; G0103

== ENCOUNTER → 2023-06-24 | Outpatient (CLI) | payer OTHER ==
[2023-06-24 16:30] LABS: BASO % 0.6 % (0.0-1.0); EOS % 0.6 % (0.0-3.0); HEMATOCRIT 41.7 % (42.0-52.0); HEMOGLOBIN 13.8 g/dl (13.5-17.5); LYMPH % 18.9 % (24.0-44.0); MEAN CORPUSCULAR HEMOGLOBIN 27.5 pg (27.0-33.0); MEAN CORPUSCULAR HGB CONC 33.1 g/dl (32.0-36.5); MEAN CORPUSCULAR VOLUME 83.2 fl (80.0-96.0); MONO # 0.4 10^3/uL (0.0-0.8); MONO % 8.7 % (2.0-8.0); NEUTROPHILS # 3.6 10^3/uL (1.5-8.5); PLATELET COUNT, AUTOMATED 352 10^3/uL (150-450); RED BLOOD COUNT 5.01 10^6/uL (4.30-6.10); WHITE BLOOD COUNT 5.1 10^3/uL (4.0-10.0)
[2023-06-24 16:47] LABS: LIPASE 29 U/L (12-53)
[2023-06-24 16:49] LABS: C REACTIVE PROTEIN QUANTITATIV < 0.40 MG/DL (<1.0)
[2023-06-24 16:50] LABS: ALKALINE PHOSPHATASE 73 U/L (46-116); ALT/SGPT 25 U/L (7.0-40); AST/SGOT 13 U/L (<34); BILIRUBIN,DIRECT 0.1 MG/DL (<0.4); BILIRUBIN,TOTAL 0.4 MG/DL (0.3-1.2); BLOOD UREA NITROGEN 11 MG/DL (9-23); CALCIUM LEVEL 9.1 MG/DL (8.5-10.1); CARBON DIOXIDE LEVEL 29 MMOL/L (20-31); CHLORIDE LEVEL 104 MMOL/L (98-107); CREATININE FOR GFR 0.86 MG/DL (0.70-1.30); GLOMERULAR FILTRATION RATE > 60.0 (>56); GLUCOSE, FASTING 109 MG/DL (60-100); SODIUM LEVEL 140 MMOL/L (136-145); TOTAL PROTEIN 6.6 G/DL (5.7-8.2)
== END ==
LOC: M PLALAB 12:36
PROVIDERS: ATTEND Physician Assistant
DX: R10.811 Right upper quadrant abdominal tenderness (principal)

== ENCOUNTER → 2023-07-10 | Outpatient (CLI) | payer OTHER | LOC: M RAD 11:45 | PROVIDERS: ATTEND Physician Assistant | DX: D37.6 Neoplasm of uncertain behavior of liver, gallbladder and bile ducts (principal) | CPT/HCPCS: 78227; A9537 ==

== ENCOUNTER 2023-07-23 12:30 | Emergency (ER) | payer OTHER ==
[~2023-07-23] VITALS: Ht 177.8 cm; Wt 79.5 kg
[2023-07-23 15:18] LABS: BASO % 0.4 % (0.0-1.0); EOS % 0.3 % (0.0-3.0); HEMATOCRIT 40.4 % (42.0-52.0); LYMPH # 1.1 10^3/uL (1.5-5.0); LYMPH % 15.2 % (24.0-44.0); MEAN CORPUSCULAR HEMOGLOBIN 27.2 pg (27.0-33.0); MEAN CORPUSCULAR HGB CONC 32.2 g/dl (32.0-36.5); MEAN CORPUSCULAR VOLUME 84.5 fl (80.0-96.0); MONO # 0.4 10^3/uL (0.0-0.8); NEUTROPHILS # 5.9 10^3/uL (1.5-8.5); NEUTROPHILS % 78.8 % (36.0-66.0); PLATELET COUNT, AUTOMATED 350 10^3/uL (150-450); RED BLOOD COUNT 4.78 10^6/uL (4.30-6.10); WHITE BLOOD COUNT 7.4 10^3/uL (4.0-10.0)
[2023-07-23] MEDS ORDERED: ONDANSETRON 4MG 2ML VIAL IV ONE (15:40)
[2023-07-23] MEDS ORDERED: MORPHINE 4 MG/ML 1ML VIAL IV ONE (15:40)
[2023-07-23 15:50] LABS: LIPASE 22 U/L (12-53)
[2023-07-23 15:52] LABS: ALBUMIN 3.8 G/DL (3.2-5.2); ALKALINE PHOSPHATASE 86 U/L (46-116); ALT/SGPT 28 U/L (7.0-40); AST/SGOT 12 U/L (<34); BILIRUBIN,DIRECT < 0.1 MG/DL (<0.4); BILIRUBIN,TOTAL 0.3 MG/DL (0.3-1.2); BLOOD UREA NITROGEN 8 MG/DL (9-23); CALCIUM LEVEL 9.3 MG/DL (8.5-10.1); CARBON DIOXIDE LEVEL 29 MMOL/L (20-31); CHLORIDE LEVEL 106 MMOL/L (98-107); CREATININE FOR GFR 0.87 MG/DL (0.70-1.30); GLOMERULAR FILTRATION RATE > 60.0 (>56); GLUCOSE, FASTING 100 MG/DL (60-100); POTASSIUM SERUM 3.9 MMOL/L (3.5-5.1); SODIUM LEVEL 143 MMOL/L (136-145); TOTAL PROTEIN 6.6 G/DL (5.7-8.2)
[2023-07-23] MEDS ORDERED: KETOROLAC 30 MG/ML 1ML VIAL IV ONE (16:30)
[2023-07-23] MEDS ORDERED: ACETAMINOPHEN *IV* 1,000 MG in IV 1 EA IV ONE (16:30)
[2023-07-23] MEDS ORDERED: ACET325C5 PO (18:23)
[2023-07-23] MEDS ORDERED: NAPR-837 PO (18:23)
[2023-07-23 18:26] VITALS: BP 134/82; TEMP 97.8; O2SAT 98
== END 2023-07-23 19:01 | disposition home or self-care (01) ==
LOC: M ED 12:30
DX: R10.11 Right upper quadrant pain (principal); I10 Essential (primary) hypertension; G43.909 Migraine, unspecified, not intractable, without status migrainosus; G47.33 Obstructive sleep apnea (adult) (pediatric); F10.10 Alcohol abuse, uncomplicated; Z88.2 Allergy status to sulfonamides; Z88.5 Allergy status to narcotic agent; Z88.8 Allergy status to other drugs, medicaments and biological substances; Z79.02 Long term (current) use of antithrombotics/antiplatelets; Z79.811 Long term (current) use of aromatase inhibitors; Z79.899 Other long term (current) drug therapy
CPT/HCPCS: 80048; 80076; 83690; 85025; 93005; 96361; 96374; 96375; 99284; J0131; J1885; J2405

== ENCOUNTER → 2023-08-27 | Outpatient (CLI) | payer OTHER ==
[~2023-08-27] MED LIST changes: +ACET325C5 PO; +CARI250T PO; +E-Z-GAS II EFFERVESCENT PACKET (SODIUM BICARB./CITRIC ACID/SIMETHICONE) As Ordered ONE; +E-Z-HD 98% w/w 340GM SUSP BTL As Ordered ONE; +E-Z-PAQUE 96% w/w SUSP 176GM BTL As Ordered ONE; +NAPR-837 PO; +SUCR1TAB56 PO
== END ==
LOC: M RAD 09:21
PROVIDERS: ATTEND Surgery
DX: R11.2 Nausea with vomiting, unspecified (principal); K21.9 Gastro-esophageal reflux disease without esophagitis

== ENCOUNTER 2023-09-02 13:07 | Day surgery (SDC) | payer OTHER ==
[~2023-09-02] VITALS: Ht 177.8 cm; Wt 78.5 kg
[~2023-09-02 13:07] MED LIST changes: -E-Z-GAS II EFFERVESCENT PACKET (SODIUM BICARB./CITRIC ACID/SIMETHICONE) As Ordered ONE; -E-Z-HD 98% w/w 340GM SUSP BTL As Ordered ONE; -E-Z-PAQUE 96% w/w SUSP 176GM BTL As Ordered ONE
[2023-09-02] MEDS: NS 1,000 ML IV ONE (14:19)
[2023-09-02] MEDS ORDERED: fentaNYL 100 MCG/2 ML INJECTION As Ordered ONE (15:56)
[2023-09-02] MEDS ORDERED: propofoL 200 MG/20 ML VIAL As Ordered ONE (15:56)
[2023-09-02] MEDS ORDERED: LIDOCAINE 2% 100MG/5ML SDV (FOR ANES.) As Ordered ONE (15:56)
[2023-09-02 16:27] VITALS: BP 125/83; O2SAT 98
== END 2023-09-02 16:26 | disposition home or self-care (01) ==
LOC: M OPP 13:07
PROVIDERS: ATTEND Internal Medicine Gastroenterology
DX: K44.9 Diaphragmatic hernia without obstruction or gangrene (principal); K29.70 Gastritis, unspecified, without bleeding; B96.81 Helicobacter pylori [H. pylori] as the cause of diseases classified elsewhere; R10.9 Unspecified abdominal pain; R12 Heartburn; R11.0 Nausea; R93.3 Abnormal findings on diagnostic imaging of other parts of digestive tract; G47.30 Sleep apnea, unspecified; Z99.89 Dependence on other enabling machines and devices; Z79.02 Long term (current) use of antithrombotics/antiplatelets; Z79.1 Long term (current) use of non-steroidal anti-inflammatories (NSAID); Z79.891 Long term (current) use of opiate analgesic; Z79.899 Other long term (current) drug therapy; Z88.1 Allergy status to other antibiotic agents; Z88.2 Allergy status to sulfonamides; Z88.5 Allergy status to narcotic agent
CPT/HCPCS: 43239; 88305; J3010

== ENCOUNTER → 2024-02-02 | Outpatient (CLI) | payer OTHER | LOC: M PLAIMG 10:14 | PROVIDERS: ATTEND Physician Assistant | DX: M25.561 Pain in right knee (principal); Z96.651 Presence of right artificial knee joint ==

== ENCOUNTER → 2025-03-18 | Outpatient (REF) | payer OTHER | LOC: M LAB REF 11:24 | PROVIDERS: ATTEND Physician Assistant | DX: R19.7 Diarrhea, unspecified (principal) ==

== ENCOUNTER 2025-05-19 07:59 | Day surgery (SDC) | payer SELFPAY ==
[~2025-05-19] VITALS: Ht 177.8 cm; Wt 81.6 kg
[~2025-05-19 07:59] MED LIST changes: -METH-1165; +METH-1165 PO
[2025-05-19] MEDS ORDERED: HYDROmorphone HCL 2 MG/ML 1 ML VIAL As Ordered ONE (08:05)
[2025-05-19] MEDS ORDERED: LIDOCAINE 2% 100 MG/5 ML SDV (FOR ANES.) As Ordered ONE (08:13)
[2025-05-19] MEDS ORDERED: ACETAMINOPHEN 1000MG/100ML IV BAG As Ordered ONE (08:13)
[2025-05-19] MEDS ORDERED: MIDAZOLAM INJ 2 MG/2 ML VIAL As Ordered ONE (08:13)
[2025-05-19] MEDS ORDERED: ONDANSETRON 4MG/2ML VIAL As Ordered ONE (08:13)
[2025-05-19] MEDS ORDERED: dexAMETHasone 4 MG/ML 1 ML VIAL As Ordered ONE (08:13)
[2025-05-19] MEDS ORDERED: KETOROLAC 30 MG/ML 1 ML VIAL As Ordered ONE (08:13)
[2025-05-19] MEDS ORDERED: dexmedeTOMIDine (4 MCG/ML) 200 MCG/50 ML BTL As Ordered ONE (10:25)
[2025-05-19] MEDS ORDERED: ONDANSETRON 4MG/2ML VIAL IV PRN (11:45)
[2025-05-19] MEDS ORDERED: MIDAZOLAM INJ 2 MG/2 ML VIAL IV PRN (12:00)
[2025-05-19] MEDS ORDERED: CELE100C PO (12:02)
[2025-05-19] MEDS ORDERED: OXYC1TAB23 PO (12:02)
[2025-05-19] MEDS: HYDROMORPHONE HCL 0.5 MG/0.5 ML SYRINGE IV PRN (12:03)
[2025-05-19] MEDS ORDERED: CEFA500C2 PO (12:05)
[2025-05-19] MEDS: ROPIvacaine 0.5% 30ML VIAL PN ONE (12:11)
[2025-05-19] MEDS: dexAMETHasone 10 MG/1 ML VIAL PRES.FREE PN ONE (12:11)
[2025-05-19 13:12] VITALS: BP 123/75; TEMP 98.1; O2SAT 97
== END 2025-05-19 13:25 | disposition home or self-care (01) ==
LOC: M SDC 07:59
PROVIDERS: ATTEND Orthopaedic Surgery
DX: S46.211A Strain of muscle, fascia and tendon of other parts of biceps, right arm, initial encounter (principal); Y93.9 Activity, unspecified; I10 Essential (primary) hypertension; E78.00 Pure hypercholesterolemia, unspecified; G43.909 Migraine, unspecified, not intractable, without status migrainosus; Z79.899 Other long term (current) drug therapy; Z88.2 Allergy status to sulfonamides; Z88.5 Allergy status to narcotic agent
CPT/HCPCS: 24342; 64418; 76000; C1713; J0131; J0665; J0688; J1100; J1171; J1885; J2250; J2405; J2795; J3010

== ENCOUNTER → 2025-06-02 | Outpatient (CLI) | payer OTHER ==
[~2025-06-02] MED LIST changes: +CEFA500C2 PO; +CELE100C PO
== END ==
LOC: M SOG 10:21
PROVIDERS: ATTEND Orthopaedic Surgery
DX: S46.211D Strain of muscle, fascia and tendon of other parts of biceps, right arm, subsequent encounter (principal)